=== PATIENT | male | born 1940 | race Caucasian/White ===

== ENCOUNTER 2019-09-13 03:19 | Emergency (ER) | payer MEDICARE, OTHER ==
--- NOTE | 2019-09-13 03:21 | ED Physician Documentation ---
History of Present Illness - Stated complaint Stated Complaint: ABD PX - History obtained from History obtained from: Patient (The patient is an 79-year-old male who presents to the emergency department with a chief complaint of right lower quadrant abdominal pain with without syncope.He denies any dysuria or hematuria or flank pain he denies any history of previous abdominal surgeries. He denies taking any anticoagulants or antiplatelets. He is a diabetic. He has a history of a pacemaker as well.) Review of Systems Constitutional: reports: Reviewed and negative Eyes: reports: Reviewed and negative Ears: reports: Reviewed and negative Nose: reports: Reviewed and negative Throat: reports: Reviewed and negative Cardiac: reports: Reviewed and negative Respiratory: reports: Reviewed and negative GI: reports: Abdominal Pain : reports: Reviewed and negative Skin: reports: Reviewed and negative Musculoskeletal: reports: Reviewed and negative Neurologic: reports: Reviewed and negative Psychiatric: reports: Reviewed and negative Endocrine: reports: Reviewed and negative Immunocompromised: reports: Reviewed and negative PD PAST MEDICAL HISTORY - Past Medical History Cardiovascular: Congestive heart failure, Hypertension Endocrine/Autoimmune: Type 2 diabetes GI: GERD, Hemorrhoids, Diverticulitis Musculoskeletal: Rheumatoid arthritis - Past Surgical History Past Surgical History: Yes General: Colonoscopy Ortho: Spine surgery - Present Medications Home Medications: Ambulatory Orders Medication Instructions Recorded Confirmed Amlodipine Besylate 10 mg PO DAILY 02/17/13 09/13/19 Aspirin [Aspir 81] 81 mg PO DAILY 02/17/13 09/13/19 Carvedilol [Coreg] 12.5 mg PO BID 02/17/13 09/13/19 Folic Acid 1 mg PO DAILY 02/17/13 09/13/19 Hydralazine HCl 25 mg PO TID 02/17/13 09/13/19 Magnesium 420 mg PO DAILY 02/17/13 09/13/19 Methotrexate 2.5 mg PO .FREQ 02/17/13 09/13/19 Nitroglycerin [Nitrostat] 0.4 mg SL ONCE PRN 02/17/13 09/13/19 Omeprazole 20 mg PO BID 02/17/13 09/13/19 Potassium Chloride [Klor-Con M20] 20 meq PO BID 02/17/13 09/13/19 Acetaminophen [Tylenol] 650 mg PO DAILY 09/13/19 09/13/19 Brimonidine Tartrate/Timolol 1 drops EACHEYE BID 09/13/19 09/13/19 [Combigan 0.2%-0.5% Eye Drops] Eplerenone 12.5 mg PO DAILY 09/13/19 09/13/19 Furosemide 40 mg PO DAILY 09/13/19 09/13/19 Glimepiride 8 mg PO DAILY 09/13/19 09/13/19 Insulin Glargine [Lantus Solostar] 10 units SUBQ QPM 09/13/19 09/13/19 Krill/Om-3/Dha/Epa/Phospho/Ast 3 cap PO DAILY 09/13/19 09/13/19 [Krill Oil 500 mg Softgel] Latanoprost 0.005% Ophth Drops 1 drops EACHEYE QPM 09/13/19 09/13/19 [Xalatan Ophth Drops] Levothyroxine Sodium 150 mcg PO DAILY 09/13/19 09/13/19 Metformin HCl 1,000 mg PO BID 09/13/19 09/13/19 Red Yeast Rice 600 mg PO BID 09/13/19 09/13/19 Rituximab-Abbs [Truxima] 09/13/19 Sacubitril/Valsartan [Entresto 49 2 tab PO BID 09/13/19 09/13/19 mg-51 mg Tablet] Tamsulosin HCl [Flomax] 0.8 mg PO QPM 09/13/19 09/13/19 - Allergies Allergies/Adverse Reactions: Allergies Allergy/AdvReac Type Severity Reaction Status Date / Time [id number]-[id number] Reductase AdvReac Intermediate Cramps Verified 09/13/19 03:30 Inhibitor - Social History Does the pt smoke?: No Smoking Status: Never smoker Does the pt drink ETOH?: Yes Does the pt have substance abuse?: No - Immunizations Immunizations are current?: Yes - POLST Patient has POLST: No PD ED PE NORMAL - Vitals Vital signs reviewed: Yes - General General: Alert and oriented X 3, No acute distress, Well developed/nourished - HEENT HEENT: Atraumatic, PERRL - Neck Neck: Supple, no meningeal sign, No JVD - Cardiac Cardiac: RRR, No murmur, Strong equal pulses - Respiratory Respiratory: No respiratory distress, Clear bilaterally - Abdomen Abdomen: Normal bowel sounds, Soft, Non distended, Other (There is no midline abdominal pulsatile mass the abdomen's mildly obese he has a positive McBurney's point and positive Rovsing's negative Horton sign) - Derm Derm: Warm and dry - Extremities Extremities: No deformity - Neuro Neuro: Alert and oriented X 3 - Psych Psych: Normal mood, Normal affect Results - Vitals Vitals: Vital Signs - 24 hr 09/13/19 09/13/19 09/13/19 03:20 04:20 05:05 Temperature 36.3 C L Heart Rate 68 61 71 Respiratory 16 16 16 Rate Blood Pressure 182/67 H 163/67 H 198/70 H O2 Saturation 93 96 98 Oxygen O2 Source Room air - EKG (time done) 03:38 Rate: Other (no stemi) - Labs Labs: Laboratory Tests 09/13/19 09/13/19 09/13/19 03:43 03:43 03:43 WBC 4.5 L RBC 4.20 L Hgb 12.5 L Hct 37.8 L MCV 90.0 MCH 29.8 MCHC 33.1 RDW 14.1 Plt Count 141 MPV 10.7 Neut # (Auto) 2.9 Lymph # (Auto) 1.0 L [place] # (Auto) 0.4 Eos # (Auto) 0.1 Baso # (Auto) 0.0 Absolute Nucleated RBC 0.00 Nucleated RBC % 0.0 PT 12.2 INR 1.1 APTT 28.5 Sodium 137 Potassium 4.0 Chloride 102 Carbon Dioxide 25 Anion Gap 10.0 BUN 33 H Creatinine 1.1 Estimated GFR (MDRD) 64 L Glucose 154 H Lactic Acid Calcium 9.4 Total Bilirubin 0.9 AST 22 ALT 28 Alkaline Phosphatase 61 Total Creatine Kinase 243 Troponin I High Sens Total Protein 7.1 Albumin 4.2 Globulin 2.9 Albumin/Globulin Ratio 1.4 Lipase 25 Urine Color Urine Clarity Urine pH Ur Specific [place] Urine Protein Urine Glucose (UA) Urine Ketones Urine Occult Blood Urine Nitrite Urine Bilirubin Urine Urobilinogen Ur Leukocyte Esterase Ur Microscopic Review Urine Culture Comments 09/13/19 09/13/19 09/13/19 03:43 03:43 05:00 WBC RBC Hgb Hct MCV MCH MCHC RDW Plt Count MPV Neut # (Auto) Lymph # (Auto) [place] # (Auto) Eos # (Auto) Baso # (Auto) Absolute Nucleated RBC Nucleated RBC % PT INR APTT Sodium Potassium Chloride Carbon Dioxide Anion Gap BUN Creatinine Estimated GFR (MDRD) Glucose Lactic Acid 1.2 Calcium Total Bilirubin AST ALT Alkaline Phosphatase Total Creatine Kinase Troponin I High Sens 11.5 Total Protein Albumin Globulin Albumin/Globulin Ratio Lipase Urine Color YELLOW Urine Clarity CLEAR Urine pH 6.5 Ur Specific [place] <=1.005 Urine Protein 30 H Urine Glucose (UA) NEGATIVE Urine Ketones NEGATIVE Urine Occult Blood NEGATIVE Urine Nitrite NEGATIVE Urine Bilirubin NEGATIVE Urine Urobilinogen 0.2 (NORMAL) Ur Leukocyte Esterase NEGATIVE Ur Microscopic Review INDICATED Urine Culture Comments Not Reportable PD MEDICAL DECISION MAKING - ED course Complexity details: re-evaluated patient (05:22 patient pain free now, ct ap shows Diverticulosis otherwise unremarkable CT scan of the abdomen and pelvis with IV contrast. Labs are unremarkable, Patient's pain-free now patient will be discharged home and will follow-up with his primary care provider tomorrow.), considered differential (Appendicitis, diverticulitis, kidney stone) Departure - Departure Disposition: 01 Home, Self Care Clinical Impression: Abdominal pain Qualifiers: Abdominal location: unspecified location Qualified Code(s): R10.9 - Unspecified abdominal pain Condition: Stable Instructions: ED Abdominal Pain Unkn Cause Follow-Up: Provider,Other [Primary Care Provider] -
[2019-09-13] MEDS ORDERED: MORPHINE 2 MG/ML CARPUJECT IVP STA (03:27)
[2019-09-13] MEDS ORDERED: ONDANSETRON 4 MG/2 ML VIAL IVP STA (03:27)
[2019-09-13] MEDS ORDERED: SODIUM CHLORIDE 0.9% 1,000 ML IV ONE (03:27)
[2019-09-13 03:56] LABS: BASOPHILS % (AUTO) 0.2 %; EOSINOPHILS # (AUTO) 0.1 10^3/uL (0.0-0.7); EOSINOPHILS % (AUTO) 2.2 %; HGB - HEMOGLOBIN 12.5 g/dL (14.0-18.0); MEAN CORPUSCULAR HEMOGLOBIN 29.8 pg (27.0-31.0); MEAN CORPUSCULAR HGB CONC 33.1 g/dL (32.0-36.0); MEAN PLATELET VOLUME 10.7 fL (7.4-11.4); MONOCYTES # (AUTO) 0.4 10^3/uL (0.0-1.0); MONOCYTES % (AUTO) 9.6 %; NEUTROPHILS # (AUTO) 2.9 10^3/uL (1.5-6.6); NEUTROPHILS % (AUTO) 65.6 %; PLT - PLATELET COUNT 141 10^3/uL (130-450); RED CELL DISTRIBUTION WIDTH 14.1 % (12.0-15.0); WHITE BLOOD COUNT 4.5 x10^3/uL (4.8-10.8)
[2019-09-13 04:02] LABS: INR 1.1 (0.8-1.2); PT - PROTHROMBIN TIME 12.2 secs (9.9-12.6)
[2019-09-13] MEDS ORDERED: IOVERSOL 320 100 ML VIAL IVP ONE ×2 (04:05→04:47)
[2019-09-13 04:10] LABS: ALBUMIN 4.2 g/dL (3.2-5.5); ALBUMIN/GLOBULIN RATIO 1.4 (1.0-2.2); BILIRUBIN,TOTAL 0.9 mg/dL (0.2-1.0); CALCIUM 9.4 mg/dL (8.5-10.3); CREATININE 1.1 mg/dL (0.6-1.2); TOTAL PROTEIN 7.1 g/dL (6.7-8.2)
--- NOTE | 2019-09-13 04:13 | XRAY Report ---
Reason: sob Procedure Date: 09/13/2019 Accession Number: [id number] / [id number] Procedure: XR - Chest 1 View X-Ray CPT Code: 42557 Final Report FULL RESULT: EXAM: CHEST RADIOGRAPHY EXAM DATE: 09/13/2019 04:00 AM. CLINICAL HISTORY: Sob. COMPARISON: None. TECHNIQUE: 1 view. FINDINGS: Lungs/Pleura: Minimal linear atelectasis or scarring at the left base. No focal infiltrate, effusion, or pneumothorax. Mediastinum: Mild cardiomegaly. Other: Left subclavian pacemaker. IMPRESSION: Minimal left basilar atelectasis or scarring. RADIA
[2019-09-13 04:46] LABS: PARTIAL THROMBOPLASTIN TIME 28.5 secs (24.9-33.3)
--- NOTE | 2019-09-13 04:57 | CT Report ---
Reason: abd pain Procedure Date: 09/13/2019 Accession Number: [id number] / [id number] Procedure: CT - Abdomen/Pelvis W CPT Code: Final Report FULL RESULT: EXAM: CT ABDOMEN AND PELVIS EXAM DATE: 09/13/2019 04:45 AM. CLINICAL HISTORY: Abd pain. COMPARISONS: ABDOMEN/PELVIS W/ 10/05/2015 9:38 PM. TECHNIQUE: Routine helical CT imaging was performed through the abdomen and pelvis. IV contrast: 100 mL Optiray 320. Enteric contrast: No. Reconstructions: Coronal and sagittal. In accordance with CT protocol optimization, one or more of the following dose reduction techniques were utilized for this exam: automated exposure control, adjustment of mA and/or KV based on patient size, or use of iterative reconstructive technique. FINDINGS: Lung Bases: Unremarkable. Liver: Calcifications of previous granulomatous disease. No focal lesion. Gallbladder/Bile Ducts: Unremarkable. Spleen: Calcifications of previous granulomatous disease. Pancreas: Normal. Adrenal Glands: Normal. Kidneys: Incidental cortical cysts. No nephrolithiasis or hydronephrosis. Peritoneal Cavity/Bowel: Colonic diverticulosis, without CT evidence of diverticulitis. No free fluid, free air or adenopathy. No masses or acute inflammatory process. The appendix is well visualized and normal. Pelvic Organs: Normal. The bladder and visualized pelvic organs are within normal limits. Vasculature: Atherosclerotic calcifications. No aneurysm. Bones: Degenerative postoperative changes. Other: None. IMPRESSION: Colonic diverticulosis, without CT evidence of diverticulitis. Normal appendix. No bowel obstruction or perforation. No evident etiology for patient's pain. RADIA
[2019-09-13 05:13] LABS: BILIRUBIN,URINE NEGATIVE (NEGATIVE); CLARITY,URINE CLEAR (CLEAR); GLUCOSE, URINE (UA) NEGATIVE (NEGATIVE); KETONES,URINE (UA) NEGATIVE (NEGATIVE); LEUKOCYTE ESTERASE, URINE NEGATIVE (NEGATIVE); NITRITE,URINE NEGATIVE (NEGATIVE); OCCULT BLOOD,URINE NEGATIVE (NEGATIVE); PH,URINE 6.5 PH (5.0-7.5); PROTEIN,URINE 30 mg/dL (NEGATIVE); UROBILINOGEN,URINE 0.2 (NORMAL) E.U./dL (NORMAL)
[2019-09-13 05:25] LABS: BACTERIA,URINE None Seen /HPF (None Seen); RBC,URINE None Seen /HPF (0-5); SQUAMOUS EPITHELIAL CELL,UR RARE Squamous (<= Few)
[2019-09-13 06:16] VITALS: BP 163/70
== END 2019-09-13 06:16 | disposition home or self-care (01) ==
LOC: ED 03:19
DX: R10.9 Unspecified abdominal pain (principal); I10 Essential (primary) hypertension; E11.9 Type 2 diabetes mellitus without complications; Z79.4 Long term (current) use of insulin
CPT/HCPCS: 36415; 71045; 74177; 80053; 81001; 81003; 82550; 83605; 83690; 84484; 85025; 85610; 85730; 87086; 93005

== ENCOUNTER 2019-09-13 23:15 | Outpatient (CLI) | payer MEDICARE, OTHER | END 2019-09-13 23:59 | disposition critical access hospital (66) | LOC: EMS 23:15 | PROVIDERS: ATTEND Surgery | DX: R07.9 Chest pain, unspecified (principal); R10.9 Unspecified abdominal pain; R06.02 Shortness of breath | CPT/HCPCS: A0425; A0429 ==

== ENCOUNTER 2019-09-13 23:36 | Emergency (ER) | payer MEDICARE, OTHER ==
--- NOTE | 2019-09-13 23:24 | ED Physician Documentation ---
History of Present Illness - Stated complaint Stated Complaint: ABD PX - History obtained from History obtained from: Patient (the patient is a 79 y/o m who was presents via ems in no distress for a left sided chest pain and abdominal pain that he states is on the right side that has since resolved, he has a pacemaker, he was seen less than 24 hours ago in this ed and had a negative cxr, neg trop, neg ekg, neg CTAP w contrast, neg CBC, neg CMP, neg UA, was pain free on discharge, after he ate dinner tonight he begain belching heavily and called 911. he denies syncope, fevers or cough. the patient reports that he has no symptoms currently.) Review of Systems Constitutional: reports: Reviewed and negative Eyes: reports: Reviewed and negative Ears: reports: Reviewed and negative Nose: reports: Reviewed and negative Throat: reports: Reviewed and negative Cardiac: reports: Chest pain / pressure Respiratory: reports: Reviewed and negative GI: reports: Abdominal Pain, Nausea, Other (belching) : reports: Reviewed and negative Skin: reports: Reviewed and negative Musculoskeletal: reports: Reviewed and negative Neurologic: reports: Reviewed and negative Psychiatric: reports: Reviewed and negative Endocrine: reports: Reviewed and negative Immunocompromised: reports: Reviewed and negative PD PAST MEDICAL HISTORY - Present Medications Home Medications: Ambulatory Orders Medication Instructions Recorded Confirmed Amlodipine Besylate 10 mg PO DAILY 02/17/13 09/13/19 Aspirin [Aspir 81] 81 mg PO DAILY 02/17/13 09/13/19 Carvedilol [Coreg] 12.5 mg PO BID 02/17/13 09/13/19 Folic Acid 1 mg PO DAILY 02/17/13 09/13/19 Hydralazine HCl 25 mg PO TID 02/17/13 09/13/19 Magnesium 420 mg PO DAILY 02/17/13 09/13/19 Methotrexate 2.5 mg PO .FREQ 02/17/13 09/13/19 Nitroglycerin [Nitrostat] 0.4 mg SL ONCE PRN 02/17/13 09/13/19 Omeprazole 20 mg PO BID 02/17/13 09/13/19 Potassium Chloride [Klor-Con M20] 20 meq PO BID 02/17/13 09/13/19 Acetaminophen [Tylenol] 650 mg PO DAILY 09/13/19 09/13/19 Brimonidine Tartrate/Timolol 1 drops EACHEYE BID 09/13/19 09/13/19 [Combigan 0.2%-0.5% Eye Drops] Eplerenone 12.5 mg PO DAILY 09/13/19 09/13/19 Furosemide 40 mg PO DAILY 09/13/19 09/13/19 Glimepiride 8 mg PO DAILY 09/13/19 09/13/19 Insulin Glargine [Lantus Solostar] 10 units SUBQ QPM 09/13/19 09/13/19 Krill/Om-3/Dha/Epa/Phospho/Ast 3 cap PO DAILY 09/13/19 09/13/19 [Krill Oil 500 mg Softgel] Latanoprost 0.005% Ophth Drops 1 drops EACHEYE QPM 09/13/19 09/13/19 [Xalatan Ophth Drops] Levothyroxine Sodium 150 mcg PO DAILY 09/13/19 09/13/19 Metformin HCl 1,000 mg PO BID 09/13/19 09/13/19 Red Yeast Rice 600 mg PO BID 09/13/19 09/13/19 Rituximab-Abbs [Truxima] 09/13/19 Sacubitril/Valsartan [Entresto 49 2 tab PO BID 09/13/19 09/13/19 mg-51 mg Tablet] Tamsulosin HCl [Flomax] 0.8 mg PO QPM 09/13/19 09/13/19 - Allergies Allergies/Adverse Reactions: Allergies Allergy/AdvReac Type Severity Reaction Status Date / Time [id number] Reductase AdvReac Intermediate Cramps Verified 09/13/19 23:48 Inhibitor PD ED PE NORMAL - Vitals Vital signs reviewed: Yes - General General: Alert and oriented X 3, No acute distress, Well developed/nourished - HEENT HEENT: PERRL - Neck Neck: Supple, no meningeal sign - Cardiac Cardiac: RRR, No murmur, Strong equal pulses - Respiratory Respiratory: No respiratory distress, Clear bilaterally - Abdomen Abdomen: Normal bowel sounds, Soft, Non tender, Non distended, No organomegaly - Back Back: No CVA TTP, No spinal TTP - Derm Derm: Normal color, Warm and dry, No rash - Extremities Extremities: No deformity, No tenderness to palpate, Normal ROM s pain, No edema, No calf tenderness / cord - Neuro Neuro: Alert and oriented X 3, station cashier 2-12 intact, No motor deficit, No sensory deficit, Normal speech - Psych Psych: Normal mood, Normal affect Results - Vitals Vitals: Vital Signs - 24 hr 09/13/19 09/14/19 09/14/19 23:38 00:24 00:42 Temperature 37 C Heart Rate 69 63 60 Respiratory 18 15 20 Rate Blood Pressure 173/78 H 163/64 H 151/64 H O2 Saturation 98 98 96 09/14/19 09/14/19 01:28 02:03 Temperature Heart Rate 61 62 Respiratory 15 15 Rate Blood Pressure 155/62 H 155/70 H O2 Saturation 98 96 Oxygen O2 Source Room air - EKG (time done) 00:10 Rate: Other (no stemi) - Labs Labs: Laboratory Tests 09/13/19 09/13/19 09/13/19 00:10 00:10 00:10 WBC 5.2 RBC 4.30 L Hgb 12.7 L Hct 38.7 L MCV 90.0 MCH 29.5 MCHC 32.8 RDW 14.2 Plt Count 156 MPV 10.5 Neut # (Auto) 3.6 Lymph # (Auto) 1.0 L [place] # (Auto) 0.5 Eos # (Auto) 0.1 Baso # (Auto) 0.0 Absolute Nucleated RBC 0.00 Nucleated RBC % 0.0 PT 12.3 INR 1.1 APTT 27.7 Sodium 138 Potassium 4.0 Chloride 103 Carbon Dioxide 26 Anion Gap 9.0 BUN 31 H Creatinine 1.2 Estimated GFR (MDRD) 58 L Glucose 134 H Lactic Acid Calcium 9.3 Total Bilirubin 0.9 AST 22 ALT 25 Alkaline Phosphatase 65 Troponin I High Sens B-Natriuretic Peptide Total Protein 7.5 Albumin 4.4 Globulin 3.1 Albumin/Globulin Ratio 1.4 Lipase 26 Urine Color Urine Clarity Urine pH Ur Specific [place] Urine Protein Urine Glucose (UA) Urine Ketones Urine Occult Blood Urine Nitrite Urine Bilirubin Urine Urobilinogen Ur Leukocyte Esterase Urine RBC Urine WBC Ur Squamous Epith Cells Urine Bacteria Ur Microscopic Review Urine Culture Comments 09/13/19 09/13/19 09/13/19 00:10 00:10 00:10 WBC RBC Hgb Hct MCV MCH MCHC RDW Plt Count MPV Neut # (Auto) Lymph # (Auto) [place] # (Auto) Eos # (Auto) Baso # (Auto) Absolute Nucleated RBC Nucleated RBC % PT INR APTT Sodium Potassium Chloride Carbon Dioxide Anion Gap BUN Creatinine Estimated GFR (MDRD) Glucose Lactic Acid 1.0 Calcium Total Bilirubin AST ALT Alkaline Phosphatase Troponin I High Sens 11.2 B-Natriuretic Peptide 61 Total Protein Albumin Globulin Albumin/Globulin Ratio Lipase Urine Color Urine Clarity Urine pH Ur Specific [place] Urine Protein Urine Glucose (UA) Urine Ketones Urine Occult Blood Urine Nitrite Urine Bilirubin Urine Urobilinogen Ur Leukocyte Esterase Urine RBC Urine WBC Ur Squamous Epith Cells Urine Bacteria Ur Microscopic Review Urine Culture Comments 09/14/19 00:00 WBC RBC Hgb Hct MCV MCH MCHC RDW Plt Count MPV Neut # (Auto) Lymph # (Auto) [place] # (Auto) Eos # (Auto) Baso # (Auto) Absolute Nucleated RBC Nucleated RBC % PT INR APTT Sodium Potassium Chloride Carbon Dioxide Anion Gap BUN Creatinine Estimated GFR (MDRD) Glucose Lactic Acid Calcium Total Bilirubin AST ALT Alkaline Phosphatase Troponin I High Sens B-Natriuretic Peptide Total Protein Albumin Globulin Albumin/Globulin Ratio Lipase Urine Color YELLOW Urine Clarity CLEAR Urine pH 6.5 Ur Specific [place] <=1.005 Urine Protein 100 H Urine Glucose (UA) NEGATIVE Urine Ketones NEGATIVE Urine Occult Blood NEGATIVE Urine Nitrite NEGATIVE Urine Bilirubin NEGATIVE Urine Urobilinogen 0.2 (NORMAL) Ur Leukocyte Esterase NEGATIVE Urine RBC None Seen Urine WBC 0-3 Ur Squamous Epith Cells NONE SEEN Urine Bacteria None Seen Ur Microscopic Review INDICATED Urine Culture Comments NOT INDICATED PD MEDICAL DECISION MAKING - ED course Complexity details: reviewed old records, reviewed results, re-evaluated patient, considered differential (unsure of patients etiology of symptoms, he had a complete workup less than 24 hours ago and he called 911 to come back to the er and currently he has no complaints. his repeat ekg, repeat cxr, lab work, formal US are all unremarkable, he is asymptomatic at this time and has follow up today with his pcp, patient updated and is agreeable to f/u as an outpatient, patient educated and updated on all testing and would like to be dcd home at this time. ), d/w patient Departure - Departure Disposition: 01 Home, Self Care Clinical Impression: Abdominal pain Qualifiers: Abdominal location: unspecified location Qualified Code(s): R10.9 - Unspecified abdominal pain Condition: Stable Follow-Up: Tosin Knapp MD [Primary Care Provider] - 09/14/19 Comments: call your doctor today. Discharge Date/Time: 09/14/19 02:21
[2019-09-14] MEDS ORDERED: FAMOTIDINE 20 MG/2 ML VIAL ONE (00:05)
[2019-09-14] MEDS: FAMOTIDINE 20 MG/2 ML VIAL IVP STA (00:07)
[2019-09-14] MEDS: diphenhydrAMINE ELIXIR 25 MG/10 ML UDC PO STA (00:13)
[2019-09-14] MEDS: MAG HYDROX/AL HYDROX/SIMETH 30 ML UDC PO STA (00:14)
[2019-09-14] MEDS: LIDOCAINE VISCOUS 2% 15 ML UDC MM STA (00:14)
[2019-09-14 00:21] LABS: BASOPHILS % (AUTO) 0.4 %; EOSINOPHILS # (AUTO) 0.1 10^3/uL (0.0-0.7); EOSINOPHILS % (AUTO) 1.9 %; HGB - HEMOGLOBIN 12.7 g/dL (14.0-18.0); LYMPHOCYTES % (AUTO) 18.5 %; MEAN CORPUSCULAR HEMOGLOBIN 29.5 pg (27.0-31.0); MEAN CORPUSCULAR HGB CONC 32.8 g/dL (32.0-36.0); MEAN PLATELET VOLUME 10.5 fL (7.4-11.4); MONOCYTES # (AUTO) 0.5 10^3/uL (0.0-1.0); MONOCYTES % (AUTO) 9.6 %; NEUTROPHILS # (AUTO) 3.6 10^3/uL (1.5-6.6); NEUTROPHILS % (AUTO) 69.4 %; PLT - PLATELET COUNT 156 10^3/uL (130-450); RED CELL DISTRIBUTION WIDTH 14.2 % (12.0-15.0); WHITE BLOOD COUNT 5.2 x10^3/uL (4.8-10.8)
[2019-09-14 00:28] LABS: INR 1.1 (0.8-1.2); PT - PROTHROMBIN TIME 12.3 secs (9.9-12.6)
[2019-09-14] MEDS: GI COCKTAIL 120 ML BOTTLE PO ONE (00:28)
[2019-09-14 00:33] LABS: BILIRUBIN,URINE NEGATIVE (NEGATIVE); GLUCOSE, URINE (UA) NEGATIVE (NEGATIVE); KETONES,URINE (UA) NEGATIVE (NEGATIVE); LEUKOCYTE ESTERASE, URINE NEGATIVE (NEGATIVE); NITRITE,URINE NEGATIVE (NEGATIVE); OCCULT BLOOD,URINE NEGATIVE (NEGATIVE); PH,URINE 6.5 PH (5.0-7.5); PROTEIN,URINE 100 mg/dL (NEGATIVE); UROBILINOGEN,URINE 0.2 (NORMAL) E.U./dL (NORMAL)
[2019-09-14 00:33] LABS: ALBUMIN 4.4 g/dL (3.2-5.5); ALBUMIN/GLOBULIN RATIO 1.4 (1.0-2.2); BILIRUBIN,TOTAL 0.9 mg/dL (0.2-1.0); CALCIUM 9.3 mg/dL (8.5-10.3); CREATININE 1.2 mg/dL (0.6-1.2); TOTAL PROTEIN 7.5 g/dL (6.7-8.2)
[2019-09-14 00:35] LABS: PARTIAL THROMBOPLASTIN TIME 27.7 secs (24.9-33.3)
[2019-09-14 00:35] LABS: CLARITY,URINE CLEAR (CLEAR)
[2019-09-14 00:40] LABS: BACTERIA,URINE None Seen /HPF (None Seen); RBC,URINE None Seen /HPF (0-5); SQUAMOUS EPITHELIAL CELL,UR NONE SEEN (<= Few)
--- NOTE | 2019-09-14 01:34 | XRAY Report ---
Reason: cp Procedure Date: 09/14/2019 Accession Number: [id number] / [id number] Procedure: XR - Chest 1 View X-Ray CPT Code: 85931 Final Report FULL RESULT: EXAM: CHEST RADIOGRAPHY EXAM DATE: 09/14/2019 12:35 AM. CLINICAL HISTORY: Cp. COMPARISON: CHEST 1 VIEW 09/13/2019 3:38 AM. TECHNIQUE: 1 view. FINDINGS: Lungs/Pleura: No focal opacities evident. No pleural effusion. No pneumothorax. Mediastinum: Within exam limitations, the cardiomediastinal contour is normal. Other: Stable pacemaker. IMPRESSION: No evidence of acute cardiopulmonary disease. RADIA
[2019-09-14 02:03] VITALS: BP 155/70
--- NOTE | 2019-09-14 02:10 | Ultrasound Report ---
Reason: RUQ ABD PAIN Procedure Date: 09/14/2019 Accession Number: [id number] / [id number] Procedure: US - Abdomen Limited CPT Code: Final Report FULL RESULT: EXAM: ABDOMEN ULTRASOUND LIMITED, RUQ EXAM DATE: 09/14/2019 01:34 AM. CLINICAL HISTORY: RUQ ABD PAIN. COMPARISON: CT, 09/13/2019. TECHNIQUE: Real-time scanning was performed with static images obtained. FINDINGS: Liver: Echogenic, consistent with fatty infiltration. 21.5 cm. Main portal vein flow: Hepatopetal. Gallbladder: No stones are seen in the gallbladder. Wall thickness is upper normal. Tenderness over the gallbladder. Biliary System: CBD measures 6 mm. No intrahepatic or extrahepatic ductal dilatation. Other: Right kidney measures 13.5 cm. No hydronephrosis seen. Renal cyst measuring 1.4 x 1.0 cm. Pancreas is not well seen. IMPRESSION: 1. No cholelithiasis or definite cholecystitis identified. There is some tenderness over the gallbladder of uncertain significance. 2. Enlarged fatty liver. RADIA
== END 2019-09-14 02:21 | disposition home or self-care (01) ==
LOC: EDUNIT# → ED 23:36
DX: R10.9 Unspecified abdominal pain (principal); I10 Essential (primary) hypertension; E11.9 Type 2 diabetes mellitus without complications; Z79.4 Long term (current) use of insulin
CPT/HCPCS: 36415; 71045; 74177; 76705; 80053; 81001; 82550; 83605; 83690; 83880; 84484; 85025; 85610; 85730; 93005; 96374; A9270; Q9967; 81003; 87086

== ENCOUNTER 2019-09-19 18:52 | Outpatient (CLI) | payer MEDICARE, OTHER | END 2019-09-19 18:53 | disposition critical access hospital (66) | LOC: EMS 18:52 | PROVIDERS: ATTEND Surgery | DX: R03.0 Elevated blood-pressure reading, without diagnosis of hypertension (principal); R07.9 Chest pain, unspecified | CPT/HCPCS: A0425; A0429 ==

== ENCOUNTER 2019-09-19 19:14 | Emergency (ER) | payer MEDICARE, OTHER ==
--- NOTE | 2019-09-19 19:24 | ED Physician Documentation ---
PD HPI CHEST PAIN - Stated complaint Stated Complaint: HTN, CP - History obtained from History obtained from: Patient - History of Present Illness Timing - onset: Other (79-year-old gentleman with history of I guess ischemic cardiomyopathy. He says he has had a heart attack but no stents or bypass. At one point he says his ejection fraction was 35% but subsequently improved on medications but he does not know to what. He does have an AICD in place. He noted that his blood pressure was quite high overnight last night. Up over around 200/100 despite taking his medications. There was some mild chest pressure with this and some pitting edema. Denies shortness of breath. Currently he has no pain. He never had such severe pain. Never had pain radiating to the back.) Review of Systems Ten Systems: 10 systems reviewed and negative Constitutional: denies: Fever, Chills Throat: denies: Dental pain / toothache, Sore throat Cardiac: reports: Chest pain / pressure, Pedal edema. denies: Palpitations, Calf pain Respiratory: denies: Dyspnea, Cough PD PAST MEDICAL HISTORY - Past Medical History Cardiovascular: Congestive heart failure, Hypertension Respiratory: None Neuro: None Endocrine/Autoimmune: Type 2 diabetes, HyPOthyroidism GI: GERD, Hemorrhoids, Diverticulitis : Benign prostate hypertrophy HEENT: None Psych: None Musculoskeletal: Rheumatoid arthritis Derm: None - Past Surgical History Past Surgical History: Yes General: Colonoscopy Ortho: Spine surgery Cardiovascular: Pacemaker Derm: Skin cancer surgery - Present Medications Home Medications: Ambulatory Orders Medication Instructions Recorded Confirmed Amlodipine Besylate 10 mg PO DAILY 02/17/13 09/13/19 Aspirin [Aspir 81] 81 mg PO DAILY 02/17/13 09/13/19 Carvedilol [Coreg] 12.5 mg PO BID 02/17/13 09/13/19 Folic Acid 1 mg PO DAILY 02/17/13 09/13/19 Hydralazine HCl 25 mg PO TID 02/17/13 09/13/19 Magnesium 420 mg PO DAILY 02/17/13 09/13/19 Methotrexate 2.5 mg PO .FREQ 02/17/13 09/13/19 Nitroglycerin [Nitrostat] 0.4 mg SL ONCE PRN 02/17/13 09/13/19 Omeprazole 20 mg PO BID 02/17/13 09/13/19 Potassium Chloride [Klor-Con M20] 20 meq PO BID 02/17/13 09/13/19 Acetaminophen [Tylenol] 650 mg PO DAILY 09/13/19 09/13/19 Brimonidine Tartrate/Timolol 1 drops EACHEYE BID 09/13/19 09/13/19 [Combigan 0.2%-0.5% Eye Drops] Eplerenone 12.5 mg PO DAILY 09/13/19 09/13/19 Furosemide 40 mg PO DAILY 09/13/19 09/13/19 Glimepiride 8 mg PO DAILY 09/13/19 09/13/19 Insulin Glargine [Lantus Solostar] 10 units SUBQ QPM 09/13/19 09/13/19 Krill/Om-3/Dha/Epa/Phospho/Ast 3 cap PO DAILY 09/13/19 09/13/19 [Krill Oil 500 mg Softgel] Latanoprost 0.005% Ophth Drops 1 drops EACHEYE QPM 09/13/19 09/13/19 [Xalatan Ophth Drops] Levothyroxine Sodium 150 mcg PO DAILY 09/13/19 09/13/19 Metformin HCl 1,000 mg PO BID 09/13/19 09/13/19 Red Yeast Rice 600 mg PO BID 09/13/19 09/13/19 Rituximab-Abbs [Truxima] 09/13/19 Sacubitril/Valsartan [Entresto 49 2 tab PO BID 09/13/19 09/13/19 mg-51 mg Tablet] Tamsulosin HCl [Flomax] 0.8 mg PO QPM 09/13/19 09/13/19 Nitroglycerin 0.4 mg SL Q5M PRN #1 bot 09/19/19 cloNIDine HCL [Clonidine HCl] 0.1 mg PO BID PRN #30 tablet 09/19/19 - Allergies Allergies/Adverse Reactions: Allergies Allergy/AdvReac Type Severity Reaction Status Date / Time Mwhyaeh-Iis-Agh Reductase AdvReac Intermediate Cramps Verified 09/13/19 23:48 Inhibitor - Social History Does the pt smoke?: No Smoking Status: Never smoker Does the pt drink ETOH?: Yes Does the pt have substance abuse?: No - Immunizations Immunizations are current?: Yes - POLST Patient has POLST: No PD ED PE NORMAL - Vitals Vital signs reviewed: Yes - General General: Alert and oriented X 3, No acute distress - HEENT HEENT: PERRL, EOMI - Neck Neck: Supple, no meningeal sign, No bony TTP - Cardiac Cardiac: RRR, No murmur - Respiratory Respiratory: No respiratory distress, Clear bilaterally - Abdomen Abdomen: Non tender - Back Back: No CVA TTP, No spinal TTP - Extremities Extremities: Other (Trace pitting pedal edema at the ankles) - Neuro Neuro: Alert and oriented X 3, Normal speech Results - Vitals Vitals: Vital Signs - 24 hr 09/19/19 09/19/19 09/19/19 19:20 20:00 20:36 Temperature 36.7 C Heart Rate 66 67 65 Respiratory 18 16 16 Rate Blood Pressure 186/77 H 147/64 H 156/68 H O2 Saturation 97 97 97 Oxygen O2 Source Room air - EKG (time done) 1916 Rate: Rate (enter#) (70) Rhythm: Paced (Ventricular) - Labs Labs: Laboratory Tests 09/19/19 09/19/19 09/19/19 19:25 19:45 19:45 WBC 5.8 RBC 4.42 L Hgb 12.9 L Hct 39.3 L MCV 88.9 MCH 29.2 MCHC 32.8 RDW 14.1 Plt Count 174 MPV 10.8 Neut # (Auto) 4.2 Lymph # (Auto) 1.1 L [place] # (Auto) 0.4 Eos # (Auto) 0.1 Baso # (Auto) 0.0 Absolute Nucleated RBC 0.00 Nucleated RBC % 0.0 PT INR Sodium 133 L Potassium 3.7 Chloride 103 Carbon Dioxide 22 Anion Gap 8.0 BUN 31 H Creatinine 1.1 Estimated GFR (MDRD) 64 L Glucose 152 H Calcium 9.1 Total Bilirubin 0.9 AST 20 ALT 24 Alkaline Phosphatase 64 Troponin I High Sens 10.8 Total Protein 7.5 Albumin 4.3 Globulin 3.2 Albumin/Globulin Ratio 1.3 Lipase 22 09/19/19 19:45 WBC RBC Hgb Hct MCV MCH MCHC RDW Plt Count MPV Neut # (Auto) Lymph # (Auto) [place] # (Auto) Eos # (Auto) Baso # (Auto) Absolute Nucleated RBC Nucleated RBC % PT 12.5 INR 1.1 Sodium Potassium Chloride Carbon Dioxide Anion Gap BUN Creatinine Estimated GFR (MDRD) Glucose Calcium Total Bilirubin AST ALT Alkaline Phosphatase Troponin I High Sens Total Protein Albumin Globulin Albumin/Globulin Ratio Lipase PD MEDICAL DECISION MAKING - ED course ED course: 79-year-old gentleman with multiple risk factors presents with resolved chest pain associated with hypertension. He is on multiple antihypertensives. Work- up here was without overt evidence of ischemia. Case was discussed by phone with Dr. Davi Webster, acid loader at the [facility]. He did not think the patient needed to be treated as an inpatient but does recommend stress testing as an outpatient and he will have someone reach out to him from the [facility] to arrange that. He wanted his amlodipine to be doubled from 5 mg to 10 mg a day However subsequent to that conversation the patient said he had already doubled his amlodipine from 5 mg to 10 mg despite it not being on his current med list. As such he was given a prescription for clonidine as needed only when his blood pressure is very high. Departure - Departure Disposition: 01 Home, Self Care Clinical Impression: Atypical chest pain Hypertension Qualifiers: Hypertension type: essential hypertension Qualified Code(s): I10 - Essential (primary) hypertension Condition: Good Record reviewed to determine appropriate education?: Yes Instructions: ED Chest Pain Atypical Unkn Cause Prescriptions: cloNIDine HCL [Clonidine HCl] 0.1 mg PO BID PRN #30 tablet PRN Reason: Hypertensive Emergency Nitroglycerin 0.4 mg SL Q5M PRN #1 bot PRN Reason: Chest Pain Comments: Increase your amlodipine to 10 mg twice a day. I discussed your case by phone with Dr. Davi Webster, cardiology at the [facility]. They will reach out to you to arrange for urgent stress testing. If you develop recurrent chest pain please return here by ambulance for reevaluation.
[2019-09-19 19:36] LABS: BASOPHILS % (AUTO) 0.2 %; EOSINOPHILS # (AUTO) 0.1 10^3/uL (0.0-0.7); EOSINOPHILS % (AUTO) 1.4 %; HGB - HEMOGLOBIN 12.9 g/dL (14.0-18.0); LYMPHOCYTES # (AUTO) 1.1 10^3/uL (1.5-3.5); LYMPHOCYTES % (AUTO) 18.1 %; MEAN CORPUSCULAR HEMOGLOBIN 29.2 pg (27.0-31.0); MEAN CORPUSCULAR HGB CONC 32.8 g/dL (32.0-36.0); MEAN CORPUSCULAR VOLUME 88.9 fL (80.0-94.0); MEAN PLATELET VOLUME 10.8 fL (7.4-11.4); MONOCYTES # (AUTO) 0.4 10^3/uL (0.0-1.0); MONOCYTES % (AUTO) 6.9 %; NEUTROPHILS # (AUTO) 4.2 10^3/uL (1.5-6.6); NEUTROPHILS % (AUTO) 73.1 %; PLT - PLATELET COUNT 174 10^3/uL (130-450); RED BLOOD COUNT 4.42 10^6/uL (4.70-6.10); RED CELL DISTRIBUTION WIDTH 14.1 % (12.0-15.0); WHITE BLOOD COUNT 5.8 x10^3/uL (4.8-10.8)
[2019-09-19] MEDS: ASPIRIN CHEW 81 MG TABLET PO STA (19:37)
[2019-09-19 20:03] LABS: INR 1.1 (0.8-1.2); PT - PROTHROMBIN TIME 12.5 secs (9.9-12.6)
[2019-09-19 20:04] LABS: ALBUMIN 4.3 g/dL (3.2-5.5); ALBUMIN/GLOBULIN RATIO 1.3 (1.0-2.2); BILIRUBIN,TOTAL 0.9 mg/dL (0.2-1.0); CALCIUM 9.1 mg/dL (8.5-10.3); CREATININE 1.1 mg/dL (0.6-1.2); TOTAL PROTEIN 7.5 g/dL (6.7-8.2)
[2019-09-19 20:36] VITALS: BP 156/68
[2019-09-19] MEDS: cloNIDine 0.1 MG TABLET PO STA (20:50)
== END 2019-09-19 21:15 | disposition home or self-care (01) ==
LOC: EDUNIT# → ED 19:14
DX: R07.89 Other chest pain (principal); I10 Essential (primary) hypertension; E11.9 Type 2 diabetes mellitus without complications; Z79.4 Long term (current) use of insulin
CPT/HCPCS: 36415; 80053; 83690; 84484; 85025; 85610; 93005; 99284; 99285; A9270

== ENCOUNTER 2019-09-21 13:13 | Outpatient (CLI) | payer MEDICARE, OTHER | END 2019-09-21 13:14 | disposition short-term general hospital (02) | LOC: EMS 13:13 | PROVIDERS: ATTEND Surgery | DX: R07.89 Other chest pain (principal) | CPT/HCPCS: A0425; A0427 ==

== ENCOUNTER 2020-07-19 10:31 | Outpatient (CLI) | payer MEDICARE, OTHER ==
--- NOTE | 2020-07-19 11:07 | XRAY Report ---
PROCEDURE: Chest 2 View X-Ray INDICATIONS: COUGH, WHEEZING, OTHER RESPIRATORY SYMPTOMS TECHNIQUE: 2 view(s) of the chest. COMPARISON: 09/14/2019 FINDINGS: Surgical changes and devices: None. Lungs and pleura: No pleural effusions or pneumothorax. Lungs are clear. Mediastinum: Mediastinal contours are normal. Heart size is normal. Bones and chest wall: No suspicious bony abnormalities. Soft tissues appear unremarkable. IMPRESSION: No acute cardiopulmonary process demonstrated radiographically. Reviewed by: Parish Wesley MD on 07/19/2020 11:06 AM PST Approved by: Parish Wesley MD on 07/19/2020 11:06 AM PST Station ID: [id number]
== END 2020-07-19 10:32 | disposition home or self-care (01) ==
LOC: DI.N 10:31
PROVIDERS: ATTEND Physician Assistant
DX: R05 Cough (principal); R06.2 Wheezing; R09.89 Other specified symptoms and signs involving the circulatory and respiratory systems

== ENCOUNTER 2020-07-27 07:00 | Outpatient (CLI) | payer MEDICARE, OTHER | END 2020-07-27 23:59 | disposition home or self-care (01) | LOC: LAB.N 07:00 | PROVIDERS: ATTEND Physician Assistant Medical | DX: J15.8 Pneumonia due to other specified bacteria (principal); Z20.822 Contact with and (suspected) exposure to COVID-19 | CPT/HCPCS: 87275; 87276; U0004 ==

== ENCOUNTER 2020-08-04 21:08 | Outpatient (CLI) | payer MEDICARE, OTHER | END 2020-08-04 21:09 | disposition EMS.NT | LOC: EMS 21:08 | DX: I10 Essential (primary) hypertension (principal) ==

== ENCOUNTER 2020-08-04 22:09 | Emergency (ER) | payer MEDICARE, OTHER ==
[2020-08-04] MEDS ORDERED: amLODIPine 5 MG TABLET PO STA (22:25)
[2020-08-04 22:34] LABS: BASOPHILS % (AUTO) 0.4 %; EOSINOPHILS # (AUTO) 0.2 10^3/uL (0.0-0.7); EOSINOPHILS % (AUTO) 2.2 %; HCT - HEMATOCRIT 37.4 % (42.0-52.0); HGB - HEMOGLOBIN 11.9 g/dL (14.0-18.0); LYMPHOCYTES # (AUTO) 1.1 10^3/uL (1.5-3.5); LYMPHOCYTES % (AUTO) 15.8 %; MEAN CORPUSCULAR HEMOGLOBIN 28.5 pg (27.0-31.0); MEAN CORPUSCULAR HGB CONC 31.8 g/dL (32.0-36.0); MEAN CORPUSCULAR VOLUME 89.5 fL (80.0-94.0); MEAN PLATELET VOLUME 9.2 fL (7.4-11.4); MONOCYTES # (AUTO) 0.6 10^3/uL (0.0-1.0); MONOCYTES % (AUTO) 8.3 %; NEUTROPHILS # (AUTO) 4.9 10^3/uL (1.5-6.6); NEUTROPHILS % (AUTO) 72.6 %; PLT - PLATELET COUNT 223 10^3/uL (130-450); RED BLOOD COUNT 4.18 10^6/uL (4.70-6.10); RED CELL DISTRIBUTION WIDTH 14.4 % (12.0-15.0); WHITE BLOOD COUNT 6.7 x10^3/uL (4.8-10.8)
--- NOTE | 2020-08-04 22:36 | ED Physician Documentation ---
History of Present Illness - Stated complaint Stated Complaint: ELEVATED BP - Chief complaint Chief Complaint: Cardiac - History obtained from History obtained from: Patient - Additonal information Additional information: 80-year-old man with past medical history of high blood pressure, cardiac history, recent viral upper respiratory infection lasting about 3 weeks status post Z-Catarino presents with high blood pressure since that time, measured today to be in the systolic 190s prompting him to call EMS. Patient states that he otherwise has been feeling normal and has not experienced any chest pain, shortness of breath, fever chills, nausea, lightheadedness or neurological deficits. Review of Systems Ten Systems: 10 systems reviewed and negative Constitutional: denies: Fever, Chills Eyes: denies: Loss of vision Ears: denies: Loss of hearing Nose: reports: Other (recent viral uri) Throat: denies: Sore throat Cardiac: denies: Chest pain / pressure Respiratory: denies: Dyspnea GI: denies: Abdominal Pain, Nausea : denies: Dysuria Skin: denies: Rash Musculoskeletal: denies: Neck pain, Back pain Neurologic: denies: Generalized weakness, Headache PD PAST MEDICAL HISTORY - Past Medical History Cardiovascular: Congestive heart failure, Hypertension Respiratory: None Neuro: None Endocrine/Autoimmune: Type 2 diabetes, HyPOthyroidism GI: GERD, Hemorrhoids, Diverticulitis : Benign prostate hypertrophy HEENT: None Psych: None Musculoskeletal: Rheumatoid arthritis Derm: None - Past Surgical History Past Surgical History: Yes General: Colonoscopy Ortho: Spine surgery Cardiovascular: Pacemaker Derm: Skin cancer surgery - Present Medications Home Medications: Ambulatory Orders Medication Instructions Recorded Confirmed Amlodipine Besylate 5 mg PO BID 02/17/13 08/04/20 Aspirin [Aspir 81] 81 mg PO DAILY 02/17/13 08/04/20 Carvedilol [Coreg] 12.5 mg PO BID 02/17/13 08/04/20 Folic Acid 1 mg PO DAILY 02/17/13 08/04/20 Hydralazine HCl 25 mg PO TID 02/17/13 08/04/20 Magnesium 420 mg PO DAILY 02/17/13 08/04/20 Methotrexate [Methotrexate Sodium] 7.5 mg PO BID 02/17/13 08/04/20 Nitroglycerin [Nitrostat] 0.4 mg SL ONCE PRN 02/17/13 08/04/20 Omeprazole 20 mg PO BID 02/17/13 08/04/20 Acetaminophen [Tylenol] 650 mg PO DAILY 09/13/19 08/04/20 Brimonidine Tartrate/Timolol 1 drops EACHEYE BID 09/13/19 08/04/20 [Combigan 0.2%-0.5% Eye Drops] Eplerenone 25 mg PO DAILY 09/13/19 08/04/20 Furosemide 40 mg PO BID 09/13/19 08/04/20 Glimepiride 4 mg PO BID 09/13/19 08/04/20 Insulin Glargine [Lantus Solostar] 15 units SUBQ QPM 09/13/19 08/04/20 Krill/Om-3/Dha/Epa/Phospho/Ast 3 cap PO DAILY 09/13/19 08/04/20 [Krill Oil 500 mg Softgel] Latanoprost 0.005% Ophth Drops 1 drops EACHEYE QPM 09/13/19 08/04/20 [Xalatan Ophth Drops] Levothyroxine Sodium 150 mcg PO DAILY 09/13/19 08/04/20 Metformin HCl 1,000 mg PO BID 09/13/19 08/04/20 Red Yeast Rice 600 mg PO BID 09/13/19 08/04/20 Rituximab-Abbs [Truxima] 09/13/19 Sacubitril/Valsartan [Entresto 49 2 tab PO BID 09/13/19 08/04/20 mg-51 mg Tablet] Tamsulosin HCl [Flomax] 0.8 mg PO QPM 09/13/19 08/04/20 Nitroglycerin 0.4 mg SL Q5M PRN #1 bot 09/19/19 08/04/20 Eplerenone [Inspra] 25 mg PO DAILY 08/04/20 08/04/20 - Allergies Allergies/Adverse Reactions: Allergies Allergy/AdvReac Type Severity Reaction Status Date / Time Bsohbui-Sns-Bsk Reductase AdvReac Intermediate Cramps Verified 09/13/19 23:48 Inhibitor - Social History Does the pt smoke?: No Smoking Status: Never smoker Does the pt drink ETOH?: Yes Does the pt have substance abuse?: No - Immunizations Immunizations are current?: Yes - POLST Patient has POLST: No PD ED PE NORMAL - Vitals Vital signs reviewed: Yes - General General: Alert and oriented X 3, No acute distress, Well developed/nourished - HEENT HEENT: Atraumatic, PERRL, EOMI - Neck Neck: Supple, no meningeal sign - Cardiac Cardiac: RRR - Respiratory Respiratory: No respiratory distress, Clear bilaterally - Abdomen Abdomen: Non tender, Non distended - Male Male : Deferred - Rectal Rectal: Deferred - Back Back: No CVA TTP, No spinal TTP - Derm Derm: Normal color, Warm and dry - Extremities Extremities: No deformity, Other (1+ BL pitting edema) - Neuro Neuro: Alert and oriented X 3, 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, No motor deficit, No sensory deficit - Psych Psych: Normal mood, Normal affect Results - Vitals Vitals: Vital Signs - 24 hr 08/04/20 08/04/20 08/04/20 22:13 22:20 22:29 Temperature 36.8 C Heart Rate 69 64 Respiratory 20 15 Rate Blood Pressure 170/67 H 171/61 H Blood Pressure 137/114 H [Left] Blood Pressure 171/61 H [Right] O2 Saturation 96 97 08/04/20 08/05/20 08/05/20 23:30 00:28 01:13 Temperature 36.5 C 36.4 C L Heart Rate 61 75 60 Respiratory 17 17 16 Rate Blood Pressure 148/60 H 166/78 H 132/57 H Blood Pressure [Left] Blood Pressure [Right] O2 Saturation 97 96 97 Oxygen O2 Source Room air - EKG (time done) 2220 Rate: Rate (enter#) (68) Rhythm: Other (atrial sensed ventricular paced - NSR) Other comments: Other comments Compare to prior EKG: Unchanged from prior EKG (09/14/19) - Labs Labs: Laboratory Tests 08/04/20 08/04/20 08/04/20 22:29 22:29 22:29 WBC 6.7 RBC 4.18 L Hgb 11.9 L Hct 37.4 L MCV 89.5 MCH 28.5 MCHC 31.8 L RDW 14.4 Plt Count 223 MPV 9.2 Neut # (Auto) 4.9 Lymph # (Auto) 1.1 L [place] # (Auto) 0.6 Eos # (Auto) 0.2 Baso # (Auto) 0.0 Absolute Nucleated RBC 0.00 Nucleated RBC % 0.0 Sodium 137 Potassium 4.2 Chloride 97 L Carbon Dioxide 27 Anion Gap 13.0 BUN 32 H Creatinine 1.3 H Estimated GFR (MDRD) 53 L Glucose 136 H Calcium 9.8 Total Bilirubin 0.5 AST 36 ALT 46 Alkaline Phosphatase 59 Troponin I High Sens 11.0 Total Protein 7.1 Albumin 3.6 Globulin 3.5 Albumin/Globulin Ratio 1.0 Lipase 21 L PD MEDICAL DECISION MAKING - ED course ED course: 80-year-old man presented with asymptomatic hypertension, improving here with oral amlodipine. Physical exam without acute concerning findings. labwork, cxr noncontributory. ekg unchanged from previous. Strict return precautions given. He will follow up with his doctor at the [facility]. Departure - Departure Disposition: 01 Home, Self Care Clinical Impression: Asymptomatic hypertension Condition: Good Instructions: High Blood Pressure Comments: You are seen in the emergency department for high blood pressure. Your blood work and EKG did not show any new concerning findings. You should make sure that you stay well-hydrated and drink 8 to 10 glasses of water a day. Eat green leafy vegetables that are high in potassium because this can lower your blood pressure. Make a follow-up appointment with your doctor at the [facility] in [place] this week. Return to the emergency department if you have any of the concerning symptoms that we discussed. Return for any new or worsening symptoms or other concerns. Discharge Date/Time: 08/05/20 01:14
[2020-08-04 22:49] LABS: ALBUMIN 3.6 g/dL (3.2-5.5); BILIRUBIN,TOTAL 0.5 mg/dL (0.2-1.0); CALCIUM 9.8 mg/dL (8.5-10.3); CREATININE 1.3 mg/dL (0.6-1.2); POTASSIUM 4.2 mmol/L (3.5-5.0); TOTAL PROTEIN 7.1 g/dL (6.7-8.2)
[2020-08-05 01:13] VITALS: BP 132/57
--- NOTE | 2020-08-05 08:48 | XRAY Report ---
PROCEDURE: Chest 1 View X-Ray INDICATIONS: Chest Pain TECHNIQUE: One view of the chest was acquired. COMPARISON: 07/19/2020 FINDINGS: Surgical changes and devices: Unchanged cardiac AICD. Lungs and pleura: No pleural effusions or pneumothorax. Lungs are clear. Mediastinum: Mediastinal contours appear normal. Heart size is normal. Bones and chest wall: No suspicious bony lesions. Overlying soft tissues appear unremarkable. IMPRESSION: No acute disease. Findings are concordant with the preliminary study interpretation provided at the t anna of the study. Reviewed by: Juan J Newman MD on 08/05/2020 8:46 AM [facility] Approved by: Juan J Newman MD on 08/05/2020 8:46 AM PST Station ID: [id number]
== END 2020-08-05 01:14 | disposition home or self-care (01) ==
LOC: ED 22:09
DX: I10 Essential (primary) hypertension (principal); E11.9 Type 2 diabetes mellitus without complications; Z79.4 Long term (current) use of insulin; Z79.82 Long term (current) use of aspirin; Z95.0 Presence of cardiac pacemaker
CPT/HCPCS: 36415; 71045; 80053; 83690; 84484; 85025; 93005; 99283; 99284; A9270

== ENCOUNTER 2021-10-24 08:00 | Outpatient (CLI) | payer MEDICARE, OTHER ==
--- NOTE | 2021-10-24 10:36 | XRAY Report ---
PROCEDURE: Chest 2 View X-Ray INDICATIONS: COUGH TECHNIQUE: 2 view(s) of the chest. COMPARISON: 08/04/2020 FINDINGS: Surgical changes and devices: Left-sided cardiac pacer device is unchanged in positioning.. Lungs and pleura: No pleural effusions or pneumothorax. Redemonstration of linear left basilar opac ities near the costophrenic angle which may represent atelectasis versus scarring. No focal consolida tion. Mediastinum: Mediastinal contours are normal. Heart size is normal. Bones and chest wall: No suspicious bony abnormalities. Soft tissues appear unremarkable. IMPRESSION: Stable examination of the chest without acute cardiopulmonary abnormalities. No new foca l airspace disease/pneumonia identified. Reviewed by: Joey Lindsey MD on 10/24/2021 10:35 AM PDT Approved by: Joey Lindsey MD on 10/24/2021 10:35 AM PDT Station ID: [id number]
== END 2021-10-24 23:59 | disposition home or self-care (01) ==
LOC: DI.N 08:00
PROVIDERS: ATTEND Family Medicine
DX: R05.9 Cough, unspecified (principal)

== ENCOUNTER 2022-06-27 03:48 | Outpatient (CLI) | payer MEDICARE, OTHER | END 2022-06-27 03:49 | disposition critical access hospital (66) | LOC: EMS 03:48 | DX: S00.11XA Contusion of right eyelid and periocular area, initial encounter (principal); W18.39XA Other fall on same level, initial encounter; Y92.003 Bedroom of unspecified non-institutional (private) residence as the place of occurrence of the external cause; R42 Dizziness and giddiness; R53.1 Weakness; R53.81 Other malaise; R11.2 Nausea with vomiting, unspecified; R19.7 Diarrhea, unspecified; R68.83 Chills (without fever) | CPT/HCPCS: A0425; A0427 ==

== ENCOUNTER 2022-06-27 04:06 | Inpatient (IN) | payer MEDICARE, OTHER ==
[2022-06-27] MEDS ORDERED: SODIUM CHLORIDE 0.9% 1,000 ML IV STA (04:18)
--- NOTE | 2022-06-27 04:21 | ED Physician Documentation ---
History of Present Illness - Stated complaint Stated Complaint: GLF - History obtained from History obtained from: Patient, EMS - Additonal information Additional information: 82-year-old man with past medical history Arrhythmia on eliquis presents status post fall with head trauma.Patient was modified trauma called in by EMS.Patient states he was trying to get his pants on and became lightheaded, fell to the ground and hit his left head and left arm. Denies pain anywhere but does state he has been feeling ill over the past couple of days with malaise, acute on chronic cough, fever/chills, nonbloody nonbilious nausea and vomiting as well as diarrhea. Review of Systems Constitutional: reports: Fever, Chills, Fatigue Cardiac: denies: Chest pain / pressure Respiratory: reports: Cough GI: reports: Nausea, Vomiting, Diarrhea. denies: Abdominal Pain, Constipation : denies: Dysuria Skin: reports: Abrasion (s) Neurologic: reports: Head injury. denies: LOC PD PAST MEDICAL HISTORY - Past Medical History Cardiovascular: Congestive heart failure, Hypertension Respiratory: None Neuro: None Endocrine/Autoimmune: Type 2 diabetes, HyPOthyroidism GI: GERD, Hemorrhoids, Diverticulitis : Benign prostate hypertrophy HEENT: None Psych: None Musculoskeletal: Rheumatoid arthritis Derm: None - Past Surgical History Past Surgical History: Yes General: Colonoscopy Ortho: Spine surgery Cardiovascular: Pacemaker Derm: Skin cancer surgery - Present Medications Home Medications: Ambulatory Orders Medication Instructions Recorded Confirmed Amlodipine Besylate 5 mg PO BID 02/17/13 08/04/20 Aspirin [Aspir 81] 81 mg PO DAILY 02/17/13 08/04/20 Carvedilol [Coreg] 12.5 mg PO BID 02/17/13 08/04/20 Folic Acid 1 mg PO DAILY 02/17/13 08/04/20 Hydralazine HCl 25 mg PO TID 02/17/13 08/04/20 Magnesium 420 mg PO DAILY 02/17/13 08/04/20 Methotrexate [Methotrexate Sodium] 7.5 mg PO BID 02/17/13 08/04/20 Omeprazole 20 mg PO BID 02/17/13 08/04/20 Acetaminophen [Tylenol] 650 mg PO DAILY 09/13/19 08/04/20 Brimonidine Tartrate/Timolol 1 drops EACHEYE BID 09/13/19 08/04/20 [Combigan 0.2%-0.5% Eye Drops] Eplerenone 25 mg PO DAILY 09/13/19 08/04/20 Furosemide 40 mg PO BID 09/13/19 08/04/20 Glimepiride 4 mg PO BID 09/13/19 08/04/20 Insulin Glargine [Lantus Solostar] 15 units SUBQ QPM 09/13/19 08/04/20 Krill/Om-3/Dha/Epa/Phospho/Ast 3 cap PO DAILY 09/13/19 08/04/20 [Krill Oil 500 mg Softgel] Latanoprost 0.005% Ophth Drops 1 drops EACHEYE QPM 09/13/19 08/04/20 [Xalatan Ophth Drops] Levothyroxine Sodium 150 mcg PO DAILY 09/13/19 08/04/20 Metformin HCl 1,000 mg PO BID 09/13/19 08/04/20 Rituximab-Abbs [Truxima] 09/13/19 Sacubitril/Valsartan [Entresto 49 2 tab PO BID 09/13/19 08/04/20 mg-51 mg Tablet] Tamsulosin HCl [Flomax] 0.8 mg PO QPM 09/13/19 08/04/20 Nitroglycerin 0.4 mg SL Q5M PRN #1 bot 09/19/19 08/04/20 Eplerenone [Inspra] 25 mg PO DAILY 08/04/20 08/04/20 Apixaban [Eliquis] 5 mg PO BID 06/27/22 06/27/22 - Allergies Allergies/Adverse Reactions: Allergies Allergy/AdvReac Type Severity Reaction Status Date / Time Yrdbfiq-HCF-UnB Reductase AdvReac Intermediate Cramps Verified 06/27/22 04:20 Inhibitor [Jgytjzv-Zao-Eln Reductase Inhibitor] - Social History Does the pt smoke?: No Smoking Status: Never smoker Does the pt drink ETOH?: Yes Does the pt have substance abuse?: No - Immunizations Immunizations are current?: Yes - POLST Patient has POLST: No PD ED PE NORMAL - Vitals Vital signs reviewed: Yes - General General: Alert and oriented X 3, No acute distress, Well developed/nourished - HEENT HEENT: Atraumatic, PERRL, EOMI, Pharynx benign - Neck Neck: No bony TTP - Cardiac Cardiac: RRR - Respiratory Respiratory: Other (coarse BL breath sounds) - Abdomen Abdomen: Non tender, Non distended - Back Back: No spinal TTP - Derm Derm: Other (avulsed skin to L external elbow) - Extremities Extremities: No deformity, Normal ROM s pain - Neuro Neuro: Alert and oriented X 3, 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, No motor deficit, No sensory deficit, Normal speech Eye Opening: Spontaneous Motor: Obeys Commands Verbal: Oriented GCS Score: 15 - Psych Psych: Normal mood, Normal affect Results - Vitals Vitals: Vital Signs - 24 hr 06/27/22 06/27/22 06/27/22 04:10 04:51 05:49 Temperature 38.9 C H 37.6 C Heart Rate 78 73 73 Respiratory 18 16 17 Rate Blood Pressure 125/115 H 124/52 L O2 Saturation 98 97 98 06/27/22 06/27/22 06:05 07:12 Temperature Heart Rate 65 Respiratory 16 16 Rate Blood Pressure O2 Saturation 96 Oxygen O2 Source Room air - Labs Labs: Laboratory Tests 06/27/22 06/27/22 06/27/22 04:20 05:12 05:12 WBC 6.8 RBC 3.39 L Hgb 10.0 L Hct 31.3 L MCV 92.3 MCH 29.5 MCHC 31.9 L RDW 18.1 H Plt Count 98 L MPV 10.9 Neut # (Auto) 6.0 Lymph # (Auto) 0.3 L [place] # (Auto) 0.4 Eos # (Auto) 0.0 Baso # (Auto) 0.0 Absolute Nucleated RBC 0.00 Nucleated RBC % 0.0 Sodium 132 L Potassium 3.6 Chloride 97 L Carbon Dioxide 24 Anion Gap 11.0 BUN 33 H Creatinine 1.8 H Estimated GFR (MDRD) 36 L Glucose 92 Lactic Acid Calcium 8.8 Total Bilirubin 0.9 AST 18 ALT 19 Alkaline Phosphatase 49 Total Protein 6.7 Albumin 3.6 Globulin 3.1 Albumin/Globulin Ratio 1.2 Nasal Adenovirus (PCR) NOT DETECTED Nasal B. parapertussis DNA (PCR) NOT DETECTED Nasal Coronavir 229E PCR NOT DETECTED Nasal Coronavir HKU1 PCR NOT DETECTED Nasal Coronavir NL63 PCR NOT DETECTED Nasal Coronavir OC43 PCR NOT DETECTED Nasal Enterovir/Rhinovir PCR NOT DETECTED Nasal Influenza B PCR NOT DETECTED Nasal Influenza A PCR NOT DETECTED Nasal Parainfluen 1 PCR NOT DETECTED Nasal Parainfluen 2 PCR NOT DETECTED Nasal Parainfluen 3 PCR NOT DETECTED Nasal Parainfluen 4 PCR NOT DETECTED Nasal RSV (PCR) NOT DETECTED Nasal B.pertussis DNA PCR NOT DETECTED Nasal C.pneumoniae (PCR) NOT DETECTED Miguel Human Metapneumo PCR NOT DETECTED Nasal M.pneumoniae (PCR) NOT DETECTED Nasal SARS-CoV-2 (PCR) NOT DETECTED 06/27/22 05:12 WBC RBC Hgb Hct MCV MCH MCHC RDW Plt Count MPV Neut # (Auto) Lymph # (Auto) [place] # (Auto) Eos # (Auto) Baso # (Auto) Absolute Nucleated RBC Nucleated RBC % Sodium Potassium Chloride Carbon Dioxide Anion Gap BUN Creatinine Estimated GFR (MDRD) Glucose Lactic Acid 1.3 Calcium Total Bilirubin AST ALT Alkaline Phosphatase Total Protein Albumin Globulin Albumin/Globulin Ratio Nasal Adenovirus (PCR) Nasal B. parapertussis DNA (PCR) Nasal Coronavir 229E PCR Nasal Coronavir HKU1 PCR Nasal Coronavir NL63 PCR Nasal Coronavir OC43 PCR Nasal Enterovir/Rhinovir PCR Nasal Influenza B PCR Nasal Influenza A PCR Nasal Parainfluen 1 PCR Nasal Parainfluen 2 PCR Nasal Parainfluen 3 PCR Nasal Parainfluen 4 PCR Nasal RSV (PCR) Nasal B.pertussis DNA PCR Nasal C.pneumoniae (PCR) Miguel Human Metapneumo PCR Nasal M.pneumoniae (PCR) Nasal SARS-CoV-2 (PCR) PD Medical Decision Making - ED course ED course: 82yM p/w fever, lightheaded episode resulting in collapse. CBC, abdominal panel, lactate and blood cultures ordered in addition to traumatic workup. Patient is dehydrated appearing on exam and does have scot and elevated BUN creatinine ratio concerning for acute dehydration in the setting of febrile illness. Head and cervical spine CT, cxr, uncovered no traumatic injury but there is evidence of pneumonia on imaging. antibiotics and fluids provided. Patient meets criteria for inpatient admission based on CURB-65 score 3 (severe risk group with 14% 30- day mortality) due to BUN >19, diastolic BP <60, and age >65. d/w patient who is agreeable to admission. d/w Dr. Nguyen for admission Departure - Departure Disposition: 66 [facility] DC/Xfer Clinical Impression: Pneumonia, SCOT (acute kidney injury), Anemia, Lightheadedness Condition: Stable
[2022-06-27] MEDS ORDERED: TETANUS/DIPHTHERIA/PERTUSSIS 0.5 ML SYRINGE IM ONE (04:23)
[2022-06-27] MEDS ORDERED: BACITRACIN ZINC OINT 1 PACKET TOP STA (04:24)
[2022-06-27 05:19] LABS: BASOPHILS % (AUTO) 0.1 %; HCT - HEMATOCRIT 31.3 % (42.0-52.0); LYMPHOCYTES # (AUTO) 0.3 10^3/uL (1.5-3.5); LYMPHOCYTES % (AUTO) 4.4 %; MEAN CORPUSCULAR HEMOGLOBIN 29.5 pg (27.0-31.0); MEAN CORPUSCULAR HGB CONC 31.9 g/dL (32.0-36.0); MEAN CORPUSCULAR VOLUME 92.3 fL (80.0-94.0); MEAN PLATELET VOLUME 10.9 fL (7.4-11.4); MONOCYTES # (AUTO) 0.4 10^3/uL (0.0-1.0); MONOCYTES % (AUTO) 6.1 %; NEUTROPHILS % (AUTO) 88.8 %; PLT - PLATELET COUNT 98 10^3/uL (130-450); RED BLOOD COUNT 3.39 10^6/uL (4.70-6.10); RED CELL DISTRIBUTION WIDTH 18.1 % (12.0-15.0); WHITE BLOOD COUNT 6.8 x10^3/uL (4.8-10.8)
[2022-06-27 05:31] LABS: ALBUMIN 3.6 g/dL (3.2-5.5); ALBUMIN/GLOBULIN RATIO 1.2 (1.0-2.2); BILIRUBIN,TOTAL 0.9 mg/dL (0.2-1.0); CALCIUM 8.8 mg/dL (8.5-10.3); CREATININE 1.8 mg/dL (0.6-1.2); POTASSIUM 3.6 mmol/L (3.5-5.0); TOTAL PROTEIN 6.7 g/dL (6.7-8.2)
[2022-06-27 05:37] LABS: B. PARAPERTUSSIS- RESP PCR PAN NOT DETECTED; B. PERTUSSIS- RESP PCR PANEL NOT DETECTED; C. PNEUMONIAE- RESP PCR PANEL NOT DETECTED; CORONAVIRUS 229E-RESP PCR NOT DETECTED; CORONAVIRUS HKU1-RESP PCR NOT DETECTED; CORONAVIRUS NL63-RESP PCR NOT DETECTED; CORONAVIRUS OC43-RESP PCR NOT DETECTED; HUMAN METAPNEUMOVIRUS NOT DETECTED; INFLUENZA A- RESP PCR PANEL NOT DETECTED; INFLUENZA B - RESP PCR PANEL NOT DETECTED; M. PNEUMONIAE- RESP PCR PANEL NOT DETECTED; PARAINFLUENZA VIRUS 1 NOT DETECTED; PARAINFLUENZA VIRUS 2 NOT DETECTED; PARAINFLUENZA VIRUS 3 NOT DETECTED; PARAINFLUENZA VIRUS 4 NOT DETECTED; RHINOVIRUS/ENTEROVIRUS NOT DETECTED; RSV- RESP PCR PANEL NOT DETECTED; SARS-CoV-2 -RESP PCR PANEL NOT DETECTED
[2022-06-27] MEDS ORDERED: ACETAMINOPHEN 325 MG TABLET PO STA (05:57)
[2022-06-27] MEDS ORDERED: cefTRIAXone 1 GM in SODIUM CHLORIDE 0.9% MINIBAG 100 ML IV STA (06:43)
[2022-06-27] MEDS ORDERED: AZITHROMYCIN INJ 500 MG in SODIUM CHLORIDE 0.9% 250 ML IV STA (06:43)
[2022-06-27] MEDS ORDERED: cefTRIAXone 1 GM VIAL ONE (06:52)
[2022-06-27] MEDS ORDERED: PROCHLORPERAZINE 10 MG/2 ML VIAL IVP PRN (07:50)
[2022-06-27] MEDS ORDERED: ONDANSETRON 4 MG/2 ML VIAL IVP PRN (07:50)
--- NOTE | 2022-06-27 07:50 | HISTORY & PHYSICAL EXAMINATION ---
Chief Complaint - Chief Complaint Chief Complaint: Lightheaded and fell at home History of Present Illness - Admitted From Admitted From:: ED - History Obtained From History obtained from: ED provider, chart review, the patient and the and family in the room - History of Present Illness HPI Comment/Other: This is an 82-year-old man who lives at home with his and family. He has a history of rheumatoid arthritis on methotrexate, DIMAS on CPAP at home, diabetes mellitus on insulin, glimepiride and metformin, and history of systolic heart failure for which he is on Coreg, Entresto and Eplerenone. He does have an AICD in place. His PCP and Pack Room Operator are at the [facility]. The patient presented to the ER brought in by ambulance after a fall at home and could not stand up on his own or be lifted by family. The patient describes having painless diarrhea for fthe past 3 days, and nausea, with retching, but no significant vomiting. His noticed that he was confused for the last 2 days, he forgot how to work a TV remote. Despite this he was taking all his usual medications, checking his glucose by fingerstick and giving himself his own insulin as on his sliding scale. Today he remembers being lightheaded and after finishing having diarrhea, he stood from the toilet, walked to the bedroom, and while getting dressed, he reached down and then he fell forward, hitting his left forehead and his L arm. He did not "black out'. His could not pick him up. He could not stand up on his own. The son who lives in the same building heard the sounds and also try to come and help him up and could only sit him up but left him seated on the floor with legs extended in front of him. 911 was called. He was then attended to by 2 female EMS personnel who also could not lift him and finally fire truck personnel lifted him onto a gurney for transport. Glu at the scene was 89. BP and HR were In the ED, the work-up for the fall included a CT head and CT spine which were negative for trauma. On spine imaging, there was suggestion of a right lower lobe pulmonary infiltrate however. The chest x-ray confirmed a right base infiltrate. He had a fever on presentation to the ER and his labs show SCOT with BUN/creat of . He has a normal white blood count but takes methotrexate. He was not hypoxic at rest. BP and HR were stable in the ED. The ED provider reached out to the Hospitalist team to have this patient admitted for treatment of a community-acquired pneumonia and nausea, vomiting and diarrhea causing SCOT. Given that he scored high on PSI score and CURB-65 score, which give him poor prognoses, he will be admitted to Inpatient status. History - Past Medical History Cardiovascular: reports: Congestive heart failure, Hypertension, Atrial fibrillation (He thinks this was recently Dx on his AICD interrogation and he is on new Eliquis for 1 mo.) Respiratory: reports: CPAP use Neuro: reports: None Endocrine/Autoimmune: reports: Type 2 diabetes, HyPOthyroidism, Other (RA on MTX once a week) GI: reports: GERD, Hemorrhoids, Diverticulitis (Denies ever having colitis or diarrhea like now) : reports: Benign prostate hypertrophy HEENT: reports: None Psych: reports: None Musculoskeletal: reports: Rheumatoid arthritis Derm: reports: Other (Recent rash in his groin for which she took OTC antifungal creams) MRSA Hx?: No - Past Surgical History General: reports: Colonoscopy Ortho: reports: Spine surgery Cardiovascular: reports: AICD Derm: reports: Skin cancer surgery - Family & Social History Family History Comment/Other: Diabetes runs in all his children Living arrangement: At home Living Situation: With spouse/s.o., With family Social History Notes: He does not drink alcohol, he quit smoking cigarettes in 1994. He is retired from shipyard work. He still drives a car. - Substance History Use: Uses substance without health or social issues: NONE - POLST Patient has POLST: No Meds/Allgy - Home Medications Home Medications: Ambulatory Orders Medication Instructions Recorded Confirmed Amlodipine Besylate 5 mg PO DAILY 02/17/13 06/27/22 Aspirin [Aspir 81] 81 mg PO DAILY 02/17/13 06/27/22 Carvedilol [Coreg] 12.5 mg PO BID 02/17/13 06/27/22 Folic Acid 1 mg PO DAILY 02/17/13 06/27/22 Methotrexate [Methotrexate Sodium] 25 mg PO Q7D 02/17/13 06/27/22 Acetaminophen [Tylenol] 650 mg PO DAILY 09/13/19 06/27/22 Brimonidine Tartrate/Timolol 1 drops EACHEYE BID 09/13/19 06/27/22 [Combigan 0.2%-0.5% Eye Drops] Furosemide 40 mg PO DAILY 09/13/19 06/27/22 Glimepiride 4 mg PO BID 09/13/19 06/27/22 Insulin Glargine [Lantus Solostar] 15 units SUBQ QPM PRN 09/13/19 06/27/22 Krill/Om-3/Dha/Epa/Phospho/Ast 4 cap PO DAILY 09/13/19 06/27/22 [Krill Oil 500 mg Softgel] Latanoprost 0.005% Ophth Drops 1 drops EACHEYE QPM 09/13/19 06/27/22 [Xalatan Ophth Drops] Levothyroxine Sodium 150 mcg PO DAILY 09/13/19 06/27/22 Metformin HCl 1,000 mg PO BID 09/13/19 06/27/22 Sacubitril/Valsartan [Entresto 49 1 tab PO BID 09/13/19 06/27/22 mg-51 mg Tablet] Tamsulosin HCl [Flomax] 0.8 mg PO QPM 09/13/19 06/27/22 Nitroglycerin 0.4 mg SL Q5M PRN #1 bot 09/19/19 06/27/22 Eplerenone [Inspra] 50 mg PO DAILY 08/04/20 06/27/22 Albuterol Sulfate [Proair 1 - 2 puffs IH Q6H PRN 06/27/22 06/27/22 Digihaler] Apixaban [Eliquis] 5 mg PO BID 06/27/22 06/27/22 Ferrous Sulfate [Feosol] 325 mg PO BID 06/27/22 06/27/22 Magnesium Oxide 840 mg PO DAILY 06/27/22 06/27/22 Non Formulary 1 each PO BID 06/27/22 06/27/22 Pantoprazole [Protonix] 40 mg PO QDDINNER 06/27/22 06/27/22 Prednisolone Acetate/Pf 1 drops EACHEYE Q48H 06/27/22 06/27/22 [Prednisolone Acet 1% Eye Drop] Propylene Glycol/Peg 400 [Systane 1 drops EACHEYE QID PRN 06/27/22 06/27/22 Ultra 0.4-0.3% Eye Drp] Tiotropium [place] [Spiriva 2.5 mcg INH DAILY 06/27/22 06/27/22 Respimat] - Allergies Allergies/Adverse Reactions: Allergies Allergy/AdvReac Type Severity Reaction Status Date / Time [id number] Reductase AdvReac Intermediate Cramps Verified 06/27/22 04:20 Inhibitor [Kabaval-Bsx-Yja Reductase Inhibitor] Review of Systems - Constitutional Constitutional: reports: Weakness - Gastrointestinal Gastrointestinal: reports: Diarrhea - Integumentary Integumentary: reports: Rash (in groin, started before the diarrhea) - All Other Systems All Other Systems: reports: Reviewed and negative Exam - Vital Signs Vital Signs: Vital Signs x48h Temp Pulse Resp BP Pulse Ox 06/27/22 07:12 65 16 96 06/27/22 06:05 16 06/27/22 05:49 37.6 C 73 17 124/52 L 98 06/27/22 04:51 73 16 97 06/27/22 04:10 38.9 C H 78 18 125/115 H 98 Conclusion/Plan - Problem List (1) Pneumonia Conclusion/Plan: He presents with minimal complaints of a cough, after retching and has a fever here. He has a normal white count and is not desaturating but his chest x-ray and CT scan showed a right sided consolidation. Plan: Will admit to Inpatient status, because according to MCG criteria, this man has a class IV PSI score (with age of 82, history of CHF and BUN is > 29), and also has high CURB-65 score of III (with BUN >19, diastolic BP less than 60mmHg and age over 65). We will continue with empiric antibiotics using IV ceftriaxone and Zithromax Will order Mucinex for respiratory toilet and obtain a sputum culture if he makes sputum. (2) C. difficile diarrhea Conclusion/Plan: He reports having very little nausea and only retching, nearly no vomiting. His biggest complaint is of diarrhea for the past 3 days. Despite that he was taking all his usual diabetic and cardiac meds The diarrhea presumably added to his volume depletion causing his "soft" blood pressure and SCOT. A stool sample has been sent and has come back positive for C. difficile. Patient denies having taken any recent antibiotics and also denies any exposure to people that had diarrhea. He does have a history of diverticulosis but states he has never had diarrhea like this before. He did not have any imaging done of the abdomen pelvis in the ED to determine if there could be colitis on top of pneumonia Plan: Will order contact isolation Start oral vancomycin Will order clear liquids, advance as tolerated Will give IV antiemetics if needed Will start IV fluids, watch I's and O's. Will obtain CT imaging of the abdomen/pelvis (3) SCOT (acute kidney injury) Conclusion/Plan: Patient has a BUN/creatinine of 33/1.8. In review of his old labs he always has some prerenal azotemia with BUN in the 30s but normal creat, probably because he is on Eplerenone and Lasix. But now, in addition he has been diarrhea fluid losses, and currently the creatinine is also elevated Plan: Will not give Lasix or Eplerenone or Entresto. Pt and family were told of this plan. Will give IV fluids for 1 to 3 L total, watching for fluid overload and hypoxia Follow I's and O's Follow BMP daily Avoid nephrotoxins (4) Fall at home Conclusion/Plan: Patient has been feeling weak with 3 days of diarrhea then was noticeably confused for 2 days and lightheaded 1-2 dyas, and today fell when leaning down, he fell forward and hit his head. He thinks he had no syncope however. Plan: Will place on telemetry and watch for arrhythmias Will check orthostatic vital signs every shift Given his low diastolic blood pressure already, several of his CHF meds will be on hold (Entresto, eplerenone, Lasix and will decrease his Coreg dose temporarily). I informed the patient and family members in the room today about this entire plan (5) DM type 2 (diabetes mellitus, type 2) Conclusion/Plan: According to his medication list, the patient is on insulin, glipizide and metformin. He states he takes his insulin at night and knows to adjusted down from 15 units, based on what his fingerstick glucose checks are; therefore he recently has taken 5 to 7 units at night. While in the ED he did think he was having a hypoglycemic attack. The fingerstick was done when he arrived to his inpatient room and the glucose was documented at 59. He was given juice and treated per hypoglycemia protocol. Plan: Will currently not start a diabetic diet but will order clear liquids then pured diet because of his vomiting. We will advance to solid food with a diabetic diet when tolerated. Will check his A1c Will order his glipizide but not the metformin while he is in SCOT Will order fingerstick glu checks, sliding scale Reg insulin coverage and hypoglycemia protocol (6) Hx of heart failure Conclusion/Plan: According to old records that I reviewed, the patient used to have an EF of 35% and has an AICD. The EF has recovered and his med list shows that he is on Coreg, Entresto, eplerenone and Lasix Plan: Will give a lower dose of Coreg because of the diastolic hypotension Will not give Entresto or eplerenone since they are not on formulary and he currently does not need diuresis Watch for volume overload while he is getting IV fluids for several days and will not give the Lasix currently (7) Paroxysmal A-fib Conclusion/Plan: According to his description, he "thinks" Afib is the abnormal heart rhythm that was recently found on his device interrogation. He was started on Eliquis 1 month ago. His EKG and telemetry show that he is currently in a dual-chamber paced rhythm, not in Afib, therefore his aFIB MUST BE PAROXYSMAL Plan: We will continue with Coreg for rate control but at a lower dose because of low blood pressure Will continue with Eliquis, adjusting the dose for his SCOT and advanced age (8) Rheumatoid arthritis Conclusion/Plan: He is on methotrexate weekly for this diagnosis. Plan: Will review with pharmacy whether to continue this or not currently and proper dosing. - Lab Results Fish Bones: 06/27/22 05:12 06/27/22 05:12 - Diagnostic Imaging Results Diagnostic Imaging Results: positive: Final report reviewed - Other Other Results/Comments: Attestation: The patient is expected to be discharged or transferred to another facility within 96 hours: Yes.
[2022-06-27] MEDS ORDERED: METHOTREXATE 2.5 MG TABLET PO SCH ×2 (09:00→17:00)
[2022-06-27] MEDS ORDERED: APIXABAN 5 MG TABLET PO SCH ×2 (09:00→12:15)
[2022-06-27] MEDS: SODIUM CHLORIDE 0.9% 1,000 ML IV SCH ×2 (10:01→18:20)
[2022-06-27] MEDS: BRIMONIDINE 0.2% OPHTH DROPS 5 ML EACHEYE SCH ×2 (10:02→21:59)
[2022-06-27] MEDS: LEVOTHYROXINE 75 MCG TABLET PO SCH (10:05)
[2022-06-27] MEDS: GLIMEPIRIDE 2 MG TABLET PO SCH ×2 (10:05→21:58)
[2022-06-27] MEDS: FOLIC ACID 1 MG TABLET PO SCH (10:06)
[2022-06-27] MEDS: guaiFENesin 600 MG TABLET PO SCH ×2 (10:06→21:59)
[2022-06-27] MEDS: TIMOLOL 0.5% OPHTH DROPS EACHEYE SCH ×2 (10:07→22:00)
[2022-06-27] MEDS: SODIUM CHLORIDE FLUSH 0.9% 10 ML SYRINGE IVP SCH ×2 (10:07→17:20)
[2022-06-27] MEDS: carvediloL 3.125 MG TABLET PO SCH ×2 (10:07→22:01)
--- NOTE | 2022-06-27 10:41 | XRAY Report ---
PROCEDURE: Chest 1 View X-Ray INDICATIONS: s/p fall TECHNIQUE: One view of the chest was acquired. COMPARISON: Chest x-ray 10/24/2021 FINDINGS: Surgical changes and devices: Pacemaker is unchanged. Lungs and pleura: Slight appearance of increased opacity within the right base Mediastinum: Mediastinal contours appear normal. Heart size is mildly enlarged. Bones and chest wall: No suspicious bony lesions. Overlying soft tissues appear unremarkable. IMPRESSION: Slight increased right basilar opacity. This could represent dependent change/atelectasis versus deve loping pneumonia. The above findings are concordant with preliminary report. Reviewed by: Amaris Majano MD on 06/27/2022 10:39 AM [facility] Approved by: Amaris Majano MD on 06/27/2022 10:39 AM [facility] Station ID: [id number]
--- NOTE | 2022-06-27 10:48 | CT Report ---
PROCEDURE: HEAD WO INDICATIONS: modified trauma TECHNIQUE: Noncontrast 4.5 mm thick angled axial sections acquired from the foramen magnum to the vertex. For r adiation dose reduction, the following was used: automated exposure control, adjustment of mA and/or kV according to patient size. COMPARISON: None. FINDINGS: Image quality: Excellent. The ventricular system and cortical sulci demonstrate atrophy, consistent for patient's stated age. There are areas of hypodensity in the periventricular and subcortical white matter. There is no acut e intra or extra-axial fluid collection. No acute hemorrhage, mass lesion or midline shift. Brainst em is unremarkable. Globes are symmetrical. Sinuses are aerated. Osseous structures are intact. IMPRESSION: 1. No acute intracranial process. 2. Moderate atrophy and chronic microvascular ischemic changes. Reviewed by: Amaris Majano MD on 06/27/2022 10:47 AM [facility] Approved by: Amaris Majano MD on 06/27/2022 10:47 AM [facility] Station ID: [id number]
--- NOTE | 2022-06-27 10:51 | CT Report ---
PROCEDURE: CERVICAL SPINE WO INDICATIONS: modified trauma TECHNIQUE: Noncontrast 3 mm thick sections acquired from the skull base to the T4 level. Sagittal and coronal r eformats were then constructed. For radiation dose reduction, the following was used: automated exp osure control, adjustment of mA and/or kV according to patient size. COMPARISON: None. FINDINGS: Image quality: Excellent. Bones: No fractures or dislocations. Visualized superior ribs are intact. Prominent multilevel deg enerative changes including disc space narrowing as well as anterior osteophytes and uncovertebral hy pertrophy. Soft tissues: Prevertebral soft tissues are normal in thickness. No paravertebral hematomas. No ap ical pneumothoraces. 1.2 cm nodular focus of opacity in the medial right apex. No priors are availab le for comparison. IMPRESSION: Multilevel degenerative changes without visualized fracture. 1.2 nodular medial right apical opacity, nonspecific and no priors are available for comparison. This could represent a small focus of infection. However, recommend interval follow-up as below. Fleischner Society criteria for SOLID lung nodule followup. Nodule size (mm) *<6 *Low-risk patient: No follow-up needed *High-risk patient: Optional CT at 12 months; if no change, no further follow-up *6-8 *Low-risk patient: Initial follow-up CT at 6-12 months, then optional CT at 18-24 months. *High-risk patient: Initial follow-up CT at CT at 6-[address] 18-24 months. *>8 single nodule *Low-risk patient: CT, PET or biopsy at 3 months. *High-risk patient: Same as for low-risk pts. *>8 multiple nodules *Low-risk patient: CT at 3-6 months, then optional CT at 18-24 months *High-risk patient: CT at 3-6 months, then CT at 18-24 months Reviewed by: Amaris Majano MD on 06/27/2022 10:50 AM PST Approved by: Amaris Majano MD on 06/27/2022 10:50 AM PST Station ID: [id number]
[2022-06-27] MEDS: INSULIN LISPRO 300 UNIT/3 ML PEN SUBQ SCH ×3 (12:03→22:02)
--- NOTE | 2022-06-27 12:06 | PHARMACY PROGRESS NOTE ---
- Best Possible Medication History Admit Date and Time: 06/27/22 0750 Processed by: Pharmacy Medication History completed: Yes Patient Interview: Completed Secondary Source(s): Written medication list ( and daughter were in the room. handed me a medication list that she and daughter said were most up to date. states she handed same sheet to EMS. Patient very aware and very independent. Takes his own meds at home and can recall the doses quite well, especially the methotrexate.), Spouse/Significant other, Other family member, Insurance records As the person ultimately responsible for medication therapy, providers are able to order a medication from an existing home medication list in [facility] via the "Reconcile Routine" prior to Confirmation of that medication by integrated logistics support manager. Such practice is discouraged except when the physician, in their clinical judgment, deems that a medical need exists for a medication without regard to previous use.
[2022-06-27 12:13] LABS: ESTIMATED AVERAGE GLUCOSE 183 mg/dL (70-100)
[2022-06-27] MEDS: VANCOMYCIN 125 MG CAPSULE PO SCH ×3 (15:03→22:01)
--- NOTE | 2022-06-27 16:12 | CT Report ---
PROCEDURE: ABDOMEN/PELVIS WO INDICATIONS: N/V/D TECHNIQUE: Noncontrast 5 mm thick sections acquired from the diaphragms to the symphysis. 5 mm coronal and sagi ttal reformats were then performed. For radiation dose reduction, the following was used: automated exposure control, adjustment of mA and/or kV according to patient size. COMPARISON: 09/13/2019. FINDINGS: Image quality: Excellent. ABDOMEN: Lung bases: Left basilar scattered scarring/atelectasis is seen.. Heart size is enlarged, no pericar dial effusion. Pacemaker leads are noted in right atrium, right ventricle and left ventricle. Solid organs: Liver and spleen are normal in size. A few calcified granuloma are seen scattered in t he liver and spleen. Gallbladder is within normal limits. Pancreas is normal in contours. No adrena l nodules. Kidneys are normal in size, without hydronephrosis or nephrolithiasis. Peritoneum and bowel: Unenhanced bowel loops demonstrate normal wall thickness and caliber. No free fluid or air. Scattered diverticuli throughout the transverse, descending and sigmoid colon is seen without focal area of colonic wall thickening or mesenteric fat stranding. No abscess collection. Nodes and vessels: No retroperitoneal or mesenteric adenopathy by size criteria. Aorta and inferior vena cava are normal in caliber. Mild to moderate atherosclerotic calcifications in the abdominal a sabina is seen. Miscellaneous: Small umbilical hernia is seen containing fat only. PELVIS: Genitourinary: Bladder wall thickness is normal. Enlarged prostate gland with mass effect on floor of urinary bladder is noted. Miscellaneous: No inguinal hernias or adenopathy. Bones: No suspicious bony lesions. No vertebral body compression fractures. Degenerative endplate c hanges throughout lower thoracic and lumbar spine is seen. IMPRESSION: 1. No acute inflammatory process is seen in abdomen or pelvis. No bowel obstruction or abnormal bowel wall thickening. No free fluid of free air. Colonic diverticulosis without CT evidence of acute dive rticulitis. No abscess collection. 2. Tiny calcified granulomas scattered in liver and spleen. No discrete hepatic or splenic lesion. 3. No renal stones or hydronephrosis. No hydroureter. Enlarged prostate gland with mild mass effect o n floor of urinary bladder. No gross bladder wall abnormalities. Reviewed by: Marcial Pichardo MD on 06/27/2022 4:11 PM PST Approved by: Marcial Pichardo MD on 06/27/2022 4:11 PM PST Station ID: [id number]
[2022-06-27] MEDS ORDERED: DEXTROSE 5%-0.9% NACL 1,000 ML IV SCH (19:00)
[2022-06-27] MEDS: TAMSULOSIN 0.4 MG CAPSULE PO SCH (21:59)
[2022-06-27] MEDS: APIXABAN 2.5 MG TABLET PO SCH (22:01)
[2022-06-27] MEDS: LATANOPROST 0.005% OPHTH DROPS EACHEYE SCH (22:02)
[2022-06-28] MEDS: ACETAMINOPHEN 325 MG TABLET PO PRN ×4 (00:34→21:11)
[2022-06-28] MEDS: LEVALBUTEROL 1.25 MG/3 ML NEB INH SCH ×5 (00:50→22:57)
[2022-06-28] MEDS: SODIUM CHLORIDE FLUSH 0.9% 10 ML SYRINGE IVP SCH ×3 (03:16→16:03)
[2022-06-28] MEDS: MEROPENEM 2 GM in SODIUM CHLORIDE 0.9% MINIBAG 100 ML IV SCH ×2 (03:44→17:36)
[2022-06-28 05:03] LABS: BASOPHILS % (AUTO) 0.2 %; HCT - HEMATOCRIT 29.8 % (42.0-52.0); HGB - HEMOGLOBIN 9.7 g/dL (14.0-18.0); LYMPHOCYTES # (AUTO) 0.3 10^3/uL (1.5-3.5); LYMPHOCYTES % (AUTO) 5.8 %; MEAN CORPUSCULAR HEMOGLOBIN 29.7 pg (27.0-31.0); MEAN CORPUSCULAR HGB CONC 32.6 g/dL (32.0-36.0); MEAN CORPUSCULAR VOLUME 91.1 fL (80.0-94.0); MEAN PLATELET VOLUME 12.1 fL (7.4-11.4); MONOCYTES # (AUTO) 0.3 10^3/uL (0.0-1.0); MONOCYTES % (AUTO) 5.6 %; NEUTROPHILS # (AUTO) 4.1 10^3/uL (1.5-6.6); NEUTROPHILS % (AUTO) 87.3 %; PLT - PLATELET COUNT 71 10^3/uL (130-450); RED BLOOD COUNT 3.27 10^6/uL (4.70-6.10); RED CELL DISTRIBUTION WIDTH 18.2 % (12.0-15.0); WHITE BLOOD COUNT 4.7 x10^3/uL (4.8-10.8)
[2022-06-28 05:13] LABS: CALCIUM 8.3 mg/dL (8.5-10.3); CREATININE 1.6 mg/dL (0.6-1.2); MAGNESIUM 1.8 mg/dL (1.7-2.8); POTASSIUM 2.9 mmol/L (3.5-5.0)
[2022-06-28] MEDS: LEVOTHYROXINE 75 MCG TABLET PO SCH (05:27)
[2022-06-28] MEDS ORDERED: DEXTROSE 50% ABBOJECT 25 GM/50 ML SYRINGE IVP ONE ×2 (05:43→06:16)
[2022-06-28] MEDS: INSULIN LISPRO 300 UNIT/3 ML PEN SUBQ SCH ×4 (08:22→21:05)
[2022-06-28] MEDS: APIXABAN 2.5 MG TABLET PO SCH (08:24)
[2022-06-28] MEDS: carvediloL 3.125 MG TABLET PO SCH ×2 (08:24→21:02)
[2022-06-28] MEDS: VANCOMYCIN 125 MG CAPSULE PO SCH ×4 (08:24→21:02)
[2022-06-28] MEDS: guaiFENesin 600 MG TABLET PO SCH ×2 (08:25→21:02)
[2022-06-28] MEDS: GLIMEPIRIDE 2 MG TABLET PO SCH (08:25)
[2022-06-28] MEDS: FOLIC ACID 1 MG TABLET PO SCH (08:25)
[2022-06-28] MEDS: BRIMONIDINE 0.2% OPHTH DROPS 5 ML EACHEYE SCH ×2 (08:27→21:04)
[2022-06-28] MEDS: TIMOLOL 0.5% OPHTH DROPS EACHEYE SCH ×2 (08:27→21:03)
[2022-06-28] MEDS ORDERED: cefTRIAXone 1 GM in SODIUM CHLORIDE 0.9% MINIBAG 100 ML IV SCH (09:00)
[2022-06-28] MEDS ORDERED: cefTRIAXone 2 GM in SODIUM CHLORIDE 0.9% MINIBAG 100 ML IV SCH (09:00)
[2022-06-28] MEDS: AZITHROMYCIN INJ 500 MG in SODIUM CHLORIDE 0.9% 250 ML IV SCH (10:43)
[2022-06-28] MEDS: DEXTROSE 5%-0.9% NACL 1,000 ML IV SCH (10:44)
[2022-06-28] MEDS: SACCHAROMYCES BOULARDII 250 MG CAPSULE PO SCH ×2 (12:03→16:52)
[2022-06-28] MEDS: POTASSIUM CHLOR 10 MEQ/100 ML 10 MEQ/100 ML BAG IV SCH ×3 (12:03→16:03)
--- NOTE | 2022-06-28 12:15 | PROVIDER PROGRESS NOTE ---
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 No repeat blood cx was ordered then His white blood count has increased to 9.7 This morning a positive blood culture was reported and it has already been identified as growing Listeria monocytogenese. This is usually from food borne bacteria. The telemedicine doctor was contacted and he stopped ceftriaxone and started meropenem Plan: This report was sent to our infection fire prevention engineer, Julia Hernandez Ceftriaxone was stopped and Meropenam started. Cont this plan. Will order Echocardiogram to rule out Listeria endocarditis (2) Bacteremia As above in #1 (3) C. difficile diarrhea Conclusion/Plan: He reports having very little nausea and only retching, nearly no vomiting. His biggest complaint is of diarrhea for the past 3 days. Despite that he was taking all his usual diabetic and cardiac meds The diarrhea presumably added to his volume depletion causing his "soft" blood pressure and SCOT. A stool sample was sent and has come back positive for C. difficile. Patient denies having taken any recent antibiotics and also denies any exposure to people that had diarrhea. He does have a history of diverticulosis but states he has never had diarrhea like this before. He did not have any imaging done of the abdomen pelvis in the ED to determine if there could be colitis on top of pneumonia. CT was done after adm, yesterday, and it did not show colitis. Plan: We ordered contact isolation Started oral vancomycin QID Ordered clear liquids, advanced to puree, for bowel rest Will give IV antiemetics if needed Continue IV fluids, watch I's and O's. (4) Thrombocytopenia Patient presented with a mildly low platelet count of 98. Today that has dropped his platelet count of 71 Concern for DIC because of his extensive infections Plan: Will check Lactic Acid to eval for sepsis as a cause of DIC. Will also check PT, PTT, fibrinogen and D-dimer Follow CBC daily Plt transfuse if plts <50 and bleeding or if plt <10 (5) Hypoglycemia He had borderline low glucoses yesterday on admission of 59 and 80s. Overnight his glucose was as low as 48. He was confused and symptomatic with this. Etiology may be the infections: C. difficile diarrhea and Listeria bacteremia Plan: Stop glimepiride. Remain off of sliding scale insulin, off long-acting insulin and his metformin Continue with IV fluids that contain D5 Continue to check fingerstick glucose values and continue a hypoglycemia protocol (6) DM type 2 (diabetes mellitus, type 2) Conclusion/Plan: According to his medication list, the patient was on insulin, glipizide and metformin. He states he takes his insulin at night and knows to adjusted down from 15 units, based on what his fingerstick glucose checks are; therefore he recently has taken 5 to 7 units at night. His A1c came back at Plan: Will currently not start a diabetic diet but will order clear liquids then pured diet because of his vomiting. We will advance to solid food with a diabetic diet when tolerated. Will order fingerstick glu checks, sliding scale Reg insulin coverage and hypoglycemia protocol (7) Pneumonia Conclusion/Plan: He presents with minimal complaints of a cough, after retching and has a fever here. He has a normal white count and is not desaturating but his chest x-ray and CT scan showed a right sided consolidation. He was admitted to Inpatient status, because according to MCG criteria, this man has a class IV PSI score (with age of 82, history of CHF and BUN is > 29), and also has high CURB-65 score of III (with BUN >19, diastolic BP less than 60mmHg and age over 65). Plan: Continue with empiric antibiotics, now using IV Meropenam and Zithromax Cont Mucinex for respiratory toilet and obtain a sputum culture if he makes sputum. (8) Fall at home Conclusion/Plan: Patient has been feeling weak with 3 days of diarrhea then was noticeably confused for 2 days and lightheaded 1-2 dyas, and today fell when leaning down, he fell forward and hit his head. He thinks he had no syncope however. Plan: Will place on telemetry and watch for arrhythmias Will check orthostatic vital signs Given his low diastolic blood pressure already, several of his CHF meds will be on hold (Entresto, eplerenone, Lasix and will decrease his Coreg dose temporarily). I informed the patient and family members in the room about this entire plan, on day of admission (9) SCOT (acute kidney injury) Conclusion/Plan: Improving Patient had a BUN/creatinine of 33/1.8. In review of his old labs he always has some prerenal azotemia with BUN in the 30s but normal creat, probably because he is on Eplerenone and Lasix. But now, in addition he has been diarrhea fluid losses, and currently the creatinine is also elevated Plan: Cont to not give Lasix or Eplerenone or Entresto. Pt and family were told of this plan at admission Will give IV fluids watching for fluid overload and hypoxia Follow I's and O's Follow BMP daily Avoid nephrotoxins (10) Hx of heart failure Conclusion/Plan: According to old records that I reviewed, the patient used to have an EF of 35% and has an AICD. The EF has recovered and his med list shows that he is on Coreg, Entresto, eplerenone and Lasix Plan: Cont a lower dose of Coreg because of the diastolic hypotension Cont to not give Entresto or eplerenone since they are not on formulary and he currently does not need diuresis Watch for volume overload while he is getting IV fluids for several days and will not give the Lasix currently (11) Paroxysmal A-fib Conclusion/Plan: According to his description, he "thinks" Afib is the abnormal heart rhythm that was recently found on his device interrogation. He was started on Eliquis 1 month ago. His EKG and telemetry show that he is currently in a dual-chamber paced rhythm, not in Afib, therefore his aFIB MUST BE PAROXYSMAL Plan: We will continue with Coreg for rate control but at a lower dose because of low blood pressure Will hold the Eliquis, starting today, given the plt count dropping (12) Rheumatoid arthritis Conclusion/Plan: He is on methotrexate weekly for this diagnosis. Plan: We adjusted the weekly dose based on his renal fnc - Current Meds Current Meds: Current Medications Generic Name Dose Route Start Last Admin Trade Name Breanne PRN Reason Stop Dose Admin Acetaminophen 650 mg 06/27/22 07:50 06/28/22 08:23 Acetaminophen 325 Mg Tablet PO 650 mg Q4HR PRN Administration Pain 1 to 4, or Fever Apixaban 2.5 mg 06/27/22 21:00 06/28/22 08:24 Apixaban 2.5 Mg Tablet PO 2.5 mg BID RAY Administration Brimonidine Tartrate 1 drops 06/27/22 09:00 06/28/22 08:27 Brimonidine 0.2% Ophth Drops 5 Ml EACHEYE 1 ea BID RAY Administration Carvedilol 3.125 mg 06/27/22 09:00 06/28/22 08:24 Carvedilol 3.125 Mg Tablet PO Not Given BID RAY Folic Acid 1 mg 06/27/22 09:00 06/28/22 08:25 Folic Acid 1 Mg Tablet PO 1 mg DAILY RAY Administration Guaifenesin 600 mg 06/27/22 09:00 06/28/22 08:25 Guaifenesin 600 Mg Tablet PO 600 mg BID RAY Administration Azithromycin 500 mg/ Sodium 250 mls @ 250 mls/hr 06/28/22 09:00 06/28/22 10:43 Chloride IV 06/30/22 00:01 250 mls/hr DAILY RAY Administration Meropenem 2 gm/ Sodium 100 mls @ 200 mls/hr 06/28/22 03:00 06/28/22 04:30 Chloride IV Infused Q12H RAY Infusion Dextrose/Sodium Chloride 1,000 mls @ 100 mls/hr 06/28/22 10:26 06/28/22 10:44 D5ns IV 100 mls/hr .Q10H RAY Administration Potassium Chloride 10 meq in 100 mls @ 100 mls/hr 06/28/22 11:00 06/28/22 12:03 Potassium Chloride IV 06/28/22 13:59 100 mls/hr Q1H RAY Administration Insulin Human Lispro 1 - 5 unit 06/27/22 12:00 06/28/22 12:10 Insulin Lispro 300 Unit/3 Ml Pen SUBQ Not Given 0800,1200,1700,2100 [facility] Protocol Latanoprost 1 drops 06/27/22 21:00 06/27/22 22:02 Latanoprost 0.005% Ophth Drops EACHEYE 1 drops QPM RAY Administration Levalbuterol HCl 1.25 mg 06/27/22 14:00 06/28/22 06:58 Levalbuterol 1.25 Mg/3 Ml Neb INH 1.25 mg TID RAY Administration Levothyroxine Sodium 150 mcg 06/27/22 09:00 06/28/22 05:27 Levothyroxine 75 Mcg Tablet PO 150 mcg QDAC RAY Administration Methotrexate Sodium 7.5 mg 06/27/22 17:00 06/27/22 17:21 Methotrexate 2.5 Mg Tablet PO 7.5 mg We RAY Administration Saccharomyces Boulardii 500 mg 06/28/22 10:26 06/28/22 12:03 Saccharomyces Boulardii 250 Mg Capsule PO 500 mg BIDWM RAY Administration Sodium Chloride 10 ml 06/27/22 09:00 06/28/22 08:28 Sodium Chloride Flush 0.9% 10 Ml Syringe IVP 10 ml 0100,0900,1700 RAY Administration Tamsulosin HCl 0.8 mg 06/27/22 21:00 06/27/22 21:59 Tamsulosin 0.4 Mg Capsule PO 0.8 mg QPM RAY Administration Timolol Maleate 1 drops 06/27/22 09:00 06/28/22 08:27 Timolol 0.5% Ophth Drops EACHEYE 1 ea BID RAY Administration Vancomycin HCl 125 mg 06/27/22 15:00 06/28/22 08:24 Vancomycin 125 Mg Capsule PO 125 mg QID RAY Administration - Lab Result Fish Bone Diagrams: 06/28/22 04:50 06/28/22 04:50 - Additional Planning My Orders: My Active Orders 06/27/22 12:00 Insulin Lispro [Humalog Kwikpen U-100] 1 - 5 unit SUBQ 0800,1200,1700,2100 06/27/22 14:00 Levalbuterol [Xopenex] 1.25 mg INH TID 06/27/22 14:37 Isolation [Infection Precautions] [RC] QSHIFT 06/27/22 15:00 Vancomycin [Vancocin] 125 mg PO QID 06/27/22 Dinner Dysphagia - Puree [DIET] 06/27/22 17:00 Methotrexate [Methotrexate Sodium] 7.5 mg PO We 06/27/22 18:18 Zinc Oxide 20% Oint [Zinc Oxide] 1 applic TOP PRN PRN 06/27/22 21:00 Apixaban [Eliquis] 2.5 mg PO BID Latanoprost 0.005% Ophth Drops [Xalatan Ophth Drops] 1 drops EACHEYE QPM Tamsulosin [Flomax] 0.8 mg PO QPM 06/28/22 06:59 RT [Nebulizer/MDI Tx.] [RC] .tid 06/28/22 09:00 Azithromycin Inj [Zithromax Inj] 500 mg Sodium Chloride 0.9% [Normal Saline 0.9%] 250 ml IV DAILY 06/28/22 10:26 Dextrose 5%-0.9% NaCl [D5ns] 1,000 ml IV 100 mls/hr Saccharomyces Boulardii [Florastor] 500 mg PO BIDWM 06/28/22 11:00 Potassium Chlor 10 Meq/100 ml [Potassium Chloride] 10 meq in 100 ml IV Q1H 06/29/22 05:00 BMP - BASIC METABOLIC PANEL [CHEM] DAILYLAB CBC - COMP BLD CT W/AUTO DIFF [HEME] DAILYLAB MAGNESIUM [CHEM] DAILYLAB 06/30/22 05:00 BMP - BASIC METABOLIC PANEL [CHEM] DAILYLAB CBC - COMP BLD CT W/AUTO DIFF [HEME] DAILYLAB MAGNESIUM [CHEM] DAILYLAB 07/04/22 08:00 Methotrexate [Methotrexate Sodium] 7.5 mg PO We Subjective - Subjective Patient Reports: Resting Comfortably Objective Vital Signs: Vital Signs - 24 hr 06/27/22 06/27/22 06/27/22 12:44 16:57 20:38 Temperature 37.5 C 37.3 C 37.5 C Heart Rate Heart Rate [ 67 61 79 Brachial] Respiratory 16 22 20 Rate Blood Pressure 111/38 L 121/30 L 135/52 H [Right Brachial artery] Blood Pressure [Right Radial artery] O2 Saturation 96 95 100 06/28/22 06/28/22 06/28/22 00:17 05:36 07:00 Temperature 38.3 C H 35.1 C L Heart Rate 96 Heart Rate [ 81 59 L Brachial] Respiratory 20 20 22 Rate Blood Pressure 119/77 [Right Brachial artery] Blood Pressure 142/63 H [Right Radial artery] O2 Saturation 100 100 06/28/22 08:16 Temperature 37.1 C Heart Rate Heart Rate [ 99 Brachial] Respiratory 20 Rate Blood Pressure 100/67 [Right Brachial artery] Blood Pressure [Right Radial artery] O2 Saturation 92 Oxygen O2 Source Room air I&O (Last 24 Hrs): Intake and Output Totals x24h 06/26/22 06/27/22 06/28/22 23:59 23:59 23:59 Intake Total 4081.667 1885.000 Output Total 475 Balance 4081.667 1410.000 General: Alert, Other (Exam done remotely) HEENT: Mucous membr. moist/pink Neck: Supple Neuro: Alert Respiratory: No respiratory distress Abdomen: Other (Obese) Extremities: Other (pedal edema) - Results Results: Laboratory Results WBC 4.7 x10^3/uL (4.8-10.8) L 06/28/22 04:50 RBC 3.27 10^6/uL (4.70-6.10) L 06/28/22 04:50 Hgb 9.7 g/dL (14.0-18.0) L 06/28/22 04:50 Hct 29.8 % (42.0-52.0) L 06/28/22 04:50 MCV 91.1 fL (80.0-94.0) 06/28/22 04:50 MCH 29.7 pg (27.0-31.0) 06/28/22 04:50 MCHC 32.6 g/dL (32.0-36.0) 06/28/22 04:50 RDW 18.2 % (12.0-15.0) H 06/28/22 04:50 Plt Count 71 10^3/uL (130-450) L 06/28/22 04:50 MPV 12.1 fL (7.4-11.4) H 06/28/22 04:50 Neut # (Auto) 4.1 10^3/uL (1.5-6.6) 06/28/22 04:50 Lymph # (Auto) 0.3 10^3/uL (1.5-3.5) L 06/28/22 04:50 [place] # (Auto) 0.3 10^3/uL (0.0-1.0) 06/28/22 04:50 Eos # (Auto) 0.0 10^3/uL (0.0-0.7) 06/28/22 04:50 Baso # (Auto) 0.0 10^3/uL (0.0-0.1) 06/28/22 04:50 Absolute Nucleated RBC 0.00 x10^3/uL 06/28/22 04:50 Nucleated RBC % 0.0 /100WBC 06/28/22 04:50 Sodium 133 mmol/L (135-145) L 06/28/22 04:50 Potassium 2.9 mmol/L (3.5-5.0) L 06/28/22 04:50 Chloride 101 mmol/L (101-111) 06/28/22 04:50 Carbon Dioxide 22 mmol/L (21-32) 06/28/22 04:50 Anion Gap 10.0 (6-13) 06/28/22 04:50 BUN 33 mg/dL (6-20) H 06/28/22 04:50 Creatinine 1.6 mg/dL (0.6-1.2) H 06/28/22 04:50 Estimated GFR (MDRD) 41 (>89) L 06/28/22 04:50 Glucose 48 mg/dL (70-100) L* 06/28/22 04:50 Estimat Average Glucose 183 mg/dL (70-100) H 06/27/22 05:12 Hemoglobin A1c % 8.0 % (4.27-6.07) H 06/27/22 05:12 Lactic Acid 1.3 mmol/L (0.5-2.2) 06/27/22 05:12 Calcium 8.3 mg/dL (8.5-10.3) L 06/28/22 04:50 Magnesium 1.8 mg/dL (1.7-2.8) 06/28/22 04:50 Total Bilirubin 0.9 mg/dL (0.2-1.0) 06/27/22 05:12 AST 18 IU/L (10-42) 06/27/22 05:12 ALT 19 IU/L (10-60) 06/27/22 05:12 Alkaline Phosphatase 49 IU/L (42-121) 06/27/22 05:12 Total Protein 6.7 g/dL (6.7-8.2) 06/27/22 05:12 Albumin 3.6 g/dL (3.2-5.5) 06/27/22 05:12 Globulin 3.1 g/dL (2.1-4.2) 06/27/22 05:12 Albumin/Globulin Ratio 1.2 (1.0-2.2) 06/27/22 05:12 TSH 0.46 uIU/mL (0.34-5.60) 06/28/22 04:50 Nasal Adenovirus (PCR) NOT DETECTED 06/27/22 04:20 Nasal B. parapertussis DNA (PCR) NOT DETECTED 06/27/22 04:20 Nasal Coronavir 229E PCR NOT DETECTED 06/27/22 04:20 Nasal Coronavir HKU1 PCR NOT DETECTED 06/27/22 04:20 Nasal Coronavir NL63 PCR NOT DETECTED 06/27/22 04:20 Nasal Coronavir OC43 PCR NOT DETECTED 06/27/22 04:20 Nasal Enterovir/Rhinovir PCR NOT DETECTED 06/27/22 04:20 Nasal Influenza B PCR NOT DETECTED 06/27/22 04:20 Nasal Influenza A PCR NOT DETECTED 06/27/22 04:20 Nasal Parainfluen 1 PCR NOT DETECTED 06/27/22 04:20 Nasal Parainfluen 2 PCR NOT DETECTED 06/27/22 04:20 Nasal Parainfluen 3 PCR NOT DETECTED 06/27/22 04:20 Nasal Parainfluen 4 PCR NOT DETECTED 06/27/22 04:20 Nasal RSV (PCR) NOT DETECTED 06/27/22 04:20 Nasal B.pertussis DNA PCR NOT DETECTED 06/27/22 04:20 Nasal C.pneumoniae (PCR) NOT DETECTED 06/27/22 04:20 Miguel Human Metapneumo PCR NOT DETECTED 06/27/22 04:20 Nasal M.pneumoniae (PCR) NOT DETECTED 06/27/22 04:20 Nasal SARS-CoV-2 (PCR) NOT DETECTED 06/27/22 04:20 Stl C. diff Tox B Gene POSITIVE (NEGATIVE) A* 06/27/22 11:40
[2022-06-28 12:55] LABS: INR 1.8 (0.8-1.2); PT - PROTHROMBIN TIME 19.6 secs (9.9-12.6)
[2022-06-28 13:02] LABS: PLATELET ESTIMATE, MANUAL DECREASED (<130,000) (NORMAL); PLATELET MORPHOLOGY NORMAL APPEARANCE (NORMAL); RBC MORPHOLOGY (MULTIPLE) NORMAL APPEARANCE (NORMAL)
[2022-06-28 13:08] LABS: PARTIAL THROMBOPLASTIN TIME 29.9 secs (24.9-33.3)
[2022-06-28 13:16] LABS: D-DIMER 333.4 ng/mL (200.0-255.0)
[2022-06-28] MEDS: TAMSULOSIN 0.4 MG CAPSULE PO SCH (21:02)
[2022-06-28] MEDS: LATANOPROST 0.005% OPHTH DROPS EACHEYE SCH (21:04)
[2022-06-29] MEDS: SODIUM CHLORIDE FLUSH 0.9% 10 ML SYRINGE IVP SCH ×3 (00:56→16:55)
[2022-06-29] MEDS: DEXTROSE 5%-0.9% NACL 1,000 ML IV SCH (00:57)
[2022-06-29] MEDS: MEROPENEM 2 GM in SODIUM CHLORIDE 0.9% MINIBAG 100 ML IV SCH ×2 (03:44→15:08)
[2022-06-29] MEDS: ACETAMINOPHEN 325 MG TABLET PO PRN ×2 (03:56→11:48)
[2022-06-29 06:07] LABS: EOSINOPHILS % (AUTO) 0.7 %; HCT - HEMATOCRIT 26.2 % (42.0-52.0); HGB - HEMOGLOBIN 8.7 g/dL (14.0-18.0); LYMPHOCYTES # (AUTO) 0.2 10^3/uL (1.5-3.5); LYMPHOCYTES % (AUTO) 7.9 %; MEAN CORPUSCULAR HGB CONC 33.2 g/dL (32.0-36.0); MEAN CORPUSCULAR VOLUME 90.3 fL (80.0-94.0); MEAN PLATELET VOLUME 11.7 fL (7.4-11.4); MONOCYTES # (AUTO) 0.1 10^3/uL (0.0-1.0); MONOCYTES % (AUTO) 3.4 %; NEUTROPHILS # (AUTO) 2.3 10^3/uL (1.5-6.6); NEUTROPHILS % (AUTO) 87.6 %; PLT - PLATELET COUNT 72 10^3/uL (130-450); RED CELL DISTRIBUTION WIDTH 17.7 % (12.0-15.0); WHITE BLOOD COUNT 2.7 x10^3/uL (4.8-10.8)
[2022-06-29 06:17] LABS: CALCIUM 8.2 mg/dL (8.5-10.3); CREATININE 1.3 mg/dL (0.6-1.2); MAGNESIUM 1.7 mg/dL (1.7-2.8); POTASSIUM 3.3 mmol/L (3.5-5.0)
[2022-06-29 06:24] LABS: DIFFERENTIAL COMMENT MANUAL=AUTO DIFF; PLATELET ESTIMATE, MANUAL DECREASED (<130,000) (NORMAL); RBC MORPHOLOGY (MULTIPLE) NORMAL APPEARANCE (NORMAL)
[2022-06-29] MEDS: LEVOTHYROXINE 75 MCG TABLET PO SCH (06:43)
[2022-06-29] MEDS: ZINC OXIDE 20% OINT 30 GM TUBE TOP PRN (07:01)
[2022-06-29] MEDS: LEVALBUTEROL 1.25 MG/3 ML NEB INH SCH ×3 (07:17→20:27)
[2022-06-29] MEDS ORDERED: DEXTROSE 5%-0.9% NACL 1,000 ML IV SCH (08:51)
--- NOTE | 2022-06-29 08:54 | PROVIDER PROGRESS NOTE ---
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 No repeat blood cx was ordered then His white blood count has dropped today from 9.7 to 2.7, causing concern for sepsis On 06/28 a positive blood culture was identified, is growing Listeria monocytogenese. This is usually from food borne bacteria. This (+) Listeria report was sent to our infection loss prevention/safety district manager, Julia Hernandez We stopped ceftriaxone and started meropenem on 06/28 Echocardiogram ordered to rule out Listeria endocarditis>> it was done yesterday 06/28 and showed LVEF normal, Cor pulmonale present, no large or obvious vegetations were seen however subtle vegetations could not be ruled out and a JACQUELINE was recommended if indicated Plan: Blood cx x2 ordered today Cont iv Meropenam (2) Bacteremia As above in #1 (3) Pancytopenia I reviewed all his labs. Today's CBC: WBC 2.7 (yesterday 9.7), Hgb 8.7 (down from 10 at adm, but he is + in fluid balance), plts 72 (yesterday 71) This is concerning for him having sepsis from his Listeria and his C. difficile. Yesterday a work-up was done for DIC because of the new decrease in platelets. The fibrinogen was not low and the other labs were not consistent with DIC. Also, he is on weekly MTX, and did get a MTX dose 2 days ago. Plan: Check lactic acid level, concern for sepsis Follow CBC daily (4) C. difficile diarrhea Conclusion/Plan: At admission his biggest complaint was of diarrhea. The diarrhea presumably added to his volume depletion causing his "soft" blood pressure and SCOT. A stool sample was sent and has come back positive for C. difficile. Patient denies having taken any recent antibiotics and also denies any exposure to people that had diarrhea. He does have a history of diverticulosis but states he has never had diarrhea like this before. We did CT imaging of the abdomen pelvis after adm, and it did not show colitis. His volume of stool is still large but decreasing in frequency, yesterday he had 4 BMs. Plan: Cont contact isolation Cont oral vancomycin QID Florastor indicated if not leukopenic Will advance his diet, since diarrhea volume has improved Continue IV fluids, decreasing the rate today from 100 to 60, and will stop iv fluids after today Cont watching I's and O's. (5) Fungal rash of torso He continues used to have an itchy red rash in his inguinal area below his pannus of his abdomen Plan: Will start nystatin powder (6) Pneumonia Conclusion/Plan: He presents with minimal complaints of a cough, after retching and has a fever here. He has a normal white count and is not desaturating but his chest x-ray and CT scan showed a right sided consolidation. He was admitted to Inpatient status, because according to MCG criteria, this man has a class IV PSI score (with age of 82, history of CHF and BUN is > 29), and also has high CURB-65 score of III (with BUN >19, diastolic BP less than 60mmHg and age over 65). Plan: Continue with empiric antibiotics, now using IV Meropenam and Zithromax Cont Mucinex for respiratory toilet (7) Hypoglycemia Improved He had borderline low glucoses on admission of 59 and 80s. Then glucose was as low as 48. He was confused and symptomatic with this. Etiology may be the infections: C. difficile diarrhea and Listeria bacteremia, rula chavis receiving his Amaryl briefly here. We stopped the Amaryl. Plan: Remain off of sliding scale insulin, off long-acting insulin and off his metformin and Amaryl. Continue with IV fluids that contain D5 Continue to check fingerstick glucose values and continue a hypoglycemia protocol (8) DM type 2 (diabetes mellitus, type 2) Conclusion/Plan: According to his medication list, the patient was on insulin, glipizide and metformin. He states he takes his insulin at night and knows to adjusted down from 15 units, based on what his fingerstick glucose checks are; therefore he recently has taken 5 to 7 units at night. His A1c came back at 8.o, indicating poor glu control. Plan: He was not yet on a diabetic diet while getting clear liquids>> pured diet because tghe diarrhea. We will advance to solid food with a diabetic diet today Cont fingerstick glu checks, sliding scale Reg insulin coverage and hypoglycemia protocol (9) Fall at home Conclusion/Plan: Patient has been feeling weak with 3 days of diarrhea then was noticeably confused for 2 days and lightheaded and fell when leaning down. He thinks he had no syncope however. His blood pressure was "soft" and his vital signs showed orthostasis therefore fluids have been continued and several CHF meds put on hold Plan: Cont telemetry and watch for arrhythmias Cont orthostatic vital sign check, will do daily now Given his continued orthostasis today, continue holding Entresto, Eplerenone & Lasix, and I decreased his Coreg dose temporarily. I informed the patient and family members in the room about these changes on day of admission (10) SCOT (acute kidney injury) Conclusion/Plan: Improving Patient had a BUN/creatinine of 33/1.8>> . In review of his old labs he always has some prerenal azotemia with BUN in the 30s but normal creat, probably because he is on Eplerenone and Lasix. But now, in addition he has been diarrhea fluid losses, and currently the creatinine is also elevated Plan: Cont to not give Lasix or Eplerenone or Entresto. Pt and family were told of this plan at admission Cont IV fluids, decreasing rate from 100 to 60 cc/hr today, and will stop after today, watching for fluid overload and hypoxia Follow I's and O's Follow BMP daily Avoid nephrotoxins (11) Hx of heart failure Conclusion/Plan: According to old records that I reviewed, the patient used to have an EF of 35% and has an AICD. The EF has recovered and his med list shows that he is on Co reg, Entresto, eplerenone and Lasix Plan: Adjusting his dose of Coreg because of the orthostasis Cont to not give Entresto or eplerenone since they are not on formulary and he currently does not need diuresis Watch for volume overload while he is getting IV fluids for several days and still not on Lasix currently (12) Paroxysmal A-fib Conclusion/Plan: According to his description, he "thinks" Afib is the abnormal heart rhythm that was recently found on his device interrogation. He was started on Eliquis 1 month ago. His EKG and telemetry show that he is currently in a dual-chamber paced rhythm, not in Afib, therefore his aFIB MUST BE PAROXYSMAL Plan: We will continue with Coreg for rate control, adjusting the dose based on orthostasis Continue to hold the Eliquis, given the low plt count (13) Rheumatoid arthritis Conclusion/Plan: He is on methotrexate weekly for this diagnosis. Plan: We adjusted the weekly dose based on his renal fnc (14) DIMAS on CPAP Continue his home CPAP device - Current Meds Current Meds: Current Medications Generic Name Dose Route Start Last Admin Trade Name Breanne PRN Reason Stop Dose Admin Acetaminophen 650 mg 06/27/22 07:50 06/29/22 03:56 Acetaminophen 325 Mg Tablet PO 650 mg Q4HR PRN Administration Pain 1 to 4, or Fever Brimonidine Tartrate 1 drops 06/27/22 09:00 06/28/22 21:04 Brimonidine 0.2% Ophth Drops 5 Ml EACHEYE 1 ea BID RAY Administration Folic Acid 1 mg 06/27/22 09:00 06/28/22 08:25 Folic Acid 1 Mg Tablet PO 1 mg DAILY RAY Administration Guaifenesin 600 mg 06/27/22 09:00 06/28/22 21:02 Guaifenesin 600 Mg Tablet PO 600 mg BID RAY Administration Azithromycin 500 mg/ Sodium 250 mls @ 250 mls/hr 06/28/22 09:00 06/28/22 12:00 Chloride IV 06/30/22 00:01 Infused DAILY RAY Infusion Meropenem 2 gm/ Sodium 100 mls @ 200 mls/hr 06/28/22 03:00 06/29/22 04:14 Chloride IV Infused Q12H RAY Infusion Insulin Human Lispro 1 - 5 unit 06/27/22 12:00 06/28/22 21:05 Insulin Lispro 300 Unit/3 Ml Pen SUBQ 2 unit 0800,1200,1700,2100 RAY Administration Protocol Latanoprost 1 drops 06/27/22 21:00 06/28/22 21:04 Latanoprost 0.005% Ophth Drops EACHEYE 1 drops QPM RAY Administration Levalbuterol HCl 1.25 mg 06/27/22 14:00 06/29/22 07:17 Levalbuterol 1.25 Mg/3 Ml Neb INH 1.25 mg TID RAY Administration Levothyroxine Sodium 150 mcg 06/27/22 09:00 06/29/22 06:43 Levothyroxine 75 Mcg Tablet PO 150 mcg QDAC RAY Administration Methotrexate Sodium 7.5 mg 06/27/22 17:00 06/27/22 17:21 Methotrexate 2.5 Mg Tablet PO 7.5 mg We RAY Administration Multi-Ingredient Ointment 1 applic 06/27/22 18:18 06/29/22 07:01 Zinc Oxide 20% Oint 30 Gm Tube TOP 1 applic PRN PRN Administration Skin Care Saccharomyces Boulardii 500 mg 06/28/22 10:26 06/28/22 16:52 Saccharomyces Boulardii 250 Mg Capsule PO 500 mg BIDWM RAY Administration Sodium Chloride 10 ml 06/27/22 09:00 06/29/22 00:56 Sodium Chloride Flush 0.9% 10 Ml Syringe IVP 10 ml 0100,0900,1700 RAY Administration Tamsulosin HCl 0.8 mg 06/27/22 21:00 06/28/22 21:02 Tamsulosin 0.4 Mg Capsule PO 0.8 mg QPM RAY Administration Timolol Maleate 1 drops 06/27/22 09:00 06/28/22 21:03 Timolol 0.5% Ophth Drops EACHEYE 1 ea BID RAY Administration Vancomycin HCl 125 mg 06/27/22 15:00 06/28/22 21:02 Vancomycin 125 Mg Capsule PO 125 mg QID RAY Administration - Lab Result Fish Bone Diagrams: 06/30/22 05:15 06/30/22 05:15 - Additional Planning My Orders: My Active Orders 06/28/22 09:00 Azithromycin Inj [Zithromax Inj] 500 mg Sodium Chloride 0.9% [Normal Saline 0.9%] 250 ml IV DAILY 06/28/22 10:26 Saccharomyces Boulardii [Florastor] 500 mg PO BIDWM 06/29/22 CULTURE, BLOOD #1 [RM] Stat CULTURE, BLOOD #2 [RM] Stat 06/29/22 08:51 Dextrose 5%-0.9% NaCl [D5ns] 1,000 ml IV 60 mls/hr 06/29/22 08:52 LACTIC ACID, VENOUS [CHEM] Stat 06/29/22 09:00 carvediloL [Coreg] 6.25 mg PO BID 06/30/22 05:00 BMP - BASIC METABOLIC PANEL [CHEM] DAILYLAB CBC - COMP BLD CT W/AUTO DIFF [HEME] DAILYLAB MAGNESIUM [CHEM] DAILYLAB 07/04/22 08:00 Methotrexate [Methotrexate Sodium] 7.5 mg PO We Subjective - Subjective Patient Reports: Feeling Better (He can tell that the volume was diarrhea is decreasing. He is much less weak than he was at admission. He is happy that he is starting to get solid food today), Other (c/o jock itch) Objective Vital Signs: Vital Signs - 24 hr 06/28/22 06/28/22 06/28/22 13:00 15:21 16:44 Temperature 37.4 C 37.3 C Heart Rate 90 Heart Rate [ 64 61 Brachial] Respiratory 18 20 19 Rate Blood Pressure 121/61 124/43 L [Right Brachial artery] O2 Saturation 98 99 06/28/22 06/28/22 06/29/22 20:55 22:55 04:52 Temperature 37.7 C 38.0 C H Heart Rate 62 Heart Rate [ 74 94 Brachial] Respiratory 16 18 18 Rate Blood Pressure 167/74 H 144/50 H [Right Brachial artery] O2 Saturation 99 99 06/29/22 06/29/22 06/29/22 06:47 07:18 07:42 Temperature 100.1 C H 37.7 C Heart Rate 78 Heart Rate [ 74 Brachial] Respiratory 18 20 Rate Blood Pressure 161/59 H [Right Brachial artery] O2 Saturation 100 Oxygen O2 Source Room air I&O (Last 24 Hrs): Intake and Output Totals x24h 06/27/22 06/28/22 06/29/22 23:59 23:59 23:59 Intake Total 4398.334 4440.000 600 Output Total 475 600 Balance 4398.334 3965.000 0 General: Alert, Oriented x3 HEENT: Mucous membr. moist/pink Neck: Supple, Other (Obese and cannot eval JVP) Cardiovascular: Other (distant heart sounds) Respiratory: No respiratory distress Abdomen: Soft, Other (Obese with pannus, rash in folds) Extremities: Other (2+ edema to ankles) - Results Results: Laboratory Results WBC 2.7 x10^3/uL (4.8-10.8) L 06/29/22 05:50 RBC 2.90 10^6/uL (4.70-6.10) L 06/29/22 05:50 Hgb 8.7 g/dL (14.0-18.0) L 06/29/22 05:50 Hct 26.2 % (42.0-52.0) L 06/29/22 05:50 MCV 90.3 fL (80.0-94.0) 06/29/22 05:50 MCH 30.0 pg (27.0-31.0) 06/29/22 05:50 MCHC 33.2 g/dL (32.0-36.0) 06/29/22 05:50 RDW 17.7 % (12.0-15.0) H 06/29/22 05:50 Plt Count 72 10^3/uL (130-450) L 06/29/22 05:50 MPV 11.7 fL (7.4-11.4) H 06/29/22 05:50 Neut # (Auto) 2.3 10^3/uL (1.5-6.6) 06/29/22 05:50 Lymph # (Auto) 0.2 10^3/uL (1.5-3.5) L 06/29/22 05:50 [place] # (Auto) 0.1 10^3/uL (0.0-1.0) 06/29/22 05:50 Eos # (Auto) 0.0 10^3/uL (0.0-0.7) 06/29/22 05:50 Baso # (Auto) 0.0 10^3/uL (0.0-0.1) 06/29/22 05:50 Absolute Nucleated RBC 0.00 x10^3/uL 06/29/22 05:50 Band Neuts % (Manual) Not Reportable 06/29/22 05:50 Abnorm Lymph % (Manual) Not Reportable 06/29/22 05:50 Nucleated RBC % 0.0 /100WBC 06/29/22 05:50 Neutrophils # (Manual) Not Reportable 06/29/22 05:50 Lymphocytes # (Manual) Not Reportable 06/29/22 05:50 Monocytes # (Manual) Not Reportable 06/29/22 05:50 Eosinophils # (Manual) Not Reportable 06/29/22 05:50 Basophils # (Manual) Not Reportable 06/29/22 05:50 Differential Comment MANUAL=AUTO DIFF 06/29/22 05:50 Platelet Estimate DECREASED (<130,000) (NORMAL) 06/29/22 05:50 Platelet Morphology NORMAL APPEARANCE (NORMAL) 06/28/22 04:50 RBC Morph Micro Appear NORMAL APPEARANCE (NORMAL) 06/29/22 05:50 PT 19.6 secs (9.9-12.6) H 06/28/22 12:30 INR 1.8 (0.8-1.2) H 06/28/22 12:30 APTT 29.9 secs (24.9-33.3) 06/28/22 12:30 Fibrinogen 391 mg/dL (220-496) 06/28/22 12:30 D-Dimer 333.4 ng/mL (200.0-255.0) H 06/28/22 12:30 Sodium 132 mmol/L (135-145) L 06/29/22 05:50 Potassium 3.3 mmol/L (3.5-5.0) L 06/29/22 05:50 Chloride 102 mmol/L (101-111) 06/29/22 05:50 Carbon Dioxide 22 mmol/L (21-32) 06/29/22 05:50 Anion Gap 8.0 (6-13) 06/29/22 05:50 BUN 23 mg/dL (6-20) H 06/29/22 05:50 Creatinine 1.3 mg/dL (0.6-1.2) H 06/29/22 05:50 Estimated GFR (MDRD) 53 (>89) L 06/29/22 05:50 Glucose 163 mg/dL (70-100) H 06/29/22 05:50 Estimat Average Glucose 183 mg/dL (70-100) H 06/27/22 05:12 Hemoglobin A1c % 8.0 % (4.27-6.07) H 06/27/22 05:12 Lactic Acid 1.4 mmol/L (0.5-2.2) 06/28/22 12:30 Calcium 8.2 mg/dL (8.5-10.3) L 06/29/22 05:50 Magnesium 1.7 mg/dL (1.7-2.8) 06/29/22 05:50 Total Bilirubin 0.9 mg/dL (0.2-1.0) 06/27/22 05:12 AST 18 IU/L (10-42) 06/27/22 05:12 ALT 19 IU/L (10-60) 06/27/22 05:12 Alkaline Phosphatase 49 IU/L (42-121) 06/27/22 05:12 Total Protein 6.7 g/dL (6.7-8.2) 06/27/22 05:12 Albumin 3.6 g/dL (3.2-5.5) 06/27/22 05:12 Globulin 3.1 g/dL (2.1-4.2) 06/27/22 05:12 Albumin/Globulin Ratio 1.2 (1.0-2.2) 06/27/22 05:12 TSH 0.46 uIU/mL (0.34-5.60) 06/28/22 04:50 Nasal Adenovirus (PCR) NOT DETECTED 06/27/22 04:20 Nasal B. parapertussis DNA (PCR) NOT DETECTED 06/27/22 04:20 Nasal Coronavir 229E PCR NOT DETECTED 06/27/22 04:20 Nasal Coronavir HKU1 PCR NOT DETECTED 06/27/22 04:20 Nasal Coronavir NL63 PCR NOT DETECTED 06/27/22 04:20 Nasal Coronavir OC43 PCR NOT DETECTED 06/27/22 04:20 Nasal Enterovir/Rhinovir PCR NOT DETECTED 06/27/22 04:20 Nasal Influenza B PCR NOT DETECTED 06/27/22 04:20 Nasal Influenza A PCR NOT DETECTED 06/27/22 04:20 Nasal Parainfluen 1 PCR NOT DETECTED 06/27/22 04:20 Nasal Parainfluen 2 PCR NOT DETECTED 06/27/22 04:20 Nasal Parainfluen 3 PCR NOT DETECTED 06/27/22 04:20 Nasal Parainfluen 4 PCR NOT DETECTED 06/27/22 04:20 Nasal RSV (PCR) NOT DETECTED 06/27/22 04:20 Nasal B.pertussis DNA PCR NOT DETECTED 06/27/22 04:20 Nasal C.pneumoniae (PCR) NOT DETECTED 06/27/22 04:20 Miguel Human Metapneumo PCR NOT DETECTED 06/27/22 04:20 Nasal M.pneumoniae (PCR) NOT DETECTED 06/27/22 04:20 Nasal SARS-CoV-2 (PCR) NOT DETECTED 06/27/22 04:20 Stl C. diff Tox B Gene POSITIVE (NEGATIVE) A* 06/27/22 11:40
[2022-06-29] MEDS: INSULIN LISPRO 300 UNIT/3 ML PEN SUBQ SCH ×4 (09:08→22:05)
[2022-06-29] MEDS: guaiFENesin 600 MG TABLET PO SCH ×2 (09:09→22:05)
[2022-06-29] MEDS: VANCOMYCIN 125 MG CAPSULE PO SCH ×4 (09:09→22:05)
[2022-06-29] MEDS: FOLIC ACID 1 MG TABLET PO SCH (09:10)
[2022-06-29] MEDS: BRIMONIDINE 0.2% OPHTH DROPS 5 ML EACHEYE SCH ×2 (09:10→22:04)
[2022-06-29] MEDS: TIMOLOL 0.5% OPHTH DROPS EACHEYE SCH ×2 (09:19→22:18)
[2022-06-29] MEDS: carvediloL 3.125 MG TABLET PO SCH ×2 (09:45→22:05)
[2022-06-29] MEDS: SACCHAROMYCES BOULARDII 250 MG CAPSULE PO SCH ×2 (09:46→16:55)
[2022-06-29] MEDS: AZITHROMYCIN INJ 500 MG in SODIUM CHLORIDE 0.9% 250 ML IV SCH (10:58)
[2022-06-29] MEDS ORDERED: SODIUM CHLORIDE 0.9% MINIBAG 100 ML IV ONE (15:03)
[2022-06-29] MEDS: NYSTATIN POWDER 15 GM TOP SCH ×2 (15:53→22:17)
[2022-06-29] MEDS: TAMSULOSIN 0.4 MG CAPSULE PO SCH (22:05)
[2022-06-29] MEDS: LATANOPROST 0.005% OPHTH DROPS EACHEYE SCH (22:10)
[2022-06-30] MEDS: SODIUM CHLORIDE FLUSH 0.9% 10 ML SYRINGE IVP SCH ×3 (01:00→17:11)
[2022-06-30] MEDS: MEROPENEM 2 GM in SODIUM CHLORIDE 0.9% MINIBAG 100 ML IV SCH ×2 (03:49→15:00)
[2022-06-30 06:04] LABS: BASOPHILS % (AUTO) 0.4 %; EOSINOPHILS % (AUTO) 0.4 %; HCT - HEMATOCRIT 26.8 % (42.0-52.0); HGB - HEMOGLOBIN 8.9 g/dL (14.0-18.0); LYMPHOCYTES % (AUTO) 15.8 %; MEAN CORPUSCULAR HEMOGLOBIN 29.4 pg (27.0-31.0); MEAN CORPUSCULAR HGB CONC 33.2 g/dL (32.0-36.0); MEAN CORPUSCULAR VOLUME 88.4 fL (80.0-94.0); MEAN PLATELET VOLUME 10.9 fL (7.4-11.4); MONOCYTES % (AUTO) 9.2 %; NEUTROPHILS % (AUTO) 73.4 %; PLT - PLATELET COUNT 89 10^3/uL (130-450); RED BLOOD COUNT 3.03 10^6/uL (4.70-6.10); RED CELL DISTRIBUTION WIDTH 17.4 % (12.0-15.0); WHITE BLOOD COUNT 2.4 x10^3/uL (4.8-10.8)
[2022-06-30 06:10] LABS: CALCIUM 8.3 mg/dL (8.5-10.3); CREATININE 1.2 mg/dL (0.6-1.2); MAGNESIUM 1.6 mg/dL (1.7-2.8); POTASSIUM 3.1 mmol/L (3.5-5.0)
[2022-06-30 06:14] LABS: ABNORMAL LYMPHS % (MANUAL) 0 %
[2022-06-30] MEDS: LEVOTHYROXINE 75 MCG TABLET PO SCH (06:23)
[2022-06-30 06:31] LABS: BAND NEUTROPHILS % (MANUAL) 4 %; LYMPHOCYTES # (MANUAL) 0.4 10^3/uL (1.5-3.5); LYMPHOCYTES % (MANUAL) 18 %; MONOCYTES # (MANUAL) 0.2 10^3/uL (0.0-1.0); NEUTROPHILS # (MANUAL) 1.8 10^3/uL (1.5-6.6); PLATELET ESTIMATE, MANUAL DECREASED (<130,000) (NORMAL); PLATELET MORPHOLOGY NORMAL APPEARANCE (NORMAL); RBC MORPHOLOGY (MULTIPLE) NORMAL APPEARANCE (NORMAL)
[2022-06-30 06:32] LABS: DIFFERENTIAL COMMENT MANUAL DIFFERENTIAL; WBC MORPHOLOGY (MULTIPLE) 1+ TOXIC GRANULATION (NORMAL)
[2022-06-30] MEDS: LEVALBUTEROL 1.25 MG/3 ML NEB INH SCH ×3 (07:14→19:30)
[2022-06-30] MEDS: FOLIC ACID 1 MG TABLET PO SCH (08:51)
[2022-06-30] MEDS: guaiFENesin 600 MG TABLET PO SCH ×2 (08:51→21:53)
[2022-06-30] MEDS: VANCOMYCIN 125 MG CAPSULE PO SCH ×4 (08:51→21:53)
[2022-06-30] MEDS: SACCHAROMYCES BOULARDII 250 MG CAPSULE PO SCH ×2 (08:52→17:10)
[2022-06-30] MEDS: carvediloL 3.125 MG TABLET PO SCH ×2 (08:52→21:52)
[2022-06-30] MEDS: INSULIN LISPRO 300 UNIT/3 ML PEN SUBQ SCH ×4 (08:52→21:55)
[2022-06-30] MEDS: BRIMONIDINE 0.2% OPHTH DROPS 5 ML EACHEYE SCH ×2 (08:53→21:54)
[2022-06-30] MEDS: TIMOLOL 0.5% OPHTH DROPS EACHEYE SCH ×2 (08:54→22:00)
[2022-06-30] MEDS: NYSTATIN POWDER 15 GM TOP SCH ×2 (08:55→22:06)
[2022-06-30] MEDS: POTASSIUM CHLOR 10 MEQ/100 ML 10 MEQ/100 ML BAG IV SCH ×2 (11:17→15:52)
--- NOTE | 2022-06-30 16:39 | PROVIDER PROGRESS NOTE ---
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 on 06/29 His white blood count has dropped yesterday from 9.7 to 2.7 and remains low today at 2.4, causing concern for sepsis On 06/28 a positive blood culture was identified, and is growing Listeria monocytogenese. This is usually from food borne bacteria. This (+) Listeria report was sent to our infection linen supervisor, Julia Hernandez. We stopped ceftriaxone and started meropenem on 06/28 Echocardiogram was ordered to rule out Listeria endocarditis>> it was done yesterday 06/28 and showed LVEF normal, Cor pulmonale present, no large or obvious vegetations were seen however subtle vegetations could not be ruled out and a JACQUELINE was recommended if indicated. I put his story together thus: he probably ingested Listeria, got gastroenterit is from that causing bacteremia and his colon had C. difficile colonization which then became a pathogen. Plan: Await all Blood cx results Cont iv Meropenam Will order PT to start (2) Bacteremia As above in #1 (3) Pancytopenia I reviewed all labs CBC: WBC 2.4 (yesterday 2.7), Hgb 8.9 (yesterday was 8.7), plts 89 (yesterday 72). This is concerning for pssible sepsis from his Listeria and his C. difficile. Lacrtic Acid level was checked yesterday when WBC dropped and his L.A. was normal. We also did a work-up for DIC because of the new decrease in platelets. The fibrinogen was not low and the other labs were not consistent with DIC. Also, he is on weekly MTX, and did get a MTX dose several days ago. Plan: Follow CBC daily (4) C. difficile diarrhea Conclusion/Plan: At admission his biggest complaint was of diarrhea. The diarrhea presumably added to his volume depletion causing his "soft" blood pressure and SCOT. A stool sample was sent and has come back positive for C. difficile. Patient denies having taken any recent antibiotics and also denies any exposure to people that had diarrhea. He does have a history of diverticulosis but states he has never had diarrhea like this before. We did CT imaging of the abdomen pelvis after adm, and it did not show colitis. His volume of stool is still large but decreasing in frequency, yesterday he had 4 BMs. We advanced his diet, since diarrhea volume had improved, and he is tolerating that without worsening sx. IV fluids were stopped last night, oral hydration is good Plan: Cont contact isolation Cont oral vancomycin QID Florastor indicated if not leukopenic Cont watching I's and O's. (5) Fungal rash of torso He continues used to have an itchy red rash in his inguinal area below his pannus of his abdomen Plan: We started nystatin powder (6) Pneumonia Conclusion/Plan: He presents with minimal complaints of a cough, after retching and has a fever here. He has a normal white count and is not desaturating but his chest x-ray and CT scan showed a right sided consolidation. He was admitted to Inpatient status, because according to MCG criteria, this man had a class IV PSI score (with age of 82, history of CHF and BUN is > 29), and also had a high CURB-65 score of III (with BUN >19, diastolic BP less than 60mmHg and age over 65). Plan: Continue with empiric antibiotics, now using IV Meropenam as Zithromax has been completed Cont Mucinex for respiratory toilet (7) Hypoglycemia Improved He had borderline low glucoses on admission of 59 and 80s. Then glucose was as low as 48. He was confused and symptomatic with this. Etiology may be the infections: C. difficile diarrhea and Listeria bacteremia, plus receiving his Amaryl briefly here. We stopped the Amaryl. Plan: Remain off of sliding scale insulin, off long-acting insulin and off his metformin and Amaryl. Continue with IV fluids that contain D5 Continue to check fingerstick glucose values and continue a hypoglycemia protocol (8) DM type 2 (diabetes mellitus, type 2) Conclusion/Plan: According to his medication list, the patient was on insulin, glipizide and metformin. He states he takes his insulin at night and knows to adjusted down from 15 units, based on what his fingerstick glucose checks are; therefore he recently has taken 5 to 7 units at night. His A1c came back at 8.0, indicating poor glu control. Plan: Continue diabetic diet Cont fingerstick glu checks, sliding scale Reg insulin coverage and hypoglycemia protocol (9) Fall at home Conclusion/Plan: Patient had been feeling weak with 3 days of diarrhea then was noticeably confused for 2 days and lightheaded and fell when leaning down. He thinks he had no syncope however. His blood pressure was "soft" and his vital signs showed orthostasis therefore fluids were continued and several CHF meds put on hold. IV fluids were stopped last night, oral hydration is good Plan: Cont telemetry and watch for arrhythmias OK to stop orthostatic vital sign checks We are still holding Entresto & Eplerenone as they are not on formulary He does not need Lasix, fluids were only discontinued yesterday. I am slowly increasing his Coreg dose back up to his home dose, because of volume depletion and the low BP he had (10) SCOT (acute kidney injury) Conclusion/Plan: Improving Patient had a BUN/creatinine of 33/1.8>> . In review of his old labs he always has some prerenal azotemia with BUN in the 30s but normal creat, probably because he is on Eplerenone and Lasix. But now, in addition he has been diarrhea fluid losses, and currently the creatinine is also elevated Plan: Cont to not give Lasix or Eplerenone or Entresto. Pt and family were told of this plan at admission Follow I's and O's Follow BMP daily Avoid nephrotoxins (11) Hx of heart failure Conclusion/Plan: According to old records that I reviewed, the patient used to have an EF of 35% and has an AICD. The EF has recovered and his med list shows that he is on Coreg, Entresto, eplerenone and Lasix. IV fluids were stopped last night, oral hydration is good Plan: Adjusting his dose of Coreg because of the orthostasis Cont to not give Entresto or eplerenone since they are not on formulary and he currently does not need diuresis Watch for volume overload while he is getting IV fluids for several days and still not on Lasix currently (12) Paroxysmal A-fib Conclusion/Plan: According to his description, he "thinks" Afib is the abnormal heart rhythm that was recently found on his device interrogation. He was started on Eliquis 1 month ago. His EKG and telemetry show that he is currently in a dual-chamber paced rhythm, not in Afib, therefore his aFIB MUST BE PAROXYSMAL Plan: We will continue with Coreg for rate control, adjusting the dose based on o rthostasis Continue to hold the Eliquis, given the low plt count (13) Rheumatoid arthritis Conclusion/Plan: He is on methotrexate weekly for this diagnosis. Plan: We adjusted the weekly dose based on his renal fnc (14) DIMAS on CPAP Continue his home CPAP device - Current Meds Current Meds: Current Medications Generic Name Dose Route Start Last Admin Trade Name Sherq PRN Reason Stop Dose Admin Acetaminophen 650 mg 06/27/22 07:50 06/29/22 11:48 Acetaminophen 325 Mg Tablet PO 650 mg Q4HR PRN Administration Pain 1 to 4, or Fever Brimonidine Tartrate 1 drops 06/27/22 09:00 06/30/22 08:53 Brimonidine 0.2% Ophth Drops 5 Ml EACHEYE 1 drops BID RAY Administration Carvedilol 6.25 mg 06/29/22 09:00 06/30/22 08:52 Carvedilol 3.125 Mg Tablet PO 6.25 mg BID RAY Administration Folic Acid 1 mg 06/27/22 09:00 06/30/22 08:51 Folic Acid 1 Mg Tablet PO 1 mg DAILY RAY Administration Guaifenesin 600 mg 06/27/22 09:00 06/30/22 08:51 Guaifenesin 600 Mg Tablet PO 600 mg BID RAY Administration Meropenem 2 gm/ Sodium 100 mls @ 200 mls/hr 06/28/22 03:00 06/30/22 15:50 Chloride IV Infused Q12H RAY Infusion Insulin Human Lispro 1 - 5 unit 06/27/22 12:00 06/30/22 12:07 Insulin Lispro 300 Unit/3 Ml Pen SUBQ 1 unit 0800,1200,1700,2100 RAY Administration Protocol Latanoprost 1 drops 06/27/22 21:00 06/29/22 22:10 Latanoprost 0.005% Ophth Drops EACHEYE 1 drops QPM RAY Administration Levalbuterol HCl 1.25 mg 06/27/22 14:00 06/30/22 14:47 Levalbuterol 1.25 Mg/3 Ml Neb INH 1.25 mg TID RAY Administration Levothyroxine Sodium 150 mcg 06/27/22 09:00 06/30/22 06:23 Levothyroxine 75 Mcg Tablet PO 150 mcg QDAC RAY Administration Methotrexate Sodium 7.5 mg 06/27/22 17:00 06/27/22 17:21 Methotrexate 2.5 Mg Tablet PO 7.5 mg We RAY Administration Multi-Ingredient Ointment 1 applic 06/27/22 18:18 06/29/22 07:01 Zinc Oxide 20% Oint 30 Gm Tube TOP 1 applic PRN PRN Administration Skin Care Nystatin 1 applic 06/29/22 15:39 06/30/22 08:55 Nystatin Powder 15 Gm TOP 1 applic BID RAY Administration Saccharomyces Boulardii 500 mg 06/28/22 10:26 06/30/22 08:52 Saccharomyces Boulardii 250 Mg Capsule PO 500 mg BIDWM RAY Administration Sodium Chloride 10 ml 06/27/22 09:00 06/30/22 08:55 Sodium Chloride Flush 0.9% 10 Ml Syringe IVP 10 ml 0100,0900,1700 RAY Administration Tamsulosin HCl 0.8 mg 06/27/22 21:00 06/29/22 22:05 Tamsulosin 0.4 Mg Capsule PO 0.8 mg QPM RAY Administration Timolol Maleate 1 drops 06/27/22 09:00 06/30/22 08:54 Timolol 0.5% Ophth Drops EACHEYE 1 drops BID RAY Administration Vancomycin HCl 125 mg 06/27/22 15:00 06/30/22 13:26 Vancomycin 125 Mg Capsule PO 125 mg QID RAY Administration - Lab Result Fish Bone Diagrams: 06/30/22 05:15 06/30/22 05:15 - Additional Planning My Orders: My Active Orders 06/29/22 15:39 Nystatin [Nystop] 1 applic TOP BID 06/30/22 Evaluate and Treat PT [PT] Routine 06/30/22 09:21 Miscellaenous Nursing Order [RC] QSHIFT 07/04/22 08:00 Methotrexate [Methotrexate Sodium] 7.5 mg PO We Subjective - Subjective Patient Reports: Feeling Better, No Complaints Nursing Reports: Other (Still has loose BMs) Objective Vital Signs: Vital Signs - 24 hr 06/29/22 06/29/22 06/30/22 19:32 20:28 00:09 Temperature 37.6 C 36.8 C Heart Rate 78 Heart Rate [ 78 74 Brachial] Respiratory 20 19 18 Rate Blood Pressure [Left Brachial artery] Blood Pressure 157/59 H [Left Radial artery] Blood Pressure 187/67 H [Right Brachial artery] O2 Saturation 100 97 06/30/22 06/30/22 06/30/22 03:47 07:15 07:22 Temperature 37.6 C 37.1 C Heart Rate 75 Heart Rate [ 93 73 Brachial] Respiratory 20 16 16 Rate Blood Pressure [Left Brachial artery] Blood Pressure [Left Radial artery] Blood Pressure 143/64 H 137/66 H [Right Brachial artery] O2 Saturation 100 98 06/30/22 06/30/22 06/30/22 12:53 14:52 16:11 Temperature 37.3 C 36.8 C Heart Rate 80 Heart Rate [ 71 70 Brachial] Respiratory 16 16 20 Rate Blood Pressure 122/55 L [Left Brachial artery] Blood Pressure [Left Radial artery] Blood Pressure 121/56 L [Right Brachial artery] O2 Saturation 95 Oxygen O2 Source Room air I&O (Last 24 Hrs): Intake and Output Totals x24h 06/28/22 06/29/22 06/30/22 23:59 23:59 23:59 Intake Total 4440.000 4900 1040 Output Total 475 600 Balance 3965.000 4300 1040 General: Alert (exam done remotely), Oriented x3 HEENT: Mucous membr. moist/pink Neck: Supple Neuro: Alert, Non Focal Cardiovascular: No murmurs Respiratory: No respiratory distress Abdomen: Soft, Other (Obese with pannus and rash in folds) Extremities: No clubbing, Other (1+ pedal edema) - Results Results: Laboratory Results WBC 2.4 x10^3/uL (4.8-10.8) L 06/30/22 05:15 RBC 3.03 10^6/uL (4.70-6.10) L 06/30/22 05:15 Hgb 8.9 g/dL (14.0-18.0) L 06/30/22 05:15 Hct 26.8 % (42.0-52.0) L 06/30/22 05:15 MCV 88.4 fL (80.0-94.0) 06/30/22 05:15 MCH 29.4 pg (27.0-31.0) 06/30/22 05:15 MCHC 33.2 g/dL (32.0-36.0) 06/30/22 05:15 RDW 17.4 % (12.0-15.0) H 06/30/22 05:15 Plt Count 89 10^3/uL (130-450) L 06/30/22 05:15 MPV 10.9 fL (7.4-11.4) 06/30/22 05:15 Neut # (Auto) Not Reportable 06/30/22 05:15 Lymph # (Auto) Not Reportable 06/30/22 05:15 [place] # (Auto) Not Reportable 06/30/22 05:15 Eos # (Auto) Not Reportable 06/30/22 05:15 Baso # (Auto) Not Reportable 06/30/22 05:15 Absolute Nucleated RBC Not Reportable 06/30/22 05:15 Total Counted 100 06/30/22 05:15 Band Neuts % (Manual) 4 % (0-10) 06/30/22 05:15 Abnorm Lymph % (Manual) 0 % 06/30/22 05:15 Nucleated RBC % Not Reportable 06/30/22 05:15 Neutrophils # (Manual) 1.8 10^3/uL (1.5-6.6) 06/30/22 05:15 Lymphocytes # (Manual) 0.4 10^3/uL (1.5-3.5) L 06/30/22 05:15 Monocytes # (Manual) 0.2 10^3/uL (0.0-1.0) 06/30/22 05:15 Eosinophils # (Manual) 0.0 10^3/uL (0-0.7) 06/30/22 05:15 Basophils # (Manual) 0.0 10^3/uL (0-0.1) 06/30/22 05:15 Differential Comment MANUAL DIFFERENTIAL 06/30/22 05:15 WBC Morphology 1+ TOXIC GRANULATION (NORMAL) 06/30/22 05:15 Platelet Estimate DECREASED (<130,000) (NORMAL) 06/30/22 05:15 Platelet Morphology NORMAL APPEARANCE (NORMAL) 06/30/22 05:15 RBC Morph Micro Appear NORMAL APPEARANCE (NORMAL) 06/30/22 05:15 PT 19.6 secs (9.9-12.6) H 06/28/22 12:30 INR 1.8 (0.8-1.2) H 06/28/22 12:30 APTT 29.9 secs (24.9-33.3) 06/28/22 12:30 Fibrinogen 391 mg/dL (220-496) 06/28/22 12:30 D-Dimer 333.4 ng/mL (200.0-255.0) H 06/28/22 12:30 Sodium 128 mmol/L (135-145) L 06/30/22 05:15 Potassium 3.1 mmol/L (3.5-5.0) L 06/30/22 05:15 Chloride 98 mmol/L (101-111) L 06/30/22 05:15 Carbon Dioxide 21 mmol/L (21-32) 06/30/22 05:15 Anion Gap 9.0 (6-13) 06/30/22 05:15 BUN 18 mg/dL (6-20) 06/30/22 05:15 Creatinine 1.2 mg/dL (0.6-1.2) 06/30/22 05:15 Estimated GFR (MDRD) 58 (>89) L 06/30/22 05:15 Glucose 113 mg/dL (70-100) H 06/30/22 05:15 Estimat Average Glucose 183 mg/dL (70-100) H 06/27/22 05:12 Hemoglobin A1c % 8.0 % (4.27-6.07) H 06/27/22 05:12 Lactic Acid 2.0 mmol/L (0.5-2.2) 06/29/22 13:14 Calcium 8.3 mg/dL (8.5-10.3) L 06/30/22 05:15 Magnesium 1.6 mg/dL (1.7-2.8) L 06/30/22 05:15 Total Bilirubin 0.9 mg/dL (0.2-1.0) 06/27/22 05:12 AST 18 IU/L (10-42) 06/27/22 05:12 ALT 19 IU/L (10-60) 06/27/22 05:12 Alkaline Phosphatase 49 IU/L (42-121) 06/27/22 05:12 Total Protein 6.7 g/dL (6.7-8.2) 06/27/22 05:12 Albumin 3.6 g/dL (3.2-5.5) 06/27/22 05:12 Globulin 3.1 g/dL (2.1-4.2) 06/27/22 05:12 Albumin/Globulin Ratio 1.2 (1.0-2.2) 06/27/22 05:12 TSH 0.46 uIU/mL (0.34-5.60) 06/28/22 04:50 Nasal Adenovirus (PCR) NOT DETECTED 06/27/22 04:20 Nasal B. parapertussis DNA (PCR) NOT DETECTED 06/27/22 04:20 Nasal Coronavir 229E PCR NOT DETECTED 06/27/22 04:20 Nasal Coronavir HKU1 PCR NOT DETECTED 06/27/22 04:20 Nasal Coronavir NL63 PCR NOT DETECTED 06/27/22 04:20 Nasal Coronavir OC43 PCR NOT DETECTED 06/27/22 04:20 Nasal Enterovir/Rhinovir PCR NOT DETECTED 06/27/22 04:20 Nasal Influenza B PCR NOT DETECTED 06/27/22 04:20 Nasal Influenza A PCR NOT DETECTED 06/27/22 04:20 Nasal Parainfluen 1 PCR NOT DETECTED 06/27/22 04:20 Nasal Parainfluen 2 PCR NOT DETECTED 06/27/22 04:20 Nasal Parainfluen 3 PCR NOT DETECTED 06/27/22 04:20 Nasal Parainfluen 4 PCR NOT DETECTED 06/27/22 04:20 Nasal RSV (PCR) NOT DETECTED 06/27/22 04:20 Nasal B.pertussis DNA PCR NOT DETECTED 06/27/22 04:20 Nasal C.pneumoniae (PCR) NOT DETECTED 06/27/22 04:20 Miguel Human Metapneumo PCR NOT DETECTED 06/27/22 04:20 Nasal M.pneumoniae (PCR) NOT DETECTED 06/27/22 04:20 Nasal SARS-CoV-2 (PCR) NOT DETECTED 06/27/22 04:20 Stl C. diff Tox B Gene POSITIVE (NEGATIVE) A* 06/27/22 11:40
[2022-06-30] MEDS: TAMSULOSIN 0.4 MG CAPSULE PO SCH (21:52)
[2022-06-30] MEDS: ACETAMINOPHEN 325 MG TABLET PO PRN (21:53)
[2022-06-30] MEDS: LATANOPROST 0.005% OPHTH DROPS EACHEYE SCH (22:05)
[2022-07-01] MEDS: SODIUM CHLORIDE FLUSH 0.9% 10 ML SYRINGE IVP SCH ×3 (01:00→17:05)
[2022-07-01] MEDS: MEROPENEM 2 GM in SODIUM CHLORIDE 0.9% MINIBAG 100 ML IV SCH ×2 (04:08→15:02)
[2022-07-01] MEDS: LEVOTHYROXINE 75 MCG TABLET PO SCH (05:47)
[2022-07-01] MEDS: LEVALBUTEROL 1.25 MG/3 ML NEB INH SCH (07:12)
[2022-07-01] MEDS: FOLIC ACID 1 MG TABLET PO SCH (08:07)
[2022-07-01] MEDS: guaiFENesin 600 MG TABLET PO SCH (08:07)
[2022-07-01] MEDS: VANCOMYCIN 125 MG CAPSULE PO SCH ×4 (08:07→21:21)
[2022-07-01] MEDS: carvediloL 3.125 MG TABLET PO SCH (08:07)
[2022-07-01] MEDS: SACCHAROMYCES BOULARDII 250 MG CAPSULE PO SCH ×2 (08:07→16:59)
[2022-07-01] MEDS: INSULIN LISPRO 300 UNIT/3 ML PEN SUBQ SCH ×4 (08:08→21:27)
[2022-07-01] MEDS: BRIMONIDINE 0.2% OPHTH DROPS 5 ML EACHEYE SCH ×2 (08:08→21:29)
[2022-07-01] MEDS: TIMOLOL 0.5% OPHTH DROPS EACHEYE SCH ×2 (08:09→21:29)
[2022-07-01] MEDS: NYSTATIN POWDER 15 GM TOP SCH ×2 (08:09→21:22)
--- NOTE | 2022-07-01 08:21 | PROVIDER PROGRESS NOTE ---
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 This is usually from food borne bacteria. Listeria bacteremia in Immunocompromised patients has a 45% mortality rate. This (+) Listeria report was sent to our infection promotions firm accounts manager, Julia Hernandez. We stopped ceftriaxone and started meropenem on 06/28 Echocardiogram was ordered to rule out Listeria endocarditis>> it was done 06/28 and showed LVEF normal, Cor pulmonale present, no large or obvious vegetations were seen however subtle vegetations could not be ruled out and a JACQUELINE was recommended if indicated. Not suspecting endocarditis with resolution of fever, and no murmur. His white blood count had dropped slowly from 9.7> 4.7> 2.7 and remains low today at 2.4, causing concern for sepsis. Lactic Acid level was checked when WBC dropped and his L.A. was normal. BP and HR also normal. We also did a work-up for DIC because of the drop in platelets. The fibrinogen was not low and the other labs were not consistent with DIC. I put his story together thus: he probably ingested Listeria, got gastroenteritis from that, leading to bacteremia since he is immunocompromised and his colon had C. difficile colonization, which then became a pathogen giving him C.diff diarrhea. Plan: Will redraw blood cx to assure no growth He has received 5 days of Meropenam. Will be changing to po Amoxicillin 500 mg q8h PLUS TMP/Sulfa 1 po BID. (2) Bacteremia As above in #1 He has received 5 days of Meropenam. Plan: Starting tomorrow, will be changing his iv Meropenam to po Amoxicillin 500 mg q8h PLUS TMP/Sulfa 1 po BID. The duration of treatment recommended in UpToDate for Listeria bacteremia in Immunocompromised pts is 4 weeks total. Thus he will need 3 weeks and 3 days of oral antibiotics. Thus treatment will go thru 07/25/22. Will continue Florastor thru that time. All the above was discussed with pt today and I gave him a written out schedule. (3) Pancytopenia I reviewed all labs today. WBC, Hgb and Plts are still very low This was concerning for possible sepsis but Lactic Acid level was checked when WBC dropped and his L.A. was normal. We also did a work-up for DIC because of the drop in platelets. The fibrinogen was not low and the other labs were not consistent with DIC. Also, he is on weekly MTX, and did get a MTX dose several days ago. Plan: Follow CBC daily Treat the Listeria as above in an Immunocompromised pt. Will stop the weekly MTX for the next 3 weeks, as recommended in UpToDate Will resume Eliquis now that plts have recovered to >100 (plt 119 today). All the above was discussed with pt today. (4) Rheumatoid arthritis Conclusion/Plan: He is on methotrexate weekly for this diagnosis. This makes him immunocompromised and at higher risk of comlications from Listeria in the blood stream (like DIGITAL IMAGING TECHNICIAN seading). Plan: We adjusted the weekly dose based on his renal fnc UpToDate recommends decreasing the immunosuppressant while on treatment for Listeria bacteremia. Since the MTX caused severe pancytopenia, we will stop the MTX and resume it in 4 weeks (4) C. difficile diarrhea Conclusion/Plan: At admission his biggest complaint was of diarrhea. The diarrhea presumably added to his volume depletion causing his "soft" blood pressure and SCOT. A stool sample was sent and came back positive for C. difficile. We did CT imaging of the abdomen pelvis after adm, and it did not show colitis. We advanced his diet and IV fluids were stopped, since diarrhea volume had improved, and he is tolerating that without worsening sx. He had his first solid BM today. I put his story together thus: he probably ingested Listeria, got gastroenteritis from that, causing bacteremia, and his colon had C. difficile colonization which then became a pathogen giving him C.diff diarrhea. Plan: Cont contact isolation Cont oral vancomycin QID, today is Day 5 of 10, treatment will go thru 07/06/22 Florastor indicated if not leukopenic Cont watching I's and O's. All the above was discussed with pt today and I gave him a written out schedule. (5) Hyponatremia Since the hydration with NS has been stopped 2 days ago, his sodium has dropped the last 2 days. Labs were all reviewed. On 06/28, Na was 133, yesterday Na was 132, today is 128. Plan: Free water restriction of 1200 cc/day total has been ordered but he may have isotonic fluids like chicken broth and Gatorade. Discussed with his RN. With resumption of Lasix and Spironolactone (today), he may also now be able to clear his free water Follow BMP daily (6) Pneumonia Conclusion/Plan: He presents with minimal complaints of a cough, after retching and has a fever here. He has a normal white count and is not desaturating but his chest x-ray and CT scan showed a right sided consolidation. He was admitted to Inpatient status, because according to MCG criteria, this man had a class IV PSI score (with age of 82, history of CHF and BUN is > 29), and also had a high CURB-65 score of III (with BUN >19, diastolic BP less than 60mmHg and age over 65). Plan: Continue with empiric antibiotics, Zithromax has been completed and will be starting Amox Cont Mucinex for respiratory toilet (7) Chronic systolic heart failure Conclusion/Plan: According to old records that I reviewed, the patient used to have an EF of 35% and has an AICD. The EF had recovered. His med list shows that he is on Coreg, Entresto, Eplerenone and Lasix. IV fluids were stopped 2 days ago, oral hydration is good He has gained 2 kg in weight since admission, from getting iv fluids and po intake Plan: Adjusting his dose of Coreg because of the orthostasis, and today will resume his usual dose of 12.5 BID Continue to not give Entresto, it is not on formulary Restarting Lasix po and Spironolactone po today (8) DM type 2 (diabetes mellitus, type 2) Conclusion/Plan: According to his medication list, the patient was on insulin, glipizide and metformin. He states he takes his insulin at night and knows to adjusted down from 15 units, based on what his fingerstick glucose checks are; therefore he recently has taken 5 to 7 units at night. His A1c came back at 8.0, indicating poor glu control. Plan: Continue solid foods diabetic diet Cont fingerstick glu checks, will resume sliding scale Reg insulin coverage and hypoglycemia protocol (9) Fungal rash of torso He continues to have an itchy red rash in his inguinal area below his pannus of his abdomen. He asks if the treatment is supposed to include a cream and then powder on top of cream, like some CNAs are applying. Plan: Continue nystatin powder and will write nursing order to instruct their CNAs the proper placement of powder directly to rash, no cream. Discussed plan with pt today. (10) Fall at home Conclusion/Plan: Patient had been feeling weak with 3 days of diarrhea then was noticeably confused for 2 days at home and lightheaded and fell when leaning down. He t hinks he had no syncope however. His blood pressure was "soft" and his vital signs showed orthostasis therefore fluids were continued and several CHF meds were put on hold. IV fluids were stopped 2 days ago, oral hydration is good Plan: Cont telemetry and watch for arrhythmias OK to stop orthostatic vital sign checks We are still holding Entresto, it is not on formulary Restarting Lasix po and Spironolactone po today I am slowly increasing his Coreg dose back up to his home dose, because of vol ume depletion and the low BP he had. PT ordered yesterday 06/30 to start, but we have no PT here yesterday 06/30 and today 07/01 (Maycol and Diana) (11) SCOT (acute kidney injury) Conclusion/Plan: Resolved In review of his old labs he always has some prerenal azotemia with BUN in the 30s but normal creat, probably because he is on Eplerenone and Lasix. But at admission, creatinine is was elevated from diarrhea fluid losses Plan: Cont to not give Entresto. His I's and O's are >5L (+), thus I am restarting Lasix po and Spironolactone po today Follow BMP daily Avoid nephrotoxins (12) Paroxysmal A-fib Conclusion/Plan: According to his description, he "thinks" Afib is the abnormal heart rhythm that was recently found on his device interrogation. He was started on Eliquis 1 month ago. His EKG and telemetry show that he is currently in a dual-chamber paced rhythm, not in Afib, therefore his aFIB MUST BE PAROXYSMAL Plan: We will continue with Coreg for rate control, we had to slowly increase the dose based on BP We stopped the Eliquis, given the low plt count. Will resume Eliquis now that the plt count is over 100 today (plts 119) (14) DIMAS on CPAP Continue his home CPAP device (15) Hypoglycemia Resolved He had borderline low glucoses on admission of 59 and 80s. Then glucose was as low as 48. He was confused with this. Etiology may have been the infections plus getting all his DM meds at home and receiving his Amaryl briefly here. All are on hold Plan: Will resume ss Insulin, now that clear liquids have been advanced toa solid DM diet Continue to check fingerstick glucose values and continue a hypoglycemia protocol - Current Meds Current Meds: Current Medications Generic Name Dose Route Start Last Admin Trade Name Breanne PRN Reason Stop Dose Admin Acetaminophen 650 mg 06/27/22 07:50 06/30/22 21:53 Acetaminophen 325 Mg Tablet PO 650 mg Q4HR PRN Administration Pain 1 to 4, or Fever Brimonidine Tartrate 1 drops 06/27/22 09:00 07/01/22 08:08 Brimonidine 0.2% Ophth Drops 5 Ml EACHEYE 1 drops BID RAY Administration Carvedilol 6.25 mg 06/29/22 09:00 07/01/22 08:07 Carvedilol 3.125 Mg Tablet PO 6.25 mg BID RAY Administration Folic Acid 1 mg 06/27/22 09:00 07/01/22 08:07 Folic Acid 1 Mg Tablet PO 1 mg DAILY RAY Administration Guaifenesin 600 mg 06/27/22 09:00 07/01/22 08:07 Guaifenesin 600 Mg Tablet PO 600 mg BID RAY Administration Meropenem 2 gm/ Sodium 100 mls @ 200 mls/hr 06/28/22 03:00 07/01/22 04:08 Chloride IV 200 mls/hr Q12H RAY Administration Insulin Human Lispro 1 - 5 unit 06/27/22 12:00 07/01/22 08:08 Insulin Lispro 300 Unit/3 Ml Pen SUBQ Not Given 0800,1200,1700,2100 RAY Protocol Latanoprost 1 drops 06/27/22 21:00 06/30/22 22:05 Latanoprost 0.005% Ophth Drops EACHEYE 1 drops QPM RAY Administration Levalbuterol HCl 1.25 mg 06/27/22 14:00 07/01/22 07:12 Levalbuterol 1.25 Mg/3 Ml Neb INH 1.25 mg TID RAY Administration Levothyroxine Sodium 150 mcg 06/27/22 09:00 07/01/22 05:47 Levothyroxine 75 Mcg Tablet PO 150 mcg QDAC RAY Administration Methotrexate Sodium 7.5 mg 06/27/22 17:00 06/27/22 17:21 Methotrexate 2.5 Mg Tablet PO 7.5 mg We RAY Administration Multi-Ingredient Ointment 1 applic 06/27/22 18:18 06/29/22 07:01 Zinc Oxide 20% Oint 30 Gm Tube TOP 1 applic PRN PRN Administration Skin Care Nystatin 1 applic 06/29/22 15:39 07/01/22 08:09 Nystatin Powder 15 Gm TOP 1 applic BID RAY Administration Saccharomyces Boulardii 500 mg 06/28/22 10:26 07/01/22 08:07 Saccharomyces Boulardii 250 Mg Capsule PO 500 mg BIDWM RAY Administration Sodium Chloride 10 ml 06/27/22 09:00 07/01/22 08:09 Sodium Chloride Flush 0.9% 10 Ml Syringe IVP 10 ml 0100,0900,1700 RAY Administration Tamsulosin HCl 0.8 mg 06/27/22 21:00 06/30/22 21:52 Tamsulosin 0.4 Mg Capsule PO 0.8 mg QPM RAY Administration Timolol Maleate 1 drops 06/27/22 09:00 07/01/22 08:09 Timolol 0.5% Ophth Drops EACHEYE 1 drops BID RAY Administration Vancomycin HCl 125 mg 06/27/22 15:00 07/01/22 08:07 Vancomycin 125 Mg Capsule PO 125 mg QID RAY Administration - Lab Result Fish Bone Diagrams: 07/01/22 09:12 07/01/22 09:12 - Additional Planning My Orders: My Active Orders 06/30/22 09:21 Miscellaenous Nursing Order [RC] QSHIFT 07/02/22 05:00 BMP - BASIC METABOLIC PANEL [CHEM] DAILYLAB CBC - COMP BLD CT W/AUTO DIFF [HEME] DAILYLAB 07/04/22 08:00 Methotrexate [Methotrexate Sodium] 7.5 mg PO We Subjective - Subjective Patient Reports: No Complaints (Sitting up in chair, reports he had a formed BM today, the rash in groin continues and asks if the treatment is supposed to include a cream and then powder on top of cream, like some CNAs are applying.) Objective Vital Signs: Vital Signs - 24 hr 06/30/22 06/30/22 06/30/22 12:53 14:52 16:11 Temperature 37.3 C 36.8 C Heart Rate 80 Heart Rate [ 71 70 Brachial] Respiratory 16 16 20 Rate Blood Pressure 122/55 L [Left Brachial artery] Blood Pressure 121/56 L [Right Brachial artery] O2 Saturation 95 98 06/30/22 06/30/22 06/30/22 19:31 20:50 23:58 Temperature 37.3 C 36.6 C Heart Rate 76 Heart Rate [ 81 70 Brachial] Respiratory 18 18 16 Rate Blood Pressure [Left Brachial artery] Blood Pressure 156/59 H 129/61 [Right Brachial artery] O2 Saturation 98 98 07/01/22 07/01/22 07/01/22 03:57 07:14 07:33 Temperature 36.7 C 36.6 C Heart Rate 75 Heart Rate [ 82 85 Brachial] Respiratory 20 16 18 Rate Blood Pressure [Left Brachial artery] Blood Pressure 132/58 H 151/72 H [Right Brachial artery] O2 Saturation 95 99 Oxygen O2 Source Room air I&O (Last 24 Hrs): Intake and Output Totals x24h 06/29/22 06/30/22 07/01/22 23:59 23:59 23:59 Intake Total 4900 1680 Output Total 600 Balance 4300 1680 General: Alert, Oriented x3 HEENT: Mucous membr. moist/pink Neck: Supple, Other (Obese and cannot eval JVP) Neuro: Alert, Non Focal Cardiovascular: Other (distant heart sounds due to obesity) Respiratory: No respiratory distress, Breath sounds nml Abdomen: Normal bowel sounds, Soft, Other (Obese with a pannus, red skin in flods) Extremities: No clubbing, Other (2+ edema of ankles and feet) - Results Results: Laboratory Results WBC 2.4 x10^3/uL (4.8-10.8) L 06/30/22 05:15 RBC 3.03 10^6/uL (4.70-6.10) L 06/30/22 05:15 Hgb 8.9 g/dL (14.0-18.0) L 06/30/22 05:15 Hct 26.8 % (42.0-52.0) L 06/30/22 05:15 MCV 88.4 fL (80.0-94.0) 06/30/22 05:15 MCH 29.4 pg (27.0-31.0) 06/30/22 05:15 MCHC 33.2 g/dL (32.0-36.0) 06/30/22 05:15 RDW 17.4 % (12.0-15.0) H 06/30/22 05:15 Plt Count 89 10^3/uL (130-450) L 06/30/22 05:15 MPV 10.9 fL (7.4-11.4) 06/30/22 05:15 Neut # (Auto) Not Reportable 06/30/22 05:15 Lymph # (Auto) Not Reportable 06/30/22 05:15 [place] # (Auto) Not Reportable 06/30/22 05:15 Eos # (Auto) Not Reportable 06/30/22 05:15 Baso # (Auto) Not Reportable 06/30/22 05:15 Absolute Nucleated RBC Not Reportable 06/30/22 05:15 Total Counted 100 06/30/22 05:15 Band Neuts % (Manual) 4 % (0-10) 06/30/22 05:15 Abnorm Lymph % (Manual) 0 % 06/30/22 05:15 Nucleated RBC % Not Reportable 06/30/22 05:15 Neutrophils # (Manual) 1.8 10^3/uL (1.5-6.6) 06/30/22 05:15 Lymphocytes # (Manual) 0.4 10^3/uL (1.5-3.5) L 06/30/22 05:15 Monocytes # (Manual) 0.2 10^3/uL (0.0-1.0) 06/30/22 05:15 Eosinophils # (Manual) 0.0 10^3/uL (0-0.7) 06/30/22 05:15 Basophils # (Manual) 0.0 10^3/uL (0-0.1) 06/30/22 05:15 Differential Comment MANUAL DIFFERENTIAL 06/30/22 05:15 WBC Morphology 1+ TOXIC GRANULATION (NORMAL) 06/30/22 05:15 Platelet Estimate DECREASED (<130,000) (NORMAL) 06/30/22 05:15 Platelet Morphology NORMAL APPEARANCE (NORMAL) 06/30/22 05:15 RBC Morph Micro Appear NORMAL APPEARANCE (NORMAL) 06/30/22 05:15 PT 19.6 secs (9.9-12.6) H 06/28/22 12:30 INR 1.8 (0.8-1.2) H 06/28/22 12:30 APTT 29.9 secs (24.9-33.3) 06/28/22 12:30 Fibrinogen 391 mg/dL (220-496) 06/28/22 12:30 D-Dimer 333.4 ng/mL (200.0-255.0) H 06/28/22 12:30 Sodium 128 mmol/L (135-145) L 06/30/22 05:15 Potassium 3.1 mmol/L (3.5-5.0) L 06/30/22 05:15 Chloride 98 mmol/L (101-111) L 06/30/22 05:15 Carbon Dioxide 21 mmol/L (21-32) 06/30/22 05:15 Anion Gap 9.0 (6-13) 06/30/22 05:15 BUN 18 mg/dL (6-20) 06/30/22 05:15 Creatinine 1.2 mg/dL (0.6-1.2) 06/30/22 05:15 Estimated GFR (MDRD) 58 (>89) L 06/30/22 05:15 Glucose 113 mg/dL (70-100) H 06/30/22 05:15 Estimat Average Glucose 183 mg/dL (70-100) H 06/27/22 05:12 Hemoglobin A1c % 8.0 % (4.27-6.07) H 06/27/22 05:12 Lactic Acid 2.0 mmol/L (0.5-2.2) 06/29/22 13:14 Calcium 8.3 mg/dL (8.5-10.3) L 06/30/22 05:15 Magnesium 1.6 mg/dL (1.7-2.8) L 06/30/22 05:15 Total Bilirubin 0.9 mg/dL (0.2-1.0) 06/27/22 05:12 AST 18 IU/L (10-42) 06/27/22 05:12 ALT 19 IU/L (10-60) 06/27/22 05:12 Alkaline Phosphatase 49 IU/L (42-121) 06/27/22 05:12 Total Protein 6.7 g/dL (6.7-8.2) 06/27/22 05:12 Albumin 3.6 g/dL (3.2-5.5) 06/27/22 05:12 Globulin 3.1 g/dL (2.1-4.2) 06/27/22 05:12 Albumin/Globulin Ratio 1.2 (1.0-2.2) 06/27/22 05:12 TSH 0.46 uIU/mL (0.34-5.60) 06/28/22 04:50 Nasal Adenovirus (PCR) NOT DETECTED 06/27/22 04:20 Nasal B. parapertussis DNA (PCR) NOT DETECTED 06/27/22 04:20 Nasal Coronavir 229E PCR NOT DETECTED 06/27/22 04:20 Nasal Coronavir HKU1 PCR NOT DETECTED 06/27/22 04:20 Nasal Coronavir NL63 PCR NOT DETECTED 06/27/22 04:20 Nasal Coronavir OC43 PCR NOT DETECTED 06/27/22 04:20 Nasal Enterovir/Rhinovir PCR NOT DETECTED 06/27/22 04:20 Nasal Influenza B PCR NOT DETECTED 06/27/22 04:20 Nasal Influenza A PCR NOT DETECTED 06/27/22 04:20 Nasal Parainfluen 1 PCR NOT DETECTED 06/27/22 04:20 Nasal Parainfluen 2 PCR NOT DETECTED 06/27/22 04:20 Nasal Parainfluen 3 PCR NOT DETECTED 06/27/22 04:20 Nasal Parainfluen 4 PCR NOT DETECTED 06/27/22 04:20 Nasal RSV (PCR) NOT DETECTED 06/27/22 04:20 Nasal B.pertussis DNA PCR NOT DETECTED 06/27/22 04:20 Nasal C.pneumoniae (PCR) NOT DETECTED 06/27/22 04:20 Miguel Human Metapneumo PCR NOT DETECTED 06/27/22 04:20 Nasal M.pneumoniae (PCR) NOT DETECTED 06/27/22 04:20 Nasal SARS-CoV-2 (PCR) NOT DETECTED 06/27/22 04:20 Stl C. diff Tox B Gene POSITIVE (NEGATIVE) A* 06/27/22 11:40
[2022-07-01] MEDS ORDERED: carvediloL 3.125 MG TABLET PO ONE (09:00)
[2022-07-01 09:17] LABS: BASOPHILS % (AUTO) 0.4 %; EOSINOPHILS # (AUTO) 0.1 10^3/uL (0.0-0.7); EOSINOPHILS % (AUTO) 2.4 %; HGB - HEMOGLOBIN 9.3 g/dL (14.0-18.0); LYMPHOCYTES # (AUTO) 0.3 10^3/uL (1.5-3.5); LYMPHOCYTES % (AUTO) 10.9 %; MEAN CORPUSCULAR HEMOGLOBIN 29.4 pg (27.0-31.0); MEAN CORPUSCULAR HGB CONC 33.2 g/dL (32.0-36.0); MEAN CORPUSCULAR VOLUME 88.6 fL (80.0-94.0); MEAN PLATELET VOLUME 11.2 fL (7.4-11.4); MONOCYTES # (AUTO) 0.3 10^3/uL (0.0-1.0); MONOCYTES % (AUTO) 12.5 %; NEUTROPHILS # (AUTO) 1.8 10^3/uL (1.5-6.6); PLT - PLATELET COUNT 119 10^3/uL (130-450); RED BLOOD COUNT 3.16 10^6/uL (4.70-6.10); RED CELL DISTRIBUTION WIDTH 17.4 % (12.0-15.0); WHITE BLOOD COUNT 2.5 x10^3/uL (4.8-10.8)
[2022-07-01 09:22] LABS: SLIDE REVIEW? Indicated
[2022-07-01 09:26] LABS: CALCIUM 8.5 mg/dL (8.5-10.3); CREATININE 1.2 mg/dL (0.6-1.2); POTASSIUM 3.3 mmol/L (3.5-5.0)
[2022-07-01 09:37] LABS: RBC MORPHOLOGY (MULTIPLE) 3+ ANISOCYTOSIS (NORMAL)
[2022-07-01] MEDS: FUROSEMIDE 40 MG TABLET PO SCH (10:27)
[2022-07-01] MEDS ORDERED: SPIRONOLACTONE 25 MG TABLET PO SCH (12:00)
[2022-07-01] MEDS ORDERED: LEVALBUTEROL 1.25 MG/3 ML NEB INH SCH (13:52)
[2022-07-01] MEDS ORDERED: POTASSIUM CHLORIDE 10 MEQ CAPSULE PO ONE (16:09)
[2022-07-01] MEDS: CALCIUM CARBONATE CHEW 500 MG TABLET PO PRN (20:01)
[2022-07-01] MEDS: APIXABAN 5 MG TABLET PO SCH (21:20)
[2022-07-01] MEDS: ACETAMINOPHEN 325 MG TABLET PO PRN (21:21)
[2022-07-01] MEDS: TAMSULOSIN 0.4 MG CAPSULE PO SCH (21:21)
[2022-07-01] MEDS: carvediloL 12.5 MG TABLET PO SCH (21:21)
[2022-07-01] MEDS: LATANOPROST 0.005% OPHTH DROPS EACHEYE SCH (21:24)
[2022-07-01] MEDS: ZINC OXIDE 20% OINT 30 GM TUBE TOP PRN (21:24)
[2022-07-01] MEDS: LEVALBUTEROL 1.25 MG/3 ML NEB INH PRN (21:58)
[2022-07-02] MEDS: MEROPENEM 2 GM in SODIUM CHLORIDE 0.9% MINIBAG 100 ML IV SCH (03:03)
[2022-07-02] MEDS: SODIUM CHLORIDE FLUSH 0.9% 10 ML SYRINGE IVP SCH ×4 (03:03→23:57)
[2022-07-02] MEDS: CALCIUM CARBONATE CHEW 500 MG TABLET PO PRN (04:50)
[2022-07-02] MEDS: guaiFENesin 600 MG TABLET PO PRN ×2 (04:50→21:07)
[2022-07-02] MEDS: LEVOTHYROXINE 75 MCG TABLET PO SCH (06:18)
[2022-07-02] MEDS ORDERED: AMOXICILLIN 250 MG CAPSULE PO SCH (07:00)
[2022-07-02 07:23] LABS: BASOPHILS % (AUTO) 0.4 %; EOSINOPHILS # (AUTO) 0.1 10^3/uL (0.0-0.7); EOSINOPHILS % (AUTO) 4.4 %; HCT - HEMATOCRIT 26.4 % (42.0-52.0); HGB - HEMOGLOBIN 8.8 g/dL (14.0-18.0); LYMPHOCYTES # (AUTO) 0.4 10^3/uL (1.5-3.5); LYMPHOCYTES % (AUTO) 16.8 %; MEAN CORPUSCULAR HEMOGLOBIN 29.5 pg (27.0-31.0); MEAN CORPUSCULAR HGB CONC 33.3 g/dL (32.0-36.0); MEAN CORPUSCULAR VOLUME 88.6 fL (80.0-94.0); MEAN PLATELET VOLUME 10.6 fL (7.4-11.4); MONOCYTES # (AUTO) 0.4 10^3/uL (0.0-1.0); MONOCYTES % (AUTO) 17.7 %; NEUTROPHILS # (AUTO) 1.3 10^3/uL (1.5-6.6); PLT - PLATELET COUNT 112 10^3/uL (130-450); RED BLOOD COUNT 2.98 10^6/uL (4.70-6.10); WHITE BLOOD COUNT 2.3 x10^3/uL (4.8-10.8)
[2022-07-02 07:26] LABS: SLIDE REVIEW? Indicated
[2022-07-02 07:31] LABS: CALCIUM 8.9 mg/dL (8.5-10.3); CREATININE 1.2 mg/dL (0.6-1.2); POTASSIUM 3.5 mmol/L (3.5-5.0)
[2022-07-02] MEDS: INSULIN LISPRO 300 UNIT/3 ML PEN SUBQ SCH ×4 (07:43→21:05)
[2022-07-02 07:45] LABS: RBC MORPHOLOGY (MULTIPLE) 4+ ANISOCYTOSIS (NORMAL)
[2022-07-02] MEDS: APIXABAN 5 MG TABLET PO SCH ×2 (08:10→21:06)
[2022-07-02] MEDS: VANCOMYCIN 125 MG CAPSULE PO SCH ×4 (08:10→21:07)
[2022-07-02] MEDS: FOLIC ACID 1 MG TABLET PO SCH (08:10)
[2022-07-02] MEDS: FUROSEMIDE 40 MG TABLET PO SCH (08:10)
[2022-07-02] MEDS: carvediloL 12.5 MG TABLET PO SCH ×2 (08:10→21:06)
[2022-07-02] MEDS: SACCHAROMYCES BOULARDII 250 MG CAPSULE PO SCH ×2 (08:10→17:10)
[2022-07-02] MEDS: NYSTATIN POWDER 15 GM TOP SCH ×2 (08:13→21:07)
[2022-07-02] MEDS: TIMOLOL 0.5% OPHTH DROPS EACHEYE SCH ×2 (08:13→21:08)
[2022-07-02] MEDS: BRIMONIDINE 0.2% OPHTH DROPS 5 ML EACHEYE SCH ×2 (08:13→21:09)
--- NOTE | 2022-07-02 08:23 | PROVIDER PROGRESS NOTE ---
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 On 06/28 a positive blood culture was identified, and is growing Listeria monocytogenese. This is usually from food borne bacteria. Listeria bacteremia in Immunocompromised patients has a 45% mortality rate. This (+) Listeria report was sent to our infection behavioral science chair, Julia Hernandez. We stopped ceftriaxone and started meropenem on 06/28 Echocardiogram was ordered to rule out Listeria endocarditis>> it was done 06/28 and showed LVEF normal, Cor pulmonale present, no large or obvious vegetations were seen however subtle vegetations could not be ruled out and a JACQUELINE was recommended if indicated. Not suspecting endocarditis with resolution of fever, and no murmur. His white blood count had dropped slowly from 9.7> 4.7> 2.7 and remains low today at 2.4, causing concern for sepsis. Lactic Acid level was checked when WBC dropped and his L.A. was normal. BP and HR also normal. We also did a work-up for DIC because of the drop in platelets. The fibrinogen was not low and the other labs were not consistent with DIC. We have redrawn blood cx on 06/30, to assure no growth on antibx Plan: He received 5 days of Meropenam 2g q12h (renal dosage), and yesterday 07/01, since he had no fever since 06/29, after discussion with Brandon in pharmacy, we were planning to change him today 07/02 to po Amoxicillin and po TMP/Sulfa and treat for a total duration of 4 weeks, as per UpToDate. But those instructions do not state if it should be po or iv treatment for 4 weeks. However, today 07/02 pharmacist Brandon was able to find guidelines from , that Listeria bacteremia in immunocompromised pts needs to get antibx for 4 weeks total, with all iv treatment. Remain off the weekly MTX for the next 3 weeks, was recommended in UpToDate, and MTX order was stopped. He will need a PICC line inserted. I had a long discussion, updated the patient today, and and son were at bedside and 2 more sons were on the phone at the time. The son thinks this Listeriosis was caused by bad lettuce and asked how that head of lettuce can be tested. Will ask edm operator. (2) Bacteremia As above in #1 Plan: Today 07/02 we were initially planning on changing his iv Meropenam to start po Amoxicillin 500 mg q8h and TMP/Sulfa 1 po BID, and give for 3 weeks and 3 days more. However, today our pharmacist Brandon was able to find guidelines from , that Listeria bacteremia in immunocompromised pts needs to get 4 weeks total, and all iv antibiotic treatment. Plan: Therefore will resume Meropenam 2g iv q8h, based on current GFR. Will continue Florastor thru that time. All the above was discussed with pt again today. and 3 sons were in the conversation. He will need to be DCh to a SNF (or Swing Bed here), once he is medically cleared, which will be after his WBC and plts improve. Plan will be to complete a total 4 week course of iv antibiotics. He will need a PICC line inserted. (3) Pancytopenia Conclusion/Plan: I reviewed all labs today. WBC, Hgb and Plts are still very low This was concerning for possible sepsis but Lactic Acid level was checked when WBC dropped and his L.A. was normal. He was not toxic appearing, had normal BP and HR. We also did a work-up for DIC then, because of the drop in platelets. The fibrinogen was not low and the other labs were not consistent with DIC. This ira gentleman was on weekly MTX, and did get a MTX dose the day after admission, before Listeriosis was diagnosed. I presume that MTX dropped his counts. Plan: Follow CBC daily Treat the Listeria as above in an Immunocompromised patient. Will stop the weekly MTX for the next 3 weeks, as recommended in UpToDate We resumed Eliquis now that plts have recovered to >100 (plt 112 today). All the above was discussed with pt and family today. (4) Rheumatoid arthritis Conclusion/Plan: He was on Methotrexate weekly for this diagnosis. This makes him immunocompromised and at higher risk of comlications from Listeria in the blood stream (like INDUSTRIAL MAINTENANCE TECHNICIAN seeding). Today he reported that before MTX, or in addition to MTX, his [facility] also had him on on Orencia (Abatacept), weekly injectable, which was stopped 1 month ago, due to side effects of some kind. Plan: We adjusted the weekly dose based on his renal fnc but he got MTX here, before the Listeria Dx was known. UpToDate and Villegas Guide recommend decreasing/stopping the immunosuppressant while on treatment for Listeria bacteremia. Since the MTX caused severe pancytopenia, we will stop the MTX and resume it in 4 weeks. I updated the pt and family about this today. The patient and all of his sons have requested that the Hospitalist reach out to his Sail Cutter at the Located within [facility] to discuss this. It is Dr. Paris. (5) C. difficile diarrhea Conclusion/Plan: At admission his biggest complaint was of diarrhea. The diarrhea presumably added to his volume depletion causing his "soft" blood pressure and SCOT. A stool sample was sent and came back positive for C. difficile. We did CT imaging of the abdomen pelvis after adm, and it did not show colitis. We advanced his diet and IV fluids have been stopped, since diarrhea volume had improved. He had his first solid BM today. I put his story together thus: he probably ingested Listeria from a salad as the lettuce tasted bad, got gastroenteritis from that, leading to bacteremia since he is immunocompromised, and his colon may have had C. difficile colonization, which then became a pathogen giving him C.diff diarrhea as well. Plan: Cont oral vancomycin QID, today is Day 6 of 10 Florastor indicated if not leukopenic I planned on stopping enteric contact isolation now that he has solid BM today 07/02, and diarrhea has ceased, as per CDC guidelines, but the Hospital protocol states that "Discontinuation of isolation precautions are to be cleared through the edm operator" (6) Hyponatremia Conclusion/Plan: Improving Labs were all reviewed today. Since the hydration with NS was stopped several days ago, his sodium dropped. Na dropped to 128>> 132>> 133>> 134 today. Plan: Will stop the Free water restriction of 1200 cc/day total Continue Lasix and Spironolactone Follow BMP daily (7) Pneumonia Conclusion/Plan: He presents with minimal complaints of a cough, after retching and had a fever here. He has a normal white count and is not desaturating but his chest x-ray and CT scan showed a right sided consolidation. He was admitted to Inpatient status, because according to MCG criteria, this man had a class IV PSI score (with age of 82, history of CHF and BUN is > 29), and also had a high CURB-65 score of III (with BUN >19, diastolic BP less than 60mmH g and age over 65). He made no sputum to send for culture Plan: Continue with empiric antibiotics; Zithromax has been completed and continue Meropenam Cont Mucinex for respiratory toilet (8) Chronic systolic heart failure Conclusion/Plan: According to old records that I reviewed, the patient used to have an EF of 35% and has an AICD. The EF had recovered. His med list shows that he is on Coreg, Entresto, Eplerenone and Lasix. His Steel Handler is YOLANDA Robertson at the Loc[facility]. Echocardiogram was done here on 06/28 to rule out Listeria endocarditis>> it confirmed that LVEF is normal, but Cor pulmonale present IV fluids were stopped several days ago, because oral hydration has been good, and because he gained 2 kg in weight since admission. I was adjusting his dose of Coreg because of the orthostasis, and on 07/01, we resumed his usual dose of 12.5 BID On 07/01 restarted Lasix po and po Spironolactone (Spironolactone substitutes for his Eplerinone, which we also do not carry on formulary). Plan: He is now back on all his usual cardiac meds that he was on at home. Continue to not give Entresto, it is not on formulary Watch I's and O's (9) DM type 2 (diabetes mellitus, type 2) Conclusion/Plan: According to his medication list, the patient was on insulin, glipizide and metformin. He states he takes his insulin at night and knows to adjusted down from 15 units, based on what his fingerstick glucose checks are; therefore he recently has taken 5 to 7 units at night. His A1c came back at 8.0, indicating poor glu control. Plan: Continue solid foods diabetic diet Cont fingerstick glu checks, will resume sliding scale Reg insulin coverage and hypoglycemia protocol (10) Fungal rash of torso He continues to have an itchy red rash in his inguinal area below his pannus of his abdomen. He asked if the treatment is supposed to include a cream and then powder on top of cream, like some CNAs are applying. Plan: Continue nystatin powder and will write nursing order to instruct their CNAs on the proper placement of powder directly to rash, no cream. (11) Fall at home Conclusion/Plan: Patient had been feeling weak with 3 days of diarrhea then was noticeably confused for 2 days at home and lightheaded and fell when leaning down. He thinks he had no syncope however. His blood pressure was "soft" and his vital signs showed orthostasis therefore fluids were continued and several CHF meds we re put on hold. IV fluids were stopped 2 days ago, oral hydration is good. Orthostatic vital sign checks were stopped We are still holding Entresto, it is not on formulary. We restarted Lasix po and Spironolactone po on 07/01. I have slowly increased his Coreg dose back up to his home dose, because of volume depletion and the orthostasis he had for many days. Plan: Cont telemetry as he starts to ambulate He will start PT today (12) Paroxysmal A-fib Conclusion/Plan: According to his description, he thinks Afib was the abnormal heart rhythm that was recently found on his defibrillator device interrogation. He was started on Eliquis 1 month ago. His EKG and telemetry show that he is currently in a dual-chamber paced rhythm, not in Afib, therefore his Afib must be paroxysmal. Plan: We will continue with Coreg for rate control, we had to slowly increase the dose based on BP We stopped the Eliquis, given the low plt count, but have resumed Eliquis now t hat the plt count is over 100 (today plts 112) (13) DIMAS on CPAP Continue his home CPAP device (14) Hypoglycemia Resolved He had low glucoses on admission of 59 and 80s. Then glucose was as low as 48. He was confused with this. Etiology may have been the infections plus getting all his DM meds at home and receiving his Amaryl briefly here. All are on hold We resumed ss Insulin, now that he is on a diet Plan: Continue to check fingerstick glucose values and continue a hypoglycemia protocol (15) SCOT (acute kidney injury) Conclusion/Plan: Resolved In review of his old labs he always has some prerenal azotemia with BUN in the 30s but normal creat, probably because he is on Eplerenone and Lasix. But at admission, creatinine is was elevated from diarrhea fluid losses His I's and O's were >5L (+) on 07/01, thus I restarted Lasix po and Spironolactone po on 07/01 Plan: Follow BMP daily Avoid nephrotoxins Metformin could possibly be resumed now - Current Meds Current Meds: Current Medications Generic Name Dose Route Start Last Admin Trade Name Freq PRN Reason Stop Dose Admin Acetaminophen 650 mg 06/27/22 07:50 07/01/22 21:21 Acetaminophen 325 Mg Tablet PO 650 mg Q4HR PRN Administration Pain 1 to 4, or Fever Amoxicillin 500 mg 07/02/22 07:00 07/02/22 06:18 Amoxicillin 250 Mg Capsule PO 500 mg Q8H RAY Administration Apixaban 5 mg 07/01/22 21:00 07/02/22 08:10 Apixaban 5 Mg Tablet PO 5 mg BID RAY Administration Brimonidine Tartrate 1 drops 06/27/22 09:00 07/02/22 08:13 Brimonidine 0.2% Ophth Drops 5 Ml EACHEYE 1 drops BID RAY Administration Calcium Carbonate/Glycine 500 mg 07/01/22 19:14 07/02/22 04:50 Calcium Carbonate Chew 500 Mg Tablet PO 500 mg QID PRN Administration INDIGESTION Carvedilol 12.5 mg 07/01/22 21:00 07/02/22 08:10 Carvedilol 12.5 Mg Tablet PO 12.5 mg BID RAY Administration Folic Acid 1 mg 06/27/22 09:00 07/02/22 08:10 Folic Acid 1 Mg Tablet PO 1 mg DAILY RAY Administration Furosemide 40 mg 07/01/22 09:00 07/02/22 08:10 Furosemide 40 Mg Tablet PO 40 mg DAILY RAY Administration Guaifenesin 600 mg 07/01/22 14:41 07/02/22 04:50 Guaifenesin 600 Mg Tablet PO 600 mg BID PRN Administration Cough Insulin Human Lispro 1 - 5 unit 06/27/22 12:00 07/02/22 07:43 Insulin Lispro 300 Unit/3 Ml Pen SUBQ Not Given 0800,1200,1700,2100 [facility] Protocol Latanoprost 1 drops 06/27/22 21:00 07/01/22 21:24 Latanoprost 0.005% Ophth Drops EACHEYE 1 drops QPM RAY Administration Levalbuterol HCl 1.25 mg 07/01/22 15:19 07/01/22 21:58 Levalbuterol 1.25 Mg/3 Ml Neb INH 1.25 mg 0700,1500,2200 PRN Administration Cough Levothyroxine Sodium 150 mcg 06/27/22 09:00 07/02/22 06:18 Levothyroxine 75 Mcg Tablet PO 150 mcg QDAC RAY Administration Multi-Ingredient Ointment 1 applic 06/27/22 18:18 07/01/22 21:24 Zinc Oxide 20% Oint 30 Gm Tube TOP 1 applic PRN PRN Administration Skin Care Nystatin 1 applic 06/29/22 15:39 07/02/22 08:13 Nystatin Powder 15 Gm TOP 1 applic BID RAY Administration Saccharomyces Boulardii 500 mg 06/28/22 10:26 07/02/22 08:10 Saccharomyces Boulardii 250 Mg Capsule PO 500 mg BIDWM RAY Administration Sodium Chloride 10 ml 06/27/22 09:00 07/02/22 08:13 Sodium Chloride Flush 0.9% 10 Ml Syringe IVP 10 ml 0100,0900,1700 RAY Administration Tamsulosin HCl 0.8 mg 06/27/22 21:00 07/01/22 21:21 Tamsulosin 0.4 Mg Capsule PO 0.8 mg QPM RAY Administration Timolol Maleate 1 drops 06/27/22 09:00 07/02/22 08:13 Timolol 0.5% Ophth Drops EACHEYE 1 drops BID RAY Administration Trimethoprim/Sulfamethoxazole 1 tab 07/02/22 09:00 07/02/22 08:10 Sulfameth/Trimeth Ds 800/160 Mg Tablet PO 1 tab BID RAY Administration Vancomycin HCl 125 mg 06/27/22 15:00 07/02/22 08:10 Vancomycin 125 Mg Capsule PO 125 mg QID RAY Administration - Lab Result Fish Bone Diagrams: 07/03/22 06:25 07/03/22 06:25 - Additional Planning My Orders: My Active Orders 07/01/22 08:25 Miscellaenous Nursing Order [RC] QSNMFT 07/01/22 09:00 Furosemide [Lasix] 40 mg PO DAILY 07/01/22 14:15 Miscellaenous Nursing Order [RC] QSNMFT 07/01/22 14:41 guaiFENesin [Mucinex] 600 mg PO BID PRN 07/01/22 15:19 Levalbuterol [Xopenex] 1.25 mg INH 0700,1500,2200 PRN 07/01/22 19:14 Calcium Carbonate [Tums] 500 mg PO QID PRN 07/01/22 21:00 Apixaban [Eliquis] 5 mg PO BID carvediloL [Coreg] 12.5 mg PO BID 07/02/22 07:00 Amoxicillin [Amoxil] 500 mg PO Q8H 07/02/22 09:00 Spironolactone [Aldactone] 25 mg PO DAILY Sulfamethox/Trimeth 800/160 [Bactrim Ds 800/160] 1 tab PO BID amLODIPine [Norvasc] 5 mg PO DAILY 07/03/22 05:00 BMP - BASIC METABOLIC PANEL [CHEM] DAILYLAB CBC - COMP BLD CT W/AUTO DIFF [HEME] DAILYLAB 07/04/22 05:00 BMP - BASIC METABOLIC PANEL [CHEM] DAILYLAB CBC - COMP BLD CT W/AUTO DIFF [HEME] DAILYLAB 07/05/22 05:00 BMP - BASIC METABOLIC PANEL [CHEM] DAILYLAB CBC - COMP BLD CT W/AUTO DIFF [HEME] DAILYLAB 07/06/22 05:00 BMP - BASIC METABOLIC PANEL [CHEM] DAILYLAB CBC - COMP BLD CT W/AUTO DIFF [HEME] DAILYLAB Subjective - Subjective Patient Reports: Resting Comfortably, Other (The chair size an mattress are uncomfortable for his large body size, he report. He had a solid BM today. He is eager to start moving more with PT to start today.) Objective Vital Signs: Vital Signs - 24 hr 07/01/22 07/01/22 07/01/22 12:36 15:43 21:00 Temperature 37.3 C 37.3 C 37.6 C Heart Rate Heart Rate [ 71 74 65 Brachial] Respiratory 18 18 20 Rate Blood Pressure [Left Brachial artery] Blood Pressure 145/61 H 133/93 H 176/58 H [Right Brachial artery] O2 Saturation 100 99 100 07/01/22 07/01/22 07/02/22 21:59 23:47 04:44 Temperature 36.8 C 36.6 C Heart Rate 68 Heart Rate [ 61 61 Brachial] Respiratory 16 18 16 Rate Blood Pressure 190/76 H [Left Brachial artery] Blood Pressure 159/53 H [Right Brachial artery] O2 Saturation 100 100 07/02/22 07/02/22 06:28 07:42 Temperature 37.3 C Heart Rate Heart Rate [ 65 Brachial] Respiratory 20 Rate Blood Pressure [Left Brachial artery] Blood Pressure 165/61 H 167/64 H [Right Brachial artery] O2 Saturation 100 Oxygen O2 Source Room air I&O (Last 24 Hrs): Intake and Output Totals x24h 06/30/22 07/01/22 07/02/22 23:59 23:59 23:59 Intake Total 1680 1600 100 Balance 1680 1600 100 General: Alert, Oriented x3 HEENT: EOMI, Mucous membr. moist/pink Neck: Supple, No JVD Neuro: Alert, Non Focal Cardiovascular: No murmurs (distant heart sounds due to obesity) Respiratory: No respiratory distress, Breath sounds nml Abdomen: Soft, No tenderness, Other (obese with a pannus and redness in folds) Extremities: No clubbing, Other (1+ edema to ankles) - Results Results: Laboratory Results WBC 2.3 x10^3/uL (4.8-10.8) L 07/02/22 07:12 RBC 2.98 10^6/uL (4.70-6.10) L 07/02/22 07:12 Hgb 8.8 g/dL (14.0-18.0) L 07/02/22 07:12 Hct 26.4 % (42.0-52.0) L 07/02/22 07:12 MCV 88.6 fL (80.0-94.0) 07/02/22 07:12 MCH 29.5 pg (27.0-31.0) 07/02/22 07:12 MCHC 33.3 g/dL (32.0-36.0) 07/02/22 07:12 RDW 18.0 % (12.0-15.0) H 07/02/22 07:12 Plt Count 112 10^3/uL (130-450) L 07/02/22 07:12 MPV 10.6 fL (7.4-11.4) 07/02/22 07:12 Neut # (Auto) 1.3 10^3/uL (1.5-6.6) L 07/02/22 07:12 Lymph # (Auto) 0.4 10^3/uL (1.5-3.5) L 07/02/22 07:12 [place] # (Auto) 0.4 10^3/uL (0.0-1.0) 07/02/22 07:12 Eos # (Auto) 0.1 10^3/uL (0.0-0.7) 07/02/22 07:12 Baso # (Auto) 0.0 10^3/uL (0.0-0.1) 07/02/22 07:12 Absolute Nucleated RBC 0.00 x10^3/uL 07/02/22 07:12 Total Counted 100 06/30/22 05:15 Band Neuts % (Manual) 4 % (0-10) 06/30/22 05:15 Abnorm Lymph % (Manual) 0 % 06/30/22 05:15 Nucleated RBC % 0.0 /100WBC 07/02/22 07:12 Neutrophils # (Manual) 1.8 10^3/uL (1.5-6.6) 06/30/22 05:15 Lymphocytes # (Manual) 0.4 10^3/uL (1.5-3.5) L 06/30/22 05:15 Monocytes # (Manual) 0.2 10^3/uL (0.0-1.0) 06/30/22 05:15 Eosinophils # (Manual) 0.0 10^3/uL (0-0.7) 06/30/22 05:15 Basophils # (Manual) 0.0 10^3/uL (0-0.1) 06/30/22 05:15 Differential Comment MANUAL DIFFERENTIAL 06/30/22 05:15 Manual Slide Review Indicated 07/02/22 07:12 WBC Morphology 1+ TOXIC GRANULATION (NORMAL) 06/30/22 05:15 Platelet Estimate DECREASED (<130,000) (NORMAL) 06/30/22 05:15 Platelet Morphology NORMAL APPEARANCE (NORMAL) 06/30/22 05:15 RBC Morph Micro Appear 4+ ANISOCYTOSIS (NORMAL) 07/02/22 07:12 PT 19.6 secs (9.9-12.6) H 06/28/22 12:30 INR 1.8 (0.8-1.2) H 06/28/22 12:30 APTT 29.9 secs (24.9-33.3) 06/28/22 12:30 Fibrinogen 391 mg/dL (220-496) 06/28/22 12:30 D-Dimer 333.4 ng/mL (200.0-255.0) H 06/28/22 12:30 Sodium 134 mmol/L (135-145) L 07/02/22 07:12 Potassium 3.5 mmol/L (3.5-5.0) 07/02/22 07:12 Chloride 101 mmol/L (101-111) 07/02/22 07:12 Carbon Dioxide 21 mmol/L (21-32) 07/02/22 07:12 Anion Gap 12.0 (6-13) 07/02/22 07:12 BUN 21 mg/dL (6-20) H 07/02/22 07:12 Creatinine 1.2 mg/dL (0.6-1.2) 07/02/22 07:12 Estimated GFR (MDRD) 58 (>89) L 07/02/22 07:12 Glucose 130 mg/dL (70-100) H 07/02/22 07:12 POC Whole Bld Glucose 122 mg/dL (70 - 100) H 07/02/22 07:40 Estimat Average Glucose 183 mg/dL (70-100) H 06/27/22 05:12 Hemoglobin A1c % 8.0 % (4.27-6.07) H 06/27/22 05:12 Lactic Acid 2.0 mmol/L (0.5-2.2) 06/29/22 13:14 Calcium 8.9 mg/dL (8.5-10.3) 07/02/22 07:12 Magnesium 1.6 mg/dL (1.7-2.8) L 06/30/22 05:15 Total Bilirubin 0.9 mg/dL (0.2-1.0) 06/27/22 05:12 AST 18 IU/L (10-42) 06/27/22 05:12 ALT 19 IU/L (10-60) 06/27/22 05:12 Alkaline Phosphatase 49 IU/L (42-121) 06/27/22 05:12 Total Protein 6.7 g/dL (6.7-8.2) 06/27/22 05:12 Albumin 3.6 g/dL (3.2-5.5) 06/27/22 05:12 Globulin 3.1 g/dL (2.1-4.2) 06/27/22 05:12 Albumin/Globulin Ratio 1.2 (1.0-2.2) 06/27/22 05:12 TSH 0.46 uIU/mL (0.34-5.60) 06/28/22 04:50 Nasal Adenovirus (PCR) NOT DETECTED 06/27/22 04:20 Nasal B. parapertussis DNA (PCR) NOT DETECTED 06/27/22 04:20 Nasal Coronavir 229E PCR NOT DETECTED 06/27/22 04:20 Nasal Coronavir HKU1 PCR NOT DETECTED 06/27/22 04:20 Nasal Coronavir NL63 PCR NOT DETECTED 06/27/22 04:20 Nasal Coronavir OC43 PCR NOT DETECTED 06/27/22 04:20 Nasal Enterovir/Rhinovir PCR NOT DETECTED 06/27/22 04:20 Nasal Influenza B PCR NOT DETECTED 06/27/22 04:20 Nasal Influenza A PCR NOT DETECTED 06/27/22 04:20 Nasal Parainfluen 1 PCR NOT DETECTED 06/27/22 04:20 Nasal Parainfluen 2 PCR NOT DETECTED 06/27/22 04:20 Nasal Parainfluen 3 PCR NOT DETECTED 06/27/22 04:20 Nasal Parainfluen 4 PCR NOT DETECTED 06/27/22 04:20 Nasal RSV (PCR) NOT DETECTED 06/27/22 04:20 Nasal B.pertussis DNA PCR NOT DETECTED 06/27/22 04:20 Nasal C.pneumoniae (PCR) NOT DETECTED 06/27/22 04:20 Miguel Human Metapneumo PCR NOT DETECTED 06/27/22 04:20 Nasal M.pneumoniae (PCR) NOT DETECTED 06/27/22 04:20 Nasal SARS-CoV-2 (PCR) NOT DETECTED 06/27/22 04:20 Stl C. diff Tox B Gene POSITIVE (NEGATIVE) A* 06/27/22 11:40
[2022-07-02] MEDS ORDERED: SULFAMETH/TRIMETH DS 800/160 MG TABLET PO SCH (09:00)
[2022-07-02] MEDS: LEVALBUTEROL 1.25 MG/3 ML NEB INH PRN (10:18)
[2022-07-02] MEDS: SPIRONOLACTONE 25 MG TABLET PO SCH (11:09)
[2022-07-02] MEDS: amLODIPine 5 MG TABLET PO SCH (11:09)
[2022-07-02] MEDS: MEROPENEM 2 GM in SODIUM CHLORIDE 0.9% 100ML 100 ML IV SCH ×2 (13:04→20:15)
[2022-07-02] MEDS: ACETAMINOPHEN 325 MG TABLET PO PRN (20:22)
[2022-07-02] MEDS: TAMSULOSIN 0.4 MG CAPSULE PO SCH (21:06)
[2022-07-02] MEDS: ZINC OXIDE 20% OINT 30 GM TUBE TOP PRN ×2 (21:07→23:57)
[2022-07-02] MEDS: LATANOPROST 0.005% OPHTH DROPS EACHEYE SCH (21:08)
[2022-07-03] MEDS: SODIUM CHLORIDE FLUSH 0.9% 10 ML SYRINGE IVP SCH ×2 (04:22→17:15)
[2022-07-03] MEDS: MEROPENEM 2 GM in SODIUM CHLORIDE 0.9% 100ML 100 ML IV SCH ×3 (04:22→20:06)
[2022-07-03] MEDS: ZINC OXIDE 20% OINT 30 GM TUBE TOP PRN ×2 (04:23→10:16)
[2022-07-03] MEDS: LEVOTHYROXINE 75 MCG TABLET PO SCH (05:18)
[2022-07-03 06:54] LABS: CALCIUM 9.6 mg/dL (8.5-10.3); CREATININE 1.1 mg/dL (0.6-1.2); POTASSIUM 3.7 mmol/L (3.5-5.0)
[2022-07-03 07:14] LABS: BASOPHILS % (AUTO) 0.5 %; EOSINOPHILS # (AUTO) 0.2 10^3/uL (0.0-0.7); EOSINOPHILS % (AUTO) 4.6 %; HGB - HEMOGLOBIN 9.6 g/dL (14.0-18.0); LYMPHOCYTES # (AUTO) 0.6 10^3/uL (1.5-3.5); LYMPHOCYTES % (AUTO) 16.7 %; MEAN CORPUSCULAR HEMOGLOBIN 29.7 pg (27.0-31.0); MEAN CORPUSCULAR HGB CONC 33.1 g/dL (32.0-36.0); MEAN CORPUSCULAR VOLUME 89.8 fL (80.0-94.0); MEAN PLATELET VOLUME 10.8 fL (7.4-11.4); MONOCYTES # (AUTO) 0.8 10^3/uL (0.0-1.0); MONOCYTES % (AUTO) 20.5 %; NEUTROPHILS % (AUTO) 54.7 %; PLT - PLATELET COUNT 132 10^3/uL (130-450); RED BLOOD COUNT 3.23 10^6/uL (4.70-6.10); RED CELL DISTRIBUTION WIDTH 18.2 % (12.0-15.0); WHITE BLOOD COUNT 3.7 x10^3/uL (4.8-10.8)
[2022-07-03] MEDS: INSULIN LISPRO 300 UNIT/3 ML PEN SUBQ SCH ×4 (07:49→20:26)
[2022-07-03 08:48] LABS: INR 1.3 (0.8-1.2); PT - PROTHROMBIN TIME 14.9 secs (9.9-12.6)
[2022-07-03] MEDS: VANCOMYCIN 125 MG CAPSULE PO SCH ×4 (08:49→20:18)
[2022-07-03] MEDS: SACCHAROMYCES BOULARDII 250 MG CAPSULE PO SCH ×2 (08:49→17:15)
[2022-07-03] MEDS: FOLIC ACID 1 MG TABLET PO SCH (08:49)
[2022-07-03] MEDS: FUROSEMIDE 40 MG TABLET PO SCH (08:50)
[2022-07-03] MEDS: amLODIPine 5 MG TABLET PO SCH (08:50)
[2022-07-03] MEDS: SPIRONOLACTONE 25 MG TABLET PO SCH (08:50)
[2022-07-03] MEDS: carvediloL 12.5 MG TABLET PO SCH ×2 (08:51→20:18)
[2022-07-03] MEDS: APIXABAN 5 MG TABLET PO SCH ×2 (08:52→20:43)
[2022-07-03] MEDS: NYSTATIN POWDER 15 GM TOP SCH ×2 (10:03→22:26)
[2022-07-03] MEDS: BRIMONIDINE 0.2% OPHTH DROPS 5 ML EACHEYE SCH ×2 (10:04→20:11)
[2022-07-03] MEDS: TIMOLOL 0.5% OPHTH DROPS EACHEYE SCH ×2 (10:06→20:17)
[2022-07-03] MEDS: LEVALBUTEROL 1.25 MG/3 ML NEB INH PRN (11:18)
--- NOTE | 2022-07-03 13:40 | PROVIDER PROGRESS NOTE ---
Progress Note July 03, 2022 1:34 PM Sitting up in bed.. Watching TV. Reading book. I reiterated the care plan as described to me by the previous hospitalist. He has listeriosis bacteremia. As well as C. difficile colitis. And is immunocompromise. Because of the latter immunocompromisation he will need to have IV antibiotic to treat the bacteremia. He cannot be treated with oral antibiotics. He laments that he has to stay in the hospital so long. I validate how unhappy he is having to stay in the hospital. Physical therapy says that he is doing really well. He is using a rolling walker, and nutrition therapy says that we need to stop his Florastor if we consider him immunocompromised. Patient denies any fever, chills, chest pain, cough, shortness of breath. Active Medications Acetaminophen (Acetaminophen 325 Mg Tablet) 650 mg PO Q4HR PRN PRN Reason: Pain 1 to 4, or Fever Last Admin: 07/02/22 20:22 Dose: 650 mg Amlodipine Besylate (Amlodipine 5 Mg Tablet) 5 mg PO DAILY [facility] Last Admin: 07/03/22 08:50 Dose: 5 mg Apixaban (Apixaban 5 Mg Tablet) 5 mg PO BID [facility] Last Admin: 07/03/22 08:52 Dose: Not Given Brimonidine Tartrate (Brimonidine 0.2% Ophth Drops 5 Ml) 1 drops EACHEYE BID [facility] Last Admin: 07/03/22 10:04 Dose: 1 drops Calcium Carbonate/Glycine (Calcium Carbonate Chew 500 Mg Tablet) 500 mg PO QID PRN PRN Reason: INDIGESTION Last Admin: 07/02/22 04:50 Dose: 500 mg Carvedilol (Carvedilol 12.5 Mg Tablet) 12.5 mg PO BID [facility] Last Admin: 07/03/22 08:51 Dose: 12.5 mg Folic Acid (Folic Acid 1 Mg Tablet) 1 mg PO DAILY [facility] Last Admin: 07/03/22 08:49 Dose: 1 mg Furosemide (Furosemide 40 Mg Tablet) 40 mg PO DAILY [facility] Last Admin: 07/03/22 08:50 Dose: 40 mg Guaifenesin (Guaifenesin 600 Mg Tablet) 600 mg PO BID PRN PRN Reason: Cough Last Admin: 07/02/22 21:07 Dose: 600 mg Meropenem 2 gm/ Sodium (Chloride) 100 mls @ 200 mls/hr IV Q8H [facility] Last Infusion: 07/03/22 04:52 Dose: Infused Insulin Human Lispro (Insulin Lispro 300 Unit/3 Ml Pen) 1 - 5 unit SUBQ 0800,1200,1700,2100 [facility]; Protocol Last Admin: 07/03/22 11:44 Dose: 1 unit Latanoprost (Latanoprost 0.005% Ophth Drops) 1 drops EACHEYE QPM [facility] Last Admin: 07/02/22 21:08 Dose: 1 drops Levalbuterol HCl (Levalbuterol 1.25 Mg/3 Ml Neb) 1.25 mg INH 0700,1500,2200 PRN PRN Reason: Cough Last Admin: 07/03/22 11:18 Dose: 1.25 mg Levothyroxine Sodium (Levothyroxine 75 Mcg Tablet) 150 mcg PO QDAC [facility] Last Admin: 07/03/22 05:18 Dose: 150 mcg Multi-Ingredient Ointment (Zinc Oxide 20% Oint 30 Gm Tube) 1 applic TOP PRN PRN PRN Reason: Skin Care Last Admin: 07/03/22 10:16 Dose: 1 applic Nystatin (Nystatin Powder 15 Gm) 1 applic TOP BID [facility] Last Admin: 07/03/22 10:03 Dose: 1 applic Ondansetron HCl (Ondansetron 4 Mg/2 Ml Vial) 4 mg IVP Q6HR PRN PRN Reason: Nausea / Vomiting Prochlorperazine Edisylate (Prochlorperazine 10 Mg/2 Ml Vial) 10 mg IVP Q6HR PRN PRN Reason: Nausea / Vomiting Saccharomyces Boulardii (Saccharomyces Boulardii 250 Mg Capsule) 500 mg PO BIDWM [facility] Last Admin: 07/03/22 08:49 Dose: 500 mg Sodium Chloride (Sodium Chloride Flush 0.9% 10 Ml Syringe) 10 ml IVP PRN PRN PRN Reason: NEEDED PER PROVIDER ORDERS Sodium Chloride (Sodium Chloride Flush 0.9% 10 Ml Syringe) 10 ml IVP 0100,0900,1700 [facility] Last Admin: 07/03/22 04:22 Dose: 10 ml Spironolactone (Spironolactone 25 Mg Tablet) 25 mg PO DAILY [facility] Last Admin: 07/03/22 08:50 Dose: 25 mg Tamsulosin HCl (Tamsulosin 0.4 Mg Capsule) 0.8 mg PO QPM [facility] Last Admin: 07/02/22 21:06 Dose: 0.8 mg Timolol Maleate (Timolol 0.5% Ophth Drops) 1 drops EACHEYE BID [facility] Last Admin: 07/03/22 10:06 Dose: 1 drops Vancomycin HCl (Vancomycin 125 Mg Capsule) 125 mg PO QID [facility] Last Admin: 07/03/22 08:49 Dose: 125 mg Exam: Temperature 36.6. Heart rate 58. Blood pressure 145/59. Respirations 16. 97% on room air 6 foot 2 inch white male, morbidly obese at 131.5 kg Comfortable, sitting upright in chair, no respiratory distress in no acute distress Neck is supple with shotty adenopathy, no JVD Diminished breath sounds at the bases but clear lungs. No cough, no shortness of breath. He does not have crackles, rhonchi or wheezing Cardiac exam with irregular rate and rhythm Abdomen is obese, soft, slightly distended, frequent borborygmi. Nontender. No masses felt. He has had a bowel movement today. He has urinary urgency, but no incontinence. Scrotum is slightly erythematous but no ulcers. Extremities moderate pitting edema 2+ of ankles and calves. Neurologically he is hard of hearing, but alert and oriented to person place and time. No focal deficits. Laboratory Tests 07/03/22 07/03/22 07/03/22 06:25 06:25 07:23 WBC 3.7 L Hgb 9.6 L Hct 29.0 L Plt Count 132 Sodium 135 Potassium 3.7 Chloride 100 L Carbon Dioxide 24 BUN 20 Creatinine 1.1 Glucose 135 H POC Whole Bld Glucose 136 H Calcium 9.6 07/03/22 11:14 WBC Hgb Hct Plt Count Sodium Potassium Chloride Carbon Dioxide BUN Creatinine Glucose POC Whole Bld Glucose 168 H Calcium Microbiology 06/27/22 05:46 Blood - Right Arm Blood Culture - Final Listeria Monocytogenes 06/27/22 05:12 Blood Blood Culture - Final Listeria Monocytogenes 06/29/22 09:10 Blood - Right Arm Blood Culture - Preliminary NO GROWTH AFTER 2 DAYS Assessment/Plan - Problem List (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 Antibiotics changed from ceftriaxone to meropenem June 28. Repeat blood cultures June 30 negative. Echocardiogram without large vegetations however subtle vegetations cannot be ruled out and transesophageal echo recommended if indicated. Patient is improving and no fever, no murmur, so no JACQUELINE right now. White cell count has been dropping since admission. May be due to delayed effect of methotrexate. He is coming back up to 3.7 today. Because of immunocompromise status, he cannot be changed to p.o. antibiotics to complete therapy for bacteremia. Plan: PICC line. Eliquis will be held today and PICC line tomorrow. Have already discussed the case with anesthesia Meropenem 2 g every 12 started June 26. Anticipate he will need antibiotics till July 26.Once he has the PICC line, we will transition him to swing bed status tomorrow No methotrexate while he is being treated No Florastor (2) Bacteremia As above in #1 (3) Pancytopenia Conclusion/Plan: WBC, Hgb and Plts continue to be low but WBC and platelets slowly rebounding today. This was concerning for possible sepsis but Lactic Acid level was checked when WBC dropped and his L.A. was normal. He was not toxic appearing, had normal BP and HR. We also did a work-up for DIC then, because of the drop in platelets. The fibrinogen was not low and the other labs were not consistent with DIC. This ira gentleman was on weekly MTX, and did get a MTX dose the day after admission, before Listeriosis was diagnosed. We presume that MTX dropped his counts. Plan: Follow CBC daily Treat the Listeria as above in an Immunocompromised patient. Will stop the weekly MTX for the next 3 weeks, as recommended in UpToDate We resumed Eliquis now that plts have recovered to >100 (plt 112 on 07/02). But his Eliquis will need to be held today for PICC line tomorrow. (4) Rheumatoid arthritis Conclusion/Plan: He was on Methotrexate weekly for this diagnosis. This makes him immunocompromised and at higher risk of comlications from Listeria in the blood stream (like DIRECTOR OF THERAPY SERVICES seeding). He also reports that before MTX, or in addition to MTX, his [employer] Molder also had him on on Orencia (Abatacept), weekly injectable, which was stopped 1 month ago, due to side effects of some kind. Plan: We adjusted the weekly dose based on his renal fnc but he got MTX here, before the Listeria Dx was known. UpToDate and Villegas Guide recommend decreasing/stopping the immunosuppressant while on treatment for Listeria bacteremia. Since the MTX caused severe pancytopenia, we will stop the MTX and resume it in 4 weeks.Family and pt updated 07/02 by hositalist on service. The patient and all of his sons have requested that the Hospitalist reach out to his Jewelry Bench Molder at the [facility] to discuss this. It is Dr. Paris. I called his office with the [facility] Rheum office @ [phone] and left a message. I also called [phone] at on [address]. They can't find him so transferred me to [facility]. I was on hold for 24 minutes and jig box operator put me back in the que again to wait. (5) C. difficile diarrhea Conclusion/Plan: At admission his biggest complaint was of diarrhea. The diarrhea presumably added to his volume depletion causing his "soft" blood pressure and SCOT. A stool sample was sent and came back positive for C. difficile. We did CT imaging of the abdomen pelvis after adm, and it did not show colitis. We advanced his diet and IV fluids have been stopped, since diarrhea volume had improved. He had his first solid BM 07/02. Previous hospitalist on service put his story together thus: he probably ingested Listeria from a salad as the lettuce tasted bad, got gastroenteritis from that, leading to bacteremia since he is immunocompromised, and his colon may have had C. difficile colonization, which then became a pathogen giving him C.diff diarrhea as well. Plan: Cont oral vancomycin QID, today is Day 7 of 10 Florastor indicated if not leukopenic but he is immunocompromised so that will stop. Enteric contact isolation was planned on being stopped now that he had solid BM 07/02, and diarrhea has ceased, as per CDC guidelines, but the Hospital protocol states that "Discontinuation of isolation precautions are to be cleared through the subgrade tester". We have sent her a message thru nursing. (6) Hyponatremia Conclusion/Plan: Resolved on today's labs. Since the hydration with NS was stopped several days ago, his sodium dropped. Na dropped to 128>> 132>> 133>> 134>>135 today. Free water restriction of 1200 cc/day total stopped 07/02 Plan: Continue Lasix and Spironolactone Follow BMP daily (7) Pneumonia treatment completed. Conclusion/Plan: He presents with minimal complaints of a cough, after retching and had a fever here. He had a normal white count and is not desaturating but his chest x-ray and CT scan showed a right sided consolidation. He was admitted to Inpatient status, because according to MCG criteria, this man had a class IV PSI score (with age of 82, history of CHF and BUN is > 29), and also had a high CURB-65 score of III (with BUN >19, diastolic BP less than 60mmHg and age over 65). He made no sputum to send for culture. Treatment for pneumonia completed and now on meropenam for the listeriosis. Plan: Cont Mucinex for respiratory toilet (8) Chronic systolic heart failure stable Conclusion/Plan: According to old records that I reviewed, the patient used to have an EF of 35% and has an AICD. The EF had recovered on our Echo here. His med list shows that he is on Coreg, Entresto, Eplerenone and Lasix. His Human Capital Manager is YOLANDA Robertson at the [facility]. Echocardiogram was done here on 06/28 to rule out Listeria endocarditis>> it confirmed that LVEF is normal, but Cor pulmonale present IV fluids were stopped several days ago, because oral hydration has been good, and because he gained 2 kg in weight since admission. I was adjusting his dose of Coreg because of the orthostasis, and on 07/01, we resumed his usual dose of 12.5 BID On 07/01 restarted Lasix po and po Spironolactone (Spironolactone substitutes for his Eplerinone, which we also do not carry on formulary). He is now back on all his usual cardiac meds that he was on at home. BP is tolerating all of these meds. Plan: No Entresto, it is not on formulary and I will add losartan today but with nml EF he may not need it down the road. Watch I's and O's (9) DM type 2 (diabetes mellitus, type 2) controlled, with complication of hypoglycemia Conclusion/Plan: According to his medication list, the patient was on insulin, glipizide and metformin. He states he takes his insulin at night and knows to adjusted down from 15 units, based on what his fingerstick glucose checks are; therefore he recently has taken 5 to 7 units at night. His A1c came back at 8.0, indicating poor glu control. Here he is on Humalog sliding scale, and glimepiride was discontinued because of hypoglycemia. Glucose yesterday was 122, 197, 155, 185. Today 136, 168 Plan: Continue solid foods diabetic diet Cont fingerstick glu checks, will resume sliding scale Reg insulin coverage and hypoglycemia protocol (10) Fungal rash of torso He continues to have an itchy red rash in his inguinal area below his pannus of his abdomen. He asked if the treatment is supposed to include a cream and then powder on top of cream, like some CNAs are applying. Plan: Continue nystatin powder and will write nursing order to instruct their CNAs on the proper placement of powder directly to rash, no cream. (11) Fall at home Conclusion/Plan: Patient had been feeling weak with 3 days of diarrhea then was noticeably confused for 2 days at home and lightheaded and fell when leaning down. He thinks he had no syncope however. His blood pressure was "soft" and his vital s igns showed orthostasis therefore fluids were continued and several CHF meds were put on hold. IV fluids were stopped 07/01 , oral hydration is good. Orthostatic vital sign checks were stopped We are still holding Entresto, it is not on formulary. We restarted Lasix po and Spironolactone po on 07/01. I have slowly increased his Coreg dose back up to his home dose, because of volume depletion and the orthostasis he had for many days. Physical therapy says that he is doing really well. He is using a rolling walker. Plan: Cont telemetry as he starts to ambulate Continue PT (12) Paroxysmal A-fib chronic and stable Conclusion/Plan: According to his description, he thinks Afib was the abnormal heart rhythm that was recently found on his defibrillator device interrogation. He was started on Eliquis 1 month ago. His EKG and telemetry show that he is currently in a dual-chamber paced rhythm, not in Afib, therefore his Afib must be paroxysmal. Plan: We will continue with Coreg for rate control, we had to slowly increase the dose based on BP We stopped the Eliquis, given the low plt count, but have resumed Eliquis 07/02 w platelets of 112 but will hold eliqis today for PICC line tomorrow (13) DIMAS on CPAP chronic and stable Continue his home CPAP device (14) Hypoglycemia resolved He had low glucoses on admission of 59 and 80s. Then glucose was as low as 48. He was confused with this. Etiology may have been the infections plus getting all his DM meds at home and receiving his Amaryl briefly here. All are on hold We resumed ss Insulin, now that he is on a diet Plan: Continue to check fingerstick glucose values and continue a hypoglycemia protocol (15) SCOT (acute kidney injury) resolved. Conclusion/Plan: Resolved In review of his old labs he always has some prerenal azotemia with BUN in the 30s but normal creat, probably because he is on Eplerenone and Lasix. But at admission, creatinine is was elevated from diarrhea fluid losses His I's and O's were >5L (+) on 07/01, thus Lasix po and Spironolactone po restarted on 07/01 Plan: Follow BMP daily Avoid nephrotoxins Metformin could possibly be resumed now
[2022-07-03] MEDS: SODIUM CHLORIDE FLUSH 0.9% 10 ML SYRINGE IVP PRN (13:52)
[2022-07-03] MEDS ORDERED: CARBOXYMETHYLCELLULOSE OPHTH DROPS EACHEYE PRN (14:54)
[2022-07-03] MEDS: LATANOPROST 0.005% OPHTH DROPS EACHEYE SCH (20:16)
[2022-07-03] MEDS: TAMSULOSIN 0.4 MG CAPSULE PO SCH (20:18)
[2022-07-03] MEDS: CALCIUM CARBONATE CHEW 500 MG TABLET PO PRN (20:35)
[2022-07-03] MEDS: ACETAMINOPHEN 325 MG TABLET PO PRN (20:35)
[2022-07-04] MEDS: ZINC OXIDE 20% OINT 30 GM TUBE TOP PRN ×2 (01:30→05:48)
[2022-07-04] MEDS: SODIUM CHLORIDE FLUSH 0.9% 10 ML SYRINGE IVP SCH ×2 (01:31→05:48)
[2022-07-04] MEDS: SODIUM CHLORIDE FLUSH 0.9% 10 ML SYRINGE IVP PRN (04:39)
[2022-07-04] MEDS: MEROPENEM 2 GM in SODIUM CHLORIDE 0.9% 100ML 100 ML IV SCH ×2 (04:39→11:50)
[2022-07-04 05:47] LABS: BASOPHILS % (AUTO) 0.4 %; EOSINOPHILS # (AUTO) 0.3 10^3/uL (0.0-0.7); EOSINOPHILS % (AUTO) 5.5 %; HCT - HEMATOCRIT 28.7 % (42.0-52.0); HGB - HEMOGLOBIN 9.3 g/dL (14.0-18.0); LYMPHOCYTES # (AUTO) 0.8 10^3/uL (1.5-3.5); LYMPHOCYTES % (AUTO) 16.8 %; MEAN CORPUSCULAR HEMOGLOBIN 29.5 pg (27.0-31.0); MEAN CORPUSCULAR HGB CONC 32.4 g/dL (32.0-36.0); MEAN CORPUSCULAR VOLUME 91.1 fL (80.0-94.0); MEAN PLATELET VOLUME 10.8 fL (7.4-11.4); MONOCYTES # (AUTO) 0.8 10^3/uL (0.0-1.0); MONOCYTES % (AUTO) 17.5 %; NEUTROPHILS # (AUTO) 2.6 10^3/uL (1.5-6.6); NEUTROPHILS % (AUTO) 57.2 %; PLT - PLATELET COUNT 156 10^3/uL (130-450); RED BLOOD COUNT 3.15 10^6/uL (4.70-6.10); RED CELL DISTRIBUTION WIDTH 18.5 % (12.0-15.0); WHITE BLOOD COUNT 4.6 x10^3/uL (4.8-10.8)
[2022-07-04] MEDS: LEVOTHYROXINE 75 MCG TABLET PO SCH (05:48)
[2022-07-04 05:56] LABS: CALCIUM 9.5 mg/dL (8.5-10.3); CREATININE 1.1 mg/dL (0.6-1.2); POTASSIUM 3.4 mmol/L (3.5-5.0)
[2022-07-04] MEDS ORDERED: METHOTREXATE 2.5 MG TABLET PO SCH (08:00)
[2022-07-04] MEDS: amLODIPine 5 MG TABLET PO SCH (08:35)
[2022-07-04] MEDS: SACCHAROMYCES BOULARDII 250 MG CAPSULE PO SCH (08:35)
[2022-07-04] MEDS: INSULIN LISPRO 300 UNIT/3 ML PEN SUBQ SCH ×2 (08:35→11:44)
[2022-07-04] MEDS: BRIMONIDINE 0.2% OPHTH DROPS 5 ML EACHEYE SCH (08:36)
[2022-07-04] MEDS: FUROSEMIDE 40 MG TABLET PO SCH (08:37)
[2022-07-04] MEDS: carvediloL 12.5 MG TABLET PO SCH (08:37)
[2022-07-04] MEDS: FOLIC ACID 1 MG TABLET PO SCH (08:37)
[2022-07-04] MEDS: SPIRONOLACTONE 25 MG TABLET PO SCH (08:38)
[2022-07-04] MEDS: NYSTATIN POWDER 15 GM TOP SCH (08:38)
[2022-07-04] MEDS: TIMOLOL 0.5% OPHTH DROPS EACHEYE SCH (08:39)
[2022-07-04] MEDS: VANCOMYCIN 125 MG CAPSULE PO SCH ×2 (08:39→12:00)
[2022-07-04] MEDS ORDERED: POTASSIUM CHLORIDE 10 MEQ CAPSULE PO ONE (08:43)
[2022-07-04] MEDS ORDERED: LOSARTAN 50 MG TABLET PO SCH (09:00)
[2022-07-04] MEDS: APIXABAN 5 MG TABLET PO SCH (09:24)
--- NOTE | 2022-07-04 14:51 | Discharge Plan ---
Discharge Plan Problem Reviewed?: Yes Disposition: 61 Swing Bed DC/Xfer Condition: Stable Instruction Topics: Vancomycin capsules, Amoxicillin capsules or tablets, Sulfamethoxazole Trimethoprim SMX-TMP tablets, Clostridium Difficile Infec, Listeria No Smoking: If you smoke, Please STOP! Call for help.
--- NOTE | 2022-07-04 14:54 | ANESTHESIA PROCEDURE NOTE ---
Anesth Central Line Template - Central Line Central Line Preparation: Consent Obtained, Time out completed Central line location: Right Basilic Central line type: PICC Single Lumen Central line catheter tip site resides: Superior vena cava (SVC) Central line aftercare: Secured (statlock), Placement confirmed (by cxr), No complications, Bundle checklist complete, Pt tolerated well (first attempt pt had parathesia), Other (trimmed at 46cm, 2 cm exposed)
--- NOTE | 2022-07-04 14:57 | DISCHARGE SUMMARY ---
Discharge Summary Admit Date: 06/27/22 Discharge Date: 07/04/22 Discharging Provider: Gloria Antony MD Primary Care Provider: Tosin Knapp MD Code Status: Attempt Resuscitation Condition at Discharge: Stable Discharge Disposition: 61 Swing Bed DC/Xfer - DIAGNOSES Discharge Diagnoses with Status of Each Condition: 1. Orthostatic hypotension 2. Fall at home 3. C. difficile diarrhea 4. 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 Dehydration 7. Acute kidney injury 8. Hyponatremia 9. Rheumatoid arthritis 10. Community-acquired pneumonia 11. Chronic systolic heart failure 12. Type 2 diabetes mellitus with complication of hypoglycemia, on long-term use of insulin 13. Fungal rash 14. Paroxysmal atrial fibrillation 15. Obstructive sleep apnea on CPAP - HPI History of Present Illness: This is an 82-year-old man who lives at home with his and family. He has a history of rheumatoid arthritis on methotrexate, DIMAS on CPAP at home, diabetes mellitus on insulin, glimepiride and metformin, and history of systolic heart failure for which he is on Coreg, Entresto and Eplerenone. He does have an AICD in place. His PCP and Website Programmer are at the [place]. The patient presented to the ER brought in by ambulance after a fall at home and could not stand up on his own or be lifted by family. The patient describes having painless diarrhea for fthe past 3 days, and nausea, with retching, but no significant vomiting. His noticed that he was confused for the last 2 days, he forgot how to work a TV remote. Despite this he was taking all his usual medications, checking his glucose by fingerstick and giving himself his own insulin as on his sliding scale. Today he remembers being lightheaded and after finishing having diarrhea, he stood from the toilet, walked to the bedroom, and while getting dressed, he reached down and then he fell forward, hitting his left forehead and his L arm. He did not "black out'. His could not pick him up. He could not stand up on his own. The son who lives in the same building heard the sounds and also try to come and help him up and could only sit him up but left him seated on the floor with legs extended in front of him. 911 was called. He was then attended to by 2 female EMS personnel who also could not lift him and finally fire truck personnel lifted him onto a gurney for transport. Glu at the scene was 89. BP and HR were In the ED, the work-up for the fall included a CT head and CT spine which were negative for trauma. On spine imaging, there was suggestion of a right lower lobe pulmonary infiltrate however. The chest x-ray confirmed a right base infiltrate. He had a fever on presentation to the ER and his labs show SCOT with BUN/creat of . He has a normal white blood count but takes methotrexate. He was not hypoxic at rest. BP and HR were stable in the ED. The ED provider reached out to the Hospitalist team to have this patient admitted for treatment of a community-acquired pneumonia and nausea, vomiting and diarrhea causing SCOT. Given that he scored high on PSI score and CURB-65 score, which give him poor prognoses, he will be admitted to Inpatient status. - Past Medical History Cardiovascular: reports: Congestive heart failure, Hypertension, Atrial fibrillation (He thinks this was recently Dx on his AICD interrogation and he is on new Eliquis for 1 mo.) Respiratory: reports: CPAP use Neuro: reports: None Endocrine/Autoimmune: reports: Type 2 diabetes, HyPOthyroidism, Other (RA on MTX once a week) GI: reports: GERD, Hemorrhoids, Diverticulitis (Denies ever having colitis or diarrhea like now) : reports: Benign prostate hypertrophy HEENT: reports: None Psych: reports: None Musculoskeletal: reports: Rheumatoid arthritis Derm: reports: Other (Recent rash in his groin for which she took OTC antifungal creams) MRSA Hx?: No - Past Surgical History General: reports: Colonoscopy Ortho: reports: Spine surgery Cardiovascular: reports: AICD Derm: reports: Skin cancer surgery - CONSULTS | PROCEDURES Procedures: Echocardiogram with left ventricular systolic function normal and ejection fraction of greater than 55%. Dilated right ventricle with preserved function. Pacemaker leads seen in the right atrium and right ventricle. Vegetations could not be excluded associated with device leads. Transesophageal echo is recommended if clinically indicated. Abdomen pelvis CT without any signs of colitis or obstruction or free fluid. Large prostate. Cervical spine CT seen with extensive degenerative changes. There is an apical lung nodule that will need follow-up. Head CT without acute intracranial problems Chest x-ray with changes of either atelectasis or pneumonia in the right lung Blood cultures June 27 positive for Listeria monocytogenes in all bottles. Repeat blood cultures June 29 are without any growth after 5 days Stool positive for C. difficile toxin - HOSPITAL COURSE Hospital Course: He presented as 3 days of diarrhea with dizziness, anorexia, and he just charted falling at home due to hypotension. The ER provider focused on his fever and cough and the initial thought process was that he had pneumonia with diarrhea. Diarrhea was positive for C. difficile. However on June 28 a blood culture came back positive for Listeria monocytogenes. This is a foodborne bacteria. This usually carries a 45% mortality rate when the patient is acutely ill. His treatment for pneumonia was discontinued. Ceftriaxone was changed to meropenem. Echocardiogram was ordered to rule out Listeria endocarditis and ejection fraction was normal, cor pulmonale was present, and no vegetations were seen. A transesophageal echo was recommended if we suspected endocarditis but since the patient had excellent response with white cell count, blood pressure, and feeling better, we have not pursued that. White cell count dropped from 9.7-2.4 causing concern for recurrent sepsis as well as DIC. Fibrinogen was elevated and other labs were not consistent with DIC. Repeat blood cultures were negative. We were initially going to switch him over to oral antibiotics to c omplete treatment for the Listeria bacteremia. However this patient is considered immunocompromised due to his methotrexate. And [place] antibiotic guide recommends up to 4 weeks of antibiotic therapy that is IV if they are immunocompromise. As such the patient is being transition to swing bed status to complete his antibiotic therapy. PICC line is to be inserted today before his transition to swing bed. He did have pancytopenia and we were worried about continued sepsis, but labs were felt to be due to his methotrexate. He did receive a dose the day after admission before the Listeria was diagnosed. He will have no methotrexate for at least 3 weeks. Platelets dropped with the pancytopenia and Eliquis was discontinued. We held it for the PICC line and then it was resumed. He is on methotrexate for his rheumatoid arthritis, he cannot get methotrexate while he is here. We used Tylenol or nonsteroidals to help him with pain. I was also able to speak to his electric motor repair supervisor who concurred with the treatment. He also reiterated that the patient was not to be on methotrexate. His admission C. difficile diarrhea resulted in hypotension, dehydration, acute kidney injury and hyponatremia. All of these sequela gradually improve with IV hydration and oral vancomycin. He has chronic systolic heart failure and that remained stable in spite of fluid shifts. Echocardiogram now shows a normal left ventricular ejection fraction but cor pulmonale is present. Medications were adjusted in the form of Coreg, Lasix, and spironolactone and his blood pressure tolerated all those medications. We did not resume his Entresto since it is not on formulary. We also did not start an ROMAN inhibitor or ARB since his ejection fraction is now normal. Diabetes was controlled with sliding scale insulin. At 1 point we did resume his glipizide but he became hypoglycemic. As such we stopped to the sliding scale. He developed a fungal rash on his torso that was treated with nystatin powder. The fall at home that brought him in was noted to be from orthostatic hypotension. Telemetry during his stay was without arrhythmia. He has paroxysmal A. fib that is chronic was stable and rate was controlled. He has obstructive sleep apnea and uses his home CPAP and that was stable. On the day of discharge, at approximately 6 AM he had a 10 beat run of a wide- complex tachycardia. The patient has an AICD and a pacer in place and that did not go off. His blood pressure was 187/66. Heart rate 58. And 98% saturated on his CPAP machine. He said he felt completely comfortable. Was sitting up in bed sipping on a D Cup of coffee. Considering this was completely asymptomatic, and his AICD did not go off, I do not think this was V. tach. In reviewing lead II and lead 5, the wide-complex tachycardia had different morphology in each lead. At discharge temperature 36.4. Heart rate 60. Blood pressure 152/59. Respirations 18. 100% on room air. He is sitting up in his chair, reading the paper, also watching TV. He is a 6 foot 2 inch male at 129.5 kg. He is morbidly obese, comfortable, wearing his glasses. Neck is supple. Lungs are clear. He tells me he feels "back to normal". He has a regular rate and rhythm. Telemetry shows an AV paced rhythm. He has a systolic ejection murmur. Abdomen is obese, soft, nontender. His truncal rash is slowly fading. He had a bowel movement yesterday and he had a bowel movement today. He has no focal deficits and mild pitting edema. Greater than 30 minutes was spent coordinating discharge to swing bed status. - ALLERGIES Allergies/Adverse Reactions: Allergies Allergy/AdvReac Type Severity Reaction Status Date / Time [id number] Reductase AdvReac Intermediate Cramps Verified 06/27/22 04:20 Inhibitor [Qlfqawx-Khc-Khc Reductase Inhibitor] - MEDICATIONS Home Medications: Ambulatory Orders Medication Instructions Recorded Confirmed Amlodipine Besylate 5 mg PO DAILY 02/17/13 06/27/22 Aspirin [Aspir 81] 81 mg PO DAILY 02/17/13 06/27/22 Carvedilol [Coreg] 12.5 mg PO BID 02/17/13 06/27/22 Folic Acid 1 mg PO DAILY 02/17/13 06/27/22 Methotrexate [Methotrexate Sodium] 25 mg PO Q7D 02/17/13 06/27/22 Acetaminophen [Tylenol] 650 mg PO DAILY 09/13/19 06/27/22 Brimonidine Tartrate/Timolol 1 drops EACHEYE BID 09/13/19 06/27/22 [Combigan 0.2%-0.5% Eye Drops] Furosemide 40 mg PO DAILY 09/13/19 06/27/22 Glimepiride 4 mg PO BID 09/13/19 06/27/22 Insulin Glargine [Lantus Solostar] 15 units SUBQ QPM PRN 09/13/19 06/27/22 Krill/Om-3/Dha/Epa/Phospho/Ast 4 cap PO DAILY 09/13/19 06/27/22 [Krill Oil 500 mg Softgel] Latanoprost 0.005% Ophth Drops 1 drops EACHEYE QPM 09/13/19 06/27/22 [Xalatan Ophth Drops] Levothyroxine Sodium 150 mcg PO DAILY 09/13/19 06/27/22 Metformin HCl 1,000 mg PO BID 09/13/19 06/27/22 Sacubitril/Valsartan [Entresto 49 1 tab PO BID 09/13/19 06/27/22 mg-51 mg Tablet] Tamsulosin HCl [Flomax] 0.8 mg PO QPM 09/13/19 06/27/22 Nitroglycerin 0.4 mg SL Q5M PRN #1 bot 09/19/19 06/27/22 Eplerenone [Inspra] 50 mg PO DAILY 08/04/20 06/27/22 Albuterol Sulfate [Proair 1 - 2 puffs IH Q6H PRN 06/27/22 06/27/22 Digihaler] Apixaban [Eliquis] 5 mg PO BID 06/27/22 06/27/22 Ferrous Sulfate [Feosol] 325 mg PO BID 06/27/22 06/27/22 Magnesium Oxide 840 mg PO DAILY 06/27/22 06/27/22 Non Formulary 1 each PO BID 06/27/22 06/27/22 Pantoprazole [Protonix] 40 mg PO QDDINNER 06/27/22 06/27/22 Prednisolone Acetate/Pf 1 drops EACHEYE Q48H 06/27/22 06/27/22 [Prednisolone Acet 1% Eye Drop] Propylene Glycol/Peg 400 [Systane 1 drops EACHEYE QID PRN 06/27/22 06/27/22 Ultra 0.4-0.3% Eye Drp] Tiotropium [place] [Spiriva 2 inh INH DAILY 06/27/22 07/02/22 Respimat] - LABS Result Diagrams: 07/04/22 05:22 07/04/22 05:22
[2022-07-04 14:58] VITALS: BP 152/59
--- NOTE | 2022-07-04 15:14 | XRAY Report ---
PROCEDURE: Chest for Line Placement INDICATIONS: picc line TECHNIQUE: One view of the chest was acquired. COMPARISON: None. FINDINGS: Surgical changes and devices: The biventricular left-sided pacemaker/defibrillator present. Right-si ded PICC line tip in the mid SVC. Heart size is enlarged, and there is moderate vascular congestion. The lung bases not included on the exam. IMPRESSION: Right sided PICC line tip in the mid SVC Cardiomegaly and cardiac pacemaker/fibular Reviewed by: Etienne Desir MD on 07/04/2022 2:13 PM AKST Approved by: Etienne Desir MD on 07/04/2022 2:13 PM AKST Station ID: [id number]
== END 2022-07-04 15:02 | disposition swing bed (61) | DRG 867 ==
LOC: EDUNIT# → ED 04:06 → MS2 07:50
PROVIDERS: ADMIT Internal Medicine; ATTEND Specialist
PROC: 02HV33Z Insertion of Infusion Device into Superior Vena Cava, Percutaneous Approach (ICD-10-PCS; principal; 2022-07-04)
DX: A32.9 Listeriosis, unspecified (principal); J18.9 Pneumonia, unspecified organism; D64.9 Anemia, unspecified; R42 Dizziness and giddiness; A04.72 Enterocolitis due to Clostridium difficile, not specified as recurrent; E11.9 Type 2 diabetes mellitus without complications; N17.9 Acute kidney failure, unspecified; I50.9 Heart failure, unspecified; E87.1 Hypo-osmolality and hyponatremia; I50.22 Chronic systolic (congestive) heart failure; D84.821 Immunodeficiency due to drugs; D61.818 Other pancytopenia; S09.90XA Unspecified injury of head, initial encounter; W18.39XA Other fall on same level, initial encounter; S51.012A Laceration without foreign body of left elbow, initial encounter; Y93.89 Activity, other specified; Y92.003 Bedroom of unspecified non-institutional (private) residence as the place of occurrence of the external cause; R11.2 Nausea with vomiting, unspecified; R19.7 Diarrhea, unspecified; E86.0 Dehydration; Z95.0 Presence of cardiac pacemaker; M06.9 Rheumatoid arthritis, unspecified; I11.0 Hypertensive heart disease with heart failure; E11.649 Type 2 diabetes mellitus with hypoglycemia without coma; B36.9 Superficial mycosis, unspecified; I48.0 Paroxysmal atrial fibrillation; G47.33 Obstructive sleep apnea (adult) (pediatric); E03.9 Hypothyroidism, unspecified; K21.9 Gastro-esophageal reflux disease without esophagitis; N40.0 Benign prostatic hyperplasia without lower urinary tract symptoms; R91.1 Solitary pulmonary nodule; I27.81 Cor pulmonale (chronic); R00.0 Tachycardia, unspecified; I95.1 Orthostatic hypotension; D69.6 Thrombocytopenia, unspecified; E66.01 Morbid (severe) obesity due to excess calories; Z20.822 Contact with and (suspected) exposure to COVID-19; Z68.36 Body mass index [BMI] 36.0-36.9, adult; Z79.899 Other long term (current) drug therapy; Z95.810 Presence of automatic (implantable) cardiac defibrillator; Z79.1 Long term (current) use of non-steroidal anti-inflammatories (NSAID); Z87.891 Personal history of nicotine dependence; Z79.4 Long term (current) use of insulin; Z79.84 Long term (current) use of oral hypoglycemic drugs
CPT/HCPCS: 36415; 70450; 71045; 72125; 74176; 80048; 80053; 83036; 83540; 83605; 83735; 84443; 85025; 85379; 85384; 85610; 85730; 87040; 87077; 87150; 87493; 87633; 90471; 90715; 93005; 93306; 94640; 96361; 96365; 96375; 97161; 97166; 99282; 99285; A9270; C1751; J2185; J8499; J8610

== ENCOUNTER 2022-07-04 10:48 | Inpatient (IN) | payer MEDICARE, OTHER ==
[2022-07-04] MEDS ORDERED: oxyCODONE 5 MG TABLET PO PRN (15:22)
[2022-07-04] MEDS ORDERED: LEVALBUTEROL 1.25 MG/3 ML NEB INH PRN (15:24)
[2022-07-04] MEDS: MEROPENEM 1 GM in SODIUM CHLORIDE 0.9% MINIBAG 100 ML IV SCH ×2 (17:46→23:47)
[2022-07-04] MEDS: VANCOMYCIN 125 MG CAPSULE PO SCH ×2 (17:49→20:45)
[2022-07-04] MEDS: INSULIN LISPRO 300 UNIT/3 ML PEN SUBQ SCH (17:50)
[2022-07-04] MEDS: carvediloL 12.5 MG TABLET PO SCH (20:41)
[2022-07-04] MEDS: APIXABAN 5 MG TABLET PO SCH (20:41)
[2022-07-04] MEDS: TIMOLOL 0.5% OPHTH DROPS EACHEYE SCH (20:41)
[2022-07-04] MEDS: NYSTATIN POWDER 15 GM TOP SCH (20:41)
[2022-07-04] MEDS: CALCIUM CARBONATE CHEW 500 MG TABLET PO SCH (20:41)
[2022-07-04] MEDS: guaiFENesin 600 MG TABLET PO SCH (20:41)
[2022-07-04] MEDS: LATANOPROST 0.005% OPHTH DROPS EACHEYE SCH (20:42)
[2022-07-04] MEDS: ZINC OXIDE 20% OINT 30 GM TUBE TOP SCH (20:42)
[2022-07-04] MEDS: BRIMONIDINE 0.2% OPHTH DROPS 5 ML EACHEYE SCH (22:12)
[2022-07-04] MEDS: ACETAMINOPHEN 325 MG TABLET PO PRN (22:13)
[2022-07-05] MEDS: BRIMONIDINE 0.2% OPHTH DROPS 5 ML EACHEYE SCH ×3 (06:35→21:41)
[2022-07-05] MEDS: LEVOTHYROXINE 75 MCG TABLET PO SCH (06:35)
--- NOTE | 2022-07-05 07:39 | HISTORY & PHYSICAL EXAMINATION ---
Chief Complaint - Chief Complaint Chief Complaint: listeria monocytogenes bacteremia History of Present Illness - Admitted From Admitted From:: acute care 07/04/22 - History Obtained From Records Reviewed: [facility] History obtained from: [facility] Exam Limitations: none - History of Present Illness HPI Comment/Other: The patient was admitted to acute care status on June 27. He had fallen at home and could not stand up. Prior to falling he been having painless diarrhea for 3 days, nausea, dry heaving. Was started to get confused. He gone to the toilet, had diarrhea, and as he got up from the toilet he walked to the bedroom. He leaned over to reach for something and he fell forward hitting his left forehead and his left arm. He did not blackout. He was brought to the emergency room where he was found to have an x-ray suggestive of pneumonia, C. difficile diarrhea, dehydration with mild acute kidney injury, and he was regarded as immunocompromise since he is on methotrexate for rheumatoid arthritis. During his stay, blood cultures grew out Listeria monocytogenes. He ended up being started on meropenem where his "antibiotics for pneumonia" were discontinued. He was continued on oral vancomycin for his C. difficile colitis. We had initially thought that we were going to be able to switch him over to oral antibiotics to complete his therapy for Listeria monocytogenes. However in looking at [place] antibiotic guide recommendations, those patients that are immunocompromised require 4 weeks of intravenous antibiotic therapy. Overall the patient has recovered from his illness. He is ambulating. He is eating. He is no longer orthostatic. The nausea and misery and diarrhea have resolved. He is unhappy at the idea that he is can have to be here when he feels so good. But of explained to him why it is necessary. As such she agrees to being placed in swing bed status for completion of IV antibiotics for Listeria monocytogenes bacteremia. History - Past Medical History Cardiovascular: reports: Congestive heart failure, CA, Atrial fibrillation, Other Respiratory: reports: CPAP use Neuro: reports: None Endocrine/Autoimmune: reports: Type 2 diabetes GI: reports: GERD, Hemorrhoids, Diverticulitis (Denies ever having colitis or diarrhea like now) : reports: Benign prostate hypertrophy HEENT: reports: None Psych: reports: None Musculoskeletal: reports: Rheumatoid arthritis Derm: reports: Other (Recent rash in his groin for which she took OTC antifungal creams) MRSA Hx?: No - Past Surgical History General: reports: Colonoscopy Ortho: reports: Spine surgery Cardiovascular: reports: Pacemaker Derm: reports: Skin cancer surgery - Family & Social History Family History Comment/Other: Diabetes runs in all his children Living arrangement: At home Living Situation: With spouse/s.o., With family Social History Notes: He does not drink alcohol, he quit smoking cigarettes in 1994. He is retired from shipyard work. He still drives a car. 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 - Substance History Use: Uses substance without health or social issues: NONE - POLST Patient has POLST: No Meds/Allgy - Home Medications Home Medications: Ambulatory Orders Medication Instructions Recorded Confirmed Amlodipine Besylate 5 mg PO DAILY 02/17/13 07/05/22 Aspirin [Aspir 81] 81 mg PO DAILY 02/17/13 07/05/22 Carvedilol [Coreg] 12.5 mg PO BID 02/17/13 07/05/22 Folic Acid 1 mg PO DAILY 02/17/13 07/05/22 Methotrexate [Methotrexate Sodium] 25 mg PO WE 02/17/13 07/05/22 Acetaminophen [Tylenol] 650 mg PO DAILY 09/13/19 07/05/22 Brimonidine Tartrate/Timolol 1 drops EACHEYE BID 09/13/19 07/05/22 [Combigan 0.2%-0.5% Eye Drops] Furosemide 40 mg PO DAILY 09/13/19 07/05/22 Glimepiride 4 mg PO BID 09/13/19 07/05/22 Insulin Glargine [Lantus Solostar] 15 units SUBQ QPM PRN 09/13/19 07/05/22 Krill/Om-3/Dha/Epa/Phospho/Ast 4 cap PO DAILY 09/13/19 07/05/22 [Krill Oil 500 mg Softgel] Latanoprost 0.005% Ophth Drops 1 drops EACHEYE QPM 09/13/19 07/05/22 [Xalatan Ophth Drops] Levothyroxine Sodium 150 mcg PO DAILY 09/13/19 07/05/22 Metformin HCl 1,000 mg PO BID 09/13/19 07/05/22 Sacubitril/Valsartan [Entresto 49 1 tab PO BID 09/13/19 07/05/22 mg-51 mg Tablet] Tamsulosin HCl [Flomax] 0.8 mg PO QPM 09/13/19 07/05/22 Nitroglycerin 0.4 mg SL Q5M PRN #1 bot 09/19/19 07/05/22 Eplerenone [Inspra] 50 mg PO DAILY 08/04/20 07/05/22 Albuterol Sulfate [Proair 1 - 2 puffs IH Q6H PRN 06/27/22 07/05/22 Digihaler] Apixaban [Eliquis] 5 mg PO BID 06/27/22 07/05/22 Ferrous Sulfate [Feosol] 325 mg PO BID 06/27/22 07/05/22 Magnesium Oxide 840 mg PO DAILY 06/27/22 07/05/22 Non Formulary 1 each PO BID 06/27/22 07/05/22 Pantoprazole [Protonix] 40 mg PO QDDINNER 06/27/22 07/05/22 Prednisolone Acetate/Pf 1 drops EACHEYE Q48H 06/27/22 07/05/22 [Prednisolone Acet 1% Eye Drop] Propylene Glycol/Peg 400 [Systane 1 drops EACHEYE QID PRN 06/27/22 07/05/22 Ultra 0.4-0.3% Eye Drp] Tiotropium [place] [Spiriva 2 inh INH DAILY 06/27/22 07/05/22 Respimat] - Allergies Allergies/Adverse Reactions: Allergies Allergy/AdvReac Type Severity Reaction Status Date / Time Ikegqmi-[id number]-TpV Reductase AdvReac Intermediate Cramps Verified 06/27/22 04:20 Inhibitor [Uddlhar-Ahk-Mmd Reductase Inhibitor] Review of Systems - Constitutional Constitutional: denies: Fatigue, Fever, Chills, Malaise, Weakness, Poor appetite - Eyes Eyes: denies: Amaurosis, Blurred vision, Field loss - Ears, Nose & Throat Ears, Nose & Throat: reports: Hearing loss. denies: Hearing aids, Nasal congestion, Postnasal drainage, Dentures, Sore throat - Cardiovascular Cariovascular: denies: Irregular heart rate, Palpitations, Chest pain, Edema, Exertional dyspnea, Decr. exercise tolerance - Respiratory Respiratory: denies: Cough, Sputum production, Orthopnea, SOB at rest, SOB with exertion - Gastrointestinal Gastrointestinal: reports: Diarrhea (Has resolved). denies: Abdominal pain - Genitourinary Genitourinary: reports: Frequency (He attributes that to his use of diuretics not his prostate), Nocturia - Musculoskeletal Musculoskeletal: reports: Stiffness. denies: Muscle pain, Back pain, Joint pain - Integumentary Integumentary: denies: Rash, Pruritis, Lesions - Neurological Neurological: denies: General weakness, Focal weakness, Memory problems, Pre- existing deficit - Psychiatric Psychiatric: denies: Depression, Anxiety, Suicidal, Hallucinations - Endocrine Endocrine: denies: Polyuria, Polydypsia, Polyphagia - Hematologic/Lymphatic Hematologic/Lymphatic: denies: Anemia, Bruising Prior Level of Functionality: At home he is independent with activities of daily living. He dresses himself, feeds himself. Still drives a car. Exam - Vital Signs Reviewed Vital Signs: Yes Vital Signs: Vital Signs x48h Temp Pulse Resp BP Pulse Ox 07/05/22 07:12 36.5 C 56 L 16 148/57 H 97 - Physical Exam General Appearance: positive: No acute distress, Alert, Other (Tall morbidly obese elderly gentleman who looks younger than stated age. Comfortable. Relatively cheerful but resigned to having to be in the hospital a few more days) Eyes Bilateral: positive: PERRL, EOMI ENT: positive: No signs of dehydration Neck: positive: No JVD. negative: Stiff neck Respiratory: positive: No respiratory distress. negative: Wheezes, Rales, Rhonchi Cardiovascular: positive: Regular rate & rhythm Abdomen: positive: Non-tender, No organomegaly, Nml bowel sounds, No distention, Other Skin: positive: Warm, Dry Extremities: positive: Full ROM, Pedal edema (Trace around his ankles and feet), Other (PICC line in place in right arm in a left-handed dominant male.) Neurologic/Psychiatric: positive: Oriented x3, CN's nml (2-12), Motor nml Conclusion/Plan - Problem List (1) Infection due to listeria monocytogenes Conclusion/Plan: He has bacteremia. Blood cultures were positive on June 27. Negative on June 29. As such he will need antibiotics from June 28 onward for total of 4 weeks. His last dose should be on July 26. During his acute care stay he was started on meropenem and that will be continued for now. I have also encouraged him to walk around in the room. He smiles at me and says only if I release him from the bed alarm. I spoke to nursing and they said that he is only a standby assist. As such I stopped the bed alarm and allowed him freedom to walk around in the room and to go to the bathroom by himself. (2) Hypertension Conclusion/Plan: Home medications include amlodipine, carvedilol, Entresto, eplerenone. During his acute care stay, Aldactone was substituted for his apical room. I will resume his medications and monitor blood pressure daily. Qualifiers: Hypertension type: primary hypertension Qualified Code(s): I10 - Essential (primary) hypertension (3) DM type 2 (diabetes mellitus, type 2) Conclusion/Plan: At home he takes glimepiride, Lantus, and metformin. Glycosylated hemoglobin was 8% on admission. We did resume his glimepiride for a very short time during his acute care stay. This resulted in hypoglycemia. As such she is only been on Lantus and sliding scale insulin. As we transition him to swing bed, we will continue before meals and at bedtime glucose checks. Supplement sliding scale insulin during that time. He will received 5 units of short acting insulin with each meal. Qualifiers: Diabetes mellitus residential insulin use: with buttermaker helper use Diabetes mellitus complication status: without complication Qualified Code(s): E11.9 - Type 2 diabetes mellitus without complications; Z79.4 - intermodal customer service (current) use of insulin (4) Paroxysmal A-fib Conclusion/Plan: Carvedilol and apixaban were used at home. We will continue those during the stay. (5) C. difficile diarrhea Conclusion/Plan: Up-to-date recommends a total of 10 days for uncomplicated C. difficile diarrhea. 10 days will be July 07. At that time Vancocin will be discontinued (6) Chronic systolic heart failure Conclusion/Plan: This is one of his diagnoses. He is followed by invoice control clerk at the [facility]. He has an AICD placed in place. He is on Coreg, Entresto, and eplerenone. He is also on Lasix 40 mg daily. Our echocardiogram with the acute care stay shows a left ventricular systolic function is normal with an ejection fraction of 55%. His dilated right ventricle with preserved ejection fraction is noted. Pacemaker leads are seen in the right atrium and right ventricle. Vegetations could not be excluded from the device leads. He had a large atrial volume index of 52 mm/m. Severe right atrial enlargement. No aortic stenosis, no mitral stenosis, RVSP at rest was 34 mmHg. While here, we have not been able to give him his Entresto because is nonformulary. I am unclear if he still on ROMAN inhibitor because of his previous ejection fraction or right ventricular ejection fraction. When he goes home, he will go back on his usual medications but have asked him to ask his invoice control clerk if he still needs Entresto. (7) Rheumatoid arthritis Conclusion/Plan: Usual home medications are methotrexate and prednisone. I did speak to his kitchen steward/stewardess at the [facility] and this was done during the acute care stay. Sewer Pipe Layer concurred with withholding methotrexate for a minimum of 3 weeks or for the duration of the antibiotic therapy. He will see the patient in follow-up. I have continued folic acid, and prednisone. Qualifiers: Rheumatoid arthritis location: multiple sites - Lab Results Lab results reviewed: Yes Core Measures - DVT/VTE - Prophylaxis VTE/DVT Prophylaxis med ordered at admit?: Yes
[2022-07-05] MEDS: amLODIPine 5 MG TABLET PO SCH (08:49)
[2022-07-05] MEDS: FUROSEMIDE 40 MG TABLET PO SCH (08:49)
[2022-07-05] MEDS: LOSARTAN 50 MG TABLET PO SCH (08:49)
[2022-07-05] MEDS: APIXABAN 5 MG TABLET PO SCH ×2 (08:49→21:24)
[2022-07-05] MEDS: TAMSULOSIN 0.4 MG CAPSULE PO SCH (08:49)
[2022-07-05] MEDS: VANCOMYCIN 125 MG CAPSULE PO SCH ×4 (08:49→21:24)
[2022-07-05] MEDS: carvediloL 12.5 MG TABLET PO SCH ×2 (08:49→21:23)
[2022-07-05] MEDS: guaiFENesin 600 MG TABLET PO SCH ×2 (08:49→21:24)
[2022-07-05] MEDS: FOLIC ACID 1 MG TABLET PO SCH (08:49)
[2022-07-05] MEDS: SPIRONOLACTONE 25 MG TABLET PO SCH (08:49)
[2022-07-05] MEDS: CALCIUM CARBONATE CHEW 500 MG TABLET PO SCH ×2 (08:49→21:24)
[2022-07-05] MEDS: TIMOLOL 0.5% OPHTH DROPS EACHEYE SCH ×2 (08:50→21:32)
[2022-07-05] MEDS: NYSTATIN POWDER 15 GM TOP SCH ×2 (08:50→21:34)
[2022-07-05] MEDS: ZINC OXIDE 20% OINT 30 GM TUBE TOP SCH ×2 (08:51→21:34)
[2022-07-05] MEDS: MEROPENEM 1 GM in SODIUM CHLORIDE 0.9% MINIBAG 100 ML IV SCH (08:59)
[2022-07-05] MEDS: INSULIN LISPRO 300 UNIT/3 ML PEN SUBQ SCH ×4 (09:05→21:41)
[2022-07-05] MEDS: MEROPENEM 2 GM in SODIUM CHLORIDE 0.9% 100ML 100 ML IV SCH (16:29)
[2022-07-05] MEDS: SACCHAROMYCES BOULARDII 250 MG CAPSULE PO SCH (17:32)
[2022-07-05] MEDS: LATANOPROST 0.005% OPHTH DROPS EACHEYE SCH (21:25)
[2022-07-06] MEDS: LEVOTHYROXINE 75 MCG TABLET PO SCH (06:41)
[2022-07-06] MEDS: BRIMONIDINE 0.2% OPHTH DROPS 5 ML EACHEYE SCH ×3 (06:42→20:53)
[2022-07-06] MEDS: BENZOCAINE/MENTHOL LOZENGE MM PRN ×2 (06:43→20:50)
[2022-07-06] MEDS: INSULIN LISPRO 300 UNIT/3 ML PEN SUBQ SCH ×7 (08:02→20:52)
[2022-07-06] MEDS: MEROPENEM 2 GM in SODIUM CHLORIDE 0.9% 100ML 100 ML IV SCH ×4 (08:09→23:47)
[2022-07-06] MEDS: SACCHAROMYCES BOULARDII 250 MG CAPSULE PO SCH ×2 (08:34→17:02)
[2022-07-06] MEDS: TAMSULOSIN 0.4 MG CAPSULE PO SCH ×2 (09:21→17:03)
[2022-07-06] MEDS: SPIRONOLACTONE 25 MG TABLET PO SCH (09:21)
[2022-07-06] MEDS: FUROSEMIDE 40 MG TABLET PO SCH (09:21)
[2022-07-06] MEDS: LOSARTAN 50 MG TABLET PO SCH (09:21)
[2022-07-06] MEDS: carvediloL 12.5 MG TABLET PO SCH ×2 (09:21→20:51)
[2022-07-06] MEDS: APIXABAN 5 MG TABLET PO SCH ×2 (09:21→20:50)
[2022-07-06] MEDS: guaiFENesin 600 MG TABLET PO SCH ×2 (09:21→20:50)
[2022-07-06] MEDS: VANCOMYCIN 125 MG CAPSULE PO SCH ×4 (09:21→20:50)
[2022-07-06] MEDS: FOLIC ACID 1 MG TABLET PO SCH (09:21)
[2022-07-06] MEDS: polyethylene glycoL 3350 17 GM PACKET PO SCH (09:23)
[2022-07-06] MEDS: amLODIPine 5 MG TABLET PO SCH (09:23)
[2022-07-06] MEDS: CALCIUM CARBONATE CHEW 500 MG TABLET PO SCH ×2 (09:23→20:50)
[2022-07-06] MEDS: NYSTATIN POWDER 15 GM TOP SCH ×2 (09:25→20:53)
[2022-07-06] MEDS: TIMOLOL 0.5% OPHTH DROPS EACHEYE SCH ×2 (09:27→20:53)
[2022-07-06] MEDS: ZINC OXIDE 20% OINT 30 GM TUBE TOP SCH ×2 (12:05→20:54)
[2022-07-06] MEDS: LATANOPROST 0.005% OPHTH DROPS EACHEYE SCH (20:52)
[2022-07-07] MEDS: LEVOTHYROXINE 75 MCG TABLET PO SCH (04:43)
[2022-07-07] MEDS: BRIMONIDINE 0.2% OPHTH DROPS 5 ML EACHEYE SCH ×3 (04:44→20:56)
[2022-07-07] MEDS: BENZOCAINE/MENTHOL LOZENGE MM PRN ×2 (04:49→20:52)
[2022-07-07 05:07] LABS: BASOPHILS % (AUTO) 0.7 %; EOSINOPHILS # (AUTO) 0.2 10^3/uL (0.0-0.7); EOSINOPHILS % (AUTO) 3.1 %; HCT - HEMATOCRIT 30.3 % (42.0-52.0); HGB - HEMOGLOBIN 9.6 g/dL (14.0-18.0); LYMPHOCYTES # (AUTO) 1.5 10^3/uL (1.5-3.5); LYMPHOCYTES % (AUTO) 24.9 %; MEAN CORPUSCULAR HEMOGLOBIN 29.3 pg (27.0-31.0); MEAN CORPUSCULAR HGB CONC 31.7 g/dL (32.0-36.0); MEAN CORPUSCULAR VOLUME 92.4 fL (80.0-94.0); MEAN PLATELET VOLUME 10.7 fL (7.4-11.4); MONOCYTES # (AUTO) 0.7 10^3/uL (0.0-1.0); MONOCYTES % (AUTO) 11.9 %; NEUTROPHILS # (AUTO) 3.6 10^3/uL (1.5-6.6); NEUTROPHILS % (AUTO) 58.4 %; PLT - PLATELET COUNT 222 10^3/uL (130-450); RED BLOOD COUNT 3.28 10^6/uL (4.70-6.10); RED CELL DISTRIBUTION WIDTH 17.7 % (12.0-15.0); WHITE BLOOD COUNT 6.1 x10^3/uL (4.8-10.8)
[2022-07-07 05:14] LABS: CALCIUM 9.7 mg/dL (8.5-10.3); POTASSIUM 3.7 mmol/L (3.5-5.0)
[2022-07-07] MEDS: polyethylene glycoL 3350 17 GM PACKET PO SCH (08:53)
[2022-07-07] MEDS: ZINC OXIDE 20% OINT 30 GM TUBE TOP SCH ×2 (08:53→20:57)
[2022-07-07] MEDS: NYSTATIN POWDER 15 GM TOP SCH ×2 (08:53→20:57)
[2022-07-07] MEDS: carvediloL 12.5 MG TABLET PO SCH ×2 (08:54→20:50)
[2022-07-07] MEDS: SPIRONOLACTONE 25 MG TABLET PO SCH (08:54)
[2022-07-07] MEDS: SACCHAROMYCES BOULARDII 250 MG CAPSULE PO SCH ×2 (08:54→17:06)
[2022-07-07] MEDS: LOSARTAN 50 MG TABLET PO SCH (08:54)
[2022-07-07] MEDS: MEROPENEM 2 GM in SODIUM CHLORIDE 0.9% 100ML 100 ML IV SCH ×3 (08:54→23:59)
[2022-07-07] MEDS: VANCOMYCIN 125 MG CAPSULE PO SCH ×4 (08:54→20:49)
[2022-07-07] MEDS: guaiFENesin 600 MG TABLET PO SCH ×2 (08:54→20:51)
[2022-07-07] MEDS: APIXABAN 5 MG TABLET PO SCH ×2 (08:54→20:49)
[2022-07-07] MEDS: FOLIC ACID 1 MG TABLET PO SCH (08:54)
[2022-07-07] MEDS: FUROSEMIDE 40 MG TABLET PO SCH (08:54)
[2022-07-07] MEDS: CALCIUM CARBONATE CHEW 500 MG TABLET PO SCH ×2 (08:54→20:51)
[2022-07-07] MEDS: amLODIPine 5 MG TABLET PO SCH (08:54)
[2022-07-07] MEDS: INSULIN LISPRO 300 UNIT/3 ML PEN SUBQ SCH ×7 (08:55→20:51)
[2022-07-07] MEDS: TIMOLOL 0.5% OPHTH DROPS EACHEYE SCH ×2 (08:55→20:57)
[2022-07-07] MEDS: TAMSULOSIN 0.4 MG CAPSULE PO SCH (17:05)
[2022-07-07] MEDS: ACETAMINOPHEN 325 MG TABLET PO PRN (20:55)
[2022-07-07] MEDS: LATANOPROST 0.005% OPHTH DROPS EACHEYE SCH (20:56)
[2022-07-08] MEDS: BRIMONIDINE 0.2% OPHTH DROPS 5 ML EACHEYE SCH ×3 (07:46→22:14)
[2022-07-08] MEDS: LEVOTHYROXINE 75 MCG TABLET PO SCH (07:46)
[2022-07-08] MEDS: polyethylene glycoL 3350 17 GM PACKET PO SCH (08:12)
[2022-07-08] MEDS: INSULIN LISPRO 300 UNIT/3 ML PEN SUBQ SCH ×7 (08:12→22:15)
[2022-07-08] MEDS: SACCHAROMYCES BOULARDII 250 MG CAPSULE PO SCH ×2 (08:13→18:01)
[2022-07-08] MEDS: MEROPENEM 2 GM in SODIUM CHLORIDE 0.9% 100ML 100 ML IV SCH ×2 (08:13→15:52)
[2022-07-08] MEDS: CALCIUM CARBONATE CHEW 500 MG TABLET PO SCH ×2 (08:14→22:12)
[2022-07-08] MEDS: guaiFENesin 600 MG TABLET PO SCH ×2 (08:14→22:12)
[2022-07-08] MEDS: FOLIC ACID 1 MG TABLET PO SCH (08:14)
[2022-07-08] MEDS: APIXABAN 5 MG TABLET PO SCH ×2 (08:14→22:12)
[2022-07-08] MEDS: NYSTATIN POWDER 15 GM TOP SCH ×2 (08:15→22:13)
[2022-07-08] MEDS: FUROSEMIDE 40 MG TABLET PO SCH (08:15)
[2022-07-08] MEDS: LOSARTAN 50 MG TABLET PO SCH (08:15)
[2022-07-08] MEDS: carvediloL 12.5 MG TABLET PO SCH ×2 (08:15→22:12)
[2022-07-08] MEDS: SPIRONOLACTONE 25 MG TABLET PO SCH (08:15)
[2022-07-08] MEDS: amLODIPine 5 MG TABLET PO SCH (08:15)
[2022-07-08] MEDS: TIMOLOL 0.5% OPHTH DROPS EACHEYE SCH ×2 (08:16→22:14)
[2022-07-08] MEDS: ZINC OXIDE 20% OINT 30 GM TUBE TOP SCH ×2 (08:16→22:13)
[2022-07-08] MEDS: TAMSULOSIN 0.4 MG CAPSULE PO SCH (18:01)
[2022-07-08] MEDS: LATANOPROST 0.005% OPHTH DROPS EACHEYE SCH (22:14)
[2022-07-08] MEDS: BENZOCAINE/MENTHOL LOZENGE MM PRN (22:21)
[2022-07-09] MEDS: MEROPENEM 2 GM in SODIUM CHLORIDE 0.9% 100ML 100 ML IV SCH ×3 (01:09→16:33)
[2022-07-09] MEDS: LEVOTHYROXINE 75 MCG TABLET PO SCH (06:02)
[2022-07-09] MEDS: BRIMONIDINE 0.2% OPHTH DROPS 5 ML EACHEYE SCH ×3 (06:03→21:27)
[2022-07-09] MEDS: SACCHAROMYCES BOULARDII 250 MG CAPSULE PO SCH ×2 (09:40→17:12)
[2022-07-09] MEDS: guaiFENesin 600 MG TABLET PO SCH ×2 (09:40→21:24)
[2022-07-09] MEDS: SPIRONOLACTONE 25 MG TABLET PO SCH (09:40)
[2022-07-09] MEDS: amLODIPine 5 MG TABLET PO SCH (09:40)
[2022-07-09] MEDS: ZINC OXIDE 20% OINT 30 GM TUBE TOP SCH ×2 (09:40→21:25)
[2022-07-09] MEDS: APIXABAN 5 MG TABLET PO SCH ×2 (09:40→21:24)
[2022-07-09] MEDS: FUROSEMIDE 40 MG TABLET PO SCH (09:40)
[2022-07-09] MEDS: CALCIUM CARBONATE CHEW 500 MG TABLET PO SCH ×2 (09:40→21:24)
[2022-07-09] MEDS: carvediloL 12.5 MG TABLET PO SCH ×2 (09:40→21:25)
[2022-07-09] MEDS: FOLIC ACID 1 MG TABLET PO SCH (09:40)
[2022-07-09] MEDS: LOSARTAN 50 MG TABLET PO SCH (09:40)
[2022-07-09] MEDS: INSULIN LISPRO 300 UNIT/3 ML PEN SUBQ SCH ×7 (09:48→21:23)
[2022-07-09] MEDS: NYSTATIN POWDER 15 GM TOP SCH ×2 (09:50→21:25)
[2022-07-09] MEDS: TIMOLOL 0.5% OPHTH DROPS EACHEYE SCH ×2 (09:52→21:26)
[2022-07-09] MEDS: polyethylene glycoL 3350 17 GM PACKET PO SCH (09:52)
[2022-07-09] MEDS: TAMSULOSIN 0.4 MG CAPSULE PO SCH (17:12)
[2022-07-09] MEDS: BENZOCAINE/MENTHOL LOZENGE MM PRN (21:25)
[2022-07-09] MEDS: LATANOPROST 0.005% OPHTH DROPS EACHEYE SCH (21:27)
[2022-07-10] MEDS: MEROPENEM 2 GM in SODIUM CHLORIDE 0.9% 100ML 100 ML IV SCH ×3 (00:40→15:53)
[2022-07-10] MEDS: LEVOTHYROXINE 75 MCG TABLET PO SCH (06:33)
[2022-07-10] MEDS: BRIMONIDINE 0.2% OPHTH DROPS 5 ML EACHEYE SCH ×3 (06:34→21:31)
[2022-07-10] MEDS: INSULIN LISPRO 300 UNIT/3 ML PEN SUBQ SCH ×7 (08:50→21:29)
[2022-07-10] MEDS: SACCHAROMYCES BOULARDII 250 MG CAPSULE PO SCH ×2 (08:51→17:05)
[2022-07-10] MEDS: APIXABAN 5 MG TABLET PO SCH ×2 (08:51→21:23)
[2022-07-10] MEDS: SPIRONOLACTONE 25 MG TABLET PO SCH (08:51)
[2022-07-10] MEDS: FOLIC ACID 1 MG TABLET PO SCH (08:51)
[2022-07-10] MEDS: carvediloL 12.5 MG TABLET PO SCH ×2 (08:51→21:23)
[2022-07-10] MEDS: CALCIUM CARBONATE CHEW 500 MG TABLET PO SCH ×2 (08:51→21:23)
[2022-07-10] MEDS: LOSARTAN 50 MG TABLET PO SCH (08:53)
[2022-07-10] MEDS: guaiFENesin 600 MG TABLET PO SCH ×2 (08:53→21:29)
[2022-07-10] MEDS: amLODIPine 5 MG TABLET PO SCH (08:53)
[2022-07-10] MEDS: FUROSEMIDE 40 MG TABLET PO SCH (08:56)
[2022-07-10] MEDS: polyethylene glycoL 3350 17 GM PACKET PO SCH (08:58)
[2022-07-10] MEDS: NYSTATIN POWDER 15 GM TOP SCH ×2 (08:58→21:30)
[2022-07-10] MEDS: TIMOLOL 0.5% OPHTH DROPS EACHEYE SCH ×2 (09:00→21:30)
[2022-07-10] MEDS: ZINC OXIDE 20% OINT 30 GM TUBE TOP SCH ×2 (09:00→21:31)
[2022-07-10] MEDS: TAMSULOSIN 0.4 MG CAPSULE PO SCH (17:05)
[2022-07-10] MEDS: BENZOCAINE/MENTHOL LOZENGE MM PRN (21:30)
[2022-07-10] MEDS: LATANOPROST 0.005% OPHTH DROPS EACHEYE SCH (21:30)
[2022-07-11] MEDS: MEROPENEM 2 GM in SODIUM CHLORIDE 0.9% 100ML 100 ML IV SCH ×4 (00:10→23:56)
[2022-07-11] MEDS: BRIMONIDINE 0.2% OPHTH DROPS 5 ML EACHEYE SCH ×3 (06:08→20:45)
[2022-07-11] MEDS: LEVOTHYROXINE 75 MCG TABLET PO SCH (06:09)
[2022-07-11] MEDS: INSULIN LISPRO 300 UNIT/3 ML PEN SUBQ SCH ×7 (08:12→20:42)
[2022-07-11] MEDS: SPIRONOLACTONE 25 MG TABLET PO SCH (08:14)
[2022-07-11] MEDS: amLODIPine 5 MG TABLET PO SCH (08:14)
[2022-07-11] MEDS: SACCHAROMYCES BOULARDII 250 MG CAPSULE PO SCH ×2 (08:15→17:00)
[2022-07-11] MEDS: FUROSEMIDE 40 MG TABLET PO SCH (08:15)
[2022-07-11] MEDS: guaiFENesin 600 MG TABLET PO SCH ×2 (08:15→20:41)
[2022-07-11] MEDS: FOLIC ACID 1 MG TABLET PO SCH (08:15)
[2022-07-11] MEDS: carvediloL 12.5 MG TABLET PO SCH ×2 (08:15→20:41)
[2022-07-11] MEDS: APIXABAN 5 MG TABLET PO SCH ×2 (08:15→20:41)
[2022-07-11] MEDS: LOSARTAN 50 MG TABLET PO SCH (08:15)
[2022-07-11] MEDS: CALCIUM CARBONATE CHEW 500 MG TABLET PO SCH ×2 (08:16→20:41)
[2022-07-11] MEDS: NYSTATIN POWDER 15 GM TOP SCH ×2 (08:19→20:42)
[2022-07-11] MEDS: TIMOLOL 0.5% OPHTH DROPS EACHEYE SCH ×2 (08:19→20:44)
[2022-07-11] MEDS: ZINC OXIDE 20% OINT 30 GM TUBE TOP SCH ×2 (08:33→20:42)
[2022-07-11] MEDS: polyethylene glycoL 3350 17 GM PACKET PO SCH (08:33)
[2022-07-11] MEDS: TAMSULOSIN 0.4 MG CAPSULE PO SCH (17:00)
[2022-07-11] MEDS: LATANOPROST 0.005% OPHTH DROPS EACHEYE SCH (20:45)
[2022-07-11] MEDS: BENZOCAINE/MENTHOL LOZENGE MM PRN (22:25)
[2022-07-12] MEDS: LEVOTHYROXINE 75 MCG TABLET PO SCH (04:52)
[2022-07-12] MEDS: BRIMONIDINE 0.2% OPHTH DROPS 5 ML EACHEYE SCH ×3 (04:52→21:00)
[2022-07-12] MEDS ORDERED: SODIUM CHLORIDE 0.9% 100ML 100 ML IV ONE (08:00)
[2022-07-12] MEDS: INSULIN LISPRO 300 UNIT/3 ML PEN SUBQ SCH ×7 (08:08→20:52)
[2022-07-12] MEDS: FUROSEMIDE 40 MG TABLET PO SCH (08:09)
[2022-07-12] MEDS: guaiFENesin 600 MG TABLET PO SCH ×2 (08:09→20:27)
[2022-07-12] MEDS: LOSARTAN 50 MG TABLET PO SCH (08:09)
[2022-07-12] MEDS: FOLIC ACID 1 MG TABLET PO SCH (08:09)
[2022-07-12] MEDS: amLODIPine 5 MG TABLET PO SCH (08:09)
[2022-07-12] MEDS: APIXABAN 5 MG TABLET PO SCH ×2 (08:09→20:28)
[2022-07-12] MEDS: SPIRONOLACTONE 25 MG TABLET PO SCH (08:09)
[2022-07-12] MEDS: carvediloL 12.5 MG TABLET PO SCH ×2 (08:09→20:28)
[2022-07-12] MEDS: polyethylene glycoL 3350 17 GM PACKET PO SCH (08:10)
[2022-07-12] MEDS: SACCHAROMYCES BOULARDII 250 MG CAPSULE PO SCH ×2 (08:10→16:58)
[2022-07-12] MEDS: CALCIUM CARBONATE CHEW 500 MG TABLET PO SCH ×2 (08:10→20:28)
[2022-07-12] MEDS: NYSTATIN POWDER 15 GM TOP SCH ×2 (08:10→20:28)
[2022-07-12] MEDS: TIMOLOL 0.5% OPHTH DROPS EACHEYE SCH ×2 (08:11→20:28)
[2022-07-12] MEDS: ZINC OXIDE 20% OINT 30 GM TUBE TOP SCH ×2 (08:11→20:28)
[2022-07-12] MEDS: MEROPENEM 2 GM in SODIUM CHLORIDE 0.9% 100ML 100 ML IV SCH ×2 (12:39→20:37)
--- NOTE | 2022-07-12 14:00 | PROVIDER PROGRESS NOTE ---
Assessment/Plan - Problem List (1) Itching Assessment/Plan: This is probably not an IgE mediated allergic reaction since there absolutely no rash or hives seen anywhere I suspect it could be contact dermatitis or, because the areas most involved are the antecubital area and behind his knees, this could be fungal in origin, because he describes it in the folds of his skin, possibly because he is obese (BMI 39) and is a Diabetic. Plan: Will not stop the meropenem antibiotic, keep dosing it for his Listeriosis. Discussed with our pharmnacist. 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 Blood cultures were positive on June 27. Negative on June 29. As such he will need antibiotics from June 28 onward for total of 4 weeks. His last dose should be on July 26. During his acute care stay he was already started on meropenem (2) Hypertension Conclusion/Plan: Home medications include amlodipine, carvedilol, Entresto, eplerenone. During his acute care stay, Aldactone was substituted for his Eplerinone (which is not on formulary) and no Entresto since being here (it is also not on formulary to restart after CHF resolved). Qualifiers: Hypertension type: primary hypertension Qualified Code(s): I10 - Essential (primary) hypertension (3) DM type 2 (diabetes mellitus, type 2) Conclusion/Plan: At home he takes glimepiride, Lantus, and metformin. Glycosylated hemoglobin was 8% on admission. We did resume his glimepiride for a very short time during his acute care stay. This resulted in hypoglycemia. As such she is only been on Lantus and sliding scale insulin.In swing bed status, we will continue ac and hs glucose checks and give supplement sliding scale insulin during that time. He is also getting 5 units of short acting insulin with each meal. Qualifiers: Diabetes mellitus alf insulin use: with proj mgr use Diabetes mellitus complication status: without complication Qualified Code(s): E11.9 - Type 2 diabetes mellitus without complications; Z79.4 - aircraft skin burnisher (current) use of insulin (4) Paroxysmal A-fib Conclusion/Plan: Carvedilol and apixaban were used at home. We are continuing those during this swing bed stay. (5) Chronic systolic heart failure Conclusion/Plan: This is one of his diagnoses. He is followed by learning operations specialist at the [facility]. He has an AICD placed in place. He was on Coreg, Lasix and Entresto, and eplerenone. While here, we have not been able to give him his Entresto because is nonformulary and Aldosterone was substituted for Eplerinone(also non-formulary). Our Echocardiogram during his acute care stay, showed left ventricular systolic function was normal with an ejection fraction of 55%. A dilated right ventricle with preserved ejection fraction is noted. Pacemaker leads seen in right heart. Severe right atrial enlargement. No aortic stenosis, no mitral stenosis, RVSP at rest was normal at 34 mmHg. When he goes home, he will go back on his usual medications. (6) Rheumatoid arthritis Conclusion/Plan: Usual home medications were methotrexate weekly and prednisone. His hearing care practitioner at the [facility] was contacted during the acute care stay. and concurred wabout withholding methotrexate for a minimum of 3 weeks or for the duration of the currentMeropenam antibiotic therapy. He will see the patient in follow-up. We have continued the pt's folic acid, and prednisone was restarted after getting stress dose steroids. (7) C. difficile diarrhea Conclusion/Plan: Resolved. Up-to-date recommends a total of 10 days for uncomplicated C. difficile diarrhea. 10 days was July 07, and po Vancomycin was discontinued. - Current Meds Current Meds: Current Medications Generic Name Dose Route Start Last Admin Trade Name Freq PRN Reason Stop Dose Admin Acetaminophen 650 mg 07/04/22 15:22 07/07/22 20:55 Acetaminophen 325 Mg Tablet PO 650 mg Q4HR PRN Administration Pain 1 to 4, or Fever Amlodipine Besylate 5 mg 07/05/22 09:00 07/12/22 08:09 Amlodipine 5 Mg Tablet PO 5 mg DAILY RAY Administration Apixaban 5 mg 07/04/22 21:00 07/12/22 08:09 Apixaban 5 Mg Tablet PO 5 mg BID RAY Administration Brimonidine Tartrate 1 drops 07/04/22 22:00 07/12/22 04:52 Brimonidine 0.2% Ophth Drops 5 Ml EACHEYE 1 drops TID RAY Administration Calcium Carbonate/Glycine 500 mg 07/04/22 21:00 07/12/22 08:10 Calcium Carbonate Chew 500 Mg Tablet PO 500 mg BID RAY Administration Carvedilol 12.5 mg 07/04/22 21:00 07/12/22 08:09 Carvedilol 12.5 Mg Tablet PO 12.5 mg BID RAY Administration Folic Acid 1 mg 07/05/22 09:00 07/12/22 08:09 Folic Acid 1 Mg Tablet PO 1 mg DAILY RAY Administration Furosemide 40 mg 07/05/22 09:00 07/12/22 08:09 Furosemide 40 Mg Tablet PO 40 mg DAILY RAY Administration Guaifenesin 600 mg 07/04/22 21:00 07/12/22 08:09 Guaifenesin 600 Mg Tablet PO 600 mg BID RAY Administration Meropenem 2 gm/ Sodium 100 mls @ 200 mls/hr 07/05/22 16:00 07/12/22 13:42 Chloride IV 07/26/22 15:59 Infused Q8H RAY Infusion Insulin Human Lispro 5 unit 07/04/22 17:00 07/12/22 12:25 Insulin Lispro 300 Unit/3 Ml Pen SUBQ 5 unit TIDWM RAY Administration Insulin Human Lispro 1 - 9 unit 07/05/22 21:00 07/12/22 12:25 Insulin Lispro 300 Unit/3 Ml Pen SUBQ 1 unit 0800,1200,1700,2100 RAY Administration Protocol Latanoprost 1 drops 07/04/22 21:00 07/11/22 20:45 Latanoprost 0.005% Ophth Drops EACHEYE 1 drops QPM RAY Administration Levothyroxine Sodium 75 mcg 07/05/22 07:00 07/12/22 04:52 Levothyroxine 75 Mcg Tablet PO 75 mcg QDAC RAY Administration Losartan Potassium 50 mg 07/05/22 09:00 07/12/22 08:09 Losartan 50 Mg Tablet PO 50 mg DAILY RAY Administration Multi-Ingredient Ointment 1 applic 07/04/22 21:00 07/12/22 08:11 Zinc Oxide 20% Oint 30 Gm Tube TOP 1 applic BID RAY Administration Nystatin 1 applic 07/04/22 21:00 07/12/22 08:10 Nystatin Powder 15 Gm TOP 1 applic BID RAY Administration Polyethylene Glycol 17 gm 07/06/22 09:00 07/12/22 08:10 Polyethylene Glycol 3350 17 Gm Packet PO Not Given DAILY [facility] Saccharomyces Boulardii 500 mg 07/05/22 17:00 07/12/22 08:10 Saccharomyces Boulardii 250 Mg Capsule PO 500 mg BIDWM RAY Administration Spironolactone 25 mg 07/05/22 09:00 07/12/22 08:09 Spironolactone 25 Mg Tablet PO 25 mg DAILY RAY Administration Tamsulosin HCl 0.4 mg 07/06/22 17:30 07/11/22 17:00 Tamsulosin 0.4 Mg Capsule PO 0.4 mg 1730 RAY Administration Throat Lozenges 1 lozenge 07/06/22 06:22 07/11/22 22:25 Benzocaine/Menthol Lozenge MM 1 lozenge Q2HR PRN Administration Throat pain Timolol Maleate 1 drops 07/04/22 21:00 07/12/22 08:11 Timolol 0.5% Ophth Drops EACHEYE 1 drops BID RAY Administration - Lab Result Fish Bone Diagrams: 07/07/22 05:00 07/07/22 05:00 Subjective - Subjective Patient Reports: Itching (Since yesterday evening, the patient c/o a whole-body itch. RN said it is worse on his upper extremities and no redness seen. I ordered him to take a shower and change his clothes and after that "the itching is no better" but it is only in antecubital area and behind knees.) Objective Vital Signs: Vital Signs - 24 hr 07/11/22 07/11/22 07/12/22 15:33 20:43 09:00 Temperature 36.4 C L 36.6 C Heart Rate [ 60 60 60 Brachial] Respiratory 20 14 Rate Blood Pressure 148/67 H 154/93 H 136/58 H [Left Brachial artery] O2 Saturation 99 96 Oxygen O2 Source [With Activity] Room air O2 Source Room air I&O (Last 24 Hrs): Intake and Output Totals x24h 07/10/22 07/11/22 07/12/22 23:59 23:59 23:59 Intake Total 2760 2916 1730 Output Total 1050 1975 925 Balance 1710 941 805 General: Alert, Oriented x3 HEENT: Mucous membr. moist/pink, Other (His entire face is red and flushed after taking a warm shower) Neck: Supple, No JVD Neuro: Alert, Non Focal Cardiovascular: No murmurs Respiratory: No respiratory distress Abdomen: Normal bowel sounds, Soft, Other (Obese with pannus) Extremities: No clubbing, No edema Skin: No rashes, No breakdown, No significant lesion - Results Results: Laboratory Results WBC 6.1 x10^3/uL (4.8-10.8) 07/07/22 05:00 RBC 3.28 10^6/uL (4.70-6.10) L 07/07/22 05:00 Hgb 9.6 g/dL (14.0-18.0) L 07/07/22 05:00 Hct 30.3 % (42.0-52.0) L 07/07/22 05:00 MCV 92.4 fL (80.0-94.0) 07/07/22 05:00 MCH 29.3 pg (27.0-31.0) 07/07/22 05:00 MCHC 31.7 g/dL (32.0-36.0) L 07/07/22 05:00 RDW 17.7 % (12.0-15.0) H 07/07/22 05:00 Plt Count 222 10^3/uL (130-450) 07/07/22 05:00 MPV 10.7 fL (7.4-11.4) 07/07/22 05:00 Neut # (Auto) 3.6 10^3/uL (1.5-6.6) 07/07/22 05:00 Lymph # (Auto) 1.5 10^3/uL (1.5-3.5) 07/07/22 05:00 [place] # (Auto) 0.7 10^3/uL (0.0-1.0) 07/07/22 05:00 Eos # (Auto) 0.2 10^3/uL (0.0-0.7) 07/07/22 05:00 Baso # (Auto) 0.0 10^3/uL (0.0-0.1) 07/07/22 05:00 Absolute Nucleated RBC 0.00 x10^3/uL 07/07/22 05:00 Nucleated RBC % 0.0 /100WBC 07/07/22 05:00 Sodium 135 mmol/L (135-145) 07/07/22 05:00 Potassium 3.7 mmol/L (3.5-5.0) 07/07/22 05:00 Chloride 96 mmol/L (101-111) L 07/07/22 05:00 Carbon Dioxide 27 mmol/L (21-32) 07/07/22 05:00 Anion Gap 12.0 (6-13) 07/07/22 05:00 BUN 29 mg/dL (6-20) H 07/07/22 05:00 Creatinine 1.0 mg/dL (0.6-1.2) 07/07/22 05:00 Estimated GFR (MDRD) 71 (>89) L 07/07/22 05:00 Glucose 143 mg/dL (70-100) H 07/07/22 05:00 POC Whole Bld Glucose 158 mg/dL (70 - 100) H 07/12/22 11:22 Calcium 9.7 mg/dL (8.5-10.3) 07/07/22 05:00 - Procedures Procedures: Procedures INSERTION OF INFUSION DEV INTO SUP VENA CAVA, PERC APPROACH (06/27/22)
[2022-07-12] MEDS: TAMSULOSIN 0.4 MG CAPSULE PO SCH (16:58)
[2022-07-12] MEDS: LATANOPROST 0.005% OPHTH DROPS EACHEYE SCH (20:28)
[2022-07-13] MEDS: MEROPENEM 2 GM in SODIUM CHLORIDE 0.9% 100ML 100 ML IV SCH ×3 (04:43→21:32)
[2022-07-13] MEDS: LEVOTHYROXINE 75 MCG TABLET PO SCH (06:59)
[2022-07-13] MEDS: BRIMONIDINE 0.2% OPHTH DROPS 5 ML EACHEYE SCH ×3 (06:59→21:18)
[2022-07-13] MEDS: INSULIN LISPRO 300 UNIT/3 ML PEN SUBQ SCH ×7 (08:06→21:20)
[2022-07-13] MEDS: CALCIUM CARBONATE CHEW 500 MG TABLET PO SCH ×2 (08:09→21:16)
[2022-07-13] MEDS: SACCHAROMYCES BOULARDII 250 MG CAPSULE PO SCH ×2 (08:14→17:12)
[2022-07-13] MEDS: SPIRONOLACTONE 25 MG TABLET PO SCH (08:14)
[2022-07-13] MEDS: FOLIC ACID 1 MG TABLET PO SCH (08:14)
[2022-07-13] MEDS: FUROSEMIDE 40 MG TABLET PO SCH ×2 (08:14→09:55)
[2022-07-13] MEDS: guaiFENesin 600 MG TABLET PO SCH ×2 (08:15→21:17)
[2022-07-13] MEDS: NYSTATIN POWDER 15 GM TOP SCH ×2 (08:15→21:17)
[2022-07-13] MEDS: APIXABAN 5 MG TABLET PO SCH ×2 (08:15→21:17)
[2022-07-13] MEDS: ZINC OXIDE 20% OINT 30 GM TUBE TOP SCH ×2 (08:16→21:17)
[2022-07-13] MEDS: polyethylene glycoL 3350 17 GM PACKET PO SCH ×2 (08:16→08:19)
[2022-07-13] MEDS: TIMOLOL 0.5% OPHTH DROPS EACHEYE SCH ×2 (08:16→21:18)
--- NOTE | 2022-07-13 08:47 | PROVIDER PROGRESS NOTE ---
Assessment/Plan - Problem List (1) Itching Assessment/Plan: This persists but is only in specific areas of his body, he noticed it last night in his lower back when he was supine. The nurse thinks it may be related to his sheets. Plan: We have determined it is not an IgE-mediated allergic reaction to his antibiotic and that is being continued. He has no redness or rash to offer him any other treatment for the itching (2) Hypotension Assessment/Plan: Before getting a.m. cardiac meds, his blood pressure today was 108/58 and heart rate 60. Plan: We will decrease his cardiac meds: Amlodipine 5 mg down to 2.5 mg daily, losartan down from 50 mg to 25 mg and move it to dinnertime, carvedilol 12.5 mg down to 6.25 twice daily, Continue the spironolactone 25 mg daily but decrease the Lasix 40 mg daily down to just Saturday. Also holding parameters were placed on all the above meds, which had not been done at admission to swing bed. He has Listeria bacteremia. Blood cultures were positive on June 27. Negative on June 29. As such he will need antibiotics from June 28 onward for total of 4 weeks. His last dose should be on July 26. During his acute care stay he was already started on meropenem (3) Hx Hypertension Conclusion/Plan: Home medications include amlodipine, carvedilol, Entresto, eplerenone. During his acute care stay, Aldactone was substituted for his Eplerinone (which is not on formulary) and no Entresto since being here (it is also not on formulary to restart after CHF resolved). Qualifiers: Hypertension type: primary hypertension Qualified Code(s): I10 - Essential (primary) hypertension (4) DM type 2 (diabetes mellitus, type 2) Conclusion/Plan: At home he took glimepiride, Lantus, and metformin. His A1c was 8% on admission. We did resume his glimepiride for a very short time during his acute care stay. This resulted in hypoglycemia. As such she is only been on Lantus and sliding scale insulin. Plan: In swing bed status, we will continue ac and hs glucose checks and give sliding scale insulin coverage. He is also getting 5 units of short acting insulin with each meal. Will resume half of his usual home dose of Metformin, so 500 mg BID. Qualifiers: Diabetes mellitus mcfp insulin use: with terminal superintendent use Diabetes mellitus complication status: without complication Qualified Code(s): E11.9 - Type 2 diabetes mellitus without complications; Z79.4 - intermediate (current) use of insulin (5) Paroxysmal A-fib Conclusion/Plan: Carvedilol and apixaban were used at home. We are continuing those during this swing bed stay. (6) Chronic systolic heart failure Conclusion/Plan: This is one of his diagnoses. He is followed by rolling attendant at the [facility]. He has an AICD placed in place. He was on Coreg, Lasix and Entresto, and eplerenone. While here, we have not been able to give him his Entresto because is nonformulary and Aldosterone was substituted for Eplerinone(also non-formulary). Our Echocardiogram during his acute care stay, showed left ventricular systolic function was normal with an ejection fraction of 55%. A dilated right ventricle with preserved ejection fraction is noted. Pacemaker leads seen in right heart. Severe right atrial enlargement. No aortic stenosis, no mitral stenosis, RVSP at rest was normal at 34 mmHg. When he goes home, he will go back on his usual medications. (7) Rheumatoid arthritis Conclusion/Plan: Usual home medications were methotrexate weekly and prednisone. His biofuels manager at the [facility] was contacted during the acute care stay. and concurred wabout withholding methotrexate for a minimum of 3 weeks or for the duration of the currentMeropenam antibiotic therapy. He will see the patient in follow-up. We have continued the pt's folic acid, and prednisone was restarted after getting stress dose steroids. (8) C. difficile diarrhea Conclusion/Plan: Resolved. Up-to-date recommends a total of 10 days for uncomplicated C. difficile diarrhea. 10 days was July 07, and po Vancomycin was discontinued. - Current Meds Current Meds: Current Medications Generic Name Dose Route Start Last Admin Trade Name Freq PRN Reason Stop Dose Admin Acetaminophen 650 mg 07/04/22 15:22 07/07/22 20:55 Acetaminophen 325 Mg Tablet PO 650 mg Q4HR PRN Administration Pain 1 to 4, or Fever Apixaban 5 mg 07/04/22 21:00 07/13/22 08:15 Apixaban 5 Mg Tablet PO 5 mg BID RAY Administration Brimonidine Tartrate 1 drops 07/04/22 22:00 07/13/22 06:59 Brimonidine 0.2% Ophth Drops 5 Ml EACHEYE 1 drops TID RAY Administration Calcium Carbonate/Glycine 500 mg 07/04/22 21:00 07/13/22 08:09 Calcium Carbonate Chew 500 Mg Tablet PO 500 mg BID RAY Administration Folic Acid 1 mg 07/05/22 09:00 07/13/22 08:14 Folic Acid 1 Mg Tablet PO 1 mg DAILY RAY Administration Guaifenesin 600 mg 07/04/22 21:00 07/13/22 08:15 Guaifenesin 600 Mg Tablet PO 600 mg BID RAY Administration Meropenem 2 gm/ Sodium 100 mls @ 200 mls/hr 07/05/22 16:00 07/13/22 05:13 Chloride IV 07/26/22 15:59 Infused Q8H RAY Infusion Insulin Human Lispro 5 unit 07/04/22 17:00 07/13/22 08:06 Insulin Lispro 300 Unit/3 Ml Pen SUBQ 5 unit TIDWM RAY Administration Insulin Human Lispro 1 - 9 unit 07/05/22 21:00 07/13/22 08:07 Insulin Lispro 300 Unit/3 Ml Pen SUBQ 1 unit 0800,1200,1700,2100 [facility] Administration Protocol Latanoprost 1 drops 07/04/22 21:00 07/12/22 20:28 Latanoprost 0.005% Ophth Drops EACHEYE 1 drops QPM RAY Administration Levothyroxine Sodium 75 mcg 07/05/22 07:00 07/13/22 06:59 Levothyroxine 75 Mcg Tablet PO 75 mcg QDAC RAY Administration Multi-Ingredient Ointment 1 applic 07/04/22 21:00 07/13/22 08:16 Zinc Oxide 20% Oint 30 Gm Tube TOP 1 applic BID RAY Administration Nystatin 1 applic 07/04/22 21:00 07/13/22 08:15 Nystatin Powder 15 Gm TOP 1 applic BID RAY Administration Polyethylene Glycol 17 gm 07/06/22 09:00 07/13/22 08:19 Polyethylene Glycol 3350 17 Gm Packet PO Not Given DAILY RAY Saccharomyces Boulardii 500 mg 07/05/22 17:00 07/13/22 08:14 Saccharomyces Boulardii 250 Mg Capsule PO 500 mg BIDWM RAY Administration Spironolactone 25 mg 07/05/22 09:00 07/13/22 08:14 Spironolactone 25 Mg Tablet PO 25 mg DAILY RAY Administration Tamsulosin HCl 0.4 mg 07/06/22 17:30 07/12/22 16:58 Tamsulosin 0.4 Mg Capsule PO 0.4 mg 1730 RAY Administration Throat Lozenges 1 lozenge 07/06/22 06:22 07/11/22 22:25 Benzocaine/Menthol Lozenge MM 1 lozenge Q2HR PRN Administration Throat pain Timolol Maleate 1 drops 07/04/22 21:00 07/13/22 08:16 Timolol 0.5% Ophth Drops EACHEYE 1 drops BID RAY Administration - Lab Result Fish Bone Diagrams: 07/07/22 05:00 07/07/22 05:00 - Additional Planning My Orders: My Active Orders 07/13/22 09:00 Furosemide [Lasix] 40 mg PO MOWEFR amLODIPine [Norvasc] 2.5 mg PO DAILY carvediloL [Coreg] 6.25 mg PO BID 07/13/22 17:00 Losartan [Cozaar] 50 mg PO 1700 Subjective - Subjective Patient Reports: Other (Unchanged itching but it is only in very specific body areas: Inside the antecubital region, behind his knees, last night it was on his lower back. No other complaints. Walking with a walker, independantly, without trouble, several times a day.) Objective Vital Signs: Vital Signs - 24 hr 07/12/22 07/12/22 07/12/22 09:00 15:54 20:17 Temperature 36.6 C 36.7 C Heart Rate [ 60 60 72 Brachial] Respiratory 14 20 Rate Blood Pressure 136/58 H 129/52 L 142/50 H [Left Brachial artery] O2 Saturation 96 96 07/13/22 07/13/22 07:53 08:11 Temperature 36.8 C Heart Rate [ 58 L 60 Brachial] Respiratory 18 Rate Blood Pressure 125/57 L 108/58 L [Left Brachial artery] O2 Saturation 98 Oxygen O2 Source [With Activity] Room air O2 Source Room air I&O (Last 24 Hrs): Intake and Output Totals x24h 07/11/22 07/12/22 07/13/22 23:59 23:59 23:59 Intake Total 0996 3310 420 Output Total 1974 8145 700 Balance 941 885 -280 General: Alert, Oriented x3 HEENT: Mucous membr. moist/pink Neck: Supple, No JVD Neuro: Alert, Non Focal Cardiovascular: No murmurs Respiratory: No respiratory distress Abdomen: Soft Extremities: No edema - Results Results: Laboratory Results WBC 6.1 x10^3/uL (4.8-10.8) 07/07/22 05:00 RBC 3.28 10^6/uL (4.70-6.10) L 07/07/22 05:00 Hgb 9.6 g/dL (14.0-18.0) L 07/07/22 05:00 Hct 30.3 % (42.0-52.0) L 07/07/22 05:00 MCV 92.4 fL (80.0-94.0) 07/07/22 05:00 MCH 29.3 pg (27.0-31.0) 07/07/22 05:00 MCHC 31.7 g/dL (32.0-36.0) L 07/07/22 05:00 RDW 17.7 % (12.0-15.0) H 07/07/22 05:00 Plt Count 222 10^3/uL (130-450) 07/07/22 05:00 MPV 10.7 fL (7.4-11.4) 07/07/22 05:00 Neut # (Auto) 3.6 10^3/uL (1.5-6.6) 07/07/22 05:00 Lymph # (Auto) 1.5 10^3/uL (1.5-3.5) 07/07/22 05:00 Long # (Auto) 0.7 10^3/uL (0.0-1.0) 07/07/22 05:00 Eos # (Auto) 0.2 10^3/uL (0.0-0.7) 07/07/22 05:00 Baso # (Auto) 0.0 10^3/uL (0.0-0.1) 07/07/22 05:00 Absolute Nucleated RBC 0.00 x10^3/uL 07/07/22 05:00 Nucleated RBC % 0.0 /100WBC 07/07/22 05:00 Sodium 135 mmol/L (135-145) 07/07/22 05:00 Potassium 3.7 mmol/L (3.5-5.0) 07/07/22 05:00 Chloride 96 mmol/L (101-111) L 07/07/22 05:00 Carbon Dioxide 27 mmol/L (21-32) 07/07/22 05:00 Anion Gap 12.0 (6-13) 07/07/22 05:00 BUN 29 mg/dL (6-20) H 07/07/22 05:00 Creatinine 1.0 mg/dL (0.6-1.2) 07/07/22 05:00 Estimated GFR (MDRD) 71 (>89) L 07/07/22 05:00 Glucose 143 mg/dL (70-100) H 07/07/22 05:00 POC Whole Bld Glucose 155 mg/dL (70 - 100) H 07/13/22 07:20 Calcium 9.7 mg/dL (8.5-10.3) 07/07/22 05:00 - Procedures Procedures: Procedures INSERTION OF INFUSION DEV INTO SUP VENA CAVA, PERC APPROACH (06/27/22)
[2022-07-13] MEDS ORDERED: amLODIPine 5 MG TABLET PO SCH (09:00)
[2022-07-13] MEDS: carvediloL 3.125 MG TABLET PO SCH ×2 (09:17→21:17)
[2022-07-13] MEDS: TAMSULOSIN 0.4 MG CAPSULE PO SCH (17:12)
[2022-07-13] MEDS: LOSARTAN 50 MG TABLET PO SCH (17:12)
[2022-07-13] MEDS: metFORMIN 500 MG TABLET PO SCH (17:12)
[2022-07-13] MEDS: LATANOPROST 0.005% OPHTH DROPS EACHEYE SCH (21:18)
[2022-07-13] MEDS: CARBOXYMETHYLCELLULOSE OPHTH DROPS EACHEYE PRN (21:26)
[2022-07-14] MEDS: MEROPENEM 2 GM in SODIUM CHLORIDE 0.9% 100ML 100 ML IV SCH ×3 (04:51→20:13)
[2022-07-14] MEDS: BRIMONIDINE 0.2% OPHTH DROPS 5 ML EACHEYE SCH ×3 (06:11→21:02)
[2022-07-14] MEDS: LEVOTHYROXINE 75 MCG TABLET PO SCH (06:11)
[2022-07-14] MEDS: metFORMIN 500 MG TABLET PO SCH ×2 (08:03→16:49)
[2022-07-14] MEDS: INSULIN LISPRO 300 UNIT/3 ML PEN SUBQ SCH ×7 (08:14→21:02)
[2022-07-14] MEDS: CALCIUM CARBONATE CHEW 500 MG TABLET PO SCH ×2 (08:16→20:11)
[2022-07-14] MEDS: APIXABAN 5 MG TABLET PO SCH ×2 (08:17→20:11)
[2022-07-14] MEDS: SPIRONOLACTONE 25 MG TABLET PO SCH (08:17)
[2022-07-14] MEDS: SACCHAROMYCES BOULARDII 250 MG CAPSULE PO SCH ×2 (08:17→16:48)
[2022-07-14] MEDS: guaiFENesin 600 MG TABLET PO SCH ×2 (08:17→20:11)
[2022-07-14] MEDS: FOLIC ACID 1 MG TABLET PO SCH (08:17)
[2022-07-14] MEDS: NYSTATIN POWDER 15 GM TOP SCH ×2 (08:18→20:12)
[2022-07-14] MEDS: ZINC OXIDE 20% OINT 30 GM TUBE TOP SCH ×2 (08:18→20:13)
[2022-07-14] MEDS: TIMOLOL 0.5% OPHTH DROPS EACHEYE SCH ×2 (08:18→20:12)
[2022-07-14] MEDS: polyethylene glycoL 3350 17 GM PACKET PO SCH (08:19)
[2022-07-14] MEDS: carvediloL 3.125 MG TABLET PO SCH ×2 (08:23→20:11)
[2022-07-14] MEDS ORDERED: amLODIPine 5 MG TABLET PO SCH (12:00)
[2022-07-14] MEDS: CARBOXYMETHYLCELLULOSE OPHTH DROPS EACHEYE PRN (12:33)
[2022-07-14] MEDS: LOSARTAN 50 MG TABLET PO SCH (16:49)
[2022-07-14] MEDS: TAMSULOSIN 0.4 MG CAPSULE PO SCH (16:49)
[2022-07-14] MEDS: LATANOPROST 0.005% OPHTH DROPS EACHEYE SCH (20:12)
[2022-07-15] MEDS: MEROPENEM 2 GM in SODIUM CHLORIDE 0.9% 100ML 100 ML IV SCH ×3 (05:48→21:15)
[2022-07-15] MEDS: LEVOTHYROXINE 75 MCG TABLET PO SCH (05:48)
[2022-07-15] MEDS: LATANOPROST 0.005% OPHTH DROPS EACHEYE SCH (05:50)
[2022-07-15] MEDS: BRIMONIDINE 0.2% OPHTH DROPS 5 ML EACHEYE SCH ×3 (07:59→21:14)
[2022-07-15] MEDS: APIXABAN 5 MG TABLET PO SCH ×2 (08:00→21:13)
[2022-07-15] MEDS: SACCHAROMYCES BOULARDII 250 MG CAPSULE PO SCH ×2 (08:00→17:31)
[2022-07-15] MEDS: metFORMIN 500 MG TABLET PO SCH ×2 (08:00→17:32)
[2022-07-15] MEDS: carvediloL 3.125 MG TABLET PO SCH ×2 (08:00→21:13)
[2022-07-15] MEDS: guaiFENesin 600 MG TABLET PO SCH ×2 (08:00→21:13)
[2022-07-15] MEDS: CALCIUM CARBONATE CHEW 500 MG TABLET PO SCH ×2 (08:00→21:13)
[2022-07-15] MEDS: FOLIC ACID 1 MG TABLET PO SCH (08:00)
[2022-07-15] MEDS: NYSTATIN POWDER 15 GM TOP SCH ×2 (08:01→21:13)
[2022-07-15] MEDS: INSULIN LISPRO 300 UNIT/3 ML PEN SUBQ SCH ×7 (08:01→21:16)
[2022-07-15] MEDS: SPIRONOLACTONE 25 MG TABLET PO SCH (08:01)
[2022-07-15] MEDS: polyethylene glycoL 3350 17 GM PACKET PO SCH (08:02)
[2022-07-15] MEDS: ZINC OXIDE 20% OINT 30 GM TUBE TOP SCH ×2 (08:02→21:13)
[2022-07-15] MEDS: TIMOLOL 0.5% OPHTH DROPS EACHEYE SCH ×2 (10:37→21:14)
[2022-07-15] MEDS: amLODIPine 5 MG TABLET PO SCH (12:05)
[2022-07-15] MEDS: CARBOXYMETHYLCELLULOSE OPHTH DROPS EACHEYE PRN (13:33)
[2022-07-15] MEDS: TAMSULOSIN 0.4 MG CAPSULE PO SCH (17:32)
[2022-07-15] MEDS: LOSARTAN 50 MG TABLET PO SCH (17:32)
[2022-07-16] MEDS: LEVOTHYROXINE 75 MCG TABLET PO SCH (05:40)
[2022-07-16] MEDS: MEROPENEM 2 GM in SODIUM CHLORIDE 0.9% 100ML 100 ML IV SCH ×3 (05:40→21:18)
[2022-07-16] MEDS: BRIMONIDINE 0.2% OPHTH DROPS 5 ML EACHEYE SCH ×3 (05:58→21:29)
[2022-07-16] MEDS: CALCIUM CARBONATE CHEW 500 MG TABLET PO SCH ×2 (08:04→17:02)
[2022-07-16] MEDS: NYSTATIN POWDER 15 GM TOP SCH ×2 (08:04→21:28)
[2022-07-16] MEDS: TIMOLOL 0.5% OPHTH DROPS EACHEYE SCH ×2 (08:04→21:29)
[2022-07-16] MEDS: SACCHAROMYCES BOULARDII 250 MG CAPSULE PO SCH ×2 (08:04→16:58)
[2022-07-16] MEDS: ZINC OXIDE 20% OINT 30 GM TUBE TOP SCH ×2 (08:04→21:28)
[2022-07-16] MEDS: SPIRONOLACTONE 25 MG TABLET PO SCH (08:05)
[2022-07-16] MEDS: carvediloL 3.125 MG TABLET PO SCH ×2 (08:05→21:24)
[2022-07-16] MEDS: metFORMIN 500 MG TABLET PO SCH ×2 (08:05→16:58)
[2022-07-16] MEDS: FOLIC ACID 1 MG TABLET PO SCH (08:05)
[2022-07-16] MEDS: FUROSEMIDE 40 MG TABLET PO SCH (08:06)
[2022-07-16] MEDS: APIXABAN 5 MG TABLET PO SCH ×2 (08:06→21:23)
[2022-07-16] MEDS: guaiFENesin 600 MG TABLET PO SCH ×2 (08:06→21:23)
[2022-07-16] MEDS: INSULIN LISPRO 300 UNIT/3 ML PEN SUBQ SCH ×7 (08:06→21:23)
[2022-07-16] MEDS: polyethylene glycoL 3350 17 GM PACKET PO SCH (08:07)
[2022-07-16] MEDS: amLODIPine 5 MG TABLET PO SCH (12:31)
[2022-07-16] MEDS: TAMSULOSIN 0.4 MG CAPSULE PO SCH (16:58)
[2022-07-16] MEDS: LOSARTAN 50 MG TABLET PO SCH (16:58)
[2022-07-16] MEDS: CALCIUM CARBONATE CHEW 500 MG TABLET PO PRN (21:24)
[2022-07-16] MEDS: LATANOPROST 0.005% OPHTH DROPS EACHEYE SCH (21:28)
[2022-07-17] MEDS: MEROPENEM 2 GM in SODIUM CHLORIDE 0.9% 100ML 100 ML IV SCH ×3 (04:55→21:59)
[2022-07-17] MEDS: LEVOTHYROXINE 75 MCG TABLET PO SCH (04:56)
[2022-07-17] MEDS: BRIMONIDINE 0.2% OPHTH DROPS 5 ML EACHEYE SCH ×3 (04:56→21:53)
[2022-07-17] MEDS: INSULIN LISPRO 300 UNIT/3 ML PEN SUBQ SCH ×7 (07:56→21:50)
[2022-07-17] MEDS: polyethylene glycoL 3350 17 GM PACKET PO SCH (08:31)
[2022-07-17] MEDS: metFORMIN 500 MG TABLET PO SCH ×2 (08:32→17:20)
[2022-07-17] MEDS: carvediloL 3.125 MG TABLET PO SCH ×2 (08:32→21:46)
[2022-07-17] MEDS: SPIRONOLACTONE 25 MG TABLET PO SCH (08:32)
[2022-07-17] MEDS: FOLIC ACID 1 MG TABLET PO SCH (08:32)
[2022-07-17] MEDS: SACCHAROMYCES BOULARDII 250 MG CAPSULE PO SCH ×2 (08:32→17:20)
[2022-07-17] MEDS: APIXABAN 5 MG TABLET PO SCH ×2 (08:32→21:46)
[2022-07-17] MEDS: guaiFENesin 600 MG TABLET PO SCH ×2 (08:32→21:45)
[2022-07-17] MEDS: NYSTATIN POWDER 15 GM TOP SCH ×2 (08:33→21:52)
[2022-07-17] MEDS: ZINC OXIDE 20% OINT 30 GM TUBE TOP SCH ×2 (08:33→21:52)
[2022-07-17] MEDS: TIMOLOL 0.5% OPHTH DROPS EACHEYE SCH ×2 (08:40→21:52)
[2022-07-17] MEDS ORDERED: SODIUM CHLORIDE 0.9% 100ML 100 ML IV ONE (12:17)
[2022-07-17] MEDS: amLODIPine 5 MG TABLET PO SCH (12:24)
[2022-07-17] MEDS: CARBOXYMETHYLCELLULOSE OPHTH DROPS EACHEYE PRN (12:27)
[2022-07-17] MEDS: CALCIUM CARBONATE CHEW 500 MG TABLET PO PRN ×2 (14:32→21:46)
[2022-07-17] MEDS: TAMSULOSIN 0.4 MG CAPSULE PO SCH (17:20)
[2022-07-17] MEDS: LOSARTAN 50 MG TABLET PO SCH (17:21)
[2022-07-17] MEDS: LATANOPROST 0.005% OPHTH DROPS EACHEYE SCH (21:53)
[2022-07-18] MEDS: MEROPENEM 2 GM in SODIUM CHLORIDE 0.9% 100ML 100 ML IV SCH ×3 (05:53→21:01)
[2022-07-18] MEDS: BRIMONIDINE 0.2% OPHTH DROPS 5 ML EACHEYE SCH ×3 (05:55→21:03)
[2022-07-18] MEDS: LEVOTHYROXINE 75 MCG TABLET PO SCH (06:32)
[2022-07-18] MEDS: polyethylene glycoL 3350 17 GM PACKET PO SCH (08:12)
[2022-07-18] MEDS: carvediloL 3.125 MG TABLET PO SCH ×2 (08:13→21:01)
[2022-07-18] MEDS: TAMSULOSIN 0.4 MG CAPSULE PO SCH (08:13)
[2022-07-18] MEDS: FUROSEMIDE 40 MG TABLET PO SCH (08:13)
[2022-07-18] MEDS: SPIRONOLACTONE 25 MG TABLET PO SCH (08:13)
[2022-07-18] MEDS: FOLIC ACID 1 MG TABLET PO SCH (08:13)
[2022-07-18] MEDS: APIXABAN 5 MG TABLET PO SCH ×2 (08:13→21:01)
[2022-07-18] MEDS: metFORMIN 500 MG TABLET PO SCH ×2 (08:13→17:46)
[2022-07-18] MEDS: guaiFENesin 600 MG TABLET PO SCH ×2 (08:14→21:01)
[2022-07-18] MEDS: SACCHAROMYCES BOULARDII 250 MG CAPSULE PO SCH ×2 (08:14→17:45)
[2022-07-18] MEDS: TIMOLOL 0.5% OPHTH DROPS EACHEYE SCH ×2 (08:20→21:02)
[2022-07-18] MEDS: NYSTATIN POWDER 15 GM TOP SCH ×2 (08:21→21:02)
[2022-07-18] MEDS: INSULIN LISPRO 300 UNIT/3 ML PEN SUBQ SCH ×8 (08:22→20:46)
[2022-07-18] MEDS: ZINC OXIDE 20% OINT 30 GM TUBE TOP SCH ×2 (08:24→21:02)
[2022-07-18] MEDS: amLODIPine 5 MG TABLET PO SCH (13:15)
--- NOTE | 2022-07-18 17:15 | PROVIDER PROGRESS NOTE ---
Progress Note July 18, 2022 5:12 PM Patient is comfortable. Itching has resolved. He has been walking in the hallways with his walker. No assist needed. He had his medications adjusted on July 13 because of low blood pressure and his blood pressure has been stable. His systolic is as high as 153 yesterday. Today his highest is 139. Mobility is limited by arthritis and stiffness. Denies chest pain, shortness of breath. His only reason for being here is getting his antibiotics and is tolerating them well. No diarrhea. No abdominal pain. Temperature 36.6. Heart rate 63. Blood pressure 131/55. Respirations 16. 97% on room air. 6 feet 2 inches tall, 123.3 kg Pleasant, moderately overweight elderly gentleman, alert and oriented to person place and time. Speech is normal. Lungs are clear in a barrel chest with prolonged and exhalation but no increased respiratory effort, no wheezing. Regular rate and rhythm. Telemetry today at 344 showed occasional atrial fibrillation or sinus arrhythmia. I can see P waves so I think this is sinus arrhythmia. Abdomen is obese, protuberant, soft, nontender. Bowel movements are normal Extremities are without edema Diabetes is monitored. Yesterday glucose was 154, 121. Today glucose is 134, 115, 132 (1) Itching Assessment/Plan: This persists but is only in specific areas of his body, he noticed it last night in his lower back when he was supine. The nurse thinks it may be related to his sheets. Plan: We have determined it is not an IgE-mediated allergic reaction to his antibiotic and that is being continued. He has no redness or rash to offer him any other treatment for the itching (2) Hypotension Assessment/Plan: Before getting a.m. cardiac meds, his blood pressure today was 108/58 and heart rate 60. Plan: We will decrease his cardiac meds: Amlodipine 5 mg down to 2.5 mg daily, losartan down from 50 mg to 25 mg and move it to dinnertime, carvedilol 12.5 mg down to 6.25 twice daily, Continue the spironolactone 25 mg daily but decrease the Lasix 40 mg daily down to just Saturday. Also holding parameters were placed on all the above meds, which had not been done at admission to [facility]. He has Listeria bacteremia. Blood cultures were positive on June 27. Negative on June 29. As such he will need antibiotics from June 28 onward for total of 4 weeks. His last dose should be on July 26. During his acute care stay he was already started on meropenem (3) Hx Hypertension Conclusion/Plan: Home medications include amlodipine, carvedilol, Entresto, eplerenone. During his acute care stay, Aldactone was substituted for his Eplerinone (which is not on formulary) and no Entresto since being here (it is also not on formulary to restart after CHF resolved). Qualifiers: Hypertension type: primary hypertension Qualified Code(s): I10 - Essential (primary) hypertension (4) DM type 2 (diabetes mellitus, type 2) Conclusion/Plan: At home he took glimepiride, Lantus, and metformin. His A1c was 8% on admission. We did resume his glimepiride for a very short time during his acute care stay. This resulted in hypoglycemia. As such she is only been on Lantus and sliding scale insulin. Plan: In swing bed status, we will continue ac and hs glucose checks and give sliding scale insulin coverage. He is also getting 5 units of short acting insulin with each meal. Will resume half of his usual home dose of Metformin, so 500 mg BID. Qualifiers: Diabetes mellitus library technician insulin use: with mcc use Diabetes mellitus complication status: without complication Qualified Code(s): E11.9 - Type 2 diabetes mellitus without complications; Z79.4 - MCC (current) use of insulin (5) Paroxysmal A-fib Conclusion/Plan: Carvedilol and apixaban were used at home. We are continuing those during this swing bed stay. (6) Chronic systolic heart failure Conclusion/Plan: This is one of his diagnoses. He is followed by editor managing director at the [facility]. He has an AICD placed in place. He was on Coreg, Lasix and Entresto, and eplerenone. While here, we have not been able to give him his Entresto because is nonformulary and Aldosterone was substituted for Eplerinone(also non-formulary). Our Echocardiogram during his acute care stay, showed left ventricular systolic function was normal with an ejection fraction of 55%. A dilated right ventricle with preserved ejection fraction is noted. Pacemaker leads seen in right heart. Severe right atrial enlargement. No aortic stenosis, no mitral stenosis, RVSP at rest was normal at 34 mmHg. When he goes home, he will go back on his usual medications. (7) Rheumatoid arthritis Conclusion/Plan: Usual home medications were methotrexate weekly and prednisone. His rheu matologist at the [facility] was contacted during the acute care stay. and concurred wabout withholding methotrexate for a minimum of 3 weeks or for the duration of the currentMeropenam antibiotic therapy. He will see the patient in follow-up. We have continued the pt's folic acid, and prednisone was restarted after getting stress dose steroids. (8) C. difficile diarrhea Conclusion/Plan: Resolved. Up-to-date recommends a total of 10 days for uncomplicated C. difficile diarrhea. 10 days was July 07, and po Vancomycin was discontinued.
[2022-07-18] MEDS: LOSARTAN 50 MG TABLET PO SCH (17:46)
[2022-07-18] MEDS: LATANOPROST 0.005% OPHTH DROPS EACHEYE SCH (21:03)
[2022-07-18] MEDS: CALCIUM CARBONATE CHEW 500 MG TABLET PO PRN (21:14)
[2022-07-19] MEDS: MEROPENEM 2 GM in SODIUM CHLORIDE 0.9% 100ML 100 ML IV SCH ×3 (04:36→21:20)
[2022-07-19] MEDS: LEVOTHYROXINE 75 MCG TABLET PO SCH (06:06)
[2022-07-19] MEDS: BRIMONIDINE 0.2% OPHTH DROPS 5 ML EACHEYE SCH ×3 (06:06→21:12)
[2022-07-19] MEDS: INSULIN LISPRO 300 UNIT/3 ML PEN SUBQ SCH ×7 (07:57→21:08)
[2022-07-19] MEDS: SPIRONOLACTONE 25 MG TABLET PO SCH (08:23)
[2022-07-19] MEDS: carvediloL 3.125 MG TABLET PO SCH ×2 (08:23→21:19)
[2022-07-19] MEDS: FOLIC ACID 1 MG TABLET PO SCH (08:23)
[2022-07-19] MEDS: APIXABAN 5 MG TABLET PO SCH ×2 (08:24→21:19)
[2022-07-19] MEDS: metFORMIN 500 MG TABLET PO SCH ×2 (08:24→17:15)
[2022-07-19] MEDS: SACCHAROMYCES BOULARDII 250 MG CAPSULE PO SCH ×2 (08:25→17:16)
[2022-07-19] MEDS: polyethylene glycoL 3350 17 GM PACKET PO SCH (08:25)
[2022-07-19] MEDS: guaiFENesin 600 MG TABLET PO SCH ×2 (08:25→21:19)
[2022-07-19] MEDS: TIMOLOL 0.5% OPHTH DROPS EACHEYE SCH ×2 (08:27→21:12)
[2022-07-19] MEDS: NYSTATIN POWDER 15 GM TOP SCH ×2 (08:27→21:12)
[2022-07-19] MEDS: ZINC OXIDE 20% OINT 30 GM TUBE TOP SCH ×2 (08:27→21:13)
[2022-07-19] MEDS: amLODIPine 5 MG TABLET PO SCH (12:26)
[2022-07-19] MEDS: CARBOXYMETHYLCELLULOSE OPHTH DROPS EACHEYE PRN (12:36)
[2022-07-19] MEDS: CALCIUM CARBONATE CHEW 500 MG TABLET PO PRN ×2 (12:36→21:19)
[2022-07-19] MEDS: TAMSULOSIN 0.4 MG CAPSULE PO SCH (17:16)
[2022-07-19] MEDS: LOSARTAN 50 MG TABLET PO SCH (17:16)
[2022-07-19] MEDS: LATANOPROST 0.005% OPHTH DROPS EACHEYE SCH (21:12)
[2022-07-20] MEDS: MEROPENEM 2 GM in SODIUM CHLORIDE 0.9% 100ML 100 ML IV SCH ×3 (04:49→21:13)
[2022-07-20] MEDS: BRIMONIDINE 0.2% OPHTH DROPS 5 ML EACHEYE SCH ×3 (06:49→21:09)
[2022-07-20] MEDS: LEVOTHYROXINE 75 MCG TABLET PO SCH (06:49)
[2022-07-20] MEDS: INSULIN LISPRO 300 UNIT/3 ML PEN SUBQ SCH ×7 (07:58→21:07)
[2022-07-20] MEDS: metFORMIN 500 MG TABLET PO SCH ×2 (08:02→17:13)
[2022-07-20] MEDS: SPIRONOLACTONE 25 MG TABLET PO SCH (08:03)
[2022-07-20] MEDS: SACCHAROMYCES BOULARDII 250 MG CAPSULE PO SCH ×2 (08:03→17:13)
[2022-07-20] MEDS: guaiFENesin 600 MG TABLET PO SCH ×2 (08:04→21:10)
[2022-07-20] MEDS: carvediloL 3.125 MG TABLET PO SCH ×2 (08:04→21:10)
[2022-07-20] MEDS: FUROSEMIDE 40 MG TABLET PO SCH (08:06)
[2022-07-20] MEDS: APIXABAN 5 MG TABLET PO SCH ×2 (08:06→21:10)
[2022-07-20] MEDS: FOLIC ACID 1 MG TABLET PO SCH (08:07)
[2022-07-20] MEDS: ZINC OXIDE 20% OINT 30 GM TUBE TOP SCH ×2 (08:08→21:08)
[2022-07-20] MEDS: NYSTATIN POWDER 15 GM TOP SCH ×2 (08:08→21:08)
[2022-07-20] MEDS: polyethylene glycoL 3350 17 GM PACKET PO SCH ×2 (08:09→09:18)
[2022-07-20] MEDS: TIMOLOL 0.5% OPHTH DROPS EACHEYE SCH ×2 (08:13→21:09)
[2022-07-20] MEDS: amLODIPine 5 MG TABLET PO SCH (12:06)
[2022-07-20] MEDS: TAMSULOSIN 0.4 MG CAPSULE PO SCH (17:14)
[2022-07-20] MEDS: LOSARTAN 50 MG TABLET PO SCH (17:14)
[2022-07-20] MEDS: LATANOPROST 0.005% OPHTH DROPS EACHEYE SCH (21:09)
[2022-07-21] MEDS: LEVOTHYROXINE 75 MCG TABLET PO SCH (05:25)
[2022-07-21] MEDS: MEROPENEM 2 GM in SODIUM CHLORIDE 0.9% 100ML 100 ML IV SCH ×3 (05:25→21:03)
[2022-07-21] MEDS: BRIMONIDINE 0.2% OPHTH DROPS 5 ML EACHEYE SCH ×3 (05:26→21:02)
[2022-07-21] MEDS: INSULIN LISPRO 300 UNIT/3 ML PEN SUBQ SCH ×7 (09:03→21:03)
[2022-07-21] MEDS: TIMOLOL 0.5% OPHTH DROPS EACHEYE SCH ×2 (09:04→21:01)
[2022-07-21] MEDS: NYSTATIN POWDER 15 GM TOP SCH ×2 (09:04→21:01)
[2022-07-21] MEDS: carvediloL 3.125 MG TABLET PO SCH ×2 (09:05→21:06)
[2022-07-21] MEDS: SACCHAROMYCES BOULARDII 250 MG CAPSULE PO SCH ×2 (09:05→16:58)
[2022-07-21] MEDS: FOLIC ACID 1 MG TABLET PO SCH (09:05)
[2022-07-21] MEDS: guaiFENesin 600 MG TABLET PO SCH ×2 (09:05→21:06)
[2022-07-21] MEDS: metFORMIN 500 MG TABLET PO SCH ×2 (09:05→16:58)
[2022-07-21] MEDS: APIXABAN 5 MG TABLET PO SCH ×2 (09:05→21:07)
[2022-07-21] MEDS: SPIRONOLACTONE 25 MG TABLET PO SCH (09:05)
[2022-07-21] MEDS: ZINC OXIDE 20% OINT 30 GM TUBE TOP SCH ×2 (09:06→21:01)
[2022-07-21] MEDS: polyethylene glycoL 3350 17 GM PACKET PO SCH (09:06)
[2022-07-21] MEDS: amLODIPine 5 MG TABLET PO SCH (11:56)
[2022-07-21] MEDS: SODIUM CHLORIDE FLUSH 0.9% 10 ML SYRINGE IVP PRN (14:15)
[2022-07-21] MEDS: LOSARTAN 50 MG TABLET PO SCH (16:58)
[2022-07-21] MEDS: TAMSULOSIN 0.4 MG CAPSULE PO SCH (17:03)
[2022-07-21] MEDS: LATANOPROST 0.005% OPHTH DROPS EACHEYE SCH (21:02)
[2022-07-21] MEDS: CALCIUM CARBONATE CHEW 500 MG TABLET PO PRN (21:10)
[2022-07-22] MEDS: SODIUM CHLORIDE FLUSH 0.9% 10 ML SYRINGE IVP SCH ×3 (00:30→17:25)
[2022-07-22] MEDS: MEROPENEM 2 GM in SODIUM CHLORIDE 0.9% 100ML 100 ML IV SCH ×3 (05:01→20:55)
[2022-07-22] MEDS: LEVOTHYROXINE 75 MCG TABLET PO SCH (05:01)
[2022-07-22] MEDS: SODIUM CHLORIDE FLUSH 0.9% 10 ML SYRINGE IVP PRN ×2 (05:09→20:55)
[2022-07-22] MEDS: BRIMONIDINE 0.2% OPHTH DROPS 5 ML EACHEYE SCH ×3 (05:10→20:48)
[2022-07-22] MEDS: INSULIN LISPRO 300 UNIT/3 ML PEN SUBQ SCH ×7 (10:10→20:59)
[2022-07-22] MEDS: SPIRONOLACTONE 25 MG TABLET PO SCH (10:12)
[2022-07-22] MEDS: guaiFENesin 600 MG TABLET PO SCH ×2 (10:13→20:59)
[2022-07-22] MEDS: SACCHAROMYCES BOULARDII 250 MG CAPSULE PO SCH ×2 (10:13→17:24)
[2022-07-22] MEDS: APIXABAN 5 MG TABLET PO SCH ×2 (10:13→20:59)
[2022-07-22] MEDS: FOLIC ACID 1 MG TABLET PO SCH (10:13)
[2022-07-22] MEDS: carvediloL 3.125 MG TABLET PO SCH ×2 (10:13→20:59)
[2022-07-22] MEDS: NYSTATIN POWDER 15 GM TOP SCH ×2 (10:15→20:48)
[2022-07-22] MEDS: polyethylene glycoL 3350 17 GM PACKET PO SCH (10:15)
[2022-07-22] MEDS: TIMOLOL 0.5% OPHTH DROPS EACHEYE SCH ×2 (10:16→20:47)
[2022-07-22] MEDS: metFORMIN 500 MG TABLET PO SCH ×2 (10:16→17:24)
[2022-07-22] MEDS: ZINC OXIDE 20% OINT 30 GM TUBE TOP SCH ×2 (10:16→20:48)
[2022-07-22] MEDS: amLODIPine 5 MG TABLET PO SCH (12:07)
[2022-07-22] MEDS: LOSARTAN 50 MG TABLET PO SCH (17:24)
[2022-07-22] MEDS: TAMSULOSIN 0.4 MG CAPSULE PO SCH (17:24)
[2022-07-22] MEDS: LATANOPROST 0.005% OPHTH DROPS EACHEYE SCH (20:48)
[2022-07-23] MEDS: SODIUM CHLORIDE FLUSH 0.9% 10 ML SYRINGE IVP SCH ×5 (01:46→20:46)
[2022-07-23] MEDS: MEROPENEM 2 GM in SODIUM CHLORIDE 0.9% 100ML 100 ML IV SCH ×3 (05:01→21:11)
[2022-07-23] MEDS: LEVOTHYROXINE 75 MCG TABLET PO SCH (06:24)
[2022-07-23] MEDS: BRIMONIDINE 0.2% OPHTH DROPS 5 ML EACHEYE SCH ×3 (06:25→21:10)
[2022-07-23] MEDS: INSULIN LISPRO 300 UNIT/3 ML PEN SUBQ SCH ×7 (09:07→20:37)
[2022-07-23] MEDS: APIXABAN 5 MG TABLET PO SCH ×2 (09:09→20:46)
[2022-07-23] MEDS: SACCHAROMYCES BOULARDII 250 MG CAPSULE PO SCH ×2 (09:09→16:58)
[2022-07-23] MEDS: SPIRONOLACTONE 25 MG TABLET PO SCH (09:10)
[2022-07-23] MEDS: FUROSEMIDE 40 MG TABLET PO SCH (09:10)
[2022-07-23] MEDS: FOLIC ACID 1 MG TABLET PO SCH (09:10)
[2022-07-23] MEDS: TIMOLOL 0.5% OPHTH DROPS EACHEYE SCH ×2 (09:10→20:51)
[2022-07-23] MEDS: ZINC OXIDE 20% OINT 30 GM TUBE TOP SCH ×2 (09:10→20:50)
[2022-07-23] MEDS: guaiFENesin 600 MG TABLET PO SCH ×2 (09:10→20:46)
[2022-07-23] MEDS: carvediloL 3.125 MG TABLET PO SCH ×2 (09:10→20:46)
[2022-07-23] MEDS: NYSTATIN POWDER 15 GM TOP SCH ×2 (09:10→20:50)
[2022-07-23] MEDS: polyethylene glycoL 3350 17 GM PACKET PO SCH (09:17)
[2022-07-23] MEDS: metFORMIN 500 MG TABLET PO SCH ×2 (10:06→17:02)
[2022-07-23] MEDS: amLODIPine 5 MG TABLET PO SCH (11:50)
[2022-07-23] MEDS: LOSARTAN 50 MG TABLET PO SCH (16:58)
[2022-07-23] MEDS: TAMSULOSIN 0.4 MG CAPSULE PO SCH (17:02)
[2022-07-23] MEDS: LATANOPROST 0.005% OPHTH DROPS EACHEYE SCH (20:51)
[2022-07-24] MEDS: MEROPENEM 2 GM in SODIUM CHLORIDE 0.9% 100ML 100 ML IV SCH ×3 (05:30→21:26)
[2022-07-24] MEDS: BRIMONIDINE 0.2% OPHTH DROPS 5 ML EACHEYE SCH ×3 (05:31→21:31)
[2022-07-24] MEDS: LEVOTHYROXINE 75 MCG TABLET PO SCH (06:11)
[2022-07-24] MEDS: INSULIN LISPRO 300 UNIT/3 ML PEN SUBQ SCH ×7 (08:25→21:26)
[2022-07-24] MEDS: carvediloL 3.125 MG TABLET PO SCH ×2 (08:27→21:25)
[2022-07-24] MEDS: SACCHAROMYCES BOULARDII 250 MG CAPSULE PO SCH ×2 (08:27→17:16)
[2022-07-24] MEDS: metFORMIN 500 MG TABLET PO SCH ×2 (08:27→17:16)
[2022-07-24] MEDS: APIXABAN 5 MG TABLET PO SCH ×2 (08:27→21:26)
[2022-07-24] MEDS: SODIUM CHLORIDE FLUSH 0.9% 10 ML SYRINGE IVP SCH ×2 (08:28→17:16)
[2022-07-24] MEDS: ZINC OXIDE 20% OINT 30 GM TUBE TOP SCH ×2 (08:28→21:32)
[2022-07-24] MEDS: TIMOLOL 0.5% OPHTH DROPS EACHEYE SCH ×2 (08:28→21:32)
[2022-07-24] MEDS: SPIRONOLACTONE 25 MG TABLET PO SCH (08:28)
[2022-07-24] MEDS: polyethylene glycoL 3350 17 GM PACKET PO SCH (08:28)
[2022-07-24] MEDS: NYSTATIN POWDER 15 GM TOP SCH ×2 (08:28→21:32)
[2022-07-24] MEDS: guaiFENesin 600 MG TABLET PO SCH ×2 (08:28→21:26)
[2022-07-24] MEDS: FOLIC ACID 1 MG TABLET PO SCH (08:28)
[2022-07-24] MEDS: amLODIPine 5 MG TABLET PO SCH (11:46)
[2022-07-24] MEDS: LOSARTAN 50 MG TABLET PO SCH (17:16)
[2022-07-24] MEDS: TAMSULOSIN 0.4 MG CAPSULE PO SCH (17:21)
[2022-07-24] MEDS ORDERED: CALAMINE/ZINC OXIDE 177 ML BOTTLE TOP PRN (18:33)
[2022-07-24] MEDS: LATANOPROST 0.005% OPHTH DROPS EACHEYE SCH (21:27)
[2022-07-25] MEDS: MEROPENEM 2 GM in SODIUM CHLORIDE 0.9% 100ML 100 ML IV SCH ×3 (04:59→21:21)
[2022-07-25] MEDS: SODIUM CHLORIDE FLUSH 0.9% 10 ML SYRINGE IVP SCH ×3 (05:03→17:40)
[2022-07-25] MEDS: LEVOTHYROXINE 75 MCG TABLET PO SCH (05:59)
[2022-07-25] MEDS: BRIMONIDINE 0.2% OPHTH DROPS 5 ML EACHEYE SCH ×3 (05:59→21:22)
[2022-07-25] MEDS: carvediloL 3.125 MG TABLET PO SCH ×2 (07:58→21:21)
[2022-07-25] MEDS: guaiFENesin 600 MG TABLET PO SCH ×2 (07:59→21:21)
[2022-07-25] MEDS: FUROSEMIDE 40 MG TABLET PO SCH (07:59)
[2022-07-25] MEDS: SPIRONOLACTONE 25 MG TABLET PO SCH (08:00)
[2022-07-25] MEDS: APIXABAN 5 MG TABLET PO SCH ×2 (08:00→21:21)
[2022-07-25] MEDS: metFORMIN 500 MG TABLET PO SCH ×2 (08:00→16:50)
[2022-07-25] MEDS: polyethylene glycoL 3350 17 GM PACKET PO SCH (08:01)
[2022-07-25] MEDS: INSULIN LISPRO 300 UNIT/3 ML PEN SUBQ SCH ×7 (08:02→21:22)
[2022-07-25] MEDS: SACCHAROMYCES BOULARDII 250 MG CAPSULE PO SCH ×2 (08:04→16:50)
[2022-07-25] MEDS: FOLIC ACID 1 MG TABLET PO SCH (08:05)
[2022-07-25] MEDS: TIMOLOL 0.5% OPHTH DROPS EACHEYE SCH ×2 (08:05→21:22)
[2022-07-25] MEDS: NYSTATIN POWDER 15 GM TOP SCH ×2 (08:05→21:22)
[2022-07-25] MEDS: ZINC OXIDE 20% OINT 30 GM TUBE TOP SCH ×2 (08:06→21:22)
[2022-07-25] MEDS: amLODIPine 5 MG TABLET PO SCH (12:12)
[2022-07-25] MEDS: SODIUM CHLORIDE FLUSH 0.9% 10 ML SYRINGE IVP PRN (13:32)
[2022-07-25] MEDS: TAMSULOSIN 0.4 MG CAPSULE PO SCH (16:50)
[2022-07-25] MEDS: LOSARTAN 50 MG TABLET PO SCH (16:50)
[2022-07-25] MEDS ORDERED: SODIUM CHLORIDE 0.9% 100ML 100 ML IV ONE (21:20)
[2022-07-25] MEDS: LATANOPROST 0.005% OPHTH DROPS EACHEYE SCH (21:22)
[2022-07-26] MEDS: SODIUM CHLORIDE FLUSH 0.9% 10 ML SYRINGE IVP SCH ×2 (00:35→08:09)
[2022-07-26] MEDS: MEROPENEM 2 GM in SODIUM CHLORIDE 0.9% 100ML 100 ML IV SCH ×2 (05:17→13:07)
[2022-07-26] MEDS: SODIUM CHLORIDE FLUSH 0.9% 10 ML SYRINGE IVP PRN (05:18)
[2022-07-26] MEDS: LEVOTHYROXINE 75 MCG TABLET PO SCH (05:18)
[2022-07-26] MEDS: LATANOPROST 0.005% OPHTH DROPS EACHEYE SCH (05:19)
[2022-07-26] MEDS: BRIMONIDINE 0.2% OPHTH DROPS 5 ML EACHEYE SCH ×2 (05:21→13:13)
[2022-07-26] MEDS: INSULIN LISPRO 300 UNIT/3 ML PEN SUBQ SCH ×4 (08:05→13:07)
[2022-07-26] MEDS: metFORMIN 500 MG TABLET PO SCH (08:05)
[2022-07-26] MEDS: carvediloL 3.125 MG TABLET PO SCH (08:06)
[2022-07-26] MEDS: guaiFENesin 600 MG TABLET PO SCH (08:06)
[2022-07-26] MEDS: FOLIC ACID 1 MG TABLET PO SCH (08:06)
[2022-07-26] MEDS: SACCHAROMYCES BOULARDII 250 MG CAPSULE PO SCH (08:06)
[2022-07-26] MEDS: APIXABAN 5 MG TABLET PO SCH (08:07)
[2022-07-26] MEDS: SPIRONOLACTONE 25 MG TABLET PO SCH (08:07)
[2022-07-26] MEDS: polyethylene glycoL 3350 17 GM PACKET PO SCH (08:07)
[2022-07-26] MEDS: TIMOLOL 0.5% OPHTH DROPS EACHEYE SCH (08:07)
[2022-07-26] MEDS: NYSTATIN POWDER 15 GM TOP SCH (08:08)
[2022-07-26] MEDS: ZINC OXIDE 20% OINT 30 GM TUBE TOP SCH (08:08)
[2022-07-26 08:22] VITALS: BP 152/61
[2022-07-26] MEDS: amLODIPine 5 MG TABLET PO SCH (11:39)
--- NOTE | 2022-07-26 13:26 | Discharge Plan ---
Discharge Plan Problem Reviewed?: Yes Disposition: Home, Self Care Condition: Stable Prescriptions: Carvedilol [Coreg] 6.25 mg PO BID #60 tablet Losartan [Cozaar] 50 mg PO QPM #30 tab Insulin Glargine [Lantus Solostar] 8 units SUBQ QPM PRN #1 ea PRN Reason: HIGH BLOOD SUGAR Furosemide [Lasix] 40 mg PO MOWEFR #15 tab Levothyroxine [Synthroid] 75 mcg PO QDAC #30 tab Diet: Diabetic Activity Restrictions: Activity as Tolerated Shower Restrictions: No Driving Restrictions: No Assistance Devices: Walker Instruction Topics: Carvedilol tablets, Losartan tablets, Furosemide tablets Health Concerns: You needed a long hospitalization and then a stay at "swing bed status" to complete 4 weeks of IV antibiotics to treat 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 You are being discharged home today. We have changed several of your medications and you are advised to follow the new medication list provided to you today. The Carvedilol dose is lower, Levothyroxine dose is lower, Losartan is new, Amlodipine was stopped, Lasix is only Mon,Wed, Fri now, and Insulin dose is l ower. All new prescriptions were electronically sent to your [facility] pharmacy in [place]. You may resume all your other pre-hospital medications and doses. Plan of Treatment: As above. Please see your PCP in the next 1 to 2 weeks for hospital follow-up office visit. Care Goals: Improvement in symptoms and stabilization are the goals. Assessment: Patient understands and is agreeable with the plan. Additional Instructions or Follow Up instructions: If you have new or worsening symptoms, call your PCP or your Stage Set Designer for advice, or come to the ER. No Smoking: If you smoke, Please STOP! Call for help. Follow-up with: Tosin Knapp MD [Physician No Access] -
--- NOTE | 2022-07-26 13:34 | DISCHARGE SUMMARY ---
Discharge Summary Admit Date: 07/04/22 Discharge Date: 07/26/22 Discharging Provider: Dr Bibiana Majano Primary Care Provider: Dr Tosin Knapp Code Status: Do Not Attempt Resuscitation Condition at Discharge: Stable Discharge Disposition: 01 Home, Self Care - HPI History of Present Illness: This is an 82 y/o patient with RA, DM, paroxysmal Afib, Hypothyroidism and recovered cardiomyopathy, who was admitted to acute care status on June 27, 2022. He had fallen at home and could not stand up. Prior to falling he been having painless diarrhea for 3 days, nausea, and dry heaving. He was starting to get confused. He had gone to the toilet, had diarrhea, and as he got up from the toilet he walked to the bedroom. He leaned over to reach for something and he fell forward hitting his left forehead and his left arm. He did not blackout. He was too weak to stand up and family could not get him up. He was brought to the emergency room by EMS where he was found to have an x-ray suggestive of pneumonia, C. difficile diarrhea, dehydration with mild acute kidney injury, and he was regarded as immunocompromised since he is on methotrexate for rheumatoid arthritis. During his Inpatient stay, blood cultures grew out Listeria monocytogenes. He ended up being started on meropenem and his antibiotics for pneumonia were discontinued. He has nearly completed a course of oral vancomycin for his C. difficile colitis. We had initially thought that we were going to be able to switch him over to oral antibiotics to complete his therapy for Listeria monocytogenes. However after looking at [facility] antibiotic guide recommendations, those patients that are immunocompromised require 4 weeks of intravenous antibiotic therapy. Overall the patient has recovered from his illness. He is ambulating. He is eating. He is no longer orthostatic. The nausea and misery and diarrhea have resolved. He is unhappy at the idea that he is can have to be here when he feels so good. But of explained to him why it is necessary. As such she agrees to being placed in "Swing Bed" status for several weeks, for completion of IV antibiotics for Listeria monocytogenes bacteremia. - HOSPITAL COURSE Hospital Course: (1) Listeria infection He had bacteremia documented during his preceding acute care Inpatient stay. Presumably he got that by eating bad food, because it began with diarrhea. A PICC line had been inserted and he was discharged from In status, and remained in Swing Bed (SNF) status, to complete a total of 4 weeks of IV Meropenam antibiotic, finished on Jul 26. (2) C. difficile diarrhea This was diagnosed and treatment was started during his preceding Inpatient stay. He received a total of 10 days of po Vancomycin for uncomplicated C. diff icile diarrhea, finished on July 07. (3) Hypertension Home medications included amlodipine, carvedilol, Entresto, eplerenone. Here, Aldactone was substituted for his Eplerinone (which is not on formulary) and no Entresto used since being here (it is also not on formulary to restart after CHF resolved). (4) DM type 2 (diabetes mellitus, type 2) without complications; Z79.4 - [facility] (current) use of insulin At home he took glimepiride, Lantus, and metformin. His A1c was 8% on admission. We did resume his glimepiride for a very short time during his acute care stay, which resulted in hypoglycemia. As such he was on Lantus, sliding scale insulin coverage, half of his usual home dose of Metformin, and a Diabetic diet. (5) Paroxysmal A-fib Carvedilol and apixaban were used at home. We continued those during this Swing bed stay. (6) Chronic systolic heart failure He is followed by collar pointer at the [facility]. He has an AICD placed in place. He was on Coreg, Lasix and Entresto, and eplerenone. While here, we have not been able to give him his Entresto because is nonformulary and Aldosterone was substituted for Eplerinone (also non-formulary). The Echo done during his preceding acute care, Inpatient stay, showed left ventricular systolic function was normal with an ejection fraction of 55%. A dilated right ventricle with preserved ejection fraction was noted. Pacemaker leads seen in right heart. Severe right atrial enlargement. No aortic stenosis, no mitral stenosis, RVSP at rest was normal at 34 mmHg. After discharge, he will go back on his usual medications. (7) Rheumatoid arthritis Usual home medications were methotrexate weekly and daily prednisone. His regional rehabilitation director at the [facility] was contacted during the acute care stay and concurred about withholding methotrexate for a minimum of 3 weeks or for the duration of the current Meropenam antibiotic therapy. He will see the patient in follow-up. We continued the pt's folic acid, and Prednisone was restarted after getting stress dose steroids. (8) Hypothyroidism We continued his usual thyroid medication. (9) Itching It was severe and occurred on 2 episodes. There was no associated rash. We determined it was not an IgE-mediated allergic reaction to his antibiotic, so that it could be continued. Taking showers and changing the bed sheets helped. - ALLERGIES Allergies/Adverse Reactions: Allergies Allergy/AdvReac Type Severity Reaction Status Date / Time Awwckoc-FRP-UdT Reductase AdvReac Intermediate Cramps Verified 06/27/22 04:20 Inhibitor [Aigtgyo-Xst-Jbz Reductase Inhibitor] - MEDICATIONS Home Medications: Ambulatory Orders Medication Instructions Recorded Confirmed Aspirin [Aspir 81] 81 mg PO DAILY 02/17/13 07/05/22 Folic Acid 1 mg PO DAILY 02/17/13 07/05/22 Methotrexate [Methotrexate Sodium] 25 mg PO WE 02/17/13 07/05/22 Acetaminophen [Tylenol] 650 mg PO DAILY 09/13/19 07/05/22 Brimonidine Tartrate/Timolol 1 drops EACHEYE BID 09/13/19 07/05/22 [Combigan 0.2%-0.5% Eye Drops] Glimepiride 4 mg PO BID 09/13/19 07/05/22 Krill/Om-3/Dha/Epa/Phospho/Ast 4 cap PO DAILY 09/13/19 07/05/22 [Krill Oil 500 mg Softgel] Latanoprost 0.005% Ophth Drops 1 drops EACHEYE QPM 09/13/19 07/05/22 [Xalatan Ophth Drops] Metformin HCl 1,000 mg PO BID 09/13/19 07/05/22 Sacubitril/Valsartan [Entresto 49 1 tab PO BID 09/13/19 07/05/22 mg-51 mg Tablet] Tamsulosin HCl [Flomax] 0.8 mg PO QPM 09/13/19 07/05/22 Nitroglycerin 0.4 mg SL Q5M PRN #1 bot 09/19/19 07/05/22 Eplerenone [Inspra] 50 mg PO DAILY 08/04/20 07/05/22 Albuterol Sulfate [Proair 1 - 2 puffs IH Q6H PRN 06/27/22 07/05/22 Digihaler] Apixaban [Eliquis] 5 mg PO BID 06/27/22 07/05/22 Ferrous Sulfate [Feosol] 325 mg PO BID 06/27/22 07/05/22 Magnesium Oxide 840 mg PO DAILY 06/27/22 07/05/22 Non Formulary 1 each PO BID 06/27/22 07/05/22 Pantoprazole [Protonix] 40 mg PO QDDINNER 06/27/22 07/05/22 Prednisolone Acetate/Pf 1 drops EACHEYE Q48H 06/27/22 07/05/22 [Prednisolone Acet 1% Eye Drop] Propylene Glycol/Peg 400 [Systane 1 drops EACHEYE QID PRN 06/27/22 07/05/22 Ultra 0.4-0.3% Eye Drp] Tiotropium [place] [Spiriva 2 inh INH DAILY 06/27/22 07/05/22 Respimat] Carvedilol [Coreg] 6.25 mg PO BID #60 tablet 07/26/22 Furosemide [Lasix] 40 mg PO MOWEFR #15 tab 07/26/22 Insulin Glargine [Lantus Solostar] 8 unit SQ QPM #1 ea 07/26/22 Levothyroxine [Synthroid] 75 mcg PO QDAC #30 tab 07/26/22 Losartan [Cozaar] 50 mg PO QPM #30 tab 07/26/22 - PHYSICAL EXAM AT DISCHARGE General Appearance: positive: No acute distress, Alert, Other (Obese male) Eyes Bilateral: positive: Normal inspection, No lid inflammation ENT: positive: ENT inspection nml, No signs of dehydration Neck: positive: Nml inspection, No JVD Respiratory: positive: No respiratory distress, Breath sounds nml Cardiovascular: positive: Regular rate & rhythm, No murmur Abdomen: positive: Non-tender, Other (Obese with a pannus) Skin: positive: No rash, Warm, Dry Extremities: positive: Non-tender, No pedal edema Neurologic/Psychiatric: positive: Oriented x3, Motor nml - LABS Result Diagrams: 07/07/22 05:00 07/07/22 05:00 - FOLLOW UP Follow Up: See PCP and Rhematologist for a hospital F/U office visit, as some medication doses have changed. - TIME SPENT Time Spent in Discharge (Minutes): 40
== END 2022-07-26 15:22 | disposition home or self-care (01) | DRG 868 ==
LOC: MS2 15:22
PROVIDERS: ADMIT Specialist; ATTEND Internal Medicine
DX: A32.9 Listeriosis, unspecified (principal); A04.72 Enterocolitis due to Clostridium difficile, not specified as recurrent; I50.22 Chronic systolic (congestive) heart failure; D84.821 Immunodeficiency due to drugs; I10 Essential (primary) hypertension; E11.9 Type 2 diabetes mellitus without complications; I48.0 Paroxysmal atrial fibrillation; I11.0 Hypertensive heart disease with heart failure; M06.9 Rheumatoid arthritis, unspecified; E03.9 Hypothyroidism, unspecified; L29.9 Pruritus, unspecified; E66.9 Obesity, unspecified; G47.33 Obstructive sleep apnea (adult) (pediatric); I25.2 Old myocardial infarction; Z68.36 Body mass index [BMI] 36.0-36.9, adult; Z91.81 History of falling; Z79.69 Long term (current) use of other immunomodulators and immunosuppressants; Z79.84 Long term (current) use of oral hypoglycemic drugs; Z79.4 Long term (current) use of insulin; Z87.891 Personal history of nicotine dependence
CPT/HCPCS: 36415; 80048; 85025

== ENCOUNTER 2023-04-22 08:00 | Outpatient (CLI) | payer MEDICARE, OTHER | END 2023-04-22 23:59 | disposition home or self-care (01) | LOC: LAB.N 08:00 | PROVIDERS: ATTEND Registered Nurse | DX: U07.1 COVID-19 (principal) ==

== ENCOUNTER 2023-04-24 13:45 | Outpatient (CLI) | payer MEDICARE, OTHER ==
--- NOTE | 2023-04-24 16:43 | XRAY Report ---
PROCEDURE: Chest 2 View X-Ray INDICATIONS: ACUTE COVID-19 TECHNIQUE: 2 views of the chest were obtained. COMPARISON: None. FINDINGS: Surgical changes and devices: Biventricular left-sided pacemaker/fibular present. Lungs and pleura: No pleural effusions or pneumothorax. Lungs are clear. Mediastinum: Mediastinal contours appear normal. Heart size is normal. Bones and chest wall: No suspicious bony lesions. Overlying soft tissues appear unremarkable. IMPRESSION: No acute cardiopulmonary findings Reviewed by: Etienne Desir MD on 04/24/2023 3:42 PM [place] Approved by: Etienne Desir MD on 04/24/2023 3:42 PM [place] Station ID: [id number]
== END 2023-04-24 14:00 | disposition home or self-care (01) ==
LOC: DI.N 13:45
PROVIDERS: ATTEND Physician Assistant Medical
DX: U07.1 COVID-19 (principal)

== ENCOUNTER 2023-05-01 12:03 | Outpatient (CLI) | payer MEDICARE, OTHER | END 2023-05-01 12:04 | disposition home or self-care (01) | LOC: DI.N 12:03 | PROVIDERS: ATTEND Family Medicine | DX: Z53.9 Procedure and treatment not carried out, unspecified reason (principal) ==

== ENCOUNTER 2023-05-01 12:20 | Outpatient (CLI) | payer MEDICARE, OTHER ==
--- NOTE | 2023-05-01 14:23 | XRAY Report ---
PROCEDURE: Chest 2 View X-Ray INDICATIONS: ACUTE COVID-19 / CHEST COUGH TECHNIQUE: 2 views of the chest were acquired. COMPARISON: None. FINDINGS: Surgical changes and devices: Left chest wall pacer is seen with intact leads. Lungs and pleura: No pleural effusions or pneumothorax. Lungs are clear. Mediastinum: Mediastinal contours appear normal. Heart size is normal. Bones and chest wall: No suspicious bony lesions. Overlying soft tissues appear unremarkable. IMPRESSION: No acute cardiopulmonary process. Reviewed by: Kevan Crane on 05/01/2023 1:22 PM [facility] Approved by: Kevan Crane on 05/01/2023 1:22 PM [facility] Station ID: [id number]
== END 2023-05-01 23:59 | disposition home or self-care (01) ==
LOC: DI.N 12:20
PROVIDERS: ATTEND Family Medicine
DX: U07.1 COVID-19 (principal); R05.9 Cough, unspecified

== ENCOUNTER 2023-05-03 19:56 | Outpatient (CLI) | payer MEDICARE, OTHER | END 2023-05-03 23:59 | disposition EMS.NT | LOC: EMS 19:56 | DX: R09.89 Other specified symptoms and signs involving the circulatory and respiratory systems (principal) ==

== ENCOUNTER 2023-05-05 19:44 | Outpatient (CLI) | payer MEDICARE, OTHER | END 2023-05-05 19:45 | disposition EMS.NT | LOC: EMS 19:44 | DX: U07.1 COVID-19 (principal) ==

== ENCOUNTER 2023-09-04 10:45 | Outpatient (CLI) | payer MEDICARE, OTHER ==
--- NOTE | 2023-09-04 18:56 | XRAY Report ---
PROCEDURE: Chest 2V INDICATIONS: ACUTE COUGH TECHNIQUE: 2 views of the chest were acquired. COMPARISON: . FINDINGS: Surgical changes and devices: Pacemaker Lungs and pleura: No pleural effusions or pneumothorax. Lungs are clear. Emphysematous change. Mediastinum: Mediastinal contours appear normal. Calcified right paratracheal lymph node, consistent with chronic granulomatous disease. Heart size is normal. Bones and chest wall: No suspicious bony lesions. Overlying soft tissues appear unremarkable. IMPRESSION: COPD. Chronic granulomatous disease. No acute pulmonary process. Reviewed by: Hector Ely MD on 09/04/2023 6:55 PM PDT Approved by: Hector Ely MD on 09/04/2023 6:55 PM PDT Station ID: [id number]
== END 2023-09-04 11:00 | disposition home or self-care (01) ==
LOC: DI.N 10:45
PROVIDERS: ATTEND Family Medicine
DX: J44.9 Chronic obstructive pulmonary disease, unspecified (principal); D71 Functional disorders of polymorphonuclear neutrophils

== ENCOUNTER 2023-09-07 13:24 | Outpatient (CLI) | payer MEDICARE, OTHER | END 2023-09-07 23:59 | disposition EMS.NT | LOC: EMS 13:24 | DX: R53.81 Other malaise (principal); R53.83 Other fatigue; R05.9 Cough, unspecified ==

== ENCOUNTER 2023-09-08 21:46 | Outpatient (CLI) | payer MEDICARE, OTHER | END 2023-09-08 21:47 | disposition critical access hospital (66) | LOC: EMS 21:46 | DX: R06.02 Shortness of breath (principal); R05.9 Cough, unspecified; R60.0 Localized edema; R53.1 Weakness; R39.198 Other difficulties with micturition; I48.91 Unspecified atrial fibrillation; Z79.01 Long term (current) use of anticoagulants; Z95.0 Presence of cardiac pacemaker | CPT/HCPCS: A0425; A0429 ==

== ENCOUNTER 2023-09-08 22:13 | Inpatient (IN) | payer MEDICARE, OTHER ==
[2023-09-08 23:15] LABS: BASOPHILS % (AUTO) 0.2 %; EOSINOPHILS # (AUTO) 0.1 10^3/uL (0.0-0.7); HCT - HEMATOCRIT 34.5 % (42.0-52.0); HGB - HEMOGLOBIN 11.3 g/dL (14.0-18.0); LYMPHOCYTES # (AUTO) 1.1 10^3/uL (1.5-3.5); LYMPHOCYTES % (AUTO) 9.3 %; MEAN CORPUSCULAR HEMOGLOBIN 29.2 pg (27.0-31.0); MEAN CORPUSCULAR HGB CONC 32.8 g/dL (32.0-36.0); MEAN CORPUSCULAR VOLUME 89.1 fL (80.0-94.0); MEAN PLATELET VOLUME 10.4 fL (7.4-11.4); MONOCYTES # (AUTO) 0.9 10^3/uL (0.0-1.0); MONOCYTES % (AUTO) 7.9 %; NEUTROPHILS # (AUTO) 9.3 10^3/uL (1.5-6.6); NEUTROPHILS % (AUTO) 80.8 %; PLT - PLATELET COUNT 182 10^3/uL (130-450); RED BLOOD COUNT 3.87 10^6/uL (4.70-6.10); RED CELL DISTRIBUTION WIDTH 13.2 % (12.0-15.0); WHITE BLOOD COUNT 11.5 x10^3/uL (4.8-10.8)
--- NOTE | 2023-09-08 23:17 | ED Physician Documentation ---
PD HPI DYSPNEA - Stated complaint Stated Complaint: SOA - Chief complaint Chief Complaint: Resp - History obtained from History obtained from: Patient, Family, EMS - Additional information Additional information: BIBA. HPI is from EMS, patient, and patient's was in the ED at patient's bedside. EMS reports patient complains of shortness of breath. However, on my HPI, the patient is more focused on dysuria. He tells me he has been having 1 to 2 weeks of gradually worsening dyspnea on exertion with approximately 5 days to week of increasingly productive cough, sinus and chest congestion. Not aware of any fevers at home. He was seen in the outpatient setting a few days ago; patient says a chest x-ray was done and he was prescribed Tessalon, codeine cough syrup, given a 1-time dose of oral steroid, and was given albuterol nebulized treatment. Regarding the patient's dysuria, it is not clear to me what exactly his symptoms are. He says he has had decreased urine output over the past few days but denies sensation of incomplete voiding and is able to urinate. Review of Systems Constitutional: reports: Myalgias. denies: Fever Cardiac: reports: Pedal edema. denies: Chest pain / pressure, Palpitations Respiratory: reports: Dyspnea, Cough. denies: Hemoptysis, Wheezing GI: denies: Abdominal Pain, Nausea, Vomiting, Diarrhea : reports: Dysuria. denies: Frequency, Unable to Void, Incontinent, Hematuria Musculoskeletal: reports: Extremity swelling (chronic BLE) PD PAST MEDICAL HISTORY - Past Medical History Past Medical History: Yes Cardiovascular: Congestive heart failure, IA, Atrial fibrillation, Other Respiratory: COPD, CPAP use Neuro: None Endocrine/Autoimmune: Type 2 diabetes GI: GERD, Hemorrhoids, Diverticulitis : Benign prostate hypertrophy HEENT: None Psych: None Musculoskeletal: Rheumatoid arthritis Derm: Other - Past Surgical History Past Surgical History: Yes General: Colonoscopy Ortho: Spine surgery Cardiovascular: Pacemaker Derm: Skin cancer surgery - Present Medications Home Medications: Ambulatory Orders Medication Instructions Recorded Confirmed Folic Acid 1 mg PO DAILY 02/17/13 09/09/23 Acetaminophen [Tylenol] 650 mg PO BID 09/13/19 09/09/23 Brimonidine Tartrate/Timolol 1 drops EACHEYE BID 09/13/19 09/09/23 [Combigan 0.2%-0.5% Eye Drops] Latanoprost 0.005% Ophth Drops 1 drops EACHEYE QPM 09/13/19 09/09/23 [Xalatan Ophth Drops] Metformin HCl 500 mg PO BID 09/13/19 09/09/23 Sacubitril/Valsartan [Entresto 49 1 tab PO BID 09/13/19 09/09/23 mg-51 mg Tablet] Tamsulosin HCl [Flomax] 0.8 mg PO QPM 09/13/19 09/09/23 Eplerenone [Inspra] 50 mg PO DAILY 08/04/20 09/09/23 Albuterol Sulfate [Proair 1 - 2 puffs IH Q6H PRN 06/27/22 09/09/23 Digihaler] Apixaban [Eliquis] 2.5 mg PO BID 06/27/22 09/09/23 Magnesium Oxide 840 mg PO DAILY 06/27/22 09/09/23 Non Formulary 1 each PO BID 06/27/22 09/09/23 Pantoprazole [Protonix] 80 mg PO DAILY 06/27/22 09/09/23 Prednisolone Acetate/Pf 1 drops EACHEYE Q48H 06/27/22 09/09/23 [Prednisolone Acet 1% Eye Drop] Propylene Glycol/Peg 400 [Systane 1 drops EACHEYE QID PRN 06/27/22 09/09/23 Ultra 0.4-0.3% Eye Drp] Tiotropium [place] [Spiriva 2 inh INH DAILY 06/27/22 09/09/23 Respimat] Levothyroxine [Synthroid] 75 mcg PO QDAC #30 tab 07/26/22 Abatacept [Orencia] 100 mg SQ OAW 09/09/23 09/09/23 Chlorthalidone [Thalitone] 1 tab PO DAILY 09/09/23 09/09/23 Cholecalciferol [Vitamin D3] 25 mcg PO DAILY 09/09/23 09/09/23 Colchicine 0.3 mg PO DAILY 09/09/23 09/09/23 Ezetimibe [Zetia] 10 mg PO QD 09/09/23 09/09/23 Furosemide [Lasix] 40 mg PO DAILY 09/09/23 09/09/23 Insulin Glargine [Lantus Solostar] 15 unit SQ HS 09/09/23 09/09/23 Pantoprazole [Protonix] 40 mg PO QPM 09/09/23 09/09/23 Semaglutide [Ozempic] 1 mg SQ OAW 09/09/23 09/09/23 allopurinoL [Allopurinol] 450 mg PO DAILY 09/09/23 09/09/23 amLODIPine [Norvasc] 5 mg PO DAILY 09/09/23 09/09/23 carvediloL [Coreg] 12.5 mg PO BID 09/09/23 09/09/23 - Allergies Allergies/Adverse Reactions: Allergies Allergy/AdvReac Type Severity Reaction Status Date / Time Hpjytkz-LYM-DwK Reductase AdvReac Intermediate Cramps Verified 09/08/23 22:26 Inhibitor [Hkkpemm-Wjv-Aae Reductase Inhibitor] - Social History Does the pt smoke?: No Smoking Status: Never smoker Does the pt drink ETOH?: Yes Does the pt have substance abuse?: No - Immunizations Immunizations are current?: Yes - POLST Patient has POLST: No PD ED PE NORMAL - Vitals Vital signs reviewed: Yes - General General: Alert and oriented X 3, No acute distress, Well developed/nourished - Neck Neck: Supple, no meningeal sign - Respiratory Respiratory: No respiratory distress, Other (bibasilar rhonchi but no wheezing, good air movement) - Abdomen Abdomen: Soft, Non distended, Other (mild LLQ TTP without rebound or guarding) - Back Back: No CVA TTP - Derm Derm: Normal color, Warm and dry - Neuro Neuro: Alert and oriented X 3, aviation mechanic 2-12 intact, No motor deficit, No sensory deficit, Normal speech Eye Opening: Spontaneous Motor: Obeys Commands Verbal: Oriented GCS Score: 15 PD ED PE EXPANDED - Cardiac Cardiac: Regular Rhythm (regular rhythm with frequent extra beats) - Extremities Extremities: Pedal edema bilateral Results - Vitals Vitals: Vital Signs - 24 hr 09/08/23 09/09/23 09/09/23 22:11 00:10 01:35 Temperature 37.0 C Heart Rate 81 80 88 Respiratory 13 15 16 Rate Blood Pressure 126/98 H 111/72 O2 Saturation 94 93 09/09/23 01:48 Temperature Heart Rate 82 Respiratory 14 Rate Blood Pressure 110/53 L O2 Saturation 93 Oxygen O2 Source [With Activity] Room air O2 Source Room air - EKG (time done) No standard instances EKG releavant findings:: EKG personally interpreted by author of this note. Relevant findings are: Rate: Rate (enter#) - Labs Labs: Laboratory Tests 09/08/23 09/08/23 09/08/23 23:09 23:09 23:14 WBC 11.5 H RBC 3.87 L Hgb 11.3 L Hct 34.5 L MCV 89.1 MCH 29.2 MCHC 32.8 RDW 13.2 Plt Count 182 MPV 10.4 Neut # (Auto) 9.3 H Lymph # (Auto) 1.1 L [place] # (Auto) 0.9 Eos # (Auto) 0.1 Baso # (Auto) 0.0 Absolute Nucleated RBC 0.00 Nucleated RBC % 0.0 Sodium 123 L Potassium 4.1 Chloride 92 L Carbon Dioxide 21 Anion Gap 10.0 BUN 56 H Creatinine 1.9 H Estimated GFR (MDRD) 34 L Glucose 151 H Calcium 9.2 Total Bilirubin 0.6 AST 23 ALT 21 Alkaline Phosphatase 56 Total Creatine Kinase 155 Troponin I High Sens 12.9 B-Natriuretic Peptide 261 H Total Protein 6.6 Albumin 3.4 Globulin 3.2 Albumin/Globulin Ratio 1.1 Lipase < 10 L Urine Color Urine Clarity Urine pH Ur Specific [place] Urine Protein Urine Glucose (UA) Urine Ketones Urine Occult Blood Urine Nitrite Urine Bilirubin Urine Urobilinogen Ur Leukocyte Esterase Ur Microscopic Review Urine Culture Comments Nasal Adenovirus (PCR) Nasal B. parapertussis DNA (PCR) Nasal Coronavir 229E PCR Nasal Coronavir HKU1 PCR Nasal Coronavir NL63 PCR Nasal Coronavir OC43 PCR Nasal Enterovir/Rhinovir PCR Nasal Influenza B PCR Nasal Influenza A PCR Nasal Parainfluen 1 PCR Nasal Parainfluen 2 PCR Nasal Parainfluen 3 PCR Nasal Parainfluen 4 PCR Nasal RSV (PCR) Nasal B.pertussis DNA PCR Nasal C.pneumoniae (PCR) Miguel Human Metapneumo PCR Nasal M.pneumoniae (PCR) Nasal SARS-CoV-2 (PCR) 09/08/23 09/09/23 23:15 00:35 WBC RBC Hgb Hct MCV MCH MCHC RDW Plt Count MPV Neut # (Auto) Lymph # (Auto) [place] # (Auto) Eos # (Auto) Baso # (Auto) Absolute Nucleated RBC Nucleated RBC % Sodium Potassium Chloride Carbon Dioxide Anion Gap BUN Creatinine Estimated GFR (MDRD) Glucose Calcium Total Bilirubin AST ALT Alkaline Phosphatase Total Creatine Kinase Troponin I High Sens B-Natriuretic Peptide Total Protein Albumin Globulin Albumin/Globulin Ratio Lipase Urine Color YELLOW Urine Clarity CLEAR Urine pH 6.0 Ur Specific [place] <=1.005 Urine Protein NEGATIVE Urine Glucose (UA) NEGATIVE Urine Ketones NEGATIVE Urine Occult Blood NEGATIVE Urine Nitrite NEGATIVE Urine Bilirubin NEGATIVE Urine Urobilinogen 0.2 (NORMAL) Ur Leukocyte Esterase NEGATIVE Ur Microscopic Review NOT INDICATED Urine Culture Comments NOT INDICATED Nasal Adenovirus (PCR) NOT DETECTED Nasal B. parapertussis DNA (PCR) NOT DETECTED Nasal Coronavir 229E PCR NOT DETECTED Nasal Coronavir HKU1 PCR NOT DETECTED Nasal Coronavir NL63 PCR NOT DETECTED Nasal Coronavir OC43 PCR NOT DETECTED Nasal Enterovir/Rhinovir PCR NOT DETECTED Nasal Influenza B PCR NOT DETECTED Nasal Influenza A PCR NOT DETECTED Nasal Parainfluen 1 PCR NOT DETECTED Nasal Parainfluen 2 PCR NOT DETECTED Nasal Parainfluen 3 PCR NOT DETECTED Nasal Parainfluen 4 PCR NOT DETECTED Nasal RSV (PCR) NOT DETECTED Nasal B.pertussis DNA PCR NOT DETECTED Nasal C.pneumoniae (PCR) NOT DETECTED [place] Human Metapneumo PCR NOT DETECTED Nasal M.pneumoniae (PCR) NOT DETECTED Nasal SARS-CoV-2 (PCR) NOT DETECTED - Rads (name of study) chest xray Relevant Findings:: Prelim report reviewed, See rad report PD Medical Decision Making - ED course Complexity details: reviewed old records, reviewed results, re-evaluated patient, considered differential, d/w patient, d/w family ED course: Significant hyponatremia (123) on tonight's blood tests. He also has elevated bun (56) and creatinine (1.9). Most recent results for comparative purposes are from inpatient stay June-July 2022. On that inpatient stay, he had mild hyponatremia and elevated BUN creatinine on admission with normal creatinine and sodium levels by the time he was discharged. He had long [facility] stay for treatment of c. 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 Tonight's chest xray shows mild left basilar infiltrate. He is given 1 gm IV rocephin and 500mg IV zithromax for pneumonia. D/[facility] telehealth for admission to [facility] for treatment of hyponatremia, pneumonia, and further testing regarding his abnormal bun/creatinine. Departure - Departure Disposition: 66 [facility] DC/Xfer Clinical Impression: Hyponatremia, SCOT (acute kidney injury) Pneumonia Qualifiers: Pneumonia type: due to unspecified organism Laterality: left Lung location: lower lobe of lung Qualified Code(s): J18.9 - Pneumonia, unspecified organism Discharge Date/Time: 09/09/23 03:05
--- NOTE | 2023-09-08 23:37 | XRAY Report ---
PROCEDURE: Chest 1V INDICATIONS: dyspnea TECHNIQUE: One view of the chest was acquired. COMPARISON: Chest x-ray 05/01/2023. FINDINGS: Surgical changes and devices: There is a cardiac pacemaker. Lungs and pleura: Left basilar infiltrate suspicious for pneumonia. Chronic interstitial prominence. No pleural effusions or pneumothorax. No focal consolidation. Mediastinum: Mediastinal contours appear normal. Heart size is normal. Bones and chest wall: No suspicious bony lesions. Overlying soft tissues appear unremarkable. IMPRESSION: 1. Left basilar infiltrate suspicious for pneumonia. Reviewed by: Alida Mon MD on 09/08/2023 11:35 PM PDT Approved by: Alida Mon MD on 09/08/2023 11:35 PM PDT Station ID: [id number]
[2023-09-08 23:40] LABS: ALBUMIN 3.4 g/dL (3.2-5.5); ALBUMIN/GLOBULIN RATIO 1.1 (1.0-2.2); ALKALINE PHOSPHATASE 56 IU/L (42-121); ALT ALANINE AMINOTRANSFERASE 21 IU/L (10-60); AST ASPARTATE AMINOTRANSFERASE 23 IU/L (10-42); BILIRUBIN,TOTAL 0.6 mg/dL (0.2-1.0); BUN - BLOOD UREA NITROGEN 56 mg/dL (6-20); CALCIUM 9.2 mg/dL (8.5-10.3); CARBON DIOXIDE - CO2 21 mmol/L (21-32); CHLORIDE 92 mmol/L (101-111); CREATININE 1.9 mg/dL (0.6-1.3); GFR - MDRD 34 (>89); GLUCOSE 151 mg/dL (74-104); POTASSIUM 4.1 mmol/L (3.5-4.5); SODIUM 123 mmol/L (135-145); TOTAL PROTEIN 6.6 g/dL (6.4-8.9)
[2023-09-08 23:44] LABS: TROPONIN I HIGH SENSITIVITY 12.9 ng/L (2.3-19.7)
[2023-09-08 23:45] LABS: LIPASE < 10 U/L (11-82)
[2023-09-09 00:55] LABS: BILIRUBIN,URINE NEGATIVE (NEGATIVE); GLUCOSE, URINE (UA) NEGATIVE (NEGATIVE); KETONES,URINE (UA) NEGATIVE (NEGATIVE); LEUKOCYTE ESTERASE, URINE NEGATIVE (NEGATIVE); NITRITE,URINE NEGATIVE (NEGATIVE); OCCULT BLOOD,URINE NEGATIVE (NEGATIVE); PROTEIN,URINE NEGATIVE (NEGATIVE); UROBILINOGEN,URINE 0.2 (NORMAL) E.U./dL (NORMAL)
[2023-09-09 00:56] LABS: CLARITY,URINE CLEAR (CLEAR)
[2023-09-09] MEDS: IPRATROPIUM/ALBUTEROL 3 ML NEB INH STA (01:35)
[2023-09-09] MEDS ORDERED: cefTRIAXone 1 GM VIAL ONE (01:39)
[2023-09-09] MEDS: cefTRIAXone 1 GM in SODIUM CHLORIDE 0.9% MINIBAG 100 ML IV STA (01:42)
--- NOTE | 2023-09-09 02:01 | HISTORY & PHYSICAL EXAMINATION ---
Chief Complaint - Chief Complaint Chief Complaint: dysuria, weakness, cough History of Present Illness - History of Present Illness HPI Comment/Other: pt with cough and fatigue and episodes of sob over past 5 days or so. he also reports decrease urination despite being on diuretics. was seen outpt and CXR done and was prescribed meds for cough and inhalers. no chest pain. denies hematuria. has some dysuria. no diarrhea. no sick contacts reported. no abd pain. pt on meds for RA. no AMS. cough is occasionally productive. pt also reports occasional swelling of arms and legs. History - Past Medical History Cardiovascular: reports: Congestive heart failure, OR, Atrial fibrillation, Other Respiratory: reports: COPD, CPAP use Neuro: reports: None Endocrine/Autoimmune: reports: Type 2 diabetes GI: reports: GERD, Hemorrhoids, Diverticulitis : reports: Benign prostate hypertrophy HEENT: reports: None Psych: reports: None Musculoskeletal: reports: Rheumatoid arthritis Derm: reports: Other MRSA Hx?: No - Past Surgical History General: reports: Colonoscopy Ortho: reports: Spine surgery Cardiovascular: reports: Pacemaker Derm: reports: Skin cancer surgery - Family & Social History Family History Comment/Other: Diabetes runs in all his children Living Situation: With spouse/s.o., With family Social History Notes: He does not drink alcohol, he quit smoking cigarettes in 1994. He is retired from shipyard work. He still drives a car. 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 - Substance History Use: Uses substance without health or social issues: NONE - POLST Patient has POLST: No Meds/Allgy - Home Medications Home Medications: Ambulatory Orders Medication Instructions Recorded Confirmed Folic Acid 1 mg PO DAILY 02/17/13 09/09/23 Acetaminophen [Tylenol] 650 mg PO BID 09/13/19 09/09/23 Brimonidine Tartrate/Timolol 1 drops EACHEYE BID 09/13/19 09/09/23 [Combigan 0.2%-0.5% Eye Drops] Latanoprost 0.005% Ophth Drops 1 drops EACHEYE QPM 09/13/19 09/09/23 [Xalatan Ophth Drops] Metformin HCl 500 mg PO BID 09/13/19 09/09/23 Sacubitril/Valsartan [Entresto 49 1 tab PO BID 09/13/19 09/09/23 mg-51 mg Tablet] Tamsulosin HCl [Flomax] 0.8 mg PO QPM 09/13/19 09/09/23 Eplerenone [Inspra] 50 mg PO DAILY 08/04/20 09/09/23 Albuterol Sulfate [Proair 1 - 2 puffs IH Q6H PRN 06/27/22 09/09/23 Digihaler] Apixaban [Eliquis] 2.5 mg PO BID 06/27/22 09/09/23 Magnesium Oxide 840 mg PO DAILY 06/27/22 09/09/23 Non Formulary 1 each PO BID 06/27/22 09/09/23 Pantoprazole [Protonix] 80 mg PO DAILY 06/27/22 09/09/23 Prednisolone Acetate/Pf 1 drops EACHEYE Q48H 06/27/22 09/09/23 [Prednisolone Acet 1% Eye Drop] Propylene Glycol/Peg 400 [Systane 1 drops EACHEYE QID PRN 06/27/22 09/09/23 Ultra 0.4-0.3% Eye Drp] Tiotropium [employer] [Spiriva 2 inh INH DAILY 06/27/22 09/09/23 Respimat] Levothyroxine [Synthroid] 75 mcg PO QDAC #30 tab 07/26/22 Abatacept [Orencia] 100 mg SQ OAW 09/09/23 09/09/23 Chlorthalidone [Thalitone] 1 tab PO DAILY 09/09/23 09/09/23 Cholecalciferol [Vitamin D3] 25 mcg PO DAILY 09/09/23 09/09/23 Colchicine 0.3 mg PO DAILY 09/09/23 09/09/23 Ezetimibe [Zetia] 10 mg PO QD 09/09/23 09/09/23 Furosemide [Lasix] 40 mg PO DAILY 09/09/23 09/09/23 Insulin Glargine [Lantus Solostar] 15 unit SQ HS 09/09/23 09/09/23 Pantoprazole [Protonix] 40 mg PO QPM 09/09/23 09/09/23 Semaglutide [Ozempic] 1 mg SQ OAW 09/09/23 09/09/23 allopurinoL [Allopurinol] 450 mg PO DAILY 09/09/23 09/09/23 amLODIPine [Norvasc] 5 mg PO DAILY 09/09/23 09/09/23 carvediloL [Coreg] 12.5 mg PO BID 09/09/23 09/09/23 - Allergies Allergies/Adverse Reactions: Allergies Allergy/AdvReac Type Severity Reaction Status Date / Time Yjyezre-EZX-FsY Reductase AdvReac Intermediate Cramps Verified 09/08/23 22:26 Inhibitor [Heydqae-Pms-Vfb Reductase Inhibitor] Review of Systems - Other Findings Other Findings: 14 pt review done with positives per hpi; all others reviewed as negative Exam - Vital Signs Vital Signs: Vital Signs x48h Temp Pulse Resp BP Pulse Ox 09/09/23 01:48 82 14 110/53 L 93 09/09/23 01:35 88 16 09/09/23 00:10 80 15 111/72 93 09/08/23 22:11 37.0 C 81 13 126/98 H 94 - Physical Exam Comments/Other: gen - aaox3, nad, polite heent - eomi, nc/at, wearing mask heart - per ed charting lungs - per ed charting abd - no abd pain or discomfort reported msk -no acute trauma noted Conclusion/Plan - Lab Results Fish Bones: 09/08/23 23:09 09/08/23 23:09 - Other Other Results/Comments: pt with - - pna contributory to generalized malaise covid / flu / viral panel results pending on RA rocephin + azithromycin for now (below) - hyponatremia in setting of above no ams also with hypochloremia --> continue IVF encourage po intake - todd in setting of and contributory to above continue ivf, hold diuretics for now check renal sono, renally dose meds - immunocompromised status pt takes immune-modulating meds increased risk of infections continue with rocephin + azithromycin for now, and if no improvement, may need to broaden coverage - dysuria likely in setting of dehydration ua NEG check CK levels - t2dm with hyperglycemia exacerbated d/t above check a1c, continue ssi - generalized weakness in setting of above pt eval and treat no falls reported f/u labs, cultures, replete electrolytes further orders per clinical course
[2023-09-09] MEDS ORDERED: oxyCODONE 5 MG TABLET PO PRN (02:05)
[2023-09-09] MEDS ORDERED: SODIUM CHLORIDE FLUSH 0.9% 10 ML SYRINGE IVP PRN (02:05)
[2023-09-09] MEDS ORDERED: ONDANSETRON ODT 4 MG TABLET TL PRN (02:05)
[2023-09-09] MEDS ORDERED: ALBUTEROL SULFATE 90 MCG IH PRN (02:14)
[2023-09-09] MEDS: AZITHROMYCIN INJ 500 MG in SODIUM CHLORIDE 0.9% 250 ML IV STA (02:18)
[2023-09-09 02:23] LABS: B. PARAPERTUSSIS- RESP PCR PAN NOT DETECTED; B. PERTUSSIS- RESP PCR PANEL NOT DETECTED; C. PNEUMONIAE- RESP PCR PANEL NOT DETECTED; CORONAVIRUS 229E-RESP PCR NOT DETECTED; CORONAVIRUS HKU1-RESP PCR NOT DETECTED; CORONAVIRUS NL63-RESP PCR NOT DETECTED; CORONAVIRUS OC43-RESP PCR NOT DETECTED; HUMAN METAPNEUMOVIRUS NOT DETECTED; INFLUENZA A- RESP PCR PANEL NOT DETECTED; INFLUENZA B - RESP PCR PANEL NOT DETECTED; M. PNEUMONIAE- RESP PCR PANEL NOT DETECTED; PARAINFLUENZA VIRUS 1 NOT DETECTED; PARAINFLUENZA VIRUS 2 NOT DETECTED; PARAINFLUENZA VIRUS 3 NOT DETECTED; PARAINFLUENZA VIRUS 4 NOT DETECTED; RHINOVIRUS/ENTEROVIRUS NOT DETECTED; RSV- RESP PCR PANEL NOT DETECTED; SARS-CoV-2 -RESP PCR PANEL NOT DETECTED
[2023-09-09] MEDS: BENZONATATE 100 MG CAPSULE PO PRN (03:33)
[2023-09-09] MEDS: LACTATED RINGERS 1,000 ML IV SCH (04:16)
--- NOTE | 2023-09-09 04:32 | PROVIDER PROGRESS NOTE ---
Biomedical Engineering Supervisor Note - Biomedical Engineering Supervisor Note Biomedical Engineering Supervisor Note: pt with worsening sob now on NC check CT chest VQ scan ordered as well pt on apixaban already further orders per clinical course
[2023-09-09 05:56] LABS: BASOPHILS % (AUTO) 0.3 %; EOSINOPHILS # (AUTO) 0.2 10^3/uL (0.0-0.7); EOSINOPHILS % (AUTO) 1.6 %; HCT - HEMATOCRIT 35.8 % (42.0-52.0); HGB - HEMOGLOBIN 11.6 g/dL (14.0-18.0); LYMPHOCYTES # (AUTO) 1.2 10^3/uL (1.5-3.5); LYMPHOCYTES % (AUTO) 10.5 %; MEAN CORPUSCULAR HEMOGLOBIN 29.1 pg (27.0-31.0); MEAN CORPUSCULAR HGB CONC 32.4 g/dL (32.0-36.0); MEAN CORPUSCULAR VOLUME 89.7 fL (80.0-94.0); MEAN PLATELET VOLUME 10.8 fL (7.4-11.4); MONOCYTES % (AUTO) 8.8 %; NEUTROPHILS # (AUTO) 8.9 10^3/uL (1.5-6.6); NEUTROPHILS % (AUTO) 77.8 %; PLT - PLATELET COUNT 197 10^3/uL (130-450); RED BLOOD COUNT 3.99 10^6/uL (4.70-6.10); RED CELL DISTRIBUTION WIDTH 13.1 % (12.0-15.0); WHITE BLOOD COUNT 11.4 x10^3/uL (4.8-10.8)
[2023-09-09] MEDS: ALBUTEROL NEB 2.5 MG/3 ML INH SCH (06:05)
[2023-09-09] MEDS: IPRATROPIUM 0.2 MG/ML NEB INH SCH (06:05)
[2023-09-09 06:16] LABS: CHOL/HDL RATIO 2.9 (<5.0); CHOLESTEROL 88 mg/dL; HDL CHOLESTEROL 30 mg/dL; LDL CHOLESTEROL,CALCULATED 38 mg/dL; LDL/HDL RATIO 1.3 (<3.6); TRIGLYCERIDES 99 mg/dL (48-352); VLDL CHOLESTEROL 20 mg/dL
[2023-09-09 06:32] LABS: ALBUMIN 3.7 g/dL (3.2-5.5)
[2023-09-09 06:38] LABS: CALCIUM 9.2 mg/dL (8.5-10.3); CREATININE 1.9 mg/dL (0.6-1.3); PHOSPHORUS 3.2 mg/dL (2.5-5.0); POTASSIUM 4.1 mmol/L (3.5-4.5)
[2023-09-09] MEDS: LEVOTHYROXINE 75 MCG TABLET PO SCH (06:58)
[2023-09-09] MEDS ORDERED: CARBOXYMETHYLCELLULOSE OPHTH DROPS EACHEYE PRN (07:40)
[2023-09-09] MEDS: INSULIN LISPRO 300 UNIT/3 ML PEN SUBQ SCH (08:36)
[2023-09-09] MEDS ORDERED: ALBUTEROL NEB 2.5 MG/3 ML INH PRN (08:44)
[2023-09-09] MEDS ORDERED: KRILL PO SCH (09:00)
[2023-09-09] MEDS ORDERED: PHOSPHO PO SCH (09:00)
[2023-09-09] MEDS ORDERED: amLODIPine 5 MG TABLET PO SCH (09:00)
[2023-09-09] MEDS ORDERED: APIXABAN 2.5 MG TABLET PO SCH (09:00)
[2023-09-09] MEDS ORDERED: TIMOLOL EACHEYE SCH (09:00)
[2023-09-09] MEDS ORDERED: EZETIMIBE 10 MG PO SCH (09:00)
[2023-09-09] MEDS ORDERED: [UNRECOGNIZED DRUG - OTHER] EACHEYE SCH (09:00)
[2023-09-09] MEDS ORDERED: carvediloL 12.5 MG TABLET PO SCH (09:00)
[2023-09-09] MEDS ORDERED: NON FORMULARY MED (Tiotropium Bromide [Spiriva Respimat] 4 GM Mist.Inhal) INH SCH (09:00)
[2023-09-09] MEDS ORDERED: FAMOTIDINE 20 MG/2 ML VIAL IVP SCH (09:00)
[2023-09-09] MEDS ORDERED: NON FORMULARY MED (Allopurinol [Allopurinol] 300 MG Tablet) PO SCH (09:00)
[2023-09-09] MEDS ORDERED: DHA PO SCH (09:00)
[2023-09-09] MEDS ORDERED: allopurinoL 100 MG TABLET PO SCH (09:00)
[2023-09-09] MEDS ORDERED: [UNRECOGNIZED DRUG - OTHER] PO SCH (09:00)
[2023-09-09] MEDS ORDERED: BRIMONIDINE TARTRATE EACHEYE SCH (09:00)
[2023-09-09] MEDS ORDERED: ASPIRIN EC 81 MG TABLET PO SCH (09:00)
[2023-09-09] MEDS ORDERED: COLCHICINE 0.6 MG TABLET PO SCH (09:00)
[2023-09-09] MEDS ORDERED: FOLIC ACID 1 MG TABLET PO SCH (09:00)
[2023-09-09] MEDS ORDERED: APIXABAN 5 MG TABLET PO SCH (09:00)
[2023-09-09] MEDS ORDERED: FERROUS SULFATE 325 MG TABLET PO SCH (09:00)
[2023-09-09] MEDS ORDERED: EPA PO SCH (09:00)
[2023-09-09] MEDS ORDERED: AST PO SCH (09:00)
[2023-09-09] MEDS ORDERED: CHOLECALCIFEROL 25 MCG TABLET PO SCH (09:00)
--- NOTE | 2023-09-09 09:15 | CT Report ---
PROCEDURE: Chest WO INDICATIONS: pna, resp distress TECHNIQUE: A CT scan of the chest was performed. Intravenous contrast media was not administered. Images were re corded and evaluated at appropriate window settings. Reformats: axial MIP of the chest, coronal and s agittal. For radiation dose reduction, the following was used: automated exposure control, adjustment of mA and/or kV according to patient size. COMPARISON: Chest radiograph 09/18/2023, 05/01/2023. CT 06/27/2022. FINDINGS: Image quality: Diagnostic. Chest wall and lower neck: No thyroid nodule which requires sonographic follow up. No axillary or sup raclavicular adenopathy by size. Lungs and pleura: Dependent consolidation within the lower lobes. Bronchial thickening with bronchial secretions. Trace right pleural effusion. Calcified granuloma. Mediastinum: Heart size is enlarged. Three-vessel coronary calcifications. No pericardial effusion. N o large vessel abnormality. No mediastinal adenopathy by size criteria. Aberrant right right subclav cheryl artery. Left chest wall generator with cardiac leads. Calcified mediastinal and hilar nodes. Bones: No aggressive osseous abnormality. Upper Abdomen: Calcified splenic granuloma. Stable hyperattenuating left renal lesions, probably hemo rrhagic cysts. IMPRESSION: Dependent consolidation within the lower lobes, with bronchial thickening and bronchial secretions. T race right pleural effusion. Findings are consistent with multifocal pneumonia. Aspiration also a con sideration given distribution. Findings are concordant with preliminary interpretation provided by [facility]. Reviewed by: Joel Zamorano MD on 09/09/2023 9:13 AM PDT Approved by: Joel Zamorano MD on 09/09/2023 9:13 AM PDT Station ID: [id number]
[2023-09-09] MEDS: SACCHAROMYCES BOULARDII 250 MG CAPSULE PO SCH (09:24)
[2023-09-09] MEDS: allopurinoL 100 MG TABLET PO SCH (09:25)
[2023-09-09] MEDS: APIXABAN 2.5 MG TABLET PO SCH (09:27)
[2023-09-09] MEDS: carvediloL 12.5 MG TABLET PO SCH (09:27)
[2023-09-09] MEDS: ASPIRIN EC 81 MG TABLET PO SCH (09:27)
[2023-09-09] MEDS: amLODIPine 5 MG TABLET PO SCH (09:27)
[2023-09-09] MEDS: COLCHICINE 0.6 MG TABLET PO SCH (09:28)
[2023-09-09] MEDS: CHOLECALCIFEROL 25 MCG TABLET PO SCH (09:28)
[2023-09-09] MEDS: FERROUS SULFATE 325 MG TABLET PO SCH (09:29)
[2023-09-09] MEDS: MAGNESIUM OXIDE 400 MG TABLET PO SCH (09:30)
[2023-09-09] MEDS: FOLIC ACID 1 MG TABLET PO SCH (09:30)
[2023-09-09] MEDS: SODIUM CHLORIDE FLUSH 0.9% 10 ML SYRINGE IVP SCH (09:35)
[2023-09-09 10:01] LABS: ESTIMATED AVERAGE GLUCOSE 186 mg/dL (70-100); HEMOGLOBIN A1c% 8.1 % (4.27-6.07)
[2023-09-09] MEDS: IPRATROPIUM/ALBUTEROL 3 ML NEB INH SCH (11:19)
[2023-09-09] MEDS: TIMOLOL 0.5% OPHTH DROPS EACHEYE SCH (12:16)
[2023-09-09] MEDS: BRIMONIDINE 0.2% OPHTH DROPS 5 ML EACHEYE SCH (12:16)
[2023-09-09] MEDS: SODIUM CHLORIDE 0.9% 1,000 ML IV SCH (12:17)
--- NOTE | 2023-09-09 13:01 | PHARMACY PROGRESS NOTE ---
- Best Possible Medication History Admit Date and Time: 09/09/23 0205 Processed by: Pharmacy Medications reviewed in ED?: Yes Medication History completed: Yes Patient Interview: Completed Secondary Source(s): Insurance records As the person ultimately responsible for medication therapy, providers are able to order a medication from an existing home medication list in [facility] via the "Reconcile Routine" prior to Confirmation of that medication by technical support internship. Such practice is discouraged except when the physician, in their clinical judgment, deems that a medical need exists for a medication without regard to previous use.
--- NOTE | 2023-09-09 13:43 | Ultrasound Report ---
PROCEDURE: Renal (Retroperitoneal) INDICATIONS: todd TECHNIQUE: Real-time scanning was performed of the retroperitoneal organs, with image documentation. COMPARISON: None CT abdomen and pelvis without contrast dated 06/27/2022. FINDINGS: Kidneys: Right kidney is evaluated. Left kidney was not identified secondary to the presence of bowel gas and patient body habitus. Right kidney measures 11.7 cm long; left kidney measures 0.8 cm long. Right renal cortical thickness is 0.8 cm. No solid masses, hydronephrosis, or nephrolithiasis. Of note, on the previous CT, the left kidney had an exophytic hyperdense lesion which was probably a cyst, anteriorly off the middle pole measuring approximately 2.3 cm. Bladder: Pre-void bladder volume is 203.4 mL. Post-void residual is 164.4 mL. Pre-void images demo nstrate no intraluminal masses or stones. On pre-void images, bilateral ureteral jets are noted with color Doppler interrogation. (Of note, ureteral jets may not be detectable in up to 25% of cases du e to insufficient differences in specific gravity between ureteral and bladder urine). Miscellaneous: No free abdominal fluid. IMPRESSION: 1. Right kidney visualized, normal in size without hydronephrosis. 2. Left kidney not visualized secondary to technical difficulty with the examination. Of note, there was a probable hyperdense cyst involving the middle pole of left kidney on the previous CT, measuring 2.3 cm. 3. Moderately large post void residual. Comment: Recommend noncontrast CT abdomen and pelvis to evaluate the status of the left kidney. This would identified presence or absence of hydronephrosis as well as any change in the probable hyperden se renal cyst. Reviewed by: Hector Ely MD on 09/09/2023 1:42 PM PDT Approved by: Hector Ely MD on 09/09/2023 1:42 PM PDT Station ID: [id number]
--- NOTE | 2023-09-09 15:18 | PROVIDER PROGRESS NOTE ---
Assessment/Plan - Problem List (1) Pneumonia Qualifiers: Pneumonia type: due to unspecified organism Laterality: left Lung location: lower lobe of lung Qualified Code(s): J18.9 - Pneumonia, unspecified organism Assessment/Plan: --Hypoxic requiring 4L via NC. --Blood and respiratory cultures pending. --Started on azithromycin and ceftriaxone. --Overnight room service food service attendant has ordered CT chest which shows multifocal PNA vs aspiration. (2) SCOT (acute kidney injury) Assessment/Plan: --No obstruction seen on renal US, however radiologist recommending non contrast CT to evaluate left kidney cyst. --Continue IV fluids. --Etiology is likely home diuretics which have been held. --Baseline creatinine near 1. (3) Hyponatremia Assessment/Plan: --Continue IV fluids. I suspect this is secondary to diuertics. (4) Fall at home Assessment/Plan: --PT/OT. (5) Rheumatoid arthritis Qualifiers: Rheumatoid arthritis location: multiple sites Assessment/Plan: --Holding home Abatacept. Will defer to his Network Coordinator as when to restart. (6) DM type 2 (diabetes mellitus, type 2) Qualifiers: Diabetes mellitus director long term care insulin use: with director long term care use Diabetes mellitus complication status: without complication Qualified Code(s): E11.9 - Type 2 diabetes mellitus without complications; Z79.4 - skilled nursing (current) use of insulin Assessment/Plan: --Continue SSI. He does use insulin at home. --A1c is 8.1 (7) Hypertension Qualifiers: Hypertension type: primary hypertension Qualified Code(s): I10 - Essential (primary) hypertension Assessment/Plan: --Holding home antihypertensives in setting of SCOT and hyponatremia. (8) Paroxysmal A-fib Assessment/Plan: --Continue carvedilol and Eliquis. (9) Chronic systolic heart failure Assessment/Plan: --Continue carvedilol. Resume eplerenone and entresto when SCOT resolved and BP can tolerate. --TTE from 06/28/22 showing LVEF > 55%. --He is not in an acute exacerbation. - Current Meds Current Meds: Current Medications Generic Name Dose Route Start Last Admin Trade Name Freq PRN Reason Stop Dose Admin Albuterol/Ipratropium 3 ml 09/09/23 11:00 09/09/23 14:48 Ipratropium/Albuterol 3 Ml Neb INH 3 ml RTQID RAY Administration Allopurinol 450 mg 09/09/23 09:00 09/09/23 09:25 Allopurinol 100 Mg Tablet PO 450 mg DAILY RAY Administration Amlodipine Besylate 5 mg 09/09/23 09:00 09/09/23 09:27 Amlodipine 5 Mg Tablet PO 5 mg DAILY RAY Administration Apixaban 2.5 mg 09/09/23 09:00 09/09/23 09:27 Apixaban 2.5 Mg Tablet PO 2.5 mg BID RAY Administration Aspirin 81 mg 09/09/23 09:00 09/09/23 09:27 Aspirin Ec 81 Mg Tablet PO 81 mg DAILY RAY Administration Benzonatate 100 mg 09/09/23 02:13 09/09/23 03:33 Benzonatate 100 Mg Capsule PO 100 mg TID PRN Administration Cough Brimonidine Tartrate 1 drops 09/09/23 09:00 09/09/23 12:16 Brimonidine 0.2% Ophth Drops 5 Ml EACHEYE 1 drops BID RAY Administration Carvedilol 12.5 mg 09/09/23 09:00 09/09/23 09:27 Carvedilol 12.5 Mg Tablet PO 12.5 mg BID RAY Administration Cholecalciferol 25 mcg 09/09/23 09:00 09/09/23 09:28 Cholecalciferol 25 Mcg Tablet PO 25 mcg DAILY RAY Administration Colchicine 0.3 mg 09/09/23 09:00 09/09/23 09:28 Colchicine 0.6 Mg Tablet PO 0.3 mg DAILY RAY Administration Ferrous Sulfate 325 mg 09/09/23 09:00 09/09/23 09:29 Ferrous Sulfate 325 Mg Tablet PO 325 mg BID RAY Administration Folic Acid 1 mg 09/09/23 09:00 09/09/23 09:30 Folic Acid 1 Mg Tablet PO 1 mg DAILY RAY Administration Sodium Chloride 1,000 mls @ 100 mls/hr 09/09/23 09:00 09/09/23 12:17 Normal Saline 0.9% IV 100 mls/hr .Q10H RAY Administration Insulin Human Lispro 1 - 9 unit 09/09/23 08:00 09/09/23 12:17 Insulin Lispro 300 Unit/3 Ml Pen SUBQ 1 unit 0800,1200,1700,2100 RAY Administration Protocol Levothyroxine Sodium 75 mcg 09/09/23 07:00 09/09/23 06:58 Levothyroxine 75 Mcg Tablet PO 75 mcg QDAC RAY Administration Magnesium Oxide 800 mg 09/09/23 09:00 09/09/23 09:30 Magnesium Oxide 400 Mg Tablet PO 800 mg DAILY RAY Administration Saccharomyces Boulardii 250 mg 09/09/23 08:00 09/09/23 09:24 Saccharomyces Boulardii 250 Mg Capsule PO 250 mg BIDWM RAY Administration Sodium Chloride 10 ml 09/09/23 09:00 09/09/23 09:35 Sodium Chloride Flush 0.9% 10 Ml Syringe IVP Not Given 0100,0900,1700 RAY Timolol Maleate 1 drops 09/09/23 09:00 09/09/23 12:16 Timolol 0.5% Ophth Drops EACHEYE 1 drops BID RAY Administration - Lab Result Fish Bone Diagrams: 09/09/23 05:16 09/09/23 05:16 - Additional Planning My Orders: My Active Orders 09/09/23 08:44 Albuterol 2.5 mg INH RTQ4H PRN 09/09/23 09:00 Sodium Chloride 0.9% [Normal Saline 0.9%] 1,000 ml IV 100 mls/hr 09/09/23 11:00 Ipratropium/Albuterol [Duoneb] 3 ml INH RTQID 09/09/23 11:47 Home CPAP/BiPAP [RC] .ONCE 09/09/23 12:25 CUL, RESPIRATORY [RM] Routine 09/09/23 21:00 guaiFENesin [Mucinex] 600 mg PO BID 09/10/23 05:00 BMP - BASIC METABOLIC PANEL [CHEM] DAILYLAB 09/11/23 05:00 BMP - BASIC METABOLIC PANEL [CHEM] DAILYLAB 09/12/23 05:00 BMP - BASIC METABOLIC PANEL [CHEM] DAILYLAB 09/13/23 05:00 BMP - BASIC METABOLIC PANEL [CHEM] DAILYLAB 09/14/23 05:00 BMP - BASIC METABOLIC PANEL [CHEM] DAILYLAB Subjective - Subjective Patient Reports: Feeling Better, Resting Comfortably, No Complaints Objective Vital Signs: Vital Signs - 24 hr 09/08/23 09/09/23 09/09/23 22:11 00:10 01:35 Temperature 37.0 C Heart Rate 81 80 88 Heart Rate [ Brachial] Heart Rate [ Monitoring electrodes] Respiratory 13 15 16 Rate Blood Pressure 126/98 H 111/72 Blood Pressure [Right Brachial artery] O2 Saturation 94 93 If not protocol : Oxygen Flow, liters/minute 09/09/23 09/09/23 09/09/23 01:48 02:30 03:22 Temperature Heart Rate 82 80 Heart Rate [ Brachial] Heart Rate [ Monitoring electrodes] Respiratory 14 13 Rate Blood Pressure 110/53 L 120/53 L Blood Pressure [Right Brachial artery] O2 Saturation 93 94 If not protocol 4 : Oxygen Flow, liters/minute 09/09/23 09/09/23 09/09/23 03:23 04:31 06:05 Temperature 36.8 C Heart Rate 42 L Heart Rate [ Brachial] Heart Rate [ 84 73 Monitoring electrodes] Respiratory 20 20 18 Rate Blood Pressure Blood Pressure 138/74 H [Right Brachial artery] O2 Saturation 94 93 If not protocol 4 4 4 : Oxygen Flow, liters/minute 09/09/23 09/09/23 09/09/23 07:45 11:20 11:42 Temperature 37.1 C 37.1 C Heart Rate 47 L Heart Rate [ 62 Brachial] Heart Rate [ 81 Monitoring electrodes] Respiratory 16 20 20 Rate Blood Pressure Blood Pressure 143/66 H 132/55 H [Right Brachial artery] O2 Saturation 95 93 If not protocol 4 2 : Oxygen Flow, liters/minute 09/09/23 14:48 Temperature Heart Rate 78 Heart Rate [ Brachial] Heart Rate [ Monitoring electrodes] Respiratory 18 Rate Blood Pressure Blood Pressure [Right Brachial artery] O2 Saturation If not protocol 2 : Oxygen Flow, liters/minute Oxygen O2 Source [With Activity] Room air O2 Source Nasal cannula I&O (Last 24 Hrs): Intake and Output Totals x24h 09/07/23 09/08/23 09/09/23 23:59 23:59 23:59 Intake Total 910 Output Total 300 Balance 610 General: Alert, Oriented x3, Cooperative, No acute distress Neuro: Alert, CN 2-12 Grossly Intact, Oriented Times 3 Cardiovascular: Regular rate, Normal S1, Normal S2, No murmurs Respiratory: Chest non-tender, No respiratory distress, Breath sounds nml Abdomen: Normal bowel sounds, Soft, No tenderness, No hepatospenomegaly, No masses Extremities: No clubbing, No cyanosis, No edema, Normal pulses, No tenderness/s welling - Results Results: Laboratory Results WBC 11.4 x10^3/uL (4.8-10.8) H 09/09/23 05:16 RBC 3.99 10^6/uL (4.70-6.10) L 09/09/23 05:16 Hgb 11.6 g/dL (14.0-18.0) L 09/09/23 05:16 Hct 35.8 % (42.0-52.0) L 09/09/23 05:16 MCV 89.7 fL (80.0-94.0) 09/09/23 05:16 MCH 29.1 pg (27.0-31.0) 09/09/23 05:16 MCHC 32.4 g/dL (32.0-36.0) 09/09/23 05:16 RDW 13.1 % (12.0-15.0) 09/09/23 05:16 Plt Count 197 10^3/uL (130-450) 09/09/23 05:16 MPV 10.8 fL (7.4-11.4) 09/09/23 05:16 Neut # (Auto) 8.9 10^3/uL (1.5-6.6) H 09/09/23 05:16 Lymph # (Auto) 1.2 10^3/uL (1.5-3.5) L 09/09/23 05:16 [place] # (Auto) 1.0 10^3/uL (0.0-1.0) 09/09/23 05:16 Eos # (Auto) 0.2 10^3/uL (0.0-0.7) 09/09/23 05:16 Baso # (Auto) 0.0 10^3/uL (0.0-0.1) 09/09/23 05:16 Absolute Nucleated RBC 0.00 x10^3/uL 09/09/23 05:16 Nucleated RBC % 0.0 /100WBC 09/09/23 05:16 Sodium 127 mmol/L (135-145) L 09/09/23 05:16 Potassium 4.1 mmol/L (3.5-4.5) 09/09/23 05:16 Chloride 93 mmol/L (101-111) L 09/09/23 05:16 Carbon Dioxide 22 mmol/L (21-32) 09/09/23 05:16 Anion Gap 12.0 (6-13) 09/09/23 05:16 BUN 54 mg/dL (6-20) H 09/09/23 05:16 Creatinine 1.9 mg/dL (0.6-1.3) H 09/09/23 05:16 Estimated GFR (MDRD) 34 (>89) L 09/09/23 05:16 Glucose 119 mg/dL (74-104) H 09/09/23 05:16 POC Whole Bld Glucose 154 mg/dL (70 - 100) H 09/09/23 11:31 Estimat Average Glucose 186 mg/dL (70-100) H 09/09/23 05:16 Hemoglobin A1c % 8.1 % (4.27-6.07) H 09/09/23 05:16 Calcium 9.2 mg/dL (8.5-10.3) 09/09/23 05:16 Phosphorus 3.2 mg/dL (2.5-5.0) 09/09/23 05:16 Total Bilirubin 0.6 mg/dL (0.2-1.0) 09/08/23 23:09 AST 23 IU/L (10-42) 09/08/23 23:09 ALT 21 IU/L (10-60) 09/08/23 23:09 Alkaline Phosphatase 56 IU/L (42-121) 09/08/23 23:09 Total Creatine Kinase 155 IU/L (30-223) 09/08/23 23:14 Troponin I High Sens 12.9 ng/L (2.3-19.7) 09/08/23 23:09 B-Natriuretic Peptide 261 pg/mL (5-100) H 09/08/23 23:09 Total Protein 6.6 g/dL (6.4-8.9) 09/08/23 23:09 Albumin 3.7 g/dL (3.2-5.5) 09/09/23 05:16 Globulin 3.2 g/dL (2.1-4.2) 09/08/23 23:09 Albumin/Globulin Ratio 1.1 (1.0-2.2) 09/08/23 23:09 Triglycerides 99 mg/dL (48-352) 09/09/23 05:16 Cholesterol 88 mg/dL (-200) 09/09/23 05:16 LDL Cholesterol, Calc 38 mg/dL (-129) 09/09/23 05:16 VLDL Cholesterol 20 mg/dL 09/09/23 05:16 HDL Cholesterol 30 mg/dL (60-) L 09/09/23 05:16 LDL/HDL Ratio 1.3 (<3.6) 09/09/23 05:16 Cholesterol/HDL Ratio 2.9 (<5.0) 09/09/23 05:16 Lipase < 10 U/L (11-82) L 09/08/23 23:09 TSH 0.95 uIU/mL (0.34-5.60) 09/09/23 05:16 Urine Color YELLOW 09/09/23 00:35 Urine Clarity CLEAR (CLEAR) 09/09/23 00:35 Urine pH 6.0 PH (5.0-7.5) 09/09/23 00:35 Ur Specific [place] <=1.005 (1.002-1.030) 09/09/23 00:35 Urine Protein NEGATIVE mg/dL (NEGATIVE) 09/09/23 00:35 Urine Glucose (UA) NEGATIVE mg/dL (NEGATIVE) 09/09/23 00:35 Urine Ketones NEGATIVE mg/dL (NEGATIVE) 09/09/23 00:35 Urine Occult Blood NEGATIVE (NEGATIVE) 09/09/23 00:35 Urine Nitrite NEGATIVE (NEGATIVE) 09/09/23 00:35 Urine Bilirubin NEGATIVE (NEGATIVE) 09/09/23 00:35 Urine Urobilinogen 0.2 (NORMAL) E.U./dL (NORMAL) 09/09/23 00:35 Ur Leukocyte Esterase NEGATIVE (NEGATIVE) 09/09/23 00:35 Ur Microscopic Review NOT INDICATED 09/09/23 00:35 Urine Culture Comments NOT INDICATED 09/09/23 00:35 Nasal Adenovirus (PCR) NOT DETECTED 09/08/23 23:15 Nasal B. parapertussis DNA (PCR) NOT DETECTED 09/08/23 23:15 Nasal Coronavir 229E PCR NOT DETECTED 09/08/23 23:15 Nasal Coronavir HKU1 PCR NOT DETECTED 09/08/23 23:15 Nasal Coronavir NL63 PCR NOT DETECTED 09/08/23 23:15 Nasal Coronavir OC43 PCR NOT DETECTED 09/08/23 23:15 Nasal Enterovir/Rhinovir PCR NOT DETECTED 09/08/23 23:15 Nasal Influenza B PCR NOT DETECTED 09/08/23 23:15 Nasal Influenza A PCR NOT DETECTED 09/08/23 23:15 Nasal Parainfluen 1 PCR NOT DETECTED 09/08/23 23:15 Nasal Parainfluen 2 PCR NOT DETECTED 09/08/23 23:15 Nasal Parainfluen 3 PCR NOT DETECTED 09/08/23 23:15 Nasal Parainfluen 4 PCR NOT DETECTED 09/08/23 23:15 Nasal RSV (PCR) NOT DETECTED 09/08/23 23:15 Nasal B.pertussis DNA PCR NOT DETECTED 09/08/23 23:15 Nasal C.pneumoniae (PCR) NOT DETECTED 09/08/23 23:15 Miguel Human Metapneumo PCR NOT DETECTED 09/08/23 23:15 Nasal M.pneumoniae (PCR) NOT DETECTED 09/08/23 23:15 Nasal SARS-CoV-2 (PCR) NOT DETECTED 09/08/23 23:15 - Procedures Procedures: Procedures INSERTION OF INFUSION DEV INTO SUP VENA CAVA, PERC APPROACH (06/27/22)
[2023-09-09] MEDS: guaiFENesin 600 MG TABLET PO SCH (20:58)
[2023-09-09] MEDS: LATANOPROST 0.005% OPHTH DROPS EACHEYE SCH (20:58)
[2023-09-09] MEDS: PANTOPRAZOLE 40 MG TABLET PO SCH (20:59)
[2023-09-09] MEDS: TAMSULOSIN 0.4 MG CAPSULE PO SCH (20:59)
[2023-09-09] MEDS: COD LIVER OIL/ZINC OXIDE 113 GM TUBE TOP PRN (21:05)
[2023-09-09] MEDS: cefTRIAXone 1 GM in SODIUM CHLORIDE 0.9% MINIBAG 100 ML IV SCH (22:43)
[2023-09-10] MEDS: AZITHROMYCIN INJ 500 MG in SODIUM CHLORIDE 0.9% 250 ML IV SCH (00:12)
[2023-09-10 05:25] LABS: BASOPHILS % (AUTO) 0.2 %; EOSINOPHILS # (AUTO) 0.2 10^3/uL (0.0-0.7); EOSINOPHILS % (AUTO) 1.4 %; HCT - HEMATOCRIT 33.8 % (42.0-52.0); HGB - HEMOGLOBIN 11.4 g/dL (14.0-18.0); LYMPHOCYTES # (AUTO) 1.1 10^3/uL (1.5-3.5); LYMPHOCYTES % (AUTO) 10.9 %; MEAN CORPUSCULAR HEMOGLOBIN 29.7 pg (27.0-31.0); MEAN CORPUSCULAR HGB CONC 33.7 g/dL (32.0-36.0); MEAN PLATELET VOLUME 10.9 fL (7.4-11.4); MONOCYTES # (AUTO) 0.9 10^3/uL (0.0-1.0); MONOCYTES % (AUTO) 8.7 %; NEUTROPHILS # (AUTO) 8.2 10^3/uL (1.5-6.6); NEUTROPHILS % (AUTO) 77.9 %; PLT - PLATELET COUNT 186 10^3/uL (130-450); RED BLOOD COUNT 3.84 10^6/uL (4.70-6.10); WHITE BLOOD COUNT 10.5 x10^3/uL (4.8-10.8)
[2023-09-10 05:43] LABS: CREATININE 1.7 mg/dL (0.6-1.3); POTASSIUM 4.2 mmol/L (3.5-4.5)
[2023-09-10] MEDS: FUROSEMIDE 40 MG TABLET PO SCH (13:45)
--- NOTE | 2023-09-10 18:07 | PROVIDER PROGRESS NOTE ---
Subjective - Prog Note Date Prog Note Date: 09/10/23 Prog Note Time: 18:03 - Subjective Pt reports feeling: Improved Subjective: Very cranky this morning. Does not want the IV or IV fluids anymore. Complaining because we have not been giving him his Lasix. Even though we have explained that his creatinine has, and is not normal, any needed IV hydration, he still wants his Lasix. His oxygen level is down to normal on room air. He ate all of his breakfast even though he feels the food is lousy. And is able to get up and walk to the bathroom. His legs are getting edematous. He has chronic venous insufficiency and feels like not having his Lasix is making that worse. He is also worried that he will have acute congestive heart failure. He says that he recalls another hospitalization where they gave him too much fluids and not enough Lasix and he went into CHF. Current Medications - Current Medications Current Medications: Active Medications Acetaminophen (Acetaminophen 325 Mg Tablet) 650 mg PO Q6H PRN PRN Reason: Pain 1 to 4, or Fever Albuterol (Albuterol Neb 2.5 Mg/3 Ml) 2.5 mg INH RTQ4H PRN PRN Reason: Wheezing Albuterol/Ipratropium (Ipratropium/Albuterol 3 Ml Neb) 3 ml INH RTQID [facility] Last Admin: 09/10/23 15:16 Dose: 3 ml Allopurinol (Allopurinol 100 Mg Tablet) 450 mg PO DAILY [facility] Last Admin: 09/10/23 09:00 Dose: 450 mg Amlodipine Besylate (Amlodipine 5 Mg Tablet) 5 mg PO DAILY [facility] Last Admin: 09/10/23 09:06 Dose: 5 mg Apixaban (Apixaban 2.5 Mg Tablet) 2.5 mg PO BID [facility] Last Admin: 09/10/23 09:07 Dose: 2.5 mg Aspirin (Aspirin Ec 81 Mg Tablet) 81 mg PO DAILY [facility] Last Admin: 09/10/23 09:07 Dose: 81 mg Benzonatate (Benzonatate 100 Mg Capsule) 100 mg PO TID PRN PRN Reason: Cough Last Admin: 09/10/23 16:57 Dose: 100 mg Brimonidine Tartrate (Brimonidine 0.2% Ophth Drops 5 Ml) 1 drops EACHEYE BID [facility] Last Admin: 09/10/23 10:43 Dose: 1 drops Carboxymethylcellulose (Carboxymethylcellulose Ophth Drops) 1 drops EACHEYE QID PRN PRN Reason: Dry Eye Carvedilol (Carvedilol 12.5 Mg Tablet) 12.5 mg PO BID [facility] Last Admin: 09/10/23 09:07 Dose: 12.5 mg Cholecalciferol (Cholecalciferol 25 Mcg Tablet) 25 mcg PO DAILY [facility] Last Admin: 09/10/23 09:07 Dose: 25 mcg Colchicine (Colchicine 0.6 Mg Tablet) 0.3 mg PO DAILY [facility] Last Admin: 09/10/23 09:08 Dose: 0.3 mg Ferrous Sulfate (Ferrous Sulfate 325 Mg Tablet) 325 mg PO BID [facility] Last Admin: 09/10/23 09:08 Dose: 325 mg Folic Acid (Folic Acid 1 Mg Tablet) 1 mg PO DAILY [facility] Last Admin: 09/10/23 09:08 Dose: 1 mg Furosemide (Furosemide 40 Mg Tablet) 40 mg PO DAILY [facility] Last Admin: 09/10/23 13:45 Dose: 40 mg Guaifenesin (Guaifenesin 600 Mg Tablet) 600 mg PO BID [facility] Last Admin: 09/10/23 09:09 Dose: 600 mg Azithromycin 500 mg/ Sodium (Chloride) 250 mls @ 250 mls/hr IV Q24H [facility] Stop: 09/11/23 23:59 Last Infusion: 09/10/23 01:12 Dose: Infused Ceftriaxone Sodium 1 gm/ (Sodium Chloride) 100 mls @ 200 mls/hr IV Q24H [facility] Stop: 09/13/23 23:29 Last Infusion: 09/10/23 00:21 Dose: Infused Insulin Human Lispro (Insulin Lispro 300 Unit/3 Ml Pen) 1 - 9 unit SUBQ 0800,1200,1700,2100 [facility]; Protocol Last Admin: 09/10/23 17:03 Dose: 1 unit Latanoprost (Latanoprost 0.005% Ophth Drops) 1 drops EACHEYE QPM [facility] Last Admin: 09/09/23 20:58 Dose: 1 drops Levothyroxine Sodium (Levothyroxine 75 Mcg Tablet) 75 mcg PO QDAC [facility] Last Admin: 09/10/23 06:24 Dose: 75 mcg Magnesium Oxide (Magnesium Oxide 400 Mg Tablet) 800 mg PO DAILY [facility] Last Admin: 09/10/23 09:09 Dose: 800 mg Ondansetron HCl (Ondansetron Odt 4 Mg Tablet) 4 mg TL Q6HR PRN PRN Reason: Nausea / Vomiting Oxycodone HCl (Oxycodone 5 Mg Tablet) 5 mg PO Q6H PRN PRN Reason: Pain 5 to 7 Pantoprazole Sodium (Pantoprazole 40 Mg Tablet) 40 mg PO QPM [facility] Last Admin: 09/09/23 20:59 Dose: 40 mg Ezetimibe [Zetia] (10 Mg Tablet) 1 each PO DAILY [facility] Saccharomyces Boulardii (Saccharomyces Boulardii 250 Mg Capsule) 250 mg PO BIDWM [facility] Last Admin: 09/10/23 16:57 Dose: 250 mg Sodium Chloride (Sodium Chloride Flush 0.9% 10 Ml Syringe) 10 ml IVP PRN PRN PRN Reason: NEEDED PER PROVIDER ORDERS Sodium Chloride (Sodium Chloride Flush 0.9% 10 Ml Syringe) 10 ml IVP 0100,0900,1700 [facility] Last Admin: 09/10/23 17:04 Dose: 10 ml Tamsulosin HCl (Tamsulosin 0.4 Mg Capsule) 0.8 mg PO QPM [facility] Last Admin: 09/09/23 20:59 Dose: 0.8 mg Timolol Maleate (Timolol 0.5% Ophth Drops) 1 drops EACHEYE BID [facility] Last Admin: 09/10/23 10:43 Dose: 1 drops Zinc Oxide (Cod Liver Oil/Zinc Oxide 113 Gm Tube) 113 gm TOP PRN PRN PRN Reason: Skin Care Last Admin: 09/09/23 21:05 Dose: 1 applic Acetaminophen [Tylenol] 650 mg PO BID 09/13/19 Brimonidine Tartrate/Timolol [Combigan 0.2%-0.5% Eye Drops] 1 drops EACHEYE BID 09/13/19 Latanoprost 0.005% Ophth Drops [Xalatan Ophth Drops] 1 drops EACHEYE QPM 09/12 Metformin HCl 500 mg PO BID 09/13/19 Sacubitril/Valsartan [Entresto 49 mg-51 mg Tablet] 1 tab PO BID 09/13/19 Tamsulosin HCl [Flomax] 0.8 mg PO QPM 09/13/19 Eplerenone [Inspra] 50 mg PO DAILY 08/04/20 Albuterol Sulfate [Proair Digihaler] 1 - 2 puffs IH Q6H PRN 06/27/22 Apixaban [Eliquis] 2.5 mg PO BID 06/27/22 Magnesium Oxide 840 mg PO DAILY 06/27/22 Non Formulary 1 each PO BID 06/27/22 Prednisolone Acetate/Pf [Prednisolone Acet 1% Eye Drop] 1 drops EACHEYE Q48H 06/27/22 Propylene Glycol/Peg 400 [Systane Ultra 0.4-0.3% Eye Drp] 1 drops EACHEYE QID PRN 06/27/22 Tiotropium [place] [Spiriva Respimat] 2 inh INH DAILY 06/27/22 Abatacept [Orencia] 100 mg SQ OAW 09/09/23 Calcium Carbonate [[place] Heartburn Chew] 300 mg PO DAILY PRN 09/09/23 Chlorthalidone [Thalitone] 1 tab PO DAILY 09/09/23 Cholecalciferol [Vitamin D3] 25 mcg PO DAILY 09/09/23 Ezetimibe [Zetia] 10 mg PO QD 09/09/23 Furosemide [Lasix] 40 mg PO DAILY 09/09/23 Insulin Glargine [Lantus Solostar] 15 unit SQ HS 09/09/23 Semaglutide [Ozempic] 1 mg SQ OAW 09/09/23 allopurinoL [Allopurinol] 450 mg PO DAILY 09/09/23 amLODIPine [Norvasc] 5 mg PO DAILY 09/09/23 carvediloL [Coreg] 12.5 mg PO BID 09/09/23 Objective - Vital Signs/Intake & Output Reviewed Vital Signs: Yes Vital Signs: Vital Signs x48h Temp Pulse Pulse Resp BP Pulse Ox 09/10/23 16:10 36.7 C 81 16 139/62 H 96 09/10/23 15:17 60 20 09/10/23 11:30 50 L 20 Intake & Output: Intake & Output 09/07/23 09/08/23 09/09/23 09/10/23 23:59 23:59 23:59 23:59 Intake Total 3550 2775.000 Output Total 300 Balance 3250 2775.000 - Objective General Appearance: positive: No acute distress, Alert, Other (Elderly gentleman sitting in a chair, moderately obese with a BMI of 34, 6 feet 2 inches tall, 120.9 kg. Yesterday he was +3250 cc of fluid. Weight on admission is reflected with 120.9. Today's weight was not done.) Eyes Bilateral: positive: PERRL, EOMI ENT: positive: Pharynx nml Neck: positive: No JVD. negative: Stiff neck Respiratory: positive: No respiratory distress, Wheezes, Rhonchi. negative: Rales Cardiovascular: positive: Regular rate & rhythm Abdomen: positive: Non-tender, No organomegaly, Nml bowel sounds, No distention, Other (Protuberant, obese pannus) Skin: positive: Warm, Dry, Pallor Extremities: positive: Full ROM, Pedal edema (Trace around his ankles and lower shins.), Other (Large varicose veins of the calves, and superficial perforators around the malleoli and top of his feet but no venous stasis redness or hyperpigmentation) Neurologic/Psychiatric: positive: Oriented x3, CN's nml (2-12) (Mildly deaf), Motor nml - Lab Results Fish Bones: 09/10/23 04:50 09/10/23 04:50 Other Labs: Lab Results x24hrs 09/10/23 09/10/23 09/10/23 Range/Units 16:41 11:28 07:35 WBC (4.8-10.8) x10^3/uL RBC (4.70-6.10) 10^6/uL Hgb (14.0-18.0) g/dL Hct (42.0-52.0) % MCV (80.0-94.0) fL MCH (27.0-31.0) pg MCHC (32.0-36.0) g/dL RDW (12.0-15.0) % Plt Count (130-450) 10^3/uL MPV (7.4-11.4) fL Neut # (Auto) (1.5-6.6) 10^3/uL Lymph # (Auto) (1.5-3.5) 10^3/uL [place] # (Auto) (0.0-1.0) 10^3/uL Eos # (Auto) (0.0-0.7) 10^3/uL Baso # (Auto) (0.0-0.1) 10^3/uL Absolute Nucleated RBC x10^3/uL Nucleated RBC % /100WBC Sodium (135-145) mmol/L Potassium (3.5-4.5) mmol/L Chloride (101-111) mmol/L Carbon Dioxide (21-32) mmol/L Anion Gap (6-13) BUN (6-20) mg/dL Creatinine (0.6-1.3) mg/dL Estimated GFR (MDRD) (>89) Glucose (74-104) mg/dL POC Whole Bld Glucose 156 H 171 H 136 H (70 - 100) mg/dL Calcium (8.5-10.3) mg/dL 09/10/23 09/10/23 09/09/23 Range/Units 04:50 04:50 21:11 WBC 10.5 (4.8-10.8) x10^3/uL RBC 3.84 L (4.70-6.10) 10^6/uL Hgb 11.4 L (14.0-18.0) g/dL Hct 33.8 L (42.0-52.0) % MCV 88.0 (80.0-94.0) fL MCH 29.7 (27.0-31.0) pg MCHC 33.7 (32.0-36.0) g/dL RDW 13.0 (12.0-15.0) % Plt Count 186 (130-450) 10^3/uL MPV 10.9 (7.4-11.4) fL Neut # (Auto) 8.2 H (1.5-6.6) 10^3/uL Lymph # (Auto) 1.1 L (1.5-3.5) 10^3/uL [place] # (Auto) 0.9 (0.0-1.0) 10^3/uL Eos # (Auto) 0.2 (0.0-0.7) 10^3/uL Baso # (Auto) 0.0 (0.0-0.1) 10^3/uL Absolute Nucleated RBC 0.00 x10^3/uL Nucleated RBC % 0.0 /100WBC Sodium 125 L (135-145) mmol/L Potassium 4.2 (3.5-4.5) mmol/L Chloride 93 L (101-111) mmol/L Carbon Dioxide 22 (21-32) mmol/L Anion Gap 10.0 (6-13) BUN 52 H (6-20) mg/dL Creatinine 1.7 H (0.6-1.3) mg/dL Estimated GFR (MDRD) 39 L (>89) Glucose 124 H (74-104) mg/dL POC Whole Bld Glucose 174 H (70 - 100) mg/dL Calcium 9.0 (8.5-10.3) mg/dL ABX Reporting Has patient been on IV antibiotics over the past 48 hours?: Yes Assessment/Plan - Problem List (1) Pneumonia Impression: -Today is day #2/3 azithromycin, and day #2/5 ceftriaxone. Blood cultures are negative after 1 day. And Gram stain of his sputum has many gram-positive bacilli, gram-positive cocci in pairs, and few white cells. So the Gram stain is not helpful in guiding antibiotics. His hypoxia has resolved. Now on room air. Saturating at 96-95. Overall I think this patient has improved. And he is ambulating and eating. Plan: Complete 3 days of IV antibiotics today. Changed to oral antibiotics tomorrow and discharge tomorrow. (2) SCOT (acute kidney injury)Superimposed on chronic kidney disease stage III Assessment/Plan: --No obstruction seen on renal US, however radiologist recommending non contrast CT to evaluate left kidney cyst. I will stop IV fluids at his request. I resumed his home diuretics although I think his home diuretics may be the cause of his current acute on chronic kidney insufficiency. (3) Hyponatremia Assessment/Plan: Secondary to diuretics. Baseline sodium is 135 a year ago July. (4) Fall at home Assessment/Plan: --PT/OT Was ordered by the previous hospitalist. However this patient is ambulating in the room, needs no assist. I will cancel the order for PT and OT. (5) Rheumatoid arthritis Qualifiers: Rheumatoid arthritis location: multiple sites Assessment/Plan: --Holding home Abatacept. Will defer to his Dog Sitter as when to restart. (6) DM type 2 (diabetes mellitus, type 2) Qualifiers: Diabetes mellitus long term care administrator insulin use: with long term care administrator use Diabetes mellitus complication status: without complication Qualified Code(s): E11.9 - Type 2 diabetes mellitus without complications; Z79.4 - intermediate (current) use of insulin Assessment/Plan: Yesterday's glucose is 154, 174. Today's glucose is 136, 171, 156. He is eating 75 to 100% of his food. Glucose has been controlled with sliding scale insulin. --Continue SSI. He does use insulin at home. --A1c is 8.1 (7) Hypertension Qualifiers: Hypertension type: primary hypertension Qualified Code(s): I10 - Essential (primary) hypertension Assessment/Plan: --Holding home antihypertensives in setting of SCOT and hyponatremia. Blood pressure 139/62 today. Home meds are Coreg, Lasix, Norvasc, chlorthalidone. (8) Paroxysmal A-fib Assessment/Plan: --Continue carvedilol and Eliquis. (9) Chronic systolic heart failure Assessment/Plan: --Continue carvedilol. Resume eplerenone and entresto when SCOT resolved and BP can tolerate. --TTE from 06/28/22 showing LVEF > 55%. --He is not in an acute exacerbation. Qualifiers: Qualified Code(s): J18.9 - Pneumonia, unspecified organism
[2023-09-11] MEDS: ACETAMINOPHEN 325 MG TABLET PO PRN (03:41)
[2023-09-11 06:04] LABS: BASOPHILS % (AUTO) 0.2 %; EOSINOPHILS # (AUTO) 0.2 10^3/uL (0.0-0.7); EOSINOPHILS % (AUTO) 1.6 %; HCT - HEMATOCRIT 32.9 % (42.0-52.0); HGB - HEMOGLOBIN 11.3 g/dL (14.0-18.0); LYMPHOCYTES # (AUTO) 1.1 10^3/uL (1.5-3.5); LYMPHOCYTES % (AUTO) 9.9 %; MEAN CORPUSCULAR HEMOGLOBIN 29.9 pg (27.0-31.0); MEAN CORPUSCULAR HGB CONC 34.3 g/dL (32.0-36.0); MEAN PLATELET VOLUME 10.1 fL (7.4-11.4); MONOCYTES # (AUTO) 0.8 10^3/uL (0.0-1.0); MONOCYTES % (AUTO) 7.1 %; NEUTROPHILS # (AUTO) 8.7 10^3/uL (1.5-6.6); NEUTROPHILS % (AUTO) 80.5 %; PLT - PLATELET COUNT 192 10^3/uL (130-450); RED BLOOD COUNT 3.78 10^6/uL (4.70-6.10); RED CELL DISTRIBUTION WIDTH 13.1 % (12.0-15.0); WHITE BLOOD COUNT 10.8 x10^3/uL (4.8-10.8)
[2023-09-11 06:18] LABS: CALCIUM 9.3 mg/dL (8.5-10.3); CREATININE 1.5 mg/dL (0.6-1.3); POTASSIUM 4.1 mmol/L (3.5-4.5)
[2023-09-11 08:05] VITALS: BP 119/55; O2SAT 96
--- NOTE | 2023-09-11 11:50 | Discharge Plan ---
Discharge Plan Problem Reviewed?: Yes Disposition: Home, Self Care Condition: Fair Prescriptions: Folic Acid 1 mg PO DAILY #30 tab levoFLOXacin [Levaquin] 500 mg PO DAILY 4 Days #8 tablet allopurinoL [Zyloprim] 450 mg PO DAILY #30 tab Diet: Regular Activity Restrictions: Activity as Tolerated Shower Restrictions: No Driving Restrictions: No Health Concerns: When you came to the emergency room you were brought in by ambulance. The ambulance paramedics were very concerned about your shortness of breath. That was not your concern. You were focused on the fact that it was uncomfortable to pee. And that you are having less and less urine output. You have a previous history of congestive heart failure and you are very worried about getting that again. You also stated that you are having 1 to 2 weeks of gradually worsening shortness of breath with exertion. And for about 5 days you are having increasing cough, increasing phlegm, and increased sinus and chest congestion. You are not having any fevers. You were seen in the clinic a few days before you were seen in the emergency room and a chest x-ray was negative and you were put on Tessalon, codeine cough syrup, steroids. In the emergency room we found you to have lots of phlegm on lung exam. And your chest x-ray showed a left lower lung pneumonia. You were in acute kidney failure. Your baseline creatinine (which measures how well your kidneys filter) is 1.0. When you came into the emergency room you are already in kidney failure at 1.9. We did an ultrasound to make sure that your kidneys were not obstructed. You have gradually responded to antibiotics for the pneumonia. We held your Lasix for a couple of days because of the kidney failure. But you are insistent that you needed to have your Lasix to make sure you did not go into congestive heart failure. And you were worried because your legs had some mild edema. We resumed her Lasix and giving you compression stockings. You are ambulating in the room. Eating your meals. Do not need any oxygen. And we feel you are stable to go home to complete your therapy for pneumonia Plan of Treatment: 1. Complete your antibiotic therapy. I am prescribing Levaquin. 500 mg once a day for 4 days. That was sent into [facility] pharmacy in [place]. 2. You still have a cough. I offered you Robitussin AC but you said that that really just "messed you up". You already have Julian Ramirez at home and already have Orly DM at home. 3. You do not have a primary care provider. Social work is given you a list of providers. I would suggest that you please establish yourself with a primary care provider soon as possible. Care Goals: To have resolution of this current episode of pneumonia and worsening of your emphysema Assessment: Patient is alert, oriented to person, place, time and situation No Smoking: If you smoke, Please STOP! Call for help.
--- NOTE | 2023-09-11 11:59 | DISCHARGE SUMMARY ---
Discharge Summary Admit Date: 09/09/23 Discharge Date: 09/11/23 Discharging Provider: Gloria Antony MD Code Status: Attempt Resuscitation Condition at Discharge: Fair Discharge Disposition: 01 Home, Self Care - DIAGNOSES Discharge Diagnoses with Status of Each Condition: 1. Community-acquired pneumonia 2. Acute kidney injury 3. Hyponatremia 4. Fall at home 5. Rheumatoid arthritis 6. Hemoglobin A1c between 7% and 9% 7. Essential hypertension 8. Paroxysmal atrial fibrillation 9. Chronic systolic heart failure - HPI History of Present Illness: pt with cough and fatigue and episodes of sob over past 5 days or so. he also reports decrease urination despite being on diuretics. was seen outpt and CXR done and was prescribed meds for cough and inhalers. no chest pain. denies hematuria. has some dysuria. no diarrhea. no sick contacts reported. no abd pain. pt on meds for RA. no AMS. cough is occasionally productive. pt also reports occasional swelling of arms and legs. - Past Medical History Cardiovascular: reports: Congestive heart failure, [place], Atrial fibrillation, O ther Respiratory: reports: COPD, CPAP use Neuro: reports: None Endocrine/Autoimmune: reports: Type 2 diabetes GI: reports: GERD, Hemorrhoids, Diverticulitis : reports: Benign prostate hypertrophy HEENT: reports: None Psych: reports: None Musculoskeletal: reports: Rheumatoid arthritis Derm: reports: Other MRSA Hx?: No - Past Surgical History General: reports: Colonoscopy Ortho: reports: Spine surgery Cardiovascular: reports: Pacemaker Derm: reports: Skin cancer surgery - HOSPITAL COURSE Hospital Course: Greater than 30 minutes were spent coordinating discharge This document was made in part using voice recognition software. While efforts are made to proofread this document, sound alike and grammatical errors may occur. - ALLERGIES Allergies/Adverse Reactions: Allergies Allergy/AdvReac Type Severity Reaction Status Date / Time [id number] Reductase AdvReac Intermediate Cramps Verified 09/08/23 22:26 Inhibitor [[id number] Reductase Inhibitor] - MEDICATIONS Home Medications: Ambulatory Orders Medication Instructions Recorded Confirmed Acetaminophen [Tylenol] 650 mg PO BID 09/13/19 09/09/23 Brimonidine Tartrate/Timolol 1 drops EACHEYE BID 09/13/19 09/09/23 [Combigan 0.2%-0.5% Eye Drops] Latanoprost 0.005% Ophth Drops 1 drops EACHEYE QPM 09/13/19 09/09/23 [Xalatan Ophth Drops] Metformin HCl 500 mg PO BID 09/13/19 09/09/23 Sacubitril/Valsartan [Entresto 49 1 tab PO BID 09/13/19 09/09/23 mg-51 mg Tablet] Tamsulosin HCl [Flomax] 0.8 mg PO QPM 09/13/19 09/09/23 Eplerenone [Inspra] 50 mg PO DAILY 08/04/20 09/09/23 Albuterol Sulfate [Proair 1 - 2 puffs IH Q6H PRN 06/27/22 09/09/23 Digihaler] Apixaban [Eliquis] 2.5 mg PO BID 06/27/22 09/09/23 Magnesium Oxide 840 mg PO DAILY 06/27/22 09/09/23 Non Formulary 1 each PO BID 06/27/22 09/09/23 Prednisolone Acetate/Pf 1 drops EACHEYE Q48H 06/27/22 09/09/23 [Prednisolone Acet 1% Eye Drop] Propylene Glycol/Peg 400 [Systane 1 drops EACHEYE QID PRN 06/27/22 09/09/23 Ultra 0.4-0.3% Eye Drp] Tiotropium [place] [Spiriva 2 inh INH DAILY 06/27/22 09/09/23 Respimat] Levothyroxine [Synthroid] 75 mcg PO QDAC #30 tab 07/26/22 09/09/23 Abatacept [Orencia] 100 mg SQ OAW 09/09/23 09/09/23 Calcium Carbonate [[place] 300 mg PO DAILY PRN 09/09/23 09/09/23 Heartburn Chew] Chlorthalidone [Thalitone] 1 tab PO DAILY 09/09/23 09/09/23 Cholecalciferol [Vitamin D3] 25 mcg PO DAILY 09/09/23 09/09/23 Ezetimibe [Zetia] 10 mg PO QD 09/09/23 09/09/23 Furosemide [Lasix] 40 mg PO DAILY 09/09/23 09/09/23 Insulin Glargine [Lantus Solostar] 15 unit SQ HS 09/09/23 09/09/23 Semaglutide [Ozempic] 1 mg SQ OAW 09/09/23 09/09/23 allopurinoL [Allopurinol] 450 mg PO DAILY 09/09/23 09/09/23 amLODIPine [Norvasc] 5 mg PO DAILY 09/09/23 09/09/23 carvediloL [Coreg] 12.5 mg PO BID 09/09/23 09/09/23 Folic Acid 1 mg PO DAILY #30 tab 09/11/23 allopurinoL [Zyloprim] 450 mg PO DAILY #30 tab 09/11/23 levoFLOXacin [Levaquin] 500 mg PO DAILY 4 Days #8 tablet 09/11/23 - LABS Result Diagrams: 09/11/23 05:47 09/11/23 05:47
[2023-09-12 20:08] LABS: MYCOPLASMA PNEUMONIAE IGG ABS 629 U/mL (0-99); MYCOPLASMA PNEUMONIAE IGM ABS <770 U/mL (0-769)
== END 2023-09-11 13:35 | disposition home or self-care (01) | DRG 194 ==
LOC: EDBD → ED 22:13 → MS2 09-09 02:05
PROVIDERS: ADMIT Student in an Organized Health Care Education/Training Program; ATTEND Specialist
DX: J18.9 Pneumonia, unspecified organism (principal); D84.821 Immunodeficiency due to drugs; E87.1 Hypo-osmolality and hyponatremia; J44.0 Chronic obstructive pulmonary disease with (acute) lower respiratory infection; N17.9 Acute kidney failure, unspecified; I50.9 Heart failure, unspecified; I50.22 Chronic systolic (congestive) heart failure; Z20.822 Contact with and (suspected) exposure to COVID-19; I25.2 Old myocardial infarction; E11.65 Type 2 diabetes mellitus with hyperglycemia; K21.9 Gastro-esophageal reflux disease without esophagitis; N40.0 Benign prostatic hyperplasia without lower urinary tract symptoms; M06.9 Rheumatoid arthritis, unspecified; R30.0 Dysuria; I48.0 Paroxysmal atrial fibrillation; I11.0 Hypertensive heart disease with heart failure; Z79.01 Long term (current) use of anticoagulants; Z79.4 Long term (current) use of insulin; Z79.60 Long term (current) use of unspecified immunomodulators and immunosuppressants; Z79.84 Long term (current) use of oral hypoglycemic drugs; Z79.85 Long-term (current) use of injectable non-insulin antidiabetic drugs; Z79.890 Hormone replacement therapy; Z79.899 Other long term (current) drug therapy; Z83.3 Family history of diabetes mellitus; Z87.891 Personal history of nicotine dependence; Z91.81 History of falling; Z95.0 Presence of cardiac pacemaker
CPT/HCPCS: 36415; 71045; 71250; 76770; 80048; 80053; 80061; 80069; 81003; 82550; 83036; 83690; 83880; 84443; 84484; 85025; 86738; 87040; 87070; 87205; 87633; 93005; 94640; 99285; A9270; J7120; 81001; 83721; 87086; 87181